=== PATIENT | female | born 1950 | race Caucasian/White ===

== ENCOUNTER 2017-12-19 02:48 | Emergency (ER) | payer OTHER, SELFPAY, MEDICARE ==
[2017-12-19 02:52] VITALS: BP 93/57; PULSE 68; RESP 22; TEMP 36.8; O2SAT 97
--- NOTE | 2017-12-19 03:04 | ED.GENADUL_ITS ---
Disposition Clinical Impression: Low back strain Disposition: HOME Condition: Improving Instructions: Low Back Strain (ED) Additional Instructions: Home to rest. Remove lidocaine patch in 12 hours. May use hydrocodone, as directed if needed for severe pain in 4-6 hours. Continue your regular medications. Return for worsening discomfort, the development of shortness of breath, chest pain, or any other concerns per Medical Decision Making - EKG Data -: EKG Interpreted by Me EKG shows normal: sinus rhythm 12/19/17 03:05 Normal sinus rhythm, in the 60s, first-degree AV block - Radiology Data Radiology results: report reviewed, image reviewed - Medical Decision Making 67-year-old female presents with the gradual onset of low back pain and muscular tenderness on exam. This developed following cardioversion which was performed yesterday. She is well-appearing, afebrile, exam is reassuring. Most likely muscular strain following her cardioversion. Screening EKG and chest x-ray were obtained without evidence of acute finding. Patient's pain improved with lidocaine patch and oral analgesic. She stable and appropriate for outpatient trial. Will offer two additional Vicodin for home. Return precautions discussed. History of Present Illness - General Chief complaint: Nk/Back Pain Stated complaint: BACK PAIN Time Seen by Provider: 12/19/17 02:52 Source: patient, family, RN notes reviewed Mode of arrival: ambulatory Limitations: no limitations - History of Present Illness Initial comments: Back pain: 67-year-old female who underwent unremarkable cardioversion for atrial fibrillation yesterday with 200 J 1. 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 No lower extremity weakness or numbness. No change to urination. She has not fallen or hurt herself. She has otherwise been well. - Related Data Albuterol Sulfate [Ventolin Hfa] 2 puff IH Q4H PRN #120 inhaler 07/13/15 Atorvastatin Calcium 80 mg PO DAILY #90 tab-cap 07/02/16 Nitroglycerin 0.4 mg SL PRN PRN #30 tab-cap 01/28/17 Tiotropium [Spiriva Handihaler] 18 mcg IH once daily #1 inhaler 01/28/17 Clopidogrel [Plavix] 75 mg PO DAILY #90 tab-cap 03/27/17 Acetaminophen [Tylenol] 650 mg PO Q6H PRN #1 tab 09/24/17 Spironolactone 25 mg PO DAILY #90 tab-cap 10/02/17 Metoprolol Succinate 100 mg PO BID 10/14/17 Apixaban [Eliquis] 5 mg PO BID #60 tab 11/22/17 Bumetanide [Bumex] 2 mg PO BID #60 tab 11/22/17 Magnesium Oxide [Leyva] 500 mg PO DAILY #30 tablet 11/22/17 Multivitamin W/Minerals [Theragran-M] 1 tab PO DAILY tab 11/22/17 Pantoprazole [Protonix] 40 mg PO DAILY@0730 #30 tabcr 11/22/17 Potassium Chloride [K-Dur] 20 meq PO DAILY #30 tabcr 11/22/17 Metolazone 2.5 mg PO every 72 hours #30 tab-cap 11/27/17 Allergies Allergy/AdvReac Type Severity Reaction Status Date / Time lisinopril AdvReac Other (See Unverified 12/19/17 02:55 Comment) sacubitril [From Entresto] AdvReac rash Unverified 12/19/17 02:55 valsartan [From Entresto] AdvReac rash Unverified 12/19/17 02:55 Review of Systems Other: 6 systems are reviewed, otherwise negative Past Medical History - Past Medical History Medical history: AMI, arthritis, CAD, CHF, COPD, hyperlipidemia, hypertension Cardiomyopathy, chronic kidney disease Surgical history: angioplasty/stent, appendectomy, cholecystectomy, herniorraphy , hysterectomy, other (Tonsillectomy) Family history: other (CVA) - Social History Alcohol use: none Drug use: none General Exam - General Limitations: no limitations General appearance: alert, in no apparent distress - Head Head exam: Present: atraumatic, normocephalic - Eye Eye exam: Present: PERRL, EOMI - Neck Neck exam: Present: other (Right neck mass) - Respiratory Respiratory exam: Present: normal lung sounds bilaterally. Absent: respiratory distress, chest wall tenderness - Cardiovascular Cardiovascular Exam: Present: regular rate, normal rhythm - GI/Abdominal GI/Abdominal exam: Present: soft. Absent: distended, tenderness - Back Exam Back exam: Present: normal inspection, full ROM, tenderness, paraspinal tenderness, other (Lumbar to lower thoracic paraspinous muscular tenderness on exam. No step-off or deformity. No midline tenderness). Absent: vertebral tenderness - Neurological Exam Neurological exam: Present: alert, oriented X3 - Psychiatric Psychiatric exam: Present: normal affect, normal mood Course Vital Signs - 24 hr 12/19/17 02:52 Temperature 36.8 C Pulse 68 Respiratory 22 Rate Blood Pressure 93/57 Pulse Oximetry 97
--- NOTE | 2017-12-19 03:15 | DI.REPORT_ITS ---
SYMPTOM/DIAGNOSIS: BACK PAIN AFTER CARDIOVERSION. PA AND LATERAL CHEST: Comparison is made with 14 November 2017. The heart is again noted to be enlarged. A pacemaker is present, unchanged. There are mild underlying fibrotic changes. No superimposed acute infiltrate, effusion or pulmonary edema is seen. IMPRESSION: Cardiomegaly. No acute abnormality.
[2017-12-19] MEDS: Ibuprofen 800 MG TAB PO (03:40)
[2017-12-19] MEDS: Lidocaine 5% Patch 1 PATCH TP (03:40)
[2017-12-19] MEDS: HYDROcodone 5/Acetaminophen 325 TAB PO ×2 (04:09→04:27)
--- NOTE | 2017-12-19 04:09 | DI.VRAD_ITS ---
EXAM: XR Chest, 2 Views EXAM DATE/TIME: 12/19/2017 3:02 AM. CLINICAL HISTORY: 67 years old, female; Pain; Other: Back; Prior surgery; Surgery date: 6+ months; Surgery type: Pacemaker; Patient HX: Back pain S/P cardioversion TECHNIQUE: Frontal and lateral views of the chest. COMPARISON: CR - CHEST 2 VIEWS PA,LAT 2017-11-14 11:44 FINDINGS: Lungs: Hyperinflation compatible with COPD Pleural space: Unremarkable. No pneumothorax. Heart: Unremarkable. No cardiomegaly. Mediastinum: Unremarkable. Bones/joints: Unremarkable. Tubes, lines and devices: Pacemaker present overlying left chest IMPRESSION: No acute findings. Dictated and Authenticated by: Dharmesh Bello MD. Ordering:ELENA SCRUGGS MD
[2017-12-19 06:43] VITALS: BP 93/57; PULSE 68; RESP 22; TEMP 36.8; O2SAT 97
== END 2017-12-19 04:30 | disposition home or self-care (01) ==
PROVIDERS: Emergency Provider Emergency Medicine; PCP Family Medicine
DX: S39.012A Strain of muscle, fascia and tendon of lower back, initial encounter (principal); X58.XXXA Exposure to other specified factors, initial encounter; Y84.8 Other medical procedures as the cause of abnormal reaction of the patient, or of later complication, without mention of misadventure at the time of the procedure; I13.0 Hypertensive heart and chronic kidney disease with heart failure and stage 1 through stage 4 chronic kidney disease, or unspecified chronic kidney disease; I50.9 Heart failure, unspecified; N18.9 Chronic kidney disease, unspecified; Z79.01 Long term (current) use of anticoagulants; I48.91 Unspecified atrial fibrillation; J44.9 Chronic obstructive pulmonary disease, unspecified
CPT/HCPCS: 93005; 99283; 71046; 93010

== ENCOUNTER 2017-12-23 07:34 | Inpatient (IN) | payer MEDICARE, OTHER, SELFPAY ==
[2017-12-23] VITALS (40 sets, daily range): BP systolic 91–129; BP diastolic 50–85; PULSE 69–137; RESP 15–37; TEMP 35.8–36.7; O2SAT 93–100
[2017-12-23 07:57] LABS: Bilirubin Negative (Negative); Blood Large (Negative); Clarity Clear; Glucose Negative (Negative); Ketones Negative (Negative); Leukocyte Esterase Negative (Negative); Nitrite Negative (Negative); Specific Gravity <= 1.005 (1.005-1.025); Urobilinogen 0.2 EU/dL (Up TO 0.2); pH 5.5 (5-8)
--- NOTE | 2017-12-23 08:01 | DI.REPORT_ITS ---
SYMPTOM/DIAGNOSIS: WEAKNESS CHEST X-RAY: Frontal and lateral views. Comparison 12/19/17. Heart size is stable. Pacing wires are in stable position. The pulmonary vasculature is within normal limits. The lungs show no infiltrates, effusions or pneumothoraces. Degenerative changes are seen in the spine. IMPRESSION: No acute pulmonary process.
[2017-12-23 08:04] LABS: Bacteria Few HPF (Negative); Crystals Negative HPF (Negative); Epithelial Cells Negative HPF (Negative); Mucus Trace (Negative); Other Cells Negative (Negative); RBC 20-50 (0-2); WBC 0-2 HPF (0-5)
[2017-12-23 08:05] LABS: C & S Indicated? No; Casts Negative LPF (Negative)
[2017-12-23 08:27] LABS: Abs Immature Grans 0.02 k/cumm (0.0-0.09); Absolute Basophil Count 0.02 k/cumm (0.0-0.2); Absolute Lymphocyte Count 0.54 k/cumm (1.2-3.4); Absolute Monocyte Count 1.07 k/cumm (0.11-0.7); Absolute Neutrophil Count 14.78 k/cumm (1.2-6.7); Basophils % 0.1; HCT 30.1 % (36.0-46.0); HGB 9.7 g/dL (12.0-15.5); Immature Grans % 0.1; Lymphocytes % 3.3; Mean Corp. HGB Concentration 32.2 g/dL (32.0-36.0); Mean Corpuscular Hemoglobin 25.9 pg (27.0-33.0); Mean Corpuscular Volume 80.3 fL (80-95); Mean Platelet Volume 9.5 fL (8.0-11.0); Monocytes % 6.5; Platelet Count 385 x1000/uL (130-400); RBC 3.75 m/cumm (4.00-5.20); RBC Distribution Width 18.7 % (11.7-14.6); White Blood Cell Count 16.42 k/cumm (4.4-10.8)
[2017-12-23 08:39] LABS: Anisocytosis 2+; Diff Comment RBC Morph Reviewed
--- NOTE | 2017-12-23 08:39 | ED.GENADUL ---
Disposition Clinical Impression: Hyponatremia, Weakness Disposition: [facility] INPATIENT Medical Decision Making - Lab Data Laboratory Tests 12/23/17 07:45 Urine Color Yellow Urine Clarity Clear Urine pH 5.5 Ur Specific [place] <= 1.005 Urine Protein Negative Urine Ketones Negative Urine Blood Large H Urine Nitrite Negative Urine Bilirubin Negative Urine Urobilinogen 0.2 Ur Leukocyte Esterase Negative Urine RBC 20-50 H Urine WBC 0-2 Ur Epithelial Cells Negative Urine Crystals Negative Urine Bacteria Few Urine Casts Negative Urine Mucus Trace Urine Other Negative Ur Culture Indicated? No Urine Glucose Negative Results reviewed for labs ordered during visit: Yes 12/23/17 11:26 EKG shows normal sinus rhythm with first-degree AV block with frequent PVCs, left bundle branch block, normal axis, no acute ischemic changes, no STEMI, nondiagnostic EKG - Radiology Data Chest x-ray visualized and interpreted by myself in conjunction with radiology: No acute process - Medical Decision Making Zora Villanueva is a 67-year-old woman with history of coronary artery disease, atrial fibrillation on Eliquis, CHF, hypertension, chronic kidney disease presenting to the emergency department with generalized weakness since waking at 1 AM this morning to use the bathroom. On exam patient is nontoxic appearing with dry mucous membranes. She has a benign cardiopulmonary exam. Nonfocal neuro exam. Concern for ACS versus metabolic/slight disturbance versus infection versus other. Plan for EKG, chest x-ray, screening labs, IV, telemetry. Will monitor and reassess. EKG unchanged from prior. Chest x-ray okay. Labs show leukocytosis, BNP 11,000, elevated BUN, elevated creatinine mildly increased from baseline, hyponatremia at 125. Patient is afebrile, no apparent source of infection, unclear cause of leukocytosis. Will hold antibiotics. Plan for IV normal saline at 150 cc/h, will hold at 2 hours for reassessment. Plan for admission. History of Present Illness - General Chief complaint: GenMedical Stated complaint: SINDHU Time Seen by Provider: 12/23/17 08:01 Source: patient, RN notes reviewed Mode of arrival: EMS Limitations: no limitations - History of Present Illness Initial comments: Zora Villanueva is a 67 y/o woman with history of coronary artery disease status post cardiac arrest 07/07, atrial fibrillation on Eliquis, chronic kidney disease, COPD, CHF with ejection fraction 20% presenting to the emergency department with generalized weakness. Patient reports that she has been feeling in her usual state of health. Had a normal day yesterday. She reports that she woke up in the middle the night to urinate and could not stand secondary to feeling her legs are weak. She was not able to make it to the toilet because of this. Patient called EMS this morning because she continues to feel too weak to stand. Patient denies having any pain, no fever, no shortness of breath, no vomiting, no diarrhea. Has been sleeping flat with one pillow as per usual. She is fluid restricted to 1500 cc per day, which she has been adhering to. Has been eating and drinking normally for her. No recent travel. - Related Data Albuterol Sulfate [Ventolin Hfa] 2 puff IH Q4H PRN #120 inhaler 07/13/15 Atorvastatin Calcium 80 mg PO DAILY #90 tab-cap 07/02/16 Nitroglycerin 0.4 mg SL PRN PRN #30 tab-cap 01/28/17 Tiotropium [Spiriva Handihaler] 18 mcg IH once daily #1 inhaler 01/28/17 Clopidogrel [Plavix] 75 mg PO DAILY #90 tab-cap 03/27/17 Acetaminophen [Tylenol] 650 mg PO Q6H PRN #1 tab 09/24/17 Spironolactone 25 mg PO DAILY #90 tab-cap 10/02/17 Metoprolol Succinate 100 mg PO BID 10/14/17 Apixaban [Eliquis] 5 mg PO BID #60 tab 11/22/17 Bumetanide [Bumex] 2 mg PO BID #60 tab 11/22/17 Magnesium Oxide [Leyva] 500 mg PO DAILY #30 tablet 11/22/17 Multivitamin W/Minerals [Theragran-M] 1 tab PO DAILY tab 11/22/17 Pantoprazole [Protonix] 40 mg PO DAILY@0730 #30 tabcr 11/22/17 Potassium Chloride [K-Dur] 20 meq PO DAILY #30 tabcr 11/22/17 Metolazone 2.5 mg PO every 72 hours #30 tab-cap 11/27/17 Allergies Allergy/AdvReac Type Severity Reaction Status Date / Time lisinopril AdvReac Other (See Unverified 12/23/17 09:43 Comment) sacubitril [From Entresto] AdvReac rash Unverified 12/23/17 09:43 valsartan [From Entresto] AdvReac rash Unverified 12/23/17 09:43 Review of Systems Constitutional: denies: fever Eyes: denies: eye pain ENT: denies: ear pain, throat pain, dental pain Respiratory: denies: cough, shortness of breath Cardiovascular: denies: chest pain, palpitations, orthopnea Endocrine: denies: increased hunger, increased thirst Gastrointestinal: denies: abdominal pain, nausea, vomiting, diarrhea Genitourinary: frequency. denies: dysuria Musculoskeletal: denies: back pain, arthralgia, myalgia Skin: denies: rash Neurological: weakness (Generalized). denies: headache, numbness, paresthesias Past Medical History - Past Medical History Medical history: AMI, arthritis, CAD, CHF, COPD, hyperlipidemia, hypertension Cardiomyopathy, chronic kidney disease Surgical history: angioplasty/stent, appendectomy, cholecystectomy, herniorraphy, hysterectomy, other (Tonsillectomy) Family history: other (CVA) - Social History Alcohol use: none Drug use: none General Exam - General Limitations: no limitations General appearance: alert, in no apparent distress, other (Pleasant, conversing normally, nontoxic appearing) - Head Head exam: Present: atraumatic, normocephalic, normal inspection - Eye Eye exam: Absent: scleral icterus, conjunctival injection Pupils: Absent: irregular, unequal, miosis, mydriatic - ENT ENT exam: Present: mucous membranes dry - Neck Neck exam: Present: normal inspection - Respiratory Respiratory exam: Present: normal lung sounds bilaterally. Absent: respiratory distress - Cardiovascular Cardiovascular Exam: Present: regular rate, normal rhythm, normal heart sounds (Somewhat distant heart sounds, no murmur appreciated) - GI/Abdominal GI/Abdominal exam: Present: soft. Absent: distended, tenderness - Extremities Exam Extremities exam: Present: normal inspection, pedal edema (+1 pitting edema bilaterally, patient reports is baseline for her). Absent: calf tenderness - Back Exam Back exam: Present: normal inspection. Absent: rash noted - Neurological Exam Neurological exam: Present: alert, CN II-XII intact, other (Normal tone. Needs assistance to use commode secondary to generalized weakness. ). Absent: altered, motor sensory deficit (Motor 5 out of 5 bilateral upper and lower extremities) - Psychiatric Psychiatric exam: Present: normal affect, normal mood - Skin Skin exam: Present: warm, dry, intact, normal color. Absent: rash Course Vital Signs - 24 hr 12/23/17 07:48 Temperature 36.5 C Pulse 83 Respiratory 18 Rate Blood Pressure 105/58 Pulse Oximetry 98
[2017-12-23 08:40] LABS: Hypochromasia 1+; Poikilocytes 1+
[2017-12-23 08:48] LABS: ALT 28 U/L (12-78); AST 24 U/L (15-37); Albumin 2.5 g/dL (3.4-5.0); Alkaline Phosphatase 235 U/L (46-116); Anion Gap 8.3 mmol/L (3-11); Bilirubin, Total 0.9 mg/dL (0.2-1.0); CO2 29.7 mmol/L (21.0-32.0); CREATININE 2.87 mg/dL (0.55-1.02); Calcium 9.2 mg/dL (8.5-10.1); Chloride 87 mmol/L (98-107); Estimated GFR 16.38 (mL/min/1.73m2); Glucose 118 mg/dL (70-100); NT-proBNP 11015 pg/mL; Potassium 4.2 mmol/L (3.5-5.1); Sodium 125 mmol/L (136-145); TSH (W/Ref FT4) 2.16 uIU/mL (0.358-3.74); Total Protein 7.7 g/dL (6.4-8.2)
[2017-12-23 08:50] LABS: BUN 90 mg/dL (7-18); Troponin I < 0.02 ng/mL (0.00-0.06)
[2017-12-23] MEDS: Normal Saline 1,000 ML 150 ML IV (09:54)
[2017-12-23 10:13] LABS: INR 1.3 (1.0-3.5); PTT Activated 32.1 sec (21.0-31.4); Prothrombin Time 12.3 sec (9.3-10.8)
[2017-12-23 13:15] LABS: Troponin I < 0.02 ng/mL (0.00-0.06)
--- NOTE | 2017-12-23 13:48 | PDOC.HP ---
Date of Service: 12/23/17 Time of Service: 13:48 Assessment/Plan - Assessment/Plan (1) Dehydration Plan: Patient's received small judicious dose of IV fluids. I discontinued her IV fluids but will withhold her diuretics for 24 hours and repeat her BMP. (2) Generalized muscle weakness Plan: We will ask physical therapy to evaluate her strength and gait and balance. She is able to perform her ADLs independently and ambulate independently she can be discharged home tomorrow (3) Chronic hyponatremia Plan: We will withhold her metolazone and spironolactone and Bumex for today. Repeat her labs tomorrow. She indicated to me that she is only taken 1 dose of metolazone since she saw Anna Marie Nuñez in the cardiology clinic on December 03, 2017. Therefore I do not think the metolazone was contributing significantly to her current electrolyte abnormalities. Her spironolactone may need to be reduced every other day (4) Chronic kidney disease, stage III (moderate) Assessment: Slight worsening of her renal function as evidenced by rising BUN and creatinine Plan: Withhold diuretics as outlined above repeat labs in the morning. If improving we will need to decide on dosing and frequency of her Bumex and her spironolactone. I would withhold the metolazone for now History of Present Illness - History of Present Illness Chief Complaint: Generalized weakness and inability to ambulate, hyponatremia History of Present Illness: 67-year-old female with a history of ischemic cardiomyopathy with previous ST elevation MO complicated by cardiogenic shock in April 2014 resulting in PCI of her LAD and first diagonal with subsequent depressed LVEF of 35% who declined an ICD placement at that time. She subsequently re-presented to the hospital June 2017 with out of hospital cardiac arrest, V. tach/V. fib and was resuscitated and after hypothermic and drug-induced coma underwent cardiac catheterization that showed no in-stent restenosis and no new obstructive disease. She underwent having an ICD placement at [facility]. She subsequently has been treated for atrial fibrillation and a repeat transthoracic echocardiogram demonstrates an LVEF of 15-20%. Patient is been adherent to a 1500 mL fluid restriction and low-sodium diet. She is also on multiple diuretics including spironolactone 25 mg daily and Bumex 2 mg twice a day and last month was on metolazone 2.5 mg every 72 hours. She now presents emergency department with acute generalized muscle weakness and inability to ambulate under her own power. She states she try to get to the bathroom this morning and fell and was incontinent of urine. She has had no other focal signs or symptoms of a CVA such as dysarthric speech or facial asymmetry or acute visual changes and no focal paralysis. Patient denies any chest pain or pressure or shortness of breath. She was evaluated emergency room by Dr. Joana Womack who performed an EKG as well as a chest x-ray and routine labs. 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 Labs were remarkable for elevated BUN of 19 creatinine 2.87. She has known chronic renal insufficiency with a baseline creatinine of between 2.5 and 3. Her BUN of 90 is slightly elevated over her baseline BUN of 50-70. Serum sodium is depressed and 125 which is not significantly out of her baseline level which runs between 125-130. 2 troponins were obtained both less than 0.02. TSH was normal at 2.16. ProBNP is elevated at 11,000 which is about her baseline which tends to run from 10,000-14,000. Patient was started on normal saline at 150 mL an hour by the emergency room attending. Patient's received a total of 300 mL of normal saline we have since stopped her IV fluids. Patient is admitted on observation overnight for evaluation by physical therapy to assess her gait strength and ADL performance. We will withhold her diuretics overnight and monitor her electrolytes and BUN and creatinine - Past Medical History Cardiac: AFIB (Paroxysmal chronically anticoagulated with apixaban), CAD (ST elevation MO in April 2014 resulting in cardiogenic shock with subsequent cardiac catheterization and PCI with stents to her LAD and first diagonal branch. Subsequent cardiac catheterization in June 2017 after V. tach/V. fib cardiac arrest demonstrated no new obstructive disease and no in-stent restenosis), CHF (Ischemic cardiomyopathy LVEF of 35% after her ST elevation MO in April 2014. Subsequent evaluation with transthoracic echocardiogram in June 2017 demonstrated LVEF of 15-20%, patient has an ICD), MO (ST elevation MO in April 2014 complicated by cardiogenic shock. Treated with coronary stent to her LAD and first diagonal branch. LVEF 35% that time. Patient declined an ICD.), Hyperlipidemia, Other (Ventricular tachycardia/ventricular fibrillation secondary to ischemic cardiomyopathy resulting cardiac arrest out of hospital treated with hypothermic cooling and drug-induced coma and subsequently receiving ICD implant at [facility]. 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 Gallardo at [facility]) Renal/: Chronic renal insuff (Baseline creatinine of 1.8-2.5 and as high as 3.24, baseline BUN of 52 was high as 90), Other (Kidney stones, urinary incontinence) Endocrine: Other (Impaired glucose tolerance) - Past Social History Smoke: Quit (Quit smoking 2013 after myocardial infarction) Alcohol: None Drugs: None Review of Systems - Medications/Allergies Allergies/Adverse Reactions: Allergies Allergy/AdvReac Type Severity Reaction Status Date / Time lisinopril AdvReac Other (See Unverified 12/23/17 09:43 Comment) sacubitril [From Entresto] AdvReac rash Unverified 12/23/17 09:43 valsartan [From Entresto] AdvReac rash Unverified 12/23/17 09:43 Medications: Current Medications Acetaminophen (Tylenol) 650 mg PO Q6H PRN PRN Al Hydrox/Mg Hydrox/Simethicone (Mylanta Liquid) 30 ml PO Q2H PRN PRN Albuterol Sulfate (Ventolin Hfa) 2 puff IH Q4H PRN [facility] Apixaban (Eliquis) 5 mg PO BID [facility] Clopidogrel Bisulfate (Plavix) 75 mg PO DAILY [facility] Dimethicone/Zinc Oxide (Sarah Protect Cream) 0 gm TP PRN PRN Docusate Sodium (Colace) 100 mg PO TID PRN PRN Sodium Chloride (Saline 1000ml Bag) 1,000 mls @ 150 mls/hr IV INFUSION YOSVANY Last Admin: 12/23/17 09:54 Dose: 150 mls/hr IV Miscellaneous Supplies () 1 each IV DIRECTED YOS[facility]ANY Iron/Minerals/Multivitamins (Theragran-M) 1 tab PO DAILY [facility] Magnesium Hydroxide (Milk Of Magnesia) 30 ml PO DAILY PRN PRN Metoprolol Succinate (Toprol Xl) 100 mg PO DAILY [facility] Nitroglycerin (Nitrostat) 0.4 mg SL Q5 MIN PRN X3 PRN Non-Formulary Medication (Atorvastatin Calcium [Atorvastatin Calcium]) 80 mg PO DAILY [facility] Non-Formulary Medication (Magnesium Oxide [Leyva]) 500 mg PO DAILY [facility] Non-Formulary Medication (Tiotropium) 18 mcg IH once daily [facility] Pantoprazole Sodium (Protonix) 40 mg PO DAILY@0730 [facility] Polyethylene Glycol (Miralax) 17 gm PO DAILY PRN PRN PRN Reason: Constipation Sodium Chloride (Saline Flush 10 Ml Syringe) 0 ml IVP PRN PRN Active Medications Generic Name Dose Route Start Last Admin Trade Name Freq PRN Reason Stop Dose Admin Acetaminophen 650 mg 12/23/17 13:45 12/23/17 14:10 Tylenol PO 650 mg Q6H PRN PRN Administration Al Hydrox/Mg Hydrox/Simethicone 30 ml 12/23/17 13:43 Mylanta Liquid PO Q2H PRN PRN Albuterol Sulfate 2 puff 12/23/17 13:45 Ventolin Hfa IH Q4H PRN PRN Apixaban 5 mg 12/23/17 20:00 Eliquis PO BID [facility] Atorvastatin Calcium 80 mg 12/24/17 08:30 Lipitor PO DAILY [facility] Clopidogrel Bisulfate 75 mg 12/24/17 08:30 Plavix PO DAILY [facility] Dimethicone/Zinc Oxide 0 gm 12/23/17 13:43 Sarah Protect Cream TP PRN PRN Docusate Sodium 100 mg 12/23/17 13:43 Colace PO TID PRN PRN IV Miscellaneous Supplies 1 each 12/23/17 10:15 IV DIRECTED [facility] Iron/Minerals/Multivitamins 1 tab 12/24/17 08:30 Theragran-M PO DAILY [facility] Magnesium Hydroxide 30 ml 12/23/17 13:43 Milk Of Magnesia PO DAILY PRN PRN Magnesium Oxide 400 mg 12/24/17 08:30 Mag-Ox 400 PO DAILY [facility] Metoprolol Succinate 100 mg 12/24/17 08:30 Toprol Xl PO DAILY [facility] Nitroglycerin 0.4 mg 12/23/17 13:45 Nitrostat SL Q5 MIN PRN X3 PRN Pantoprazole Sodium 40 mg 12/24/17 07:30 Protonix PO DAILY@0730 [facility] Polyethylene Glycol 17 gm 12/23/17 13:43 Miralax PO DAILY PRN PRN Constipation Sodium Chloride 0 ml 12/23/17 10:14 Saline Flush 10 Ml Syringe IVP PRN PRN Tiotropium [place] 1 cap 12/24/17 08:30 Spiriva Handihaler IH DAILY [facility] Albuterol Sulfate [Ventolin Hfa] 2 puff IH Q4H PRN #120 inhaler 07/13/15 Atorvastatin Calcium 80 mg PO DAILY #90 tab-cap 07/02/16 Nitroglycerin 0.4 mg SL PRN PRN #30 tab-cap 01/28/17 Tiotropium [Spiriva Handihaler] 18 mcg IH once daily #1 inhaler 01/28/17 Clopidogrel [Plavix] 75 mg PO DAILY #90 tab-cap 03/27/17 Acetaminophen [Tylenol] 650 mg PO Q6H PRN #1 tab 09/24/17 Spironolactone 25 mg PO DAILY #90 tab-cap 10/02/17 Metoprolol Succinate 100 mg PO BID 10/14/17 Apixaban [Eliquis] 5 mg PO BID #60 tab 11/22/17 Bumetanide [Bumex] 2 mg PO BID #60 tab 11/22/17 Magnesium Oxide [Leyva] 500 mg PO DAILY #30 tablet 11/22/17 Multivitamin W/Minerals [Theragran-M] 1 tab PO DAILY tab 11/22/17 Pantoprazole [Protonix] 40 mg PO DAILY@0730 #30 tabcr 11/22/17 Potassium Chloride [K-Dur] 20 meq PO DAILY #30 tabcr 11/22/17 Metolazone 2.5 mg PO every 72 hours #30 tab-cap 11/27/17 Note she only took the metolazone once last December 20 Objective - Exam Vitals and I&O: Vital Signs Temp 35.8 C L 12/23/17 12:18 Pulse 70 12/23/17 12:18 Resp 20 12/23/17 12:18 BP 129/72 12/23/17 12:18 Pulse Ox 98 12/23/17 12:18 Intake & Output 12/22/17 12/23/17 12/23/17 23:59 11:59 23:59 Output Total 800 Balance -800 Weight 107.4 kg Output: Urine 800 General: Alert, Oriented x3, Cooperative, No acute distress HEENT: Atraumatic, PERRLA, EOMI Neck: JVD, +2 carotid pulse wo bruit Lungs: Clear to auscultation, Normal air movement Cardiovascular: Regular rate, Murmurs Abdomen: Normal bowel sounds, Soft. denies: Tenderness Extremities: denies: Cyanosis, Edema, Tenderness/swelling Skin: denies: Rashes Neurological: Normal speech, Strength at 5/5 X4 ext, Normal tone, Sensation intact Psych/Mental Status: Mental status NL, Mood NL Results - Laboratory Data Result Diagrams: 12/23/17 08:18 12/23/17 08:18 Laboratory Results: Laboratory Tests 12/23/17 12/23/17 12/23/17 07:45 08:18 08:18 WBC 16.42 H RBC 3.75 L Hgb 9.7 L Hct 30.1 L MCV 80.3 MCH 25.9 L MCHC 32.2 RDW 18.7 H Plt Count 385 D MPV 9.5 Immature Gran % 0.1 Neutrophils % 90.0 Lymphocytes % 3.3 Monocytes % 6.5 Eosinophils % 0.0 Basophils % 0.1 Absolute Neutrophils 14.78 H Absolute Lymphocytes 0.54 L Absolute Monocytes 1.07 H Absolute Eosinophils 0.00 Absolute Basophils 0.02 Differential Comment Rbc morph reviewed RBC Morphology See below Hypochromasia 1+ Poikilocytosis 1+ Anisocytosis 2+ PT INR APTT Sodium 125 L Potassium 4.2 Chloride 87 L Carbon Dioxide 29.7 Anion Gap 8.3 BUN 90 H* Creatinine 2.87 H Estimated GFR/1.73 m2 16.38 Glucose 118 H Calcium 9.2 Total Bilirubin 0.9 AST 24 ALT 28 Alkaline Phosphatase 235 H Troponin I < 0.02 NT-Pro-B Natriuret Pep 68735 H Total Protein 7.7 Albumin 2.5 L TSH 2.16 Urine Color Yellow Urine Clarity Clear Urine pH 5.5 Ur Specific [place] <= 1.005 Urine Protein Negative Urine Ketones Negative Urine Blood Large H Urine Nitrite Negative Urine Bilirubin Negative Urine Urobilinogen 0.2 Ur Leukocyte Esterase Negative Urine RBC 20-50 H Urine WBC 0-2 Ur Epithelial Cells Negative Urine Crystals Negative Urine Bacteria Few Urine Casts Negative Urine Mucus Trace Urine Other Negative Ur Culture Indicated? No Urine Glucose Negative 12/23/17 09:52 WBC RBC Hgb Hct MCV MCH MCHC RDW Plt Count MPV Immature Gran % Neutrophils % Lymphocytes % Monocytes % Eosinophils % Basophils % Absolute Neutrophils Absolute Lymphocytes Absolute Monocytes Absolute Eosinophils Absolute Basophils Differential Comment RBC Morphology Hypochromasia Poikilocytosis Anisocytosis PT 12.3 H INR 1.3 APTT 32.1 H Sodium Potassium Chloride Carbon Dioxide Anion Gap BUN Creatinine Estimated GFR/1.73 m2 Glucose Calcium Total Bilirubin AST ALT Alkaline Phosphatase Troponin I NT-Pro-B Natriuret Pep Total Protein Albumin TSH Urine Color Urine Clarity Urine pH Ur Specific [place] Urine Protein Urine Ketones Urine Blood Urine Nitrite Urine Bilirubin Urine Urobilinogen Ur Leukocyte Esterase Urine RBC Urine WBC Ur Epithelial Cells Urine Crystals Urine Bacteria Urine Casts Urine Mucus Urine Other Ur Culture Indicated? Urine Glucose - Imaging Studies Imaging Studies: PA lateral chest x-ray dated December 23, 2017 showed no acute pulmonary process. She has stable cardiomegaly. She has pacing wires that are in stable position compared to prior chest x-ray from December 19, 2017. She has no pleural effusions or infiltrates pulmonary vasculature is within normal limits. ECG demonstrates normal sinus rhythm rate of 84 bpm with first-degree AV block. She also has an incomplete left bundle branch block as well as poor R-wave progression across the precordial leads suspicious for an old anterior infarct. She has inverted T waves in 1 aVL which are unchanged from prior ECGs
[2017-12-23] MEDS: Acetaminophen 325 MG TAB 650 MG PO ×2 (14:10→19:36)
--- NOTE | 2017-12-23 14:12 | PDOC.HP_ITS ---
Date of Service: 12/23/17 Time of Service: 13:48 Assessment/Plan - Assessment/Plan (1) Dehydration Plan: Patient's received small judicious dose of IV fluids. I discontinued her IV fluids but will withhold her diuretics for 24 hours and repeat her BMP. (2) Generalized muscle weakness Plan: We will ask physical therapy to evaluate her strength and gait and balance. She is able to perform her ADLs independently and ambulate independently she can be discharged home tomorrow (3) Chronic hyponatremia Plan: We will withhold her metolazone and spironolactone and Bumex for today. Repeat her labs tomorrow. She indicated to me that she is only taken 1 dose of metolazone since she saw Anna Marie Nuñez in the cardiology clinic on December 03, 2017. Therefore I do not think the metolazone was contributing significantly to her current electrolyte abnormalities. Her spironolactone may need to be reduced every other day (4) Chronic kidney disease, stage III (moderate) Assessment: Slight worsening of her renal function as evidenced by rising BUN and creatinine Plan: Withhold diuretics as outlined above repeat labs in the morning. If improving we will need to decide on dosing and frequency of her Bumex and her spironolactone. I would withhold the metolazone for now History of Present Illness - History of Present Illness Chief Complaint: Generalized weakness and inability to ambulate, hyponatremia History of Present Illness: 67-year-old female with a history of ischemic cardiomyopathy with previous ST elevation FL complicated by cardiogenic shock in April 2014 resulting in PCI of her LAD and first diagonal with subsequent depressed LVEF of 35% who declined an ICD placement at that time. She subsequently re- presented to the hospital June 2017 with out of hospital cardiac arrest, V. tach/V. fib and was resuscitated and after hypothermic and drug-induced coma underwent cardiac catheterization that showed no in-stent restenosis and no new obstructive disease. She underwent having an ICD placement at [facility]. She subsequently has been treated for atrial fibrillation and a repeat transthoracic echocardiogram demonstrates an LVEF of 15-20%. Patient is been adherent to a 1500 mL fluid restriction and low-sodium diet. She is also on multiple diuretics including spironolactone 25 mg daily and Bumex 2 mg twice a day and last month was on metolazone 2.5 mg every 72 hours. She now presents emergency department with acute generalized muscle weakness and inability to ambulate under her own power. She states she try to get to the bathroom this morning and fell and was incontinent of urine. She has had no other focal signs or symptoms of a CVA such as dysarthric speech or facial asymmetry or acute visual changes and no focal paralysis. Patient denies any chest pain or pressure or shortness of breath. She was evaluated emergency room by Dr. Joana Womack who performed an EKG as well as a chest x-ray and routine labs. 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 Labs were remarkable for elevated BUN of 19 creatinine 2.87. She has known chronic renal insufficiency with a baseline creatinine of between 2.5 and 3. Her BUN of 90 is slightly elevated over her baseline BUN of 50-70. Serum sodium is depressed and 125 which is not significantly out of her baseline level which runs between 125-130. 2 troponins were obtained both less than 0.02. TSH was normal at 2.16. ProBNP is elevated at 11,000 which is about her baseline which tends to run from 10,000 -14,000. Patient was started on normal saline at 150 mL an hour by the emergency room attending. Patient's received a total of 300 mL of normal saline we have since stopped her IV fluids. Patient is admitted on observation overnight for evaluation by physical therapy to assess her gait strength and ADL performance. We will withhold her diuretics overnight and monitor her electrolytes and BUN and creatinine - Past Medical History Cardiac: AFIB (Paroxysmal chronically anticoagulated with apixaban), CAD (ST elevation FL in April 2014 resulting in cardiogenic shock with subsequent cardiac catheterization and PCI with stents to her LAD and first diagonal branch. Subsequent cardiac catheterization in June 2017 after V. tach/V. fib cardiac arrest demonstrated no new obstructive disease and no in-stent restenosis), CHF (Ischemic cardiomyopathy LVEF of 35% after her ST elevation FL in April 2014. Subsequent evaluation with transthoracic echocardiogram in June 2017 demonstrated LVEF of 15-20%, patient has an ICD), FL (ST elevation FL in April 2014 complicated by cardiogenic shock. Treated with coronary stent to her LAD and first diagonal branch. LVEF 35% that time. Patient declined an ICD.), Hyperlipidemia, Other (Ventricular tachycardia/ ventricular fibrillation secondary to ischemic cardiomyopathy resulting cardiac arrest out of hospital treated with hypothermic cooling and drug-induced coma and subsequently receiving ICD implant at [facility]. 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 Gallardo at [facility]) Renal/: Chronic renal insuff (Baseline creatinine of 1.8-2.5 and as high as 3.24, baseline BUN of 52 was high as 90), Other (Kidney stones, urinary incontinence) Endocrine: Other (Impaired glucose tolerance) - Past Social History Smoke: Quit (Quit smoking 2013 after myocardial infarction) Alcohol: None Drugs: None Review of Systems - Medications/Allergies Allergies/Adverse Reactions: Allergies Allergy/AdvReac Type Severity Reaction Status Date / Time lisinopril AdvReac Other (See Unverified 12/23/17 09:43 Comment) sacubitril [From Entresto] AdvReac rash Unverified 12/23/17 09:43 valsartan [From Entresto] AdvReac rash Unverified 12/23/17 09:43 Medications: Current Medications Acetaminophen (Tylenol) 650 mg PO Q6H PRN PRN Al Hydrox/Mg Hydrox/Simethicone (Mylanta Liquid) 30 ml PO Q2H PRN PRN Albuterol Sulfate (Ventolin Hfa) 2 puff IH Q4H PRN YOSVANY Apixaban (Eliquis) 5 mg PO BID YOSVANY Clopidogrel Bisulfate (Plavix) 75 mg PO DAILY YOSVANY Dimethicone/Zinc Oxide (Sarah Protect Cream) 0 gm TP PRN PRN Docusate Sodium (Colace) 100 mg PO TID PRN PRN Sodium Chloride (Saline 1000ml Bag) 1,000 mls @ 150 mls/hr IV INFUSION YOSVANY Last Admin: 12/23/17 09:54 Dose: 150 mls/hr IV Miscellaneous Supplies () 1 each IV DIRECTED YOSVANY Iron/Minerals/Multivitamins (Theragran-M) 1 tab PO DAILY YOSVANY Magnesium Hydroxide (Milk Of Magnesia) 30 ml PO DAILY PRN PRN Metoprolol Succinate (Toprol Xl) 100 mg PO DAILY YOSVANY Nitroglycerin (Nitrostat) 0.4 mg SL Q5 MIN PRN X3 PRN Non-Formulary Medication (Atorvastatin Calcium [Atorvastatin Calcium]) 80 mg PO DAILY [facility] Non-Formulary Medication (Magnesium Oxide [Leyva]) 500 mg PO DAILY [facility] Non-Formulary Medication (Tiotropium) 18 mcg IH once daily [facility] Pantoprazole Sodium (Protonix) 40 mg PO DAILY@0730 [facility] Polyethylene Glycol (Miralax) 17 gm PO DAILY PRN PRN PRN Reason: Constipation Sodium Chloride (Saline Flush 10 Ml Syringe) 0 ml IVP PRN PRN Active Medications Generic Name Dose Route Start Last Admin Trade Name Freq PRN Reason Stop Dose Admin Acetaminophen 650 mg 12/23/17 13:45 12/23/17 14:10 Tylenol PO 650 mg Q6H PRN PRN Administration Al Hydrox/Mg Hydrox/Simethicone 30 ml 12/23/17 13:43 Mylanta Liquid PO Q2H PRN PRN Albuterol Sulfate 2 puff 12/23/17 13:45 Ventolin Hfa IH Q4H PRN PRN Apixaban 5 mg 12/23/17 20:00 Eliquis PO BID [facility] Atorvastatin Calcium 80 mg 12/24/17 08:30 Lipitor PO DAILY [facility] Clopidogrel Bisulfate 75 mg 12/24/17 08:30 Plavix PO DAILY [facility] Dimethicone/Zinc Oxide 0 gm 12/23/17 13:43 Sarah Protect Cream TP PRN PRN Docusate Sodium 100 mg 12/23/17 13:43 Colace PO TID PRN PRN IV Miscellaneous Supplies 1 each 12/23/17 10:15 IV DIRECTED [facility] Iron/Minerals/Multivitamins 1 tab 12/24/17 08:30 Theragran-M PO DAILY [facility] Magnesium Hydroxide 30 ml 12/23/17 13:43 Milk Of Magnesia PO DAILY PRN PRN Magnesium Oxide 400 mg 12/24/17 08:30 Mag-Ox 400 PO DAILY [facility] Metoprolol Succinate 100 mg 12/24/17 08:30 Toprol Xl PO DAILY [facility] Nitroglycerin 0.4 mg 12/23/17 13:45 Nitrostat SL Q5 MIN PRN X3 PRN Pantoprazole Sodium 40 mg 12/24/17 07:30 Protonix PO DAILY@0730 [facility] Polyethylene Glycol 17 gm 12/23/17 13:43 Miralax PO DAILY PRN PRN Constipation Sodium Chloride 0 ml 12/23/17 10:14 Saline Flush 10 Ml Syringe IVP PRN PRN Tiotropium Hawley 1 cap 12/24/17 08:30 Spiriva Handihaler IH DAILY YOSVANY Albuterol Sulfate [Ventolin Hfa] 2 puff IH Q4H PRN #120 inhaler 07/13/15 Atorvastatin Calcium 80 mg PO DAILY #90 tab-cap 07/02/16 Nitroglycerin 0.4 mg SL PRN PRN #30 tab-cap 01/28/17 Tiotropium [Spiriva Handihaler] 18 mcg IH once daily #1 inhaler 01/28/17 Clopidogrel [Plavix] 75 mg PO DAILY #90 tab-cap 03/27/17 Acetaminophen [Tylenol] 650 mg PO Q6H PRN #1 tab 09/24/17 Spironolactone 25 mg PO DAILY #90 tab-cap 10/02/17 Metoprolol Succinate 100 mg PO BID 10/14/17 Apixaban [Eliquis] 5 mg PO BID #60 tab 11/22/17 Bumetanide [Bumex] 2 mg PO BID #60 tab 11/22/17 Magnesium Oxide [Leyva] 500 mg PO DAILY #30 tablet 11/22/17 Multivitamin W/Minerals [Theragran-M] 1 tab PO DAILY tab 11/22/17 Pantoprazole [Protonix] 40 mg PO DAILY@0730 #30 tabcr 11/22/17 Potassium Chloride [K-Dur] 20 meq PO DAILY #30 tabcr 11/22/17 Metolazone 2.5 mg PO every 72 hours #30 tab-cap 11/27/17 Note she only took the metolazone once last December 20 Objective - Exam Vitals and I&O: Vital Signs Temp 35.8 C L 12/23/17 12:18 Pulse 70 12/23/17 12:18 Resp 20 12/23/17 12:18 BP 129/72 12/23/17 12:18 Pulse Ox 98 12/23/17 12:18 Intake & Output 12/22/17 12/23/17 12/23/17 23:59 11:59 23:59 Output Total 800 Balance -800 Weight 107.4 kg Output: Urine 800 General: Alert, Oriented x3, Cooperative, No acute distress HEENT: Atraumatic, PERRLA, EOMI Neck: JVD, +2 carotid pulse wo bruit Lungs: Clear to auscultation, Normal air movement Cardiovascular: Regular rate, Murmurs Abdomen: Normal bowel sounds, Soft. denies: Tenderness Extremities: denies: Cyanosis, Edema, Tenderness/swelling Skin: denies: Rashes Neurological: Normal speech, Strength at 5/5 X4 ext, Normal tone, Sensation intact Psych/Mental Status: Mental status NL, Mood NL Results - Laboratory Data Result Diagrams: 12/23/17 08:18 12/23/17 08:18 Laboratory Results: Laboratory Tests 12/23/17 12/23/17 12/23/17 07:45 08:18 08:18 WBC 16.42 H RBC 3.75 L Hgb 9.7 L Hct 30.1 L MCV 80.3 MCH 25.9 L MCHC 32.2 RDW 18.7 H Plt Count 385 D MPV 9.5 Immature Gran % 0.1 Neutrophils % 90.0 Lymphocytes % 3.3 Monocytes % 6.5 Eosinophils % 0.0 Basophils % 0.1 Absolute Neutrophils 14.78 H Absolute Lymphocytes 0.54 L Absolute Monocytes 1.07 H Absolute Eosinophils 0.00 Absolute Basophils 0.02 Differential Comment Rbc morph reviewed RBC Morphology See below Hypochromasia 1+ Poikilocytosis 1+ Anisocytosis 2+ PT INR APTT Sodium 125 L Potassium 4.2 Chloride 87 L Carbon Dioxide 29.7 Anion Gap 8.3 BUN 90 H* Creatinine 2.87 H Estimated GFR/1.73 m2 16.38 Glucose 118 H Calcium 9.2 Total Bilirubin 0.9 AST 24 ALT 28 Alkaline Phosphatase 235 H Troponin I < 0.02 NT-Pro-B Natriuret Pep 47157 H Total Protein 7.7 Albumin 2.5 L TSH 2.16 Urine Color Yellow Urine Clarity Clear Urine pH 5.5 Ur Specific Bath <= 1.005 Urine Protein Negative Urine Ketones Negative Urine Blood Large H Urine Nitrite Negative Urine Bilirubin Negative Urine Urobilinogen 0.2 Ur Leukocyte Esterase Negative Urine RBC 20-50 H Urine WBC 0-2 Ur Epithelial Cells Negative Urine Crystals Negative Urine Bacteria Few Urine Casts Negative Urine Mucus Trace Urine Other Negative Ur Culture Indicated? No Urine Glucose Negative 12/23/17 09:52 WBC RBC Hgb Hct MCV MCH MCHC RDW Plt Count MPV Immature Gran % Neutrophils % Lymphocytes % Monocytes % Eosinophils % Basophils % Absolute Neutrophils Absolute Lymphocytes Absolute Monocytes Absolute Eosinophils Absolute Basophils Differential Comment RBC Morphology Hypochromasia Poikilocytosis Anisocytosis PT 12.3 H INR 1.3 APTT 32.1 H Sodium Potassium Chloride Carbon Dioxide Anion Gap BUN Creatinine Estimated GFR/1.73 m2 Glucose Calcium Total Bilirubin AST ALT Alkaline Phosphatase Troponin I NT-Pro-B Natriuret Pep Total Protein Albumin TSH Urine Color Urine Clarity Urine pH Ur Specific Bath Urine Protein Urine Ketones Urine Blood Urine Nitrite Urine Bilirubin Urine Urobilinogen Ur Leukocyte Esterase Urine RBC Urine WBC Ur Epithelial Cells Urine Crystals Urine Bacteria Urine Casts Urine Mucus Urine Other Ur Culture Indicated? Urine Glucose - Imaging Studies Imaging Studies: PA lateral chest x-ray dated December 23, 2017 showed no acute pulmonary process. She has stable cardiomegaly. She has pacing wires that are in stable position compared to prior chest x-ray from December 19, 2017. She has no pleural effusions or infiltrates pulmonary vasculature is within normal limits. ECG demonstrates normal sinus rhythm rate of 84 bpm with first-degree AV block. She also has an incomplete left bundle branch block as well as poor R-wave progression across the precordial leads suspicious for an old anterior infarct. She has inverted T waves in 1 aVL which are unchanged from prior ECGs
--- NOTE | 2017-12-23 14:37 | IN_ITS ---
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 Pt lightheaded with prolonged standing GAIT: CGA no device 25ftx1, further gait witheld due to patient feeling lightheaded and asking to get to bed. Pt positioned in supine with call light in reach BALANCE: Static sitting normal Dynamic Sitting normal Static Standing fair Dynamic Standing fair SPECIAL TESTS: Mobility Limitations Standardized Measure [facility] AM -PAC 6 clicks Basic Mobility Inpatient Short Form: raw score: 18 standardized score: 43.63 CMS score: 46.58% CMS modifier: CK INFORMED CONSENT/EDUCATION: Pt instructed in purpose of PT Consult and plan of care ASSESSMENT: Pt is a 67yr old female who fell in her bathroom at home last night and is admitted with hyponatremia, weakness in setting of coronary artery disease s/p cardiac arrest 07/07, angioplasty s/p stent, atrial fibrillation, congestive heart failure, hypertension, chronic obstructive pulmonary disease, chronic kidney disease, left kidney stone, degenerative changes cervical spine C5-6, C6-7, urinary incontinence. Patient presents with clinical signs and symptoms consistent with generalized weakness, hyponatremia as demonstrated by the following impairment level findings: decreased standing tolerance becoming lightheaded with transfers and gait, decreased strength with standing transfers, decreased strength with gait only able to mobilize 25ft before becoming fatigued, decreased static and dynamic standing balance due to weakness putting her at risk for falls. Pt will benefit from short term skilled therapy intervention for strengthening and mobility training. Impairments are contributing to the following functional limitations: AMPAC score CMS score: 46.58% Patient is assessed as a * Moderate 49526 complexity based on the following: History: hyponatremia, weakness in setting of coronary artery disease s/p cardiac arrest 07/07, angioplasty s/p stent, atrial fibrillation, congestive heart failure, hypertension, chronic obstructive pulmonary disease, chronic kidney disease, left kidney stone, degenerative changes cervical spine C5-6, C6- 7, urinary incontinence. Examination: decreased standing tolerance becoming lightheaded with transfers and gait, decreased strength with standing transfers, decreased strength with gait only able to mobilize 25ft before becoming fatigued, decreased static and dynamic standing balance due to weakness putting her at risk for falls. Presentation: evolving Decision Making: AMPAC score CMS score: 46.58% GOALS Goals x1 week 1. Supine-sit: independent 2. Sit-Supine independent 3. Sit-Stand independent 4. Stand-sit independent 5. Bed-chair: supervision 6. Chair-bed supervision 7. Gait supervision no device 200ft PLAN OF CARE/TREATMENT PLAN: 1-2x/day, 7 days/ week x 1 week Plan of care has been reviewed with the JUICE WEIGHER providing the service under Physical therapy direction. Initiate physical therapy intervention for strengthening, bed mobility, transfers, gait, stairs, balance training, use of assistive device. DISCHARGE RECOMMENDATIONS Home TREATMENT TIME/MINUTES/CODES 25min IE 1435 G Codes in the area mobility of walking and moving around: current status [id number] __CK projected status GP [id number] . Discharge status ( if discharging) GP [id number] xecoz on AMPAC score CMS score: 46.58 % Joanie Benavides PT
[2017-12-23] MEDS: Normal Saline Flush 10 ML SYR IVP (19:36)
[2017-12-23] MEDS: Apixaban 5 MG TAB PO (19:36)
[2017-12-23] MEDS: Normal Saline 250 ML IV (19:37)
[2017-12-24] VITALS (8 sets, daily range): BP systolic 90–112; BP diastolic 56–74; PULSE 68–84; RESP 18–20; TEMP 36.2–36.7; O2SAT 96–98
[2017-12-24] MEDS: Acetaminophen 325 MG TAB 650 MG PO ×4 (01:12→22:58)
[2017-12-24 07:20] LABS: CREATININE 2.09 mg/dL (0.55-1.02); Calcium 9.5 mg/dL (8.5-10.1); Chloride 92 mmol/L (98-107); Estimated GFR 23.62 (mL/min/1.73m2); Glucose 86 mg/dL (70-100); Potassium 3.6 mmol/L (3.5-5.1); Sodium 129 mmol/L (136-145)
[2017-12-24 07:25] LABS: BUN 83 mg/dL (7-18)
[2017-12-24] MEDS: Pantoprazole 40 MG TABCR PO (07:56)
[2017-12-24] MEDS: Atorvastatin 40 MG TAB 80 MG PO (07:56)
[2017-12-24] MEDS: Apixaban 5 MG TAB PO ×2 (07:56→20:11)
[2017-12-24] MEDS: Magnesium Oxide 400 MG TAB PO (07:56)
[2017-12-24] MEDS: Metoprolol CR 50 MG TABCR 100 MG PO (07:56)
[2017-12-24] MEDS: Multivitamin w/Minerals TAB 1 TAB PO (07:56)
[2017-12-24] MEDS: Clopidogrel 75 MG TAB PO (07:56)
[2017-12-24 08:52] LABS: Abs Immature Grans 0.02 k/cumm (0.0-0.09); Absolute Basophil Count 0.04 k/cumm (0.0-0.2); Absolute Eosinophil Count 0.04 k/cumm (0.0-0.7); Absolute Lymphocyte Count 1.13 k/cumm (1.2-3.4); Absolute Monocyte Count 1.43 k/cumm (0.11-0.7); Basophils % 0.3; Eosinophils % 0.3; HCT 31.2 % (36.0-46.0); HGB 9.9 g/dL (12.0-15.5); Immature Grans % 0.2; Lymphocytes % 8.6; Mean Corp. HGB Concentration 31.7 g/dL (32.0-36.0); Mean Corpuscular Hemoglobin 25.3 pg (27.0-33.0); Mean Corpuscular Volume 79.6 fL (80-95); Mean Platelet Volume 10.3 fL (8.0-11.0); Monocytes % 10.9; Neutrophils % 79.7; Platelet Count 373 x1000/uL (130-400); RBC 3.92 m/cumm (4.00-5.20); RBC Distribution Width 19.1 % (11.7-14.6); White Blood Cell Count 13.15 k/cumm (4.4-10.8)
[2017-12-24 08:56] LABS: Absolute Neutrophil Count 10.48 k/cumm (1.2-6.7)
--- NOTE | 2017-12-24 10:05 | INPTTR_ITS ---
PHYSICAL THERAPY PROGRESS NOTE Date: 12/24/17 PRECAUTIONS: Fall SUBJECTIVE: Zora states that she is feeling fine and back to her baseline. OBJECTIVE PAIN: No c/o pain BED MOBILITY/TRANSFERS Sit-stand: I Stand-sit: I GAIT Assistive Device No AD Weightbearing Full Assist: S Distance: 150' Deviation Slow pace TOILETING: Patient toileted independently. ASSESSMENT: Patient tolerated session well without complaint. She was able to progress gait distance without use of assistive device. She was able to toilet independently and demonstrate independence with sit<>stand transfers. PLAN: Continue with PT's POC TREATMENT CODES/TIME: 20 minutes; TAx1
--- NOTE | 2017-12-24 10:32 | PHARADMIT ---
Addendum entered by Maricruz Meredith 12/25/17 14:52: Pharmacy Note Subjective EF is poor , overdiuresed Objective Na coming back up, WBC and SCr going down, iron level low Assessment one dose iron sucrose ordered today , lidocaine patch started, apixaban continues, Plan watch for Na, plans to restart bumetanide and sprironolactone before discharge Original Note: Admission Pharmacy Clinical Review hyponatremia, weakness Code Status FULL Current Weight 105.9 kg Renally Cleared and Narrow Therapeutic Index Meds Crcl ~32.1 mL/min using adjusted body weight current meds okay QTc Value / Action Taken QTc 496 BP Control, Fever BP 112/74 afebrile Electrolytes reviewed Na 129 Cl 92 DVT Prophylaxis is on apixaban Opiate Usage / Scheduled Bowel Regimen Ordered no/prn Plt/SCr for Heparin / Enoxaparin plt 373 SCr 2.09 INR for Warfarin n/a H/H stable, WBC/Bands h/h 9.9/31.2 wbc 13.15 Antibiotic appropriateness n/a Cultures and Sensitivities n/a Surgical ABX d/c within 24 hr n/a DM control / Insulin Dosing bg 86 n/a Heart Failure (Check EF%) (ZOHRA's, B-Block, Diuretics) metoprolol, spironolactone (home med), bumetanide (home med), metolazone (home med) IV to PO Switch n/a Home Meds Reviewed -anticholinergic agents (tiotropium) may enhance the ulcerogenic effect of potassium -clopidogrel may enhance the adverse/toxic effect of apixaban (increased bleed risk) -pantoprazole may decrease serum concentrations of the active metabolite(s) of clopidogrel (it may impair clopidogrels effectiveness) -potassium may enhance the hyperkalemic effect of spironolactone Home Meds Not Ordered bumetanide, metolazone, potassium chloride, spironolactone Comments diuretics on hold
--- NOTE | 2017-12-24 12:38 | PDOC.CMIN ---
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 Zora has four children whom reside locally and are supportive. She is independent at baseline, drives and manages ADL's. Zora states that her Otis does the cooking at home. CURRENT FUNCTIONAL STATUS:: Currently Zora is sitting up on the edge of her bed when this report writer visits, she is pleasant and easily engages in discussion. ADVANCE DIRECTIVES:: None on file Has patient been provided with information about the portal?: Yes Did the patient sign up for the portal?: No CODE STATUS:: Full Code INSURANCE COVERAGE / FINANCIAL ISSUES:: Medicare, [employer], Financial Asst 85 CURRENT HOME/COMMUNITY SERVICES/EQUIPMENT:: Currently Zora has home health RN services in the community whom she states come to her home 2x/week. Zora has no medical equipment at this time. PRIMARY CARE PHYSICIAN:: Dr. Juan POTENTIAL DISCHARGE NEEDS:: F/U appointment with PCP. Resumption of home health RN services PATIENT/FAMILY EDUCATION NEEDS:: Review DC instructions, any limitations, and ongoing DC planning discussion. ANTICIPATED BARRIERS TO DISCHARGE:: None identified at this time. TRANSPORTATION:: Via private vehicle with Otis PLAN:: Zora will return home with a resumption of home health RN services. She will F/U with PCP and plan of care as prescribed. Zora's Otis will transport when ready.
--- NOTE | 2017-12-24 13:16 | INITIAL_ITS ---
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 Zora has four children whom reside locally and are supportive. She is independent at baseline, drives and manages ADL's. Zora states that her Otis does the cooking at home. CURRENT FUNCTIONAL STATUS:: Currently Zora is sitting up on the edge of her bed when this marketing underwriter visits, she is pleasant and easily engages in discussion. ADVANCE DIRECTIVES:: None on file Has patient been provided with information about the portal?: Yes Did the patient sign up for the portal?: No CODE STATUS:: Full Code INSURANCE COVERAGE / FINANCIAL ISSUES:: Medicare, [employer], Financial Asst 85 CURRENT HOME/COMMUNITY SERVICES/EQUIPMENT:: Currently Zora has home health RN services in the community whom she states come to her home 2x/week. Zora has no medical equipment at this time. PRIMARY CARE PHYSICIAN:: Dr. Juan POTENTIAL DISCHARGE NEEDS:: F/U appointment with PCP. Resumption of home health RN services PATIENT/FAMILY EDUCATION NEEDS:: Review DC instructions, any limitations, and ongoing DC planning discussion. ANTICIPATED BARRIERS TO DISCHARGE:: None identified at this time. TRANSPORTATION:: Via private vehicle with Otis PLAN:: Zora will return home with a resumption of home health RN services. She will F/U with PCP and plan of care as prescribed. Zora's Otis will transport when ready.
--- NOTE | 2017-12-24 13:48 | PGE_ITS ---
DATE: DECEMBER 24, 2017 @13:48 ASSESSMENT/PLAN: 1. Hyponatremia Very likely represents hypovolemic hyponatremia in the setting of over- diuresis. The patient has a constellation of findings that include significant elevation in BUN, mildly worsening creatinine, significantly lower chloride than at baseline, and an approximate 5 to 7 kilogram weight loss since her discharge in the setting of active diuresis. Continue to hold Spironolactone, Bumex and Metolazone and monitor sodium carefully. The patient initially received IV fluids and now on hold. 2. Generalized weakness likely in the setting of acute hyponatremia. She appears to be improved. Physical therapy has been consulted. 3. Chronic kidney disease Appears to have had a slight worsening of her renal function, improved today. This is in the setting of dehydration. Continue to monitor kidney functions closely. 4. Congestive heart failure Ischemic cardiomyopathy with an EF of 25%, status post AICD secondary to history of V-fib arrest following refusal of device in the past. Mrs. Villanueva was previously treated aggressively with IV Lasix, transitioned to oral Bumex. Her weight appropriately decreased from 122 to 112 kilograms at that time. Her dry weight should be considered at 110 to 112, currently at 106. Continue to hold Spironolactone and Bumex as stated above secondary to hyponatremia and dehydration. Continue treatment of underlying coronary disease with high dose high potency statin, antiplatelet agent and beta percy therapy. Continue to monitor daily weights closely. 5. Atrial fibrillation Status post recent cardioversion. Continue beta percy therapy. Anticoagulated with Apixaban. 6. History of coronary artery disease Prior history of a STEMI with a development of ischemic cardiomyopathy. The patient has been asymptomatic so far. Continue high potency statin antiplatelet agent with Clopidogrel and beta percy therapy. 7. COPD This appears quiescent, continue home inhaler therapy with long acting anticholinergic, Albuterol on a p.r.n. basis. 8. Nocturnal hypoxia Mrs. Villanueva would benefit from with nocturnal oxygen or sleep study with eventual CPAP if suspicions of obstructive sleep apnea are confirmed. She has refused this in the past. 9. Prophylaxis Continue anticoagulation with Apixaban, also on proton pump inhibitor therapy. 10. Code Status Full code. SUBJECTIVE: 67 year-old woman with a past medical history significant for ischemic cardiomyopathy with an LVEF of 25%, coronary artery disease with subsequent cardiogenic shock, and a history of V-fib arrest necessitating AICD placement, admitted for [facility] Emergency Room on 12/23/17 with complaints of weakness and discovery of hyponatremia. Mrs. Villanueva was recently treated at [facility] for an acute exacerbation of her underlying congestive heart failure. She was initially diuresed aggressively with IV Lasix and then transitioned to twice her normal home dosing of Bumex as per cardiology recommendations. She was maintained on this dose for two days, as her weight, creatinine, electrolytes stayed unchanged she was discharged. From a cardiovascular standpoint and specifically from a congestive heart failure standpoint she was vastly improved with a dry weight of 112 kilograms. As an out-patient she was continued with diuresis and there was some question as to additional dosing of her Metolazone at home. Upon her presentation to the hospital she was noted to have sodium of 125 down from her original baseline of 140. She was also noted to have hypochloremia with a chloride of 87 and worsening renal function with a creatinine of 2.87. BUN 90 up from a baseline of 40-60s. Of note her weight had decreased to approximately 106 to 107 kilograms. Upon admission the patient was started on some IV diuretic therapy, now on hold due to her somewhat profound heart failure. Her Spironolactone, Bumex and Metolazone continue to be on hold. Sodium has improved to 129 this morning and the patient reports improvement in her overall symptoms as well. OBJECTIVE: No overnight events reports. The patient remains afebrile. Vitals: Temperature 36.3 and afebrile, blood pressure 112/7, heart rate 77, pulse oximetry 96% on room air. Weight 105.9 kilograms. Neck: Supple. Cardiovascular: Regular, non-tachycardic. Pulmonary: Clear to auscultation without crackles, rhonchi or wheezing. Abdomen: Bowel sounds present, soft, nontender, nondistended. Vascular: Very little bilateral lower extremity edema. LABORATORY DATA: Sodium 129, improved from 125 yesterday. Potassium 3.6, chloride 92, bicarb 31 , BUN 83 down from 90 yesterday, creatinine 2.09 down from 2.87 yesterday. White blood count improved to 13.15 from 16.4 yesterday. Hemoglobin 9.9, platelet count 373. IMAGING: Chest x-ray performed 12/23/17 with no acute cardiopulmonary process.
[2017-12-24] MEDS: Potassium Chloride 20 MEQ TABCR 40 MEQ PO (14:21)
[2017-12-24] MEDS: Normal Saline Flush 10 ML SYR IVP ×2 (14:25→20:11)
--- NOTE | 2017-12-24 15:30 | INDS_ITS ---
PHYSICAL THERAPY INPATIENT DISCHARGE NOTE Date: 12/24/17 Dates of Service: 12/23/17 - 12/24/12 SUBJECTIVE: Zora states that she is feeling well. She's just returned from showering, stating she was able to walk to the shower on her own. OBJECTIVE Pain: denies ROM: R UE: AROM shoulder flexion 145, elbow and wrist WNL L UE: AROM shoulder flexion 165, elbow and wrist WNL R LE: AROM WNL L LE: AROM WNL STRENGTH R UE: 4/5 shoulder flexion, 5/5 bicep, 5/5 instrument maker L UE: 5/5 throughout R LE: 5./5 throughout L LE: 5/5 throughout BED MOBILITY/TRANSFERS: Supine-sit: independent Sit-supine: independent Sit-stand: independent Stand-sit: independent Bed-Chair: independent Chair-bed: independent GAIT: At initiation of session, patient is independently returning to her bed from the bathroom. She is able to turn to look over her shoulder without UE support or loss of balance. Patient then ambulates 200' with supervision only, no assistive device. BALANCE: Static sitting: Normal Dynamic sitting: Normal Static standing: Normal Dynamic standing: Normal SPECIAL TESTS: AM-PAC shows 16% deficit. TREATMENT: Today's session consisted of re-evaluation, and 200' of supervised ambulation. (TAx1, 15 minutes). ASSESSMENT: Zora has made excellent gains in her mobility, now independently ambulating about her room. She's been encouraged to continue walking with staff as much as possible, and to remain active in her room during the remainder of her acute care stay. At this point, all rehab goals have been met, and patient is appropriate for discharge from PT services. GOALS ( Met / Not Met): Goals: 1. Supine-sit: independent (MET) 2. Sit-Supine independent(MET) 3. Sit-Stand independent(MET) 4. Stand-sit independent(MET) 5. Bed-chair: supervision(MET) 6. Chair-bed supervision (MET) 7. Gait supervision no device 200ft(MET) G-CODES: [id number] (Based on improvements in AM-PAC score) [id number] DISCHARGE PLAN/RECOMMENDATIONS: Discharge from PT services.
[2017-12-25 07:00] VITALS: PULSE 75
[2017-12-25 07:12] LABS: Abs Immature Grans 0.01 k/cumm (0.0-0.09); Absolute Eosinophil Count 0.04 k/cumm (0.0-0.7); Absolute Lymphocyte Count 1.52 k/cumm (1.2-3.4); Absolute Monocyte Count 1.34 k/cumm (0.11-0.7); Basophils % 0.2; Eosinophils % 0.3; HCT 29.6 % (36.0-46.0); HGB 9.1 g/dL (12.0-15.5); Immature Grans % 0.1; Lymphocytes % 12.2; Mean Corp. HGB Concentration 30.7 g/dL (32.0-36.0); Mean Corpuscular Hemoglobin 25.3 pg (27.0-33.0); Mean Corpuscular Volume 82.2 fL (80-95); Mean Platelet Volume 9.9 fL (8.0-11.0); Monocytes % 10.8; Neutrophils % 76.4; Platelet Count 381 x1000/uL (130-400); RBC Distribution Width 18.9 % (11.7-14.6); White Blood Cell Count 12.43 k/cumm (4.4-10.8)
[2017-12-25 07:13] LABS: Absolute Basophil Count 0.02 k/cumm (0.0-0.2)
[2017-12-25 07:25] LABS: Anion Gap 7.7 mmol/L (3-11); BUN 65 mg/dL (7-18); CO2 30.3 mmol/L (21.0-32.0); Calcium 9.2 mg/dL (8.5-10.1); Chloride 97 mmol/L (98-107); Estimated GFR 32.15 (mL/min/1.73m2); Glucose 91 mg/dL (70-100); Potassium 3.8 mmol/L (3.5-5.1); Sodium 135 mmol/L (136-145)
[2017-12-25 07:35] VITALS: BP 94/61; PULSE 72; RESP 18; TEMP 36; O2SAT 96
[2017-12-25] MEDS: Clopidogrel 75 MG TAB PO (08:40)
[2017-12-25] MEDS: Atorvastatin 40 MG TAB 80 MG PO (08:40)
[2017-12-25] MEDS: Apixaban 5 MG TAB PO ×2 (08:40→19:31)
[2017-12-25] MEDS: Metoprolol CR 50 MG TABCR 100 MG PO (08:40)
[2017-12-25] MEDS: Multivitamin w/Minerals TAB 1 TAB PO (08:40)
[2017-12-25] MEDS: Pantoprazole 40 MG TABCR PO (08:40)
[2017-12-25] MEDS: Magnesium Oxide 400 MG TAB PO (08:40)
[2017-12-25] MEDS: Acetaminophen 325 MG TAB 650 MG PO ×3 (08:48→22:31)
[2017-12-25 10:36] LABS: Iron 19 ug/dL (50-175); Total Iron Binding Capacity 277 ug/dL (250-450); Transferrin Sat 7 % (15-50)
[2017-12-25 10:48] LABS: Ferritin 57 ng/mL (8-388)
[2017-12-25] MEDS: Normal Saline Flush 10 ML SYR IVP ×2 (11:34→15:56)
[2017-12-25] MEDS: IRON SUCROSE COMPLEX 200 MG in Normal Saline 100 ML 110 MG IVPB (11:34)
--- NOTE | 2017-12-25 11:49 | PDOC.PROG ---
Date of Service: 12/25/17 Time of Service: 11:49 Assessment/Plan - Assessment/Plan (1) Hyponatremia Plan: Acute on chronic. Likely representing hypovolemic hyponatremia in the setting of overdiuresis. Her sodium has improved to 135 today. Her kidney function is improved back to baseline her weight still appears lower than her dry weight of 110-112 kg. Her blood pressure is soft today, her baseline systolic blood pressure is in the low 100s. Her Aldactone, Bumex and metolazone are currently on hold. Plan to reinitiate diuretics slowly, beginning with aldactone and continue to monitor sodium and blood pressures. (2) Generalized muscle weakness Plan: In the setting of acute hyponatremia. Her weakness has improved. PT was consulted but did not feel that the patient needs physical therapy as she ambulates independently and safely. (3) Chronic kidney disease, stage III (moderate) Plan: Her kidney function has improved to her baseline. Continue to monitor renal function as her diuretics are added back into her regimen. (4) Systolic CHF Plan: Ischemic cariomyopathy with LVEF of 25%, status post AICD secondary to history of V-fib arrest. She is approaching her dry weight of 110-112 kb, she is still slightly below at 105.4 kg today. Plan to reinitiate diuretic therapy slowly, starting with aldactone, likely tomorrow. Continue treatment with high intensity statin, antiplatelet therapy and beta percy. Continue to monitor daily weights. (5) Atrial fibrillation Plan: His post cardioversion. Telemetry shows first-degree heart block, heart rate in the 70s. Continue beta-percy therapy. Continue anticoagulation with apixaban. (6) Coronary artery disease Plan: Prior history of STEMI with subsequent development of ischemic cardiomyopathy. She is currently asymptomatic. Continue hypodensity statin, antiplatelet agent with Plavix and beta-percy therapy. (7) COPD (chronic obstructive pulmonary disease) Plan: Continue home inhaler therapy with long-acting anticholinergic, albuterol on a as needed basis. (8) Nocturnal hypoxia Plan: She would benefit from nocturnal oxygen or sleep study for potential CPAP treatment. She has refused this in the past. This could be offered again as an outpatient. (9) DVT prophylaxis Plan: Continue anticoagulation with apixaban. History of Present Illness - History of Present Illness Chief Complaint: hyponatremia and generalized weakness History of Present Illness: Continue aspirin Zora is a 67-year-old female with a past medical history significant for ischemic cardiomyopathy with an LVEF of 25%, coronary artery disease with subsequent cardiogenic shock, and history of V-fib arrest necessitating AICD placement, admitted from [facility] emergency department on 12/23/2017 with complaints of weakness and a discovery of hyponatremia. She was recently treated at [facility] for an acute exacerbation of her underlying congestive heart failure. She was initially diuresed aggressively with IV Lasix and then transitioned to twice her normal dosing of Bumex as per cardiology recommendations. At the time of discharge her weight was stable, her dry weight was 112 kg. Apparently there was an increase in her diuretics at home and she eventually presented back to the emergency department with hyponatremia, hypochloremia and worsening renal function. At that time her weight had also decreased to approximately 106-107 kg. Her Aldactone, Bumex and metolazone have been on hold since admission. Her weight continues to be low at 105.4. Her blood pressure is mildly low today at 94/61. Cardiology recommended assessing her iron studies, they have returned and she is in fact iron deficient. Cardiology recommended IV iron infusion. The patient reports that she was receiving IV iron infusions about 1 month ago. She is agreeable to receiving IV iron. She really has no complaints today except occasional back spasms and a chronic cough. She denies any shortness of breath, wheezing, chest pain, pressure. She reports that her weakness has improved. She is tolerating her diet without nausea or vomiting. She reports the edema in her lower extremities has improved. Review of Systems - Review of Systems Constitutional: Weakness (Improving.). denies: Fever, Chills, Sweats, Malaise Respiratory: Cough (Chronic nonproductive cough.). denies: Shortness of Breath, Wheezing Cardiovascular: Edema (Mild, improved.). denies: Chest Pain, Palpitations Gastrointestinal: denies: Nausea, Vomiting, Abdominal Pain, Diarrhea Genitourinary: denies: Dysuria, Hematuria Musculoskeletal: Back Pain (She reports chronic intermittent back spasms.) Skin: Lesions (She reports having a sore to her left heel.) - Medications/Allergies Allergies/Adverse Reactions: Allergies Allergy/AdvReac Type Severity Reaction Status Date / Time lisinopril AdvReac Other (See Unverified 12/23/17 09:43 Comment) sacubitril [From Entresto] AdvReac rash Unverified 12/23/17 09:43 valsartan [From Entresto] AdvReac rash Unverified 12/23/17 09:43 Medications: Current Medications Acetaminophen (Tylenol) 650 mg PO Q6H PRN PRN Last Admin: 12/25/17 08:48 Dose: 650 mg Al Hydrox/Mg Hydrox/Simethicone (Mylanta Liquid) 30 ml PO Q2H PRN PRN Albuterol Sulfate (Ventolin Hfa) 2 puff IH Q4H PRN PRN Apixaban (Eliquis) 5 mg PO BID [facility] Last Admin: 12/25/17 08:40 Dose: 5 mg Atorvastatin Calcium (Lipitor) 80 mg PO DAILY [facility] Last Admin: 12/25/17 08:40 Dose: 80 mg Clopidogrel Bisulfate (Plavix) 75 mg PO DAILY [facility] Last Admin: 12/25/17 08:40 Dose: 75 mg Dimethicone/Zinc Oxide (Sarah Protect Cream) 0 gm TP PRN PRN Docusate Sodium (Colace) 100 mg PO TID PRN PRN Iron Sucrose 200 mg/ Sodium (Chloride) 110 mls @ 110 mls/hr IVPB TODAY [facility] Last Admin: 12/25/17 11:34 Dose: 110 mls/hr IV Miscellaneous Supplies () 1 each IV DIRECTED [facility] Iron/Minerals/Multivitamins (Theragran-M) 1 tab PO DAILY [facility] Last Admin: 12/25/17 08:40 Dose: 1 tab Magnesium Hydroxide (Milk Of Magnesia) 30 ml PO DAILY PRN PRN Magnesium Oxide (Mag-Ox 400) 400 mg PO DAILY [facility] Last Admin: 12/25/17 08:40 Dose: 400 mg Metoprolol Succinate (Toprol Xl) 100 mg PO DAILY [facility] Last Admin: 12/25/17 08:40 Dose: 100 mg Nitroglycerin (Nitrostat) 0.4 mg SL Q5 MIN PRN X3 PRN Pantoprazole Sodium (Protonix) 40 mg PO DAILY@0730 [facility] Last Admin: 12/25/17 08:40 Dose: 40 mg Polyethylene Glycol (Miralax) 17 gm PO DAILY PRN PRN PRN Reason: Constipation Sodium Chloride (Saline Flush 10 Ml Syringe) 0 ml IVP PRN PRN Last Admin: 12/25/17 11:34 Dose: 10 ml Tiotropium Calipatria (Spiriva Handihaler) 1 cap IH DAILY [facility] Last Admin: 12/25/17 07:37 Dose: 1 cap Objective - Exam Vitals and I&O: Vital Signs Temp 36 C L 12/25/17 07:35 Pulse 72 12/25/17 07:35 Resp 18 12/25/17 07:35 BP 94/61 12/25/17 07:35 Pulse Ox 96 12/25/17 07:35 Intake & Output 12/24/17 12/24/17 12/25/17 11:59 23:59 11:59 Intake Total 606 195 8682 Output Total 1600 600 Balance -2625 926 7853 Weight 105.9 kg 105.4 kg Intake: Oral 086 516 9867 Output: Urine 1600 600 Other: Urine Color Yellow Yellow Urine Appearance Clear Clear Clear Urine Odor Foul Normal Voiding Methods Bedside Commode Toilet General: Alert, Oriented x3, Cooperative, No acute distress HEENT: Atraumatic, Mucous membr. moist/pink Neck: Supple. denies: JVD Lungs: Clear to auscultation, Normal air movement Cardiovascular: Regular rate, Normal S1, Other (AICD to left chest). denies: Murmurs Abdomen: Normal bowel sounds, Soft. denies: Tenderness, Masses Extremities: Edema (Very mild edema to bilateral lower extremities, nonpitting.), Normal pulses. denies: Clubbing, Cyanosis, Tenderness/swelling Skin: Breakdown (Left heel with dry crack in the skin.) Neurological: Normal gait, Normal speech, Strength at 5/5 X4 ext, Normal tone, Sensation intact Psych/Mental Status: Mental status NL, Mood NL - Results Results: Laboratory Results WBC 12.43 k/cumm (4.4-10.8) H 12/25/17 06:15 RBC 3.60 m/cumm (4.00-5.20) L 12/25/17 06:15 Hgb 9.1 g/dL (12.0-15.5) L 12/25/17 06:15 Hct 29.6 % (36.0-46.0) L 12/25/17 06:15 MCV 82.2 fL (80-95) 12/25/17 06:15 MCH 25.3 pg (27.0-33.0) L 12/25/17 06:15 MCHC 30.7 g/dL (32.0-36.0) L 12/25/17 06:15 RDW 18.9 % (11.7-14.6) H 12/25/17 06:15 Plt Count 381 x1000/uL (130-400) 12/25/17 06:15 MPV 9.9 fL (8.0-11.0) 12/25/17 06:15 Immature Gran % 0.1 12/25/17 06:15 Neutrophils % 76.4 12/25/17 06:15 Lymphocytes % 12.2 12/25/17 06:15 Monocytes % 10.8 12/25/17 06:15 Eosinophils % 0.3 12/25/17 06:15 Basophils % 0.2 12/25/17 06:15 Absolute Neutrophils 9.50 k/cumm (1.2-6.7) H 12/25/17 06:15 Absolute Lymphocytes 1.52 k/cumm (1.2-3.4) 12/25/17 06:15 Absolute Monocytes 1.34 k/cumm (0.11-0.7) H 12/25/17 06:15 Absolute Eosinophils 0.04 k/cumm (0.0-0.7) 12/25/17 06:15 Absolute Basophils 0.02 k/cumm (0.0-0.2) 12/25/17 06:15 Differential Comment Rbc morph reviewed 12/23/17 08:18 RBC Morphology See below 12/23/17 08:18 Hypochromasia 1+ 12/23/17 08:18 Poikilocytosis 1+ 12/23/17 08:18 Anisocytosis 2+ 12/23/17 08:18 PT 12.3 sec (9.3-10.8) H 12/23/17 09:52 INR 1.3 (1.0-3.5) 12/23/17 09:52 APTT 32.1 sec (21.0-31.4) H 12/23/17 09:52 Sodium 135 mmol/L (136-145) L 12/25/17 06:15 Potassium 3.8 mmol/L (3.5-5.1) 12/25/17 06:15 Chloride 97 mmol/L (98-107) L 12/25/17 06:15 Carbon Dioxide 30.3 mmol/L (21.0-32.0) 12/25/17 06:15 Anion Gap 7.7 mmol/L (3-11) 12/25/17 06:15 BUN 65 mg/dL (7-18) H D 12/25/17 06:15 Creatinine 1.60 mg/dL (0.55-1.02) H 12/25/17 06:15 Estimated GFR/1.73 m2 32.15 (mL/min/1.73m2) 12/25/17 06:15 Glucose 91 mg/dL (70-100) 12/25/17 06:15 Calcium 9.2 mg/dL (8.5-10.1) 12/25/17 06:15 Iron 19 ug/dL (50-175) L 12/25/17 06:15 TIBC 277 ug/dL (250-450) 12/25/17 06:15 Transferrin % Sat 7 % (15-50) L 12/25/17 06:15 Ferritin 57 ng/mL (8-388) 12/25/17 06:15 Total Bilirubin 0.9 mg/dL (0.2-1.0) 12/23/17 08:18 AST 24 U/L (15-37) 12/23/17 08:18 ALT 28 U/L (12-78) 12/23/17 08:18 Alkaline Phosphatase 235 U/L (46-116) H 12/23/17 08:18 Troponin I < 0.02 ng/mL (0.00-0.06) 12/23/17 12:33 NT-Pro-B Natriuret Pep 79415 pg/mL (-299) H 12/23/17 08:18 Total Protein 7.7 g/dL (6.4-8.2) 12/23/17 08:18 Albumin 2.5 g/dL (3.4-5.0) L 12/23/17 08:18 TSH 2.16 uIU/mL (0.358-3.74) 12/23/17 08:18 Urine Color Yellow (Yellow) 12/23/17 07:45 Urine Clarity Clear 12/23/17 07:45 Urine pH 5.5 (5-8) 12/23/17 07:45 Ur Specific [place] <= 1.005 (1.005-1.025) 12/23/17 07:45 Urine Protein Negative mg/dL (Negative) 12/23/17 07:45 Urine Ketones Negative mg/dL (Negative) 12/23/17 07:45 Urine Blood Large (Negative) H 12/23/17 07:45 Urine Nitrite Negative (Negative) 12/23/17 07:45 Urine Bilirubin Negative (Negative) 12/23/17 07:45 Urine Urobilinogen 0.2 EU/dL (Up TO 0.2) 12/23/17 07:45 Ur Leukocyte Esterase Negative (Negative) 12/23/17 07:45 Urine RBC 20-50 (0-2) H 12/23/17 07:45 Urine WBC 0-2 HPF (0-5) 12/23/17 07:45 Ur Epithelial Cells Negative HPF (Negative) 12/23/17 07:45 Urine Crystals Negative HPF (Negative) 12/23/17 07:45 Urine Bacteria Few HPF (Negative) 12/23/17 07:45 Urine Casts Negative LPF (Negative) 12/23/17 07:45 Urine Mucus Trace (Negative) 12/23/17 07:45 Urine Other Negative (Negative) 12/23/17 07:45 Ur Culture Indicated? No 12/23/17 07:45 Urine Glucose Negative mg/dL (Negative) 12/23/17 07:45
--- NOTE | 2017-12-25 11:57 | PDOC.PROG_ITS ---
Date of Service: 12/25/17 Time of Service: 11:49 Assessment/Plan - Assessment/Plan (1) Hyponatremia Plan: Acute on chronic. Likely representing hypovolemic hyponatremia in the setting of overdiuresis. Her sodium has improved to 135 today. Her kidney function is improved back to baseline her weight still appears lower than her dry weight of 110-112 kg. Her blood pressure is soft today, her baseline systolic blood pressure is in the low 100s. Her Aldactone, Bumex and metolazone are currently on hold. Plan to reinitiate diuretics slowly, beginning with aldactone and continue to monitor sodium and blood pressures. (2) Generalized muscle weakness Plan: In the setting of acute hyponatremia. Her weakness has improved. PT was consulted but did not feel that the patient needs physical therapy as she ambulates independently and safely. (3) Chronic kidney disease, stage III (moderate) Plan: Her kidney function has improved to her baseline. Continue to monitor renal function as her diuretics are added back into her regimen. (4) Systolic CHF Plan: Ischemic cariomyopathy with LVEF of 25%, status post AICD secondary to history of V-fib arrest. She is approaching her dry weight of 110-112 kb, she is still slightly below at 105.4 kg today. Plan to reinitiate diuretic therapy slowly, starting with aldactone, likely tomorrow. Continue treatment with high intensity statin, antiplatelet therapy and beta percy. Continue to monitor daily weights. (5) Atrial fibrillation Plan: His post cardioversion. Telemetry shows first-degree heart block, heart rate in the 70s. Continue beta-percy therapy. Continue anticoagulation with apixaban. (6) Coronary artery disease Plan: Prior history of STEMI with subsequent development of ischemic cardiomyopathy. She is currently asymptomatic. Continue hypodensity statin, antiplatelet agent with Plavix and beta-percy therapy. (7) COPD (chronic obstructive pulmonary disease) Plan: Continue home inhaler therapy with long-acting anticholinergic, albuterol on a as needed basis. (8) Nocturnal hypoxia Plan: She would benefit from nocturnal oxygen or sleep study for potential CPAP treatment. She has refused this in the past. This could be offered again as an outpatient. (9) DVT prophylaxis Plan: Continue anticoagulation with apixaban. History of Present Illness - History of Present Illness Chief Complaint: hyponatremia and generalized weakness History of Present Illness: Continue aspirin Zora is a 67-year-old female with a past medical history significant for ischemic cardiomyopathy with an LVEF of 25%, coronary artery disease with subsequent cardiogenic shock, and history of V-fib arrest necessitating AICD placement, admitted from [facility] emergency department on 2017 with complaints of weakness and a discovery of hyponatremia. She was recently treated at [facility] for an acute exacerbation of her underlying congestive heart failure. She was initially diuresed aggressively with IV Lasix and then transitioned to twice her normal dosing of Bumex as per cardiology recommendations. At the time of discharge her weight was stable, her dry weight was 112 kg. Apparently there was an increase in her diuretics at home and she eventually presented back to the emergency department with hyponatremia, hypochloremia and worsening renal function. At that time her weight had also decreased to approximately 106-107 kg. Her Aldactone, Bumex and metolazone have been on hold since admission. Her weight continues to be low at 105.4. Her blood pressure is mildly low today at 94/61. Cardiology recommended assessing her iron studies, they have returned and she is in fact iron deficient. Cardiology recommended IV iron infusion. The patient reports that she was receiving IV iron infusions about 1 month ago. She is agreeable to receiving IV iron. She really has no complaints today except occasional back spasms and a chronic cough. She denies any shortness of breath, wheezing, chest pain, pressure. She reports that her weakness has improved. She is tolerating her diet without nausea or vomiting. She reports the edema in her lower extremities has improved. Review of Systems - Review of Systems Constitutional: Weakness (Improving.). denies: Fever, Chills, Sweats, Malaise Respiratory: Cough (Chronic nonproductive cough.). denies: Shortness of Breath , Wheezing Cardiovascular: Edema (Mild, improved.). denies: Chest Pain, Palpitations Gastrointestinal: denies: Nausea, Vomiting, Abdominal Pain, Diarrhea Genitourinary: denies: Dysuria, Hematuria Musculoskeletal: Back Pain (She reports chronic intermittent back spasms.) Skin: Lesions (She reports having a sore to her left heel.) - Medications/Allergies Allergies/Adverse Reactions: Allergies Allergy/AdvReac Type Severity Reaction Status Date / Time lisinopril AdvReac Other (See Unverified 12/23/17 09:43 Comment) sacubitril [From Entresto] AdvReac rash Unverified 12/23/17 09:43 valsartan [From Entresto] AdvReac rash Unverified 12/23/17 09:43 Medications: Current Medications Acetaminophen (Tylenol) 650 mg PO Q6H PRN PRN Last Admin: 12/25/17 08:48 Dose: 650 mg Al Hydrox/Mg Hydrox/Simethicone (Mylanta Liquid) 30 ml PO Q2H PRN PRN Albuterol Sulfate (Ventolin Hfa) 2 puff IH Q4H PRN PRN Apixaban (Eliquis) 5 mg PO BID [facility] Last Admin: 12/25/17 08:40 Dose: 5 mg Atorvastatin Calcium (Lipitor) 80 mg PO DAILY [facility] Last Admin: 12/25/17 08:40 Dose: 80 mg Clopidogrel Bisulfate (Plavix) 75 mg PO DAILY [facility] Last Admin: 12/25/17 08:40 Dose: 75 mg Dimethicone/Zinc Oxide (Sarah Protect Cream) 0 gm TP PRN PRN Docusate Sodium (Colace) 100 mg PO TID PRN PRN Iron Sucrose 200 mg/ Sodium (Chloride) 110 mls @ 110 mls/hr IVPB TODAY [facility] Last Admin: 12/25/17 11:34 Dose: 110 mls/hr IV Miscellaneous Supplies () 1 each IV DIRECTED [facility] Iron/Minerals/Multivitamins (Theragran-M) 1 tab PO DAILY [facility] Last Admin: 12/25/17 08:40 Dose: 1 tab Magnesium Hydroxide (Milk Of Magnesia) 30 ml PO DAILY PRN PRN Magnesium Oxide (Mag-Ox 400) 400 mg PO DAILY [facility] Last Admin: 12/25/17 08:40 Dose: 400 mg Metoprolol Succinate (Toprol Xl) 100 mg PO DAILY [facility] Last Admin: 12/25/17 08:40 Dose: 100 mg Nitroglycerin (Nitrostat) 0.4 mg SL Q5 MIN PRN X3 PRN Pantoprazole Sodium (Protonix) 40 mg PO DAILY@0730 [facility] Last Admin: 12/25/17 08:40 Dose: 40 mg Polyethylene Glycol (Miralax) 17 gm PO DAILY PRN PRN PRN Reason: Constipation Sodium Chloride (Saline Flush 10 Ml Syringe) 0 ml IVP PRN PRN Last Admin: 12/25/17 11:34 Dose: 10 ml Tiotropium Tyler (Spiriva Handihaler) 1 cap IH DAILY [facility] Last Admin: 12/25/17 07:37 Dose: 1 cap Objective - Exam Vitals and I&O: Vital Signs Temp 36 C L 12/25/17 07:35 Pulse 72 12/25/17 07:35 Resp 18 12/25/17 07:35 BP 94/61 12/25/17 07:35 Pulse Ox 96 12/25/17 07:35 Intake & Output 12/24/17 12/24/17 12/25/17 11:59 23:59 11:59 Intake Total 005 492 1846 Output Total 1600 600 Balance -4822 388 0644 Weight 105.9 kg 105.4 kg Intake: Oral 613 274 5556 Output: Urine 1600 600 Other: Urine Color Yellow Yellow Urine Appearance Clear Clear Clear Urine Odor Foul Normal Voiding Methods Bedside Commode Toilet General: Alert, Oriented x3, Cooperative, No acute distress HEENT: Atraumatic, Mucous membr. moist/pink Neck: Supple. denies: JVD Lungs: Clear to auscultation, Normal air movement Cardiovascular: Regular rate, Normal S1, Other (AICD to left chest). denies: Murmurs Abdomen: Normal bowel sounds, Soft. denies: Tenderness, Masses Extremities: Edema (Very mild edema to bilateral lower extremities, nonpitting.) , Normal pulses. denies: Clubbing, Cyanosis, Tenderness/swelling Skin: Breakdown (Left heel with dry crack in the skin.) Neurological: Normal gait, Normal speech, Strength at 5/5 X4 ext, Normal tone, Sensation intact Psych/Mental Status: Mental status NL, Mood NL - Results Results: Laboratory Results WBC 12.43 k/cumm (4.4-10.8) H 12/25/17 06:15 RBC 3.60 m/cumm (4.00-5.20) L 12/25/17 06:15 Hgb 9.1 g/dL (12.0-15.5) L 12/25/17 06:15 Hct 29.6 % (36.0-46.0) L 12/25/17 06:15 MCV 82.2 fL (80-95) 12/25/17 06:15 MCH 25.3 pg (27.0-33.0) L 12/25/17 06:15 MCHC 30.7 g/dL (32.0-36.0) L 12/25/17 06:15 RDW 18.9 % (11.7-14.6) H 12/25/17 06:15 Plt Count 381 x1000/uL (130-400) 12/25/17 06:15 MPV 9.9 fL (8.0-11.0) 12/25/17 06:15 Immature Gran % 0.1 12/25/17 06:15 Neutrophils % 76.4 12/25/17 06:15 Lymphocytes % 12.2 12/25/17 06:15 Monocytes % 10.8 12/25/17 06:15 Eosinophils % 0.3 12/25/17 06:15 Basophils % 0.2 12/25/17 06:15 Absolute Neutrophils 9.50 k/cumm (1.2-6.7) H 12/25/17 06:15 Absolute Lymphocytes 1.52 k/cumm (1.2-3.4) 12/25/17 06:15 Absolute Monocytes 1.34 k/cumm (0.11-0.7) H 12/25/17 06:15 Absolute Eosinophils 0.04 k/cumm (0.0-0.7) 12/25/17 06:15 Absolute Basophils 0.02 k/cumm (0.0-0.2) 12/25/17 06:15 Differential Comment Rbc morph reviewed 12/23/17 08:18 RBC Morphology See below 12/23/17 08:18 Hypochromasia 1+ 12/23/17 08:18 Poikilocytosis 1+ 12/23/17 08:18 Anisocytosis 2+ 12/23/17 08:18 PT 12.3 sec (9.3-10.8) H 12/23/17 09:52 INR 1.3 (1.0-3.5) 12/23/17 09:52 APTT 32.1 sec (21.0-31.4) H 12/23/17 09:52 Sodium 135 mmol/L (136-145) L 12/25/17 06:15 Potassium 3.8 mmol/L (3.5-5.1) 12/25/17 06:15 Chloride 97 mmol/L (98-107) L 12/25/17 06:15 Carbon Dioxide 30.3 mmol/L (21.0-32.0) 12/25/17 06:15 Anion Gap 7.7 mmol/L (3-11) 12/25/17 06:15 BUN 65 mg/dL (7-18) H D 12/25/17 06:15 Creatinine 1.60 mg/dL (0.55-1.02) H 12/25/17 06:15 Estimated GFR/1.73 m2 32.15 (mL/min/1.73m2) 12/25/17 06:15 Glucose 91 mg/dL (70-100) 12/25/17 06:15 Calcium 9.2 mg/dL (8.5-10.1) 12/25/17 06:15 Iron 19 ug/dL (50-175) L 12/25/17 06:15 TIBC 277 ug/dL (250-450) 12/25/17 06:15 Transferrin % Sat 7 % (15-50) L 12/25/17 06:15 Ferritin 57 ng/mL (8-388) 12/25/17 06:15 Total Bilirubin 0.9 mg/dL (0.2-1.0) 12/23/17 08:18 AST 24 U/L (15-37) 12/23/17 08:18 ALT 28 U/L (12-78) 12/23/17 08:18 Alkaline Phosphatase 235 U/L (46-116) H 12/23/17 08:18 Troponin I < 0.02 ng/mL (0.00-0.06) 12/23/17 12:33 NT-Pro-B Natriuret Pep 80859 pg/mL (-299) H 12/23/17 08:18 Total Protein 7.7 g/dL (6.4-8.2) 12/23/17 08:18 Albumin 2.5 g/dL (3.4-5.0) L 12/23/17 08:18 TSH 2.16 uIU/mL (0.358-3.74) 12/23/17 08:18 Urine Color Yellow (Yellow) 12/23/17 07:45 Urine Clarity Clear 12/23/17 07:45 Urine pH 5.5 (5-8) 12/23/17 07:45 Ur Specific [place] <= 1.005 (1.005-1.025) 12/23/17 07:45 Urine Protein Negative mg/dL (Negative) 12/23/17 07:45 Urine Ketones Negative mg/dL (Negative) 12/23/17 07:45 Urine Blood Large (Negative) H 12/23/17 07:45 Urine Nitrite Negative (Negative) 12/23/17 07:45 Urine Bilirubin Negative (Negative) 12/23/17 07:45 Urine Urobilinogen 0.2 EU/dL (Up TO 0.2) 12/23/17 07:45 Ur Leukocyte Esterase Negative (Negative) 12/23/17 07:45 Urine RBC 20-50 (0-2) H 12/23/17 07:45 Urine WBC 0-2 HPF (0-5) 12/23/17 07:45 Ur Epithelial Cells Negative HPF (Negative) 12/23/17 07:45 Urine Crystals Negative HPF (Negative) 12/23/17 07:45 Urine Bacteria Few HPF (Negative) 12/23/17 07:45 Urine Casts Negative LPF (Negative) 12/23/17 07:45 Urine Mucus Trace (Negative) 12/23/17 07:45 Urine Other Negative (Negative) 12/23/17 07:45 Ur Culture Indicated? No 12/23/17 07:45 Urine Glucose Negative mg/dL (Negative) 12/23/17 07:45
--- NOTE | 2017-12-25 14:02 | PDOC.CMPRO ---
Date of Service: 12/25/17 Time of Service: 14:02 Care Management Progress Note S/O: Zora is lying in bed this morning, pleasant and open to conversation. Per morning meeting Zora is not ready for DC today, she continues on telemetry monitoring at this time. Reviewed DC plan, and plan remains unchanged at this time. A: 67 y/o female admitted 12/23/17 for hyponatremia and generalized weakness. P: Zora will return home with a resumption of home health RN services. Zora will F/U with PCP and plan of care as prescribed, her [facility] will transport her.
[2017-12-25] MEDS: Lidocaine 5% Patch 1 PATCH TP (14:37)
[2017-12-25 15:25] VITALS: BP 98/63; PULSE 74; RESP 18; TEMP 36.8; O2SAT 98
[2017-12-25 15:53] VITALS: PULSE 80
[2017-12-25] MEDS: LIDOCAINE Patch Removal 1 EACH TP (22:20)
[2017-12-25 23:42] VITALS: PULSE 80
[2017-12-25 23:52] VITALS: BP 95/61; PULSE 79; RESP 20; TEMP 36.6; O2SAT 96
[2017-12-26 07:03] VITALS: PULSE 79
[2017-12-26 07:11] LABS: Anion Gap 7.6 mmol/L (3-11); BUN 48 mg/dL (7-18); CO2 31.4 mmol/L (21.0-32.0); CREATININE 1.41 mg/dL (0.55-1.02); Calcium 9.2 mg/dL (8.5-10.1); Chloride 97 mmol/L (98-107); Glucose 80 mg/dL (70-100); Potassium 3.6 mmol/L (3.5-5.1); Sodium 136 mmol/L (136-145)
[2017-12-26 07:24] LABS: Abs Immature Grans 0.03 k/cumm (0.0-0.09); HCT 31.3 % (36.0-46.0); HGB 9.8 g/dL (12.0-15.5); Mean Corp. HGB Concentration 31.3 g/dL (32.0-36.0); Platelet Count 442 x1000/uL (130-400); RBC 3.77 m/cumm (4.00-5.20); RBC Distribution Width 19.2 % (11.7-14.6)
[2017-12-26 07:30] VITALS: BP 97/66; PULSE 79; RESP 19; TEMP 35.8; O2SAT 98
[2017-12-26 08:09] LABS: Absolute Lymphocyte Count 0.83 k/cumm (1.2-3.4); Absolute Neutrophil Count 11.87 k/cumm (1.2-6.7); Atypical Lymphocytes % 0
[2017-12-26 08:10] LABS: Anisocytosis 1+; Diff Comment Manual Differential; Hypochromasia 1+; Macrocytosis 1+
[2017-12-26] MEDS: Normal Saline Flush 10 ML SYR IVP (08:23)
[2017-12-26] MEDS: Atorvastatin 40 MG TAB 80 MG PO (08:23)
[2017-12-26] MEDS: Clopidogrel 75 MG TAB PO (08:23)
[2017-12-26] MEDS: Magnesium Oxide 400 MG TAB PO (08:23)
[2017-12-26] MEDS: Multivitamin w/Minerals TAB 1 TAB PO (08:23)
[2017-12-26] MEDS: Apixaban 5 MG TAB PO (08:23)
[2017-12-26] MEDS: Pantoprazole 40 MG TABCR PO (08:23)
[2017-12-26] MEDS: Metoprolol CR 50 MG TABCR 100 MG PO (08:24)
[2017-12-26] MEDS: Spironolactone 25 MG TAB PO (08:46)
--- NOTE | 2017-12-26 09:50 | PDOC.CMDIS ---
Date of Service: 12/26/17 Time of Service: 09:50 LACE Index Scoring Tool - Questions: Length of Stay (in days): 4 - 6 Acuity (Admit via E.D.?): Yes Comorbidities: Congestive Heart Failure, Chronic Pulmonary Disease E.D. Visits: 7 - Answers: Total Score: 16 Risk of Readmission: High Risk Care Management Discharge Reason for Hospitalization: Hyponatremia, Generalized weakness Discharge Plan: Zora will return home today with a resumption of home health RN services. She will F/U with PCP and plan of care as prescribed. Zora's [facility] will transport her. Patient/Family Education Needs: Review DC instructions, any limitations, and discuss Ask Me Three Services Needed at Discharge: Home Health Care Services (resumption of RN services)
--- NOTE | 2017-12-26 11:07 | DISCHARGE ---
Discharge - Discharge Orders Referrals: Taya Juan MD [Primary Care Provider] - 01/01/18 9:30 am Other Amb Orders: Basic Metabolic Panel [LAB] Time Frame: 3 Days, Location: Determined By Patient - Discharge Plan Disposition: HOME W/HOME HEALTH SERVICE Condition: Improving Diet:: Low Sodium Equipment/Supplies:: No Equipment Needed Activity:: Activity as Tolerated - Instructions Micromedex Instructions: Hyponatremia (DC) Additional Instructions: Take your Aldactone as usual. Start taking your Bumex tomorrow, only take it one time tomorrow. On Saturday resume taking your Bumex as usual (twice daily). Do not take Metolazone until your Fur Stretcher advises you to do so. You will need to have labs drawn in 3 days to reassess your sodium and kidney function. Follow up with your PCP and flooring machine operator as scheduled. HOME HEALTH: Resume nursing services, monitor fluid status, assess lung sounds, vital signs, monitor weights. Please draw BMP on 12/29/17 with results to PCP.
--- NOTE | 2017-12-26 11:26 | PDOC.DISCH_ITS ---
Discharge - Discharge Orders Referrals: Taya Juan MD [Primary Care Provider] - 01/01/18 9:30 am Other Amb Orders: Basic Metabolic Panel [LAB] Time Frame: 3 Days, Location: Determined By Patient - Discharge Plan Disposition: HOME W/HOME HEALTH SERVICE Condition: Improving Diet:: Low Sodium Equipment/Supplies:: No Equipment Needed Activity:: Activity as Tolerated - Instructions Micromedex Instructions: Hyponatremia (DC) Additional Instructions: Take your Aldactone as usual. Start taking your Bumex tomorrow, only take it one time tomorrow. On Saturday resume taking your Bumex as usual (twice daily). Do not take Metolazone until your Gas Turbine Powerplant Mechanic advises you to do so. You will need to have labs drawn in 3 days to reassess your sodium and kidney function. Follow up with your PCP and vocational childcare teacher as scheduled. HOME HEALTH: Resume nursing services, monitor fluid status, assess lung sounds, vital signs, monitor weights. Please draw BMP on 12/29/17 with results to PCP.
--- NOTE | 2017-12-27 07:15 | DSE_ITS ---
DISCHARGE SUMMARY DISCHARGE SUMMARY December 26, 2017 REASON FOR ADMISSION Hyponatremia and weakness. HOSPITAL COURSE Zora Villanueva is a 67-year-old woman with past medical history significant for ischemic cardiomyopathy with an LVEF of 25%, coronary artery disease with subsequent cardiogenic shock, and a history of V-f ib arrest necessitating AICD placement. She was admitted to [facility] on 12/23/17 with complaints of weakne ss and a discovery of hyponatremia in the Emergency Department. Mrs. Villanueva was recently treated at [facility] for exacerbation of her underlying congestive heart failure. At that time, she was initially diuresed aggressively with Lasix and then transitioned to her b.i.d. dosing of Bumex as per Cardiology recommendations. She was maintained on that dose for two days prior to her discharge at that time. Her dry weight at the time of discharge on her previous hospitalizati on was 112 kilograms. As an outpatient, she was continued with diuresis and Cardiology added metolazone at home. Upon prese ntation to the hospital on this admission, she was noted to have a low sodium of 125 down from her or iginal baseline of 140. She was also noted to have hypochloremia with a chloride of 87 and worsening renal function with a creatinine of 2.87 and a BUN of 90, up from her baseline of 40s to 60s. She luz eared to be over diuresed at that time. Her weight had also decreased to approximately 106 to 107 kil ograms. Her usual dosing of Aldactone, Bumex and metolazone were placed on hold. Her sodium improved over time. By the day of discharge, her sodium had improved to 136. Her chloride improved to 97. H er BUN had improved to 48. Creatinine improved to 1.41. On the day of discharge, her Aldactone was re-started. The plan was initially to monitor her and slow ly re-initiate her Bumex, however, the patient was adamant that she wanted to be discharged home. She felt comfortable with Home Health nursing monitoring her weight and having close followup with [facility] care provider. The plan will be for her to re-initiate her Bumex the day following her discharge with one dose the d ay after discharge and then two days after discharge, she will resume her b.i.d. dosing as she does n eed diuretic therapy for her profound heart failure. On the day of discharge, the weight is 106.6 kilograms. She will have a BMP drawn in three days time. She will have close followup with her primary care provider with a PCP appointment scheduled for 01/[address] Juan. She will followup with her Gravel Roofer as well. We will ask Home Health Nursing to monitor her fluid status, assess her lung sounds and assess for edema, monitor her vital signs, monitor her weights, a nd draw her BMP on 12/29/17 with the results to her primary care provider. Her weakness improved with the improvement of her sodium. She is no longer experiencing weakness. She was monitored on telemetry while she was a patient. Telemetry reveals a first-degree block, left bun dle branch block with PVCs. Her heart rate was in the 80s. The patient feels well with no complaints. She has no shortness of breath. No wheezing. No cough. No chest pain. No pressure. No palpitations. She has very minimal lower extremity edema bilaterally. She does not have any rales. She would benefit from an outpatient sleep study to evaluate for obstructive sleep apnea. She has ref used this in the past, but it should be offered again as an outpatient. Otherwise, her medications w ill remain the same. Will continue with her high-potency statin, antiplatelet therapy and beta-blocke r therapy. DISCHARGE DIAGNOSES ACUTE Hyponatremia and generalized weakness. CHRONIC 1. Coronary artery disease with history of STEMI with cardiogenic shock in 2013, status post stent t o the LAD and first diagonal. 2. Congestive heart failure with EF of 25% ischemic. 3. History of V-Fib arrest, now status post AICD. 4. Obesity. 5. Right neck cystic mass. 6. Chronic kidney disease with likely component of cardiorenal syndrome, currently stage 3. 7. Tobacco abuse. 8. History of kidney stones. 9. Hypertension. 10. Dyslipidemia. 11. Chronic obstructive pulmonary disease. 12. Mitral regurgitation, moderate. 13. Tricuspid regurgitation, moderate. 14. Pulmonary hypertension. 15. Nocturnal hypoxia. DISCHARGE MEDICATIONS 1. Ventolin inhaler 2 puffs inhaled q. 4 hours p.r.n. 2. Atorvastatin calcium 80 mg p.o. daily. 3. Nitroglycerin 0.4 mg sublingual p.r.n. as directed. 4. Spiriva 18 mcg inhaled once daily. 5. Plavix 75 mg p.o. daily. 6. Acetaminophen 650 mg p.o. q. 6 hours p.r.n. 7. Aldactone 25 mg p.o. daily. 8. Bumex 2 mg p.o. daily x1 day, then resume b.i.d. dosing. 9. Multivitamin with mineral, 1 tablet p.o. daily. 10. Protonix 40 mg p.o. daily. 11. Magnesium oxide 500 mg p.o. daily. 12. Potassium chloride 20 mEq p.o. daily. 13. Apixaban 5 mg p.o. b.i.d. 14. Lidocaine cream one application topically daily p.r.n. 15. Metoprolol succinate 100 mg p.o. daily. DISPOSITION Zora is discharged home today in improved condition. She was eager for discharge. The plan will be for her to slowly resume her diuretic therapy, her Aldactone was resume today. She will resume her Bumex the day following discharge and take it once the day following discharge, then the following day resume her b.i.d. dosing. She will hold the metolazone until Cardiology advised her to resume taking it. She will have Home Health nursing monitor her fluid status, weight, and vital signs. She will have a followup BMP in three days time. She will followup with her primary care provider Dr. Juan on 01/01/2018 at 9:30 a.m. She will followup with Cardiology as scheduled. Nataly Corral NP - This case was discussed with Dr. Lamas, who is in agreement.
== END 2017-12-26 13:09 | disposition home health service (06) | DRG 641 ==
PROVIDERS: Admitting Provider Internal Medicine; Emergency Provider Student in an Organized Health Care Education/Training Program; PCP Family Medicine; Visit Provider Internal Medicine
DX: E87.1 Hypo-osmolality and hyponatremia (principal); I50.22 Chronic systolic (congestive) heart failure; I13.0 Hypertensive heart and chronic kidney disease with heart failure and stage 1 through stage 4 chronic kidney disease, or unspecified chronic kidney disease; R53.1 Weakness; I25.5 Ischemic cardiomyopathy; I25.10 Atherosclerotic heart disease of native coronary artery without angina pectoris; Z86.74 Personal history of sudden cardiac arrest; Z95.810 Presence of automatic (implantable) cardiac defibrillator; I44.0 Atrioventricular block, first degree; E87.8 Other disorders of electrolyte and fluid balance, not elsewhere classified; I25.2 Old myocardial infarction; E66.9 Obesity, unspecified; N18.3 Chronic kidney disease, stage 3 (moderate); F17.210 Nicotine dependence, cigarettes, uncomplicated; E78.5 Hyperlipidemia, unspecified; J44.9 Chronic obstructive pulmonary disease, unspecified; I08.1 Rheumatic disorders of both mitral and tricuspid valves; I27.29 Other secondary pulmonary hypertension; G47.34 Idiopathic sleep related nonobstructive alveolar hypoventilation
CPT/HCPCS: 36415 ×2; 80048 ×3; 83540; 83550; 82728; 84484; 85025 ×3; 94640 ×3; 97530 ×2; 97162; 99220; J1756; G0378 ×2; 80053; 93005; 96360; 96361; 99285; 71046; 81003; 81015; 83880; 84443; 85610; 85730; 93010; 99225; 99232; 99239; G8978; J3490

== ENCOUNTER → 2017-12-29 15:20 | Outpatient (REF) | payer MEDICARE, OTHER, SELFPAY ==
[2017-12-29 16:45] LABS: Anion Gap 9.6 mmol/L (3-11); BUN 37 mg/dL (7-18); CO2 28.4 mmol/L (21.0-32.0); CREATININE 1.66 mg/dL (0.55-1.02); Chloride 96 mmol/L (98-107); Estimated GFR 30.81 (mL/min/1.73m2); Glucose 160 mg/dL (70-100); Potassium 4.6 mmol/L (3.5-5.1); Sodium 134 mmol/L (136-145)
== END ==
LOC: NCHCN 15:20
PROVIDERS: PCP Family Medicine; Visit Provider Family Medicine
DX: I50.9 Heart failure, unspecified (principal); J44.9 Chronic obstructive pulmonary disease, unspecified; E87.1 Hypo-osmolality and hyponatremia
CPT/HCPCS: 80048

== ENCOUNTER → 2018-01-01 02:57 | Outpatient (CLI) | payer MEDICARE, OTHER, SELFPAY ==
[2018-01-01 10:32] LABS: Anion Gap 7.9 mmol/L (3-11); BUN 35 mg/dL (7-18); CO2 32.1 mmol/L (21.0-32.0); CREATININE 1.77 mg/dL (0.55-1.02); Calcium 9.1 mg/dL (8.5-10.1); Chloride 99 mmol/L (98-107); Estimated GFR 28.61 (mL/min/1.73m2); Glucose 109 mg/dL (70-100); Potassium 4.7 mmol/L (3.5-5.1); Sodium 139 mmol/L (136-145)
== END ==
PROVIDERS: PCP Family Medicine; Visit Provider Family Medicine
DX: N18.9 Chronic kidney disease, unspecified (principal); D63.1 Anemia in chronic kidney disease
CPT/HCPCS: 36415; 80048

== ENCOUNTER 2018-01-17 11:30 | Outpatient (RCR) | payer OTHER, SELFPAY, MEDICARE | END 2018-01-17 23:59 | disposition home or self-care (01) | LOC: CR 11:30 | PROVIDERS: PCP Family Medicine; Visit Provider Family Medicine | DX: I48.91 Unspecified atrial fibrillation (principal); Z51.89 Encounter for other specified aftercare | CPT/HCPCS: S9472 ==

== ENCOUNTER 2018-01-19 01:16 | Outpatient (RCR) | payer MEDICARE, OTHER, SELFPAY | END 2018-02-16 23:59 | disposition home or self-care (01) | LOC: CR 01:16 | PROVIDERS: PCP Family Medicine; Visit Provider Family Medicine | DX: I48.91 Unspecified atrial fibrillation (principal); Z51.89 Encounter for other specified aftercare ==

== ENCOUNTER 2018-01-29 01:39 | Outpatient (CLI) | payer MEDICARE, SELFPAY ==
[2018-01-29 10:10] LABS: ESR 68 MM/HR (0-30)
[2018-01-29 10:25] LABS: Anion Gap 8.8 mmol/L (3-11); BUN 50 mg/dL (7-18); CO2 31.2 mmol/L (21.0-32.0); CREATININE 2.14 mg/dL (0.55-1.02); Calcium 9.5 mg/dL (8.5-10.1); Chloride 95 mmol/L (98-107); Estimated GFR 22.99 (mL/min/1.73m2); Glucose 139 mg/dL (70-100); Potassium 4.1 mmol/L (3.5-5.1); Sodium 135 mmol/L (136-145); Uric Acid 10.5 mg/dL (2.6-6.0)
== END 2018-01-29 01:59 ==
PROVIDERS: PCP Family Medicine; Visit Provider Family Medicine
DX: M79.674 Pain in right toe(s) (principal); D63.1 Anemia in chronic kidney disease
CPT/HCPCS: 36415; 80048; 85652; 84550

== ENCOUNTER 2018-02-17 09:07 | Outpatient (REF) | payer MEDICARE, SELFPAY ==
[2018-02-17 13:24] LABS: Anion Gap 9.5 mmol/L (3-11); BUN 47 mg/dL (7-18); CO2 31.5 mmol/L (21.0-32.0); CREATININE 1.87 mg/dL (0.55-1.02); Calcium 9.9 mg/dL (8.5-10.1); Chloride 96 mmol/L (98-107); Estimated GFR 26.86 (mL/min/1.73m2); Glucose 157 mg/dL (70-100); NT-proBNP 4197 pg/mL; Potassium 4.3 mmol/L (3.5-5.1); Sodium 137 mmol/L (136-145)
== END 2018-02-17 09:27 ==
LOC: NCHCN 09:07
PROVIDERS: PCP Family Medicine; Visit Provider Family Medicine
DX: D63.1 Anemia in chronic kidney disease (principal); I50.9 Heart failure, unspecified; M79.674 Pain in right toe(s)
CPT/HCPCS: 80048; 83880

== ENCOUNTER 2018-02-22 08:03 | Emergency (ER) | payer MEDICARE, SELFPAY ==
[2018-02-22] VITALS (113 sets, daily range): BP systolic 96–131; BP diastolic 61–86; PULSE 62–82; RESP 13–31; TEMP 36.7; O2SAT 91–99
--- NOTE | 2018-02-22 08:15 | DI.RAD_ITS ---
SYMPTOMS/DIAGNOSIS: SYNCOPE, ? ACUTE DISEASE CHEST X-RAY, PA AND LATERAL: Comparison is 12/23/17. The heart size is stable. The pulmonary vasculature is within normal limits. The pacing wires are stable in position. The lungs show no evidence of pneumonia, congestive heart failure, effusion or pneumothorax. Degenerative changes are seen in the spine. The lungs appear mildly hyperinflated. This may represent underlying COPD. IMPRESSION: No acute pulmonary process.
[2018-02-22 08:26] LABS: Abs Immature Grans 0.03 k/cumm (0.0-0.09); Absolute Basophil Count 0.05 k/cumm (0.0-0.2); Absolute Eosinophil Count 0.07 k/cumm (0.0-0.7); Absolute Lymphocyte Count 1.07 k/cumm (1.2-3.4); Absolute Monocyte Count 1.02 k/cumm (0.11-0.7); Absolute Neutrophil Count 11.03 k/cumm (1.2-6.7); Basophils % 0.4; Eosinophils % 0.5; HCT 35.2 % (36.0-46.0); HGB 10.9 g/dL (12.0-15.5); Immature Grans % 0.2; Lymphocytes % 8.1; Mean Corpuscular Volume 83.8 fL (80-95); Mean Platelet Volume 10.4 fL (8.0-11.0); Monocytes % 7.7; Neutrophils % 83.1; Platelet Count 332 x1000/uL (130-400); RBC Distribution Width 20.7 % (11.7-14.6); White Blood Cell Count 13.27 k/cumm (4.4-10.8)
[2018-02-22 08:34] LABS: Anisocytosis 2+; Diff Comment RBC Morph Reviewed; Hypochromasia 1+
--- NOTE | 2018-02-22 08:34 | W.ED.GENAD ---
Discharge Plan Disposition Patient Disposition: [facility] Condition: Stable Discharge Details Chief Complaint: Dizzy/Sync Clinical Impression: AICD discharge, History of ventricular fibrillation, Episode of syncope Primary Care Provider: Taya Juan ED Provider: Katerine Kingsley Home Meds and New Rx's Prescriptions: No Action albuterol sulfate [Ventolin HFA] 8 GM HFA aerosol inhaler 2 puff Inhalation Q4H PRN Qty: 120 RF: 2 atorvastatin 80 MG tablet 80 mg PO DAILY Qty: 90 RF: 3 nitroglycerin 0.4 MG tablet, sublingual 0.4 mg Sublingual PRN PRNQty: 30 RF: 0 tiotropium bromide [Spiriva with HandiHaler] 18 MCG capsule, w/inhalation device 18 mcg Inhalation once daily Qty: 1 RF: 2 clopidogrel [Plavix] 75 MG tablet 75 mg PO DAILY Qty: 90 RF: 3 spironolactone 25 MG tablet 25 mg PO DAILY Qty: 90 RF: 3 bumetanide 1 MG tablet 1 mg PO BID Qty: 60 RF: 0 metolazone 2.5 MG tablet 2.5 mg PO PRN Qty: 30 RF: 3 metoprolol succinate 100 mg tablet extended release 24 hr 100 mg PO BID RF: 0 acetaminophen [Tylenol] 325 MG tablet 650 mg PO Q6H PRNQty: 1 RF: 0 pantoprazole 40 MG tablet,delayed release (DR/EC) 40 mg PO DAILY@0730 Qty: 30 RF: 0 multivit, iron, min no.8, FA [Therapeutic-M] 1 TAB tablet 1 tab PO DAILY RF: 0 apixaban [Eliquis] 5 MG tablet 5 mg PO BID Qty: 60 RF: 0 magnesium oxide [Leyva] 500 MG tablet 500 mg PO DAILY Qty: 30 RF: 0 lidocaine HCl [Anastia] 15 GM lotion 15 gm Topical DAILY PRNQty: 1 RF: 0 prednisone 10 mg Tablet 5 mg PO DAILY RF: 0 Discharge Data Discharge Date/Time-TO BE ENTERED AT DEPARTURE: 02/22/18 19:22 Medical Decision Making 67-year-old female with a history of STEMI, V. fib arrest, AICD, CKD stage III, CHF, hypertension, cardiac stent placement who presents for syncopal episode at home this morning. Patient states she was looking at numbers on paper when she felt lightheaded and then next thing she remembers is waking up on the ground. She thinks she hit her back directly on the ground and is complaining of significant pain across her mid back. She denies head injury, vomiting, chest pain, abdominal pain, shortness of breath, extremity pain. She has not taken any medication for pain this morning. She denies recent illness, similar episode in the past, or recent hospital admission. She is followed by pole maker Dr. Sergio Diaz. 0810 --EKG notes a rate of 75, ST elevation in anterolateral leads which may be repolarization variant. She has [address] depression in lead II. She has T wave inversion in 2, 3, aVF, 1 and aVL. QTC 491. QRS 118. Vitals within normal limits. Patient appears nontoxic and in no acute distress. She has no back tenderness to palpation and no evidence of trauma on exam. Lungs clear to auscultation abdomen soft nontender. Considering patient's history, will place an IV, labs, chest x-ray. Patient's AICD is from [employer]. Will call [facility] to see if a sap plant maintenance consultant can come to interrogate AICD. 0915 -- D/w [employer] - medical center representative can be here in 2hrs 45 min. 0930 --labs reviewed and note a white blood cell count of 13, which is stable compared to recent previous, patient on steroids hemoglobin 10, stable compared to previous. Troponin 0 0.03. Patient admits to some nausea after oxycodone. Will give a dose of zofran. 1030: Chest x-ray stable moderate to severe COPD, no acute findings. 1055 --repeat EKG done due to ST elevation noted in anterior lateral leads which may be repolarization. There does seem to be improvement in the elevation noted in V1 through V4. 1120 --case discussed with cardiology on-call Dr. Amaral -agrees history is concerning and would recommend patient likely be admitted for ischemic eval if troponin becomes abnormal/or interrogation positive for events. Main concern would be interrogation of the defibrillator. If it is negative for any acute cardiac events, could have been a vasovagal syncope. Does not sound like seizure. Would expect an elevated troponin if patient did receive a shock. 1230 -- Second troponin negative. 1410 --[facility] representative interrogated the defibrillator and patient did have a V. fib event and was shocked once. Patient would rather go home. Will discuss with cardiology. Likely patient will need to stay for ischemic eval. 1415 --discussed with pole maker Dr. Amaral -recommends admission to rule out an ischemic cause with serial troponins, observation. Recommends order for echocardiogram and will plan for stress test on Saturday. Recommends increasing metoprolol from 100 p.o. daily to 125 mg p.o. daily. 1430 --discussed with hospitalist -do not feel comfortable with admission here as there is no pole maker or pharmacy care coordinator immediately available. Recommends transfer to [facility]. 1625 --d/w [facility] cardiology - accepting physician Dr. Barakat - [facility]. 1800 --Delay in transfer to [facility] - ems will be here around 1900 - were on another transport. Pt has been stable and in no acute distress. She ate a meal and has no acute complaints. 1930 -- Pt stable prior to transfer. She has been sitting in wheelchair and appears comfortable w/o complaints. HPI General Mode of arrival: ambulatory. Date/Time Provider Initiated Documentation: 02/22/18 08:10. Limitations to Documentation: no limitations. Information obtained by: patient. HPI Narrative: Patient is a 67-year-old female with extensive cardiac history including STEMI, V. fib arrest and AICD in June 2017, CHF, hypertension, atrial fibrillation, cardiorenal syndrome, ischemic cardiomyopathy, COPD, CKD stage III, angioplasty and cardiac stent placement, hysterectomy who presents to the ED status post syncopal episode this morning. Patient states she was standing at home looking through phone numbers on a paper when she suddenly felt lightheaded and then the next thing she remembers is lying on the ground with her asking her if she was okay. She states she was able to stand up and walk around after this. She states she thinks she hit her back directly on the ground as she is complaining of mid back pain. She denies headache, neck pain, chest pain, abdominal pain, extremity pain. She states she has not taken any medication for pain this morning. She denies recent illness, similar episode in past, or recent hospital admission. States her only recent medication is one month ago when she started prednisone for gout. Past medical history: COPD, CHF, Ischemic cardiomyopathy, CAD, HTN, CKD Stage III, Vfib arrest s/p AICD 06/2017, cardiorenal syndrome, chronic hyponatremia Surgical history: Angioplasty/stent, AICD, cholecystectomy, hernia repair, hysterectomy, tonsillectomy Social history: Smokes tobacco, denies alcohol or drug use Medications: Eliquis, Plavix, see list Allergies: Lisinopril PCP: Dr. Juan Cardiology: PRODUCT DESIGNER Sergio Diaz, Dr. Jean-Baptiste Related Data Home Medications Medication Instructions Recorded Confirmed albuterol sulfate [Ventolin HFA] 2 puff INHALATION Q4H PRN #120 07/13/15 02/22/18 inhaler atorvastatin 80 mg PO DAILY #90 tab-cap 07/02/16 02/22/18 nitroglycerin 0.4 mg SUBLINGUAL PRN PRN #30 01/28/17 02/22/18 tab-cap tiotropium bromide [Spiriva with 18 mcg INHALATION once daily #1 01/28/17 02/22/18 HandiHaler] inhaler clopidogrel [Plavix] 75 mg PO DAILY #90 tab-cap 03/27/17 02/22/18 acetaminophen [Tylenol] 650 mg PO Q6H PRN #1 tab 09/24/17 02/22/18 spironolactone 25 mg PO DAILY #90 tab-cap 10/02/17 02/22/18 apixaban [Eliquis] 5 mg PO BID #60 tab 11/22/17 02/22/18 magnesium oxide [Leyva] 500 mg PO DAILY #30 tablet 11/22/17 02/22/18 multivit, iron, min no.8, FA 1 tab PO DAILY tab 11/22/17 02/22/18 [Therapeutic-M] pantoprazole 40 mg PO DAILY@0730 #30 tabcr 11/22/17 02/22/18 lidocaine HCl [Anastia] 15 gm TOPICAL DAILY PRN #1 tube 12/26/17 02/22/18 bumetanide 1 mg PO BID #60 tab 01/08/18 02/22/18 metolazone 2.5 mg PO PRN #30 tab-cap 01/08/18 02/22/18 prednisone 5 mg PO DAILY 02/22/18 02/22/18 metoprolol succinate ER 100 mg 100 mg PO BID tab 02/26/18 tablet,extended release 24 hr Previous Rx's Medication Instructions Recorded clopidogrel [Plavix] 75 mg PO DAILY #90 tab-cap 03/27/17 acetaminophen [Tylenol] 650 mg PO Q6H PRN #1 tab 09/24/17 spironolactone 25 mg PO DAILY #90 tab-cap 10/02/17 apixaban [Eliquis] 5 mg PO BID #60 tab 11/22/17 magnesium oxide [Leyva] 500 mg PO DAILY #30 tablet 11/22/17 multivit, iron, min no.8, FA 1 tab PO DAILY tab 11/22/17 [Therapeutic-M] pantoprazole 40 mg PO DAILY@0730 #30 tabcr 11/22/17 lidocaine HCl [Anastia] 15 gm TOPICAL DAILY PRN #1 tube 12/26/17 bumetanide 1 mg PO BID #60 tab 01/08/18 metolazone 2.5 mg PO PRN #30 tab-cap 01/08/18 Allergies Allergy/AdvReac Type Severity Reaction Status Date / Time lisinopril AdvReac Other (See Unverified 02/22/18 08:12 Comment) sacubitril [From Entresto] AdvReac rash Unverified 02/22/18 08:12 valsartan [From Entresto] AdvReac rash Unverified 02/22/18 08:12 General Stated Complaint: Dizzy/Sync YUE: 2 Review of Systems Review of Systems All systems reviewed & are unremarkable except as noted in HPI and below PFSH Social History Smoking/Tobacco Use Status: Former Tobacco Use Surgical History Cholecystectomy Hernia Repair, Incisional Hysterectomy, Laproscopic (~1980) Tonsillectomy Exam Const General: cooperative and healthy appearing Orientation: alert and awake [facility] Head: normal to inspection Ears: hearing grossly normal bilaterally, external ears normal and TM's normal bilaterally General nose exam: external nose normal Face and sinus: normal facial exam Mouth: oral mucosae normal Teeth and gingiva: dentition normal Throat: posterior oropharynx normal Eyes General: appearance normal, both eyes and all related structures Eyelids: eyelids normal Pupils: PERRL EOM: EOM intact bilaterally Neck Neck: normal visual inspection Lymphatic: no lymphadenopathy noted Chest Chest: normal inspection of the chest, normal palpation of entire chest wall and no tenderness Resp Effort & Inspection: normal respiratory effort and able to speak in complete sentences Auscultation: clear to auscultation bilaterally Cardio Rate: regular rate Rhythm: regular rhythm GI Inspection: normal to inspection and no abdominal wall ecchymosis Palpation: soft, not firm, no guarding, no hepatosplenomegaly, no masses and nontender Auscultation: normal bowel sounds Back/Spine/Pelvis Back: no CVA tenderness Cervical Spine: No cervical spinal tenderness Thoracic/Lumbar Spine: No thoracic spinal tenderness and No lumbar spinal tenderness Skin General skin exam: no rashes or lesions noted Neuro General: alert, awake and oriented x3 Cranial Nerves: CN's II-XI intact bilaterally Cognition: normal cognition Speech: speech normal Gait: normal gait Motor: muscle tone normal throughout and strength 5/5 throughout Sensory Exam: no sensory deficits noted Extrem General: normal to inspection, full ROM, normal capillary refill and no edema Psych Appearance: grossly normal Mental Status: mental status grossly normal Speech and Movement: speech and movement normal Affect: normal affect Thought Process: normal Course Vital Signs Temperature 98.1 F 02/22/18 08:06 Pulse 76 02/22/18 08:06 Respiratory Rate 25 H 02/22/18 08:06 Pulse Oximetry 97 02/22/18 08:06 Temperature 98.1 F 02/22/18 08:06 Temperature Source Skin 02/22/18 08:06 Pulse 76 02/22/18 08:06 Pulse 77 02/22/18 08:23 Respiratory Rate 26 H 02/22/18 08:23 Respiratory Effort Non-Labored 02/22/18 08:18 Respiratory Depth Normal 02/22/18 08:18 Respiratory Pattern Normal 02/22/18 08:18 Blood Pressure Position Sitting 02/22/18 08:06 Pulse Oximetry 94 L 02/22/18 08:23 Oxygen Delivery Method Room Air 02/22/18 08:06 Oxygen Flow Rate 0 02/22/18 08:06 Pain Level 10 02/22/18 08:06
[2018-02-22 08:35] LABS: Poikilocytes 1+; Polychromasia Present
--- NOTE | 2018-02-22 08:38 | ED.GENADUL_ITS ---
Discharge Plan Disposition Patient Disposition: [facility] Condition: Stable Discharge Details Chief Complaint: Dizzy/Sync Clinical Impression: AICD discharge, History of ventricular fibrillation, Episode of syncope Primary Care Provider: Taya Juan ED Provider: Katerine Kingsley Home Meds and New Rx's Prescriptions: No Action albuterol sulfate [Ventolin HFA] 8 GM HFA aerosol inhaler 2 puff Inhalation Q4H PRN Qty: 120 RF: 2 atorvastatin 80 MG tablet 80 mg PO DAILY Qty: 90 RF: 3 nitroglycerin 0.4 MG tablet, sublingual 0.4 mg Sublingual PRN PRNQty: 30 RF: 0 tiotropium bromide [Spiriva with HandiHaler] 18 MCG capsule, w/inhalation device 18 mcg Inhalation once daily Qty: 1 RF: 2 clopidogrel [Plavix] 75 MG tablet 75 mg PO DAILY Qty: 90 RF: 3 spironolactone 25 MG tablet 25 mg PO DAILY Qty: 90 RF: 3 bumetanide 1 MG tablet 1 mg PO BID Qty: 60 RF: 0 metolazone 2.5 MG tablet 2.5 mg PO PRN Qty: 30 RF: 3 metoprolol succinate 100 mg tablet extended release 24 hr 100 mg PO BID RF: 0 acetaminophen [Tylenol] 325 MG tablet 650 mg PO Q6H PRNQty: 1 RF: 0 pantoprazole 40 MG tablet,delayed release (DR/EC) 40 mg PO DAILY@0730 Qty: 30 RF: 0 multivit, iron, min no.8, FA [Therapeutic-M] 1 TAB tablet 1 tab PO DAILY RF: 0 apixaban [Eliquis] 5 MG tablet 5 mg PO BID Qty: 60 RF: 0 magnesium oxide [Leyva] 500 MG tablet 500 mg PO DAILY Qty: 30 RF: 0 lidocaine HCl [Anastia] 15 GM lotion 15 gm Topical DAILY PRNQty: 1 RF: 0 prednisone 10 mg Tablet 5 mg PO DAILY RF: 0 Discharge Data Discharge Date/Time-TO BE ENTERED AT DEPARTURE: 02/22/18 19:22 Medical Decision Making 67-year-old female with a history of STEMI, V. fib arrest, AICD, CKD stage III, CHF, hypertension, cardiac stent placement who presents for syncopal episode at home this morning. Patient states she was looking at numbers on paper when she felt lightheaded and then next thing she remembers is waking up on the ground. She thinks she hit her back directly on the ground and is complaining of significant pain across her mid back. She denies head injury, vomiting, chest pain, abdominal pain, shortness of breath, extremity pain. She has not taken any medication for pain this morning. She denies recent illness, similar episode in the past, or recent hospital admission. She is followed by sales branch manager Dr. Sergio Diaz. 0810 --EKG notes a rate of 75, ST elevation in anterolateral leads which may be repolarization variant. She has [address] depression in lead II. She has T wave inversion in 2, 3, aVF, 1 and aVL. QTC 491. QRS 118. Vitals within normal limits. Patient appears nontoxic and in no acute distress. She has no back tenderness to palpation and no evidence of trauma on exam. Lungs clear to auscultation abdomen soft nontender. Considering patient's history, will place an IV, labs, chest x-ray. Patient's AICD is from [employer]. Will call [facility] to see if a product support consultant can come to interrogate AICD. 0915 -- D/w [employer] - investment representative can be here in 2hrs 45 min. 0930 --labs reviewed and note a white blood cell count of 13, which is stable compared to recent previous, patient on steroids hemoglobin 10, stable compared to previous. Troponin 0 0.03. Patient admits to some nausea after oxycodone. Will give a dose of zofran. 1030: Chest x-ray stable moderate to severe COPD, no acute findings. 1055 --repeat EKG done due to ST elevation noted in anterior lateral leads which may be repolarization. There does seem to be improvement in the elevation noted in V1 through V4. 1120 --case discussed with cardiology on-call Dr. Amaral -agrees history is concerning and would recommend patient likely be admitted for ischemic eval if troponin becomes abnormal/or interrogation positive for events. Main concern would be interrogation of the defibrillator. If it is negative for any acute cardiac events, could have been a vasovagal syncope. Does not sound like seizure. Would expect an elevated troponin if patient did receive a shock. 1230 -- Second troponin negative. 1410 --[employer] investment representative interrogated the defibrillator and patient did have a V. fib event and was shocked once. Patient would rather go home. Will discuss with cardiology. Likely patient will need to stay for ischemic eval. 1415 --discussed with sales branch manager Dr. Amaral -recommends admission to rule out an ischemic cause with serial troponins, observation. Recommends order for echocardiogram and will plan for stress test on Saturday. Recommends increasing metoprolol from 100 p.o. daily to 125 mg p.o. daily. 1430 --discussed with hospitalist -do not feel comfortable with admission here as there is no sales branch manager or first helper immediately available. Recommends transfer to [facility]. 1625 --d/w [facility] cardiology - accepting physician Dr. Barakat - [facility] 1800 --Delay in transfer to [facility] - ems will be here around 1900 - were on another transport. Pt has been stable and in no acute distress. She ate a meal and has no acute complaints. 1930 -- Pt stable prior to transfer. She has been sitting in wheelchair and appears comfortable w/o complaints. HPI General Mode of arrival: ambulatory . Date/Time Provider Initiated Documentation: 02/22/18 08:10 . Limitations to Documentation: no limitations . Information obtained by: patient . HPI Narrative: Patient is a 67-year-old female with extensive cardiac history including STEMI, V. fib arrest and AICD in June 2017, CHF, hypertension, atrial fibrillation, cardiorenal syndrome, ischemic cardiomyopathy, COPD, CKD stage III, angioplasty and cardiac stent placement, hysterectomy who presents to the ED status post syncopal episode this morning. Patient states she was standing at home looking through phone numbers on a paper when she suddenly felt lightheaded and then the next thing she remembers is lying on the ground with her asking her if she was okay. She states she was able to stand up and walk around after this. She states she thinks she hit her back directly on the ground as she is complaining of mid back pain. She denies headache, neck pain, chest pain, abdominal pain, extremity pain. She states she has not taken any medication for pain this morning. She denies recent illness, similar episode in past, or recent hospital admission. States her only recent medication is one month ago when she started prednisone for gout. Past medical history: COPD, CHF, Ischemic cardiomyopathy, CAD, HTN, CKD Stage III, Vfib arrest s/p AICD 06/2017, cardiorenal syndrome, chronic hyponatremia Surgical history: Angioplasty/stent, AICD, cholecystectomy, hernia repair, hysterectomy, tonsillectomy Social history: Smokes tobacco, denies alcohol or drug use Medications: Eliquis, Plavix, see list Allergies: Lisinopril PCP: Dr. Juan Cardiology: [employer] ADJUSTER Sergio Diaz, Dr. Jean-Baptiste Related Data Home Medications Medication Instructions Recorded Confirmed albuterol sulfate [Ventolin HFA] 2 puff INHALATION Q4H PRN #120 07/13/15 inhaler atorvastatin 80 mg PO DAILY #90 tab-cap 07/02/16 02/22/18 nitroglycerin 0.4 mg SUBLINGUAL PRN PRN #30 01/28/17 02/22/18 tab-cap tiotropium bromide [Spiriva with 18 mcg INHALATION once daily #1 01/28/17 HandiHaler] inhaler clopidogrel [Plavix] 75 mg PO DAILY #90 tab-cap 03/27/17 02/22/18 acetaminophen [Tylenol] 650 mg PO Q6H PRN #1 tab 09/24/17 02/22/18 spironolactone 25 mg PO DAILY #90 tab-cap 10/02/17 02/22/18 apixaban [Eliquis] 5 mg PO BID #60 tab 11/22/17 02/22/18 magnesium oxide [Leyva] 500 mg PO DAILY #30 tablet 11/22/17 02/22/18 multivit, iron, min no.8, FA 1 tab PO DAILY tab 11/22/17 02/22/18 [Therapeutic-M] pantoprazole 40 mg PO DAILY@0730 #30 tabcr 11/22/17 02/22/18 lidocaine HCl [Anastia] 15 gm TOPICAL DAILY PRN #1 tube 12/26/17 02/22/18 bumetanide 1 mg PO BID #60 tab 01/08/18 02/22/18 metolazone 2.5 mg PO PRN #30 tab-cap 01/08/18 02/22/18 prednisone 5 mg PO DAILY 02/22/18 02/22/18 metoprolol succinate ER 100 mg 100 mg PO BID tab 02/26/18 tablet,extended release 24 hr Previous Rx's Medication Instructions Recorded clopidogrel [Plavix] 75 mg PO DAILY #90 tab-cap 03/27/17 acetaminophen [Tylenol] 650 mg PO Q6H PRN #1 tab 09/24/17 spironolactone 25 mg PO DAILY #90 tab-cap 10/02/17 apixaban [Eliquis] 5 mg PO BID #60 tab 11/22/17 magnesium oxide [Leyva] 500 mg PO DAILY #30 tablet 11/22/17 multivit, iron, min no.8, FA 1 tab PO DAILY tab 11/22/17 [Therapeutic-M] pantoprazole 40 mg PO DAILY@0730 #30 tabcr 11/22/17 lidocaine HCl [Anastia] 15 gm TOPICAL DAILY PRN #1 tube 12/26/17 bumetanide 1 mg PO BID #60 tab 01/08/18 metolazone 2.5 mg PO PRN #30 tab-cap 01/08/18 Allergies Allergy/AdvReac Type Severity Reaction Status Date / Time lisinopril AdvReac Other (See Unverified 02/22/18 08:12 Comment) sacubitril [From Entresto] AdvReac rash Unverified 02/22/18 08:12 valsartan [From Entresto] AdvReac rash Unverified 02/22/18 08:12 General Stated Complaint: Dizzy/Sync YUE: 2 Review of Systems Review of Systems All systems reviewed & are unremarkable except as noted in HPI and below PFSH Social History Smoking/Tobacco Use Status: Former Tobacco Use Surgical History Cholecystectomy Hernia Repair, Incisional Hysterectomy, Laproscopic (~1980) Tonsillectomy Exam Const General: cooperative and healthy appearing Orientation: alert and awake [facility] Head: normal to inspection Ears: hearing grossly normal bilaterally, external ears normal and TM's normal bilaterally General nose exam: external nose normal Face and sinus: normal facial exam Mouth: oral mucosae normal Teeth and gingiva: dentition normal Throat: posterior oropharynx normal Eyes General: appearance normal, both eyes and all related structures Eyelids: eyelids normal Pupils: PERRL EOM: EOM intact bilaterally Neck Neck: normal visual inspection Lymphatic: no lymphadenopathy noted Chest Chest: normal inspection of the chest, normal palpation of entire chest wall and no tenderness Resp Effort & Inspection: normal respiratory effort and able to speak in complete sentences Auscultation: clear to auscultation bilaterally Cardio Rate: regular rate Rhythm: regular rhythm GI Inspection: normal to inspection and no abdominal wall ecchymosis Palpation: soft, not firm, no guarding, no hepatosplenomegaly, no masses and nontender Auscultation: normal bowel sounds Back/Spine/Pelvis Back: no CVA tenderness Cervical Spine: No cervical spinal tenderness Thoracic/Lumbar Spine: No thoracic spinal tenderness and No lumbar spinal tenderness Skin General skin exam: no rashes or lesions noted Neuro General: alert, awake and oriented x3 Cranial Nerves: CN's II-XI intact bilaterally Cognition: normal cognition Speech: speech normal Gait: normal gait Motor: muscle tone normal throughout and strength 5/5 throughout Sensory Exam: no sensory deficits noted Extrem General: normal to inspection, full ROM, normal capillary refill and no edema Psych Appearance: grossly normal Mental Status: mental status grossly normal Speech and Movement: speech and movement normal Affect: normal affect Thought Process: normal Course Vital Signs Temperature 98.1 F 02/22/18 08:06 Pulse 76 02/22/18 08:06 Respiratory Rate 25 H 02/22/18 08:06 Pulse Oximetry 97 02/22/18 08:06 Temperature 98.1 F 02/22/18 08:06 Temperature Source Skin 02/22/18 08:06 Pulse 76 02/22/18 08:06 Pulse 77 02/22/18 08:23 Respiratory Rate 26 H 02/22/18 08:23 Respiratory Effort Non-Labored 02/22/18 08:18 Respiratory Depth Normal 02/22/18 08:18 Respiratory Pattern Normal 02/22/18 08:18 Blood Pressure Position Sitting 02/22/18 08:06 Pulse Oximetry 94 L 02/22/18 08:23 Oxygen Delivery Method Room Air 02/22/18 08:06 Oxygen Flow Rate 0 02/22/18 08:06 Pain Level 10 02/22/18 08:06
[2018-02-22] MEDS: oxyCODONE 5 MG TAB PO (08:40)
[2018-02-22 08:46] LABS: ALT 40 U/L (12-78); AST 32 U/L (15-37); Albumin 3.2 g/dL (3.4-5.0); Alkaline Phosphatase 191 U/L (46-116); BUN 39 mg/dL (7-18); Bilirubin, Direct 0.14 mg/dL (0.00-0.20); Bilirubin, Total 0.6 mg/dL (0.2-1.0); CREATININE 1.74 mg/dL (0.55-1.02); Calcium 9.1 mg/dL (8.5-10.1); Chloride 99 mmol/L (98-107); Estimated GFR 29.18 (mL/min/1.73m2); Glucose 160 mg/dL (70-100); Magnesium 2.4 mg/dL (1.8-2.4); Potassium 4.1 mmol/L (3.5-5.1); Sodium 136 mmol/L (136-145); Total Protein 7.7 g/dL (6.4-8.2); Troponin I 0.03 ng/mL (0.00-0.06)
[2018-02-22] MEDS: Normal Saline 250 ML IV (09:30)
[2018-02-22] MEDS: Ondansetron 4 MG/2 ML VIAL IVP (10:00)
--- NOTE | 2018-02-22 10:27 | DI.VRAD_ITS ---
EXAM: XR Chest, 2 Views EXAM DATE/TIME: 02/22/2018 8:18 AM CLINICAL HISTORY: 67 years old, female; Signs and symptoms; Other: Syncope, rule out acute disease TECHNIQUE: XR of the chest, 2 views. COMPARISON: CR CHEST 2 VIEWS PA,LAT 12/23/2017 8:47 AM FINDINGS: Tubes, catheters and devices: Stable left pacemaker. Lungs: Stable moderate to severe COPD . Pleural space: Unremarkable. No pleural effusion. No pneumothorax. Heart/Mediastinum: Stable cardiomegaly. Bones/joints: Moderate thoracic spondylosis. Dextroscoliosis. IMPRESSION: 1. Stable moderate to severe COPD . 2. Stable cardiomegaly. Dictated and Authenticated by: Luis A Calderón MD. Ordering:MATTI VERGARA MD
[2018-02-22 12:22] LABS: Troponin I 0.03 ng/mL (0.00-0.06)
[2018-02-22] MEDS: Diazepam 5 MG TAB PO (17:54)
== END 2018-02-22 19:22 | disposition short-term general hospital (02) ==
LOC: ER 09:14
PROVIDERS: Emergency Provider Physician Assistant; PCP Family Medicine
DX: T82.198A Other mechanical complication of other cardiac electronic device, initial encounter (principal); I49.01 Ventricular fibrillation; R55 Syncope and collapse; Z95.810 Presence of automatic (implantable) cardiac defibrillator; I13.0 Hypertensive heart and chronic kidney disease with heart failure and stage 1 through stage 4 chronic kidney disease, or unspecified chronic kidney disease; I50.9 Heart failure, unspecified; N18.3 Chronic kidney disease, stage 3 (moderate); M54.5 Low back pain; J44.9 Chronic obstructive pulmonary disease, unspecified; Z87.891 Personal history of nicotine dependence; Z79.01 Long term (current) use of anticoagulants; I48.91 Unspecified atrial fibrillation
CPT/HCPCS: 36415; 80053; 80076; 93005; 96374; 99285; 71046; 83735; 84484; 85025; 93010; J2405

== ENCOUNTER 2018-03-17 09:45 | Outpatient (REF) | payer MEDICARE, SELFPAY ==
[2018-03-17 13:14] LABS: Anion Gap 9.1 mmol/L (3-11); BUN 39 mg/dL (7-18); CO2 31.9 mmol/L (21.0-32.0); CREATININE 1.84 mg/dL (0.55-1.02); Calcium 9.6 mg/dL (8.5-10.1); Chloride 97 mmol/L (98-107); Estimated GFR 27.36 (mL/min/1.73m2); Glucose 155 mg/dL (70-100); Potassium 4.4 mmol/L (3.5-5.1); Sodium 138 mmol/L (136-145); Uric Acid 4.7 mg/dL (2.6-6.0)
== END 2018-03-17 10:05 ==
LOC: NCHCN 09:45
PROVIDERS: PCP Family Medicine; Visit Provider Family Medicine
DX: M10.9 Gout, unspecified (principal); I13.10 Hypertensive heart and chronic kidney disease without heart failure, with stage 1 through stage 4 chronic kidney disease, or unspecified chronic kidney disease
CPT/HCPCS: 80048; 84550

== ENCOUNTER 2018-03-28 12:30 | Outpatient (REF) | payer MEDICARE, SELFPAY ==
[2018-03-28 18:22] LABS: Anion Gap 6.3 mmol/L (3-11); BUN 33 mg/dL (7-18); CO2 34.7 mmol/L (21.0-32.0); CREATININE 1.75 mg/dL (0.55-1.02); Calcium 9.7 mg/dL (8.5-10.1); Chloride 97 mmol/L (98-107); Estimated GFR 28.99 (mL/min/1.73m2); Glucose 98 mg/dL (70-100); Potassium 3.8 mmol/L (3.5-5.1); Sodium 138 mmol/L (136-145); Uric Acid 6.2 mg/dL (2.6-6.0)
[2018-03-28 18:26] LABS: Hemoglobin A1C 6.7 % (4.5-6.2)
== END 2018-03-28 12:50 ==
LOC: NCHCN 12:30
PROVIDERS: PCP Family Medicine; Visit Provider Family Medicine
DX: R73.09 Other abnormal glucose (principal); R55 Syncope and collapse; M10.9 Gout, unspecified
CPT/HCPCS: 80048; 83036; 84550

== ENCOUNTER 2018-04-21 13:04 | Outpatient (REF) | payer MEDICARE, SELFPAY ==
[2018-04-21 13:50] LABS: Anion Gap 9.3 mmol/L (3-11); BUN 42 mg/dL (7-18); CO2 33.7 mmol/L (21.0-32.0); Calcium 9.6 mg/dL (8.5-10.1); Chloride 96 mmol/L (98-107); Estimated GFR 28.07 (mL/min/1.73m2); Glucose 141 mg/dL (70-100); Potassium 4.4 mmol/L (3.5-5.1); Sodium 139 mmol/L (136-145); Uric Acid 7.4 mg/dL (2.6-6.0)
[2018-04-21 13:54] LABS: Hemoglobin A1C 7.1 % (4.5-6.2)
== END 2018-04-21 13:24 ==
LOC: NCHCN 13:04
PROVIDERS: PCP Family Medicine; Visit Provider Family Medicine
DX: R73.9 Hyperglycemia, unspecified (principal); M10.9 Gout, unspecified; D63.1 Anemia in chronic kidney disease
CPT/HCPCS: 80048; 83036; 84550

== ENCOUNTER → 2018-04-30 13:35 | Outpatient (BNVA) | payer MEDICARE, SELFPAY, MEDICAID | PROVIDERS: PCP Family Medicine; Visit Provider Student in an Organized Health Care Education/Training Program | DX: I25.5 Ischemic cardiomyopathy (principal); I49.01 Ventricular fibrillation; Z95.0 Presence of cardiac pacemaker; I12.9 Hypertensive chronic kidney disease with stage 1 through stage 4 chronic kidney disease, or unspecified chronic kidney disease; N18.9 Chronic kidney disease, unspecified; I48.1 Persistent atrial fibrillation; Z87.891 Personal history of nicotine dependence | CPT/HCPCS: 99215 ==

== ENCOUNTER 2018-05-07 11:20 | Outpatient (REF) | payer MEDICARE, SELFPAY ==
[2018-05-07 19:52] LABS: Anion Gap 7.7 mmol/L (3-11); BUN 32 mg/dL (7-18); CO2 35.3 mmol/L (21.0-32.0); CREATININE 1.52 mg/dL (0.55-1.02); Calcium 9.8 mg/dL (8.5-10.1); Chloride 98 mmol/L (98-107); Estimated GFR 34.11 (mL/min/1.73m2); Glucose 122 mg/dL (70-100); Sodium 141 mmol/L (136-145); Uric Acid 6.2 mg/dL (2.6-6.0)
== END 2018-05-07 11:40 ==
LOC: NCHCN 11:20
PROVIDERS: PCP Family Medicine; Visit Provider Family Medicine
DX: M10.9 Gout, unspecified (principal)
CPT/HCPCS: 80048; 84550

== ENCOUNTER 2018-05-19 13:04 | Outpatient (REF) | payer MEDICARE, SELFPAY ==
[2018-05-19 23:11] LABS: COMMENT (LAB VIEW ONLY) 42.19 mg/dL; Microalb ug/mg Crea 7.1 ug/mg Cr
== END 2018-05-19 13:24 ==
LOC: NCHCN 13:04
PROVIDERS: PCP Family Medicine; Visit Provider Family Medicine
DX: E11.9 Type 2 diabetes mellitus without complications (principal)
CPT/HCPCS: 82043; 82570

== ENCOUNTER 2018-05-24 22:03 | Emergency (ER) | payer MEDICARE, SELFPAY ==
--- NOTE | 2018-05-24 22:10 | W.ED.GENAD ---
Discharge Plan Disposition Patient Disposition: [facility] Condition: Stable Discharge Details Chief Complaint: Dizzy/Sync Clinical Impression: Syncope, ICD (implantable cardioverter-defibrillator) discharge Reason For Visit: defibulater fired at home x1 Primary Care Provider: Taya Juan ED Provider: Dharmesh Pedroza Home Meds and New Rx's Prescriptions: No Action Ventolin HFA 8 GM HFA aerosol inhaler 2 puff Inhalation Q4H PRN Qty: 120 RF: 2 atorvastatin 80 MG tablet 80 mg PO DAILY Qty: 90 RF: 3 nitroglycerin 0.4 MG tablet, sublingual 0.4 mg Sublingual PRN PRNQty: 30 RF: 0 Spiriva with HandiHaler 18 MCG capsule, w/inhalation device 18 mcg Inhalation once daily Qty: 1 RF: 2 spironolactone 25 MG tablet 25 mg PO DAILY Qty: 90 RF: 3 bumetanide 1 MG tablet 1 mg PO BID Qty: 60 RF: 0 metolazone 2.5 MG tablet 2.5 mg PO PRN Qty: 30 RF: 3 metoprolol succinate 100 mg tablet extended release 24 hr 100 mg PO BID RF: 0 allopurinol 300 mg tablet 300 mg PO DAILY RF: 0 acetaminophen [Tylenol] 325 MG tablet 650 mg PO Q6H PRNQty: 1 RF: 0 Therapeutic-M 1 TAB tablet 1 tab PO DAILY RF: 0 Eliquis 5 MG tablet 5 mg PO BID Qty: 60 RF: 0 prednisone 10 mg Tablet 5 mg PO DAILY RF: 0 Discharge Data Discharge Date/Time-TO BE ENTERED AT DEPARTURE: 05/25/18 16:45 Medical Decision Making <Luis A Knight MD - Last Filed: 05/25/18 21:45> 67 yo female with hx of htn, afib, cad, icd, who comes in after she had syncope earlier today. She states she was feeling well then was on the toilet urinating when she felt dizzy and then had loc. Denies feeling any icd shocks, but Dr. Samaniego, channel development manager at [facility] [place] me to make me aware prior to the patient arriving that her icd fired and she was in vfib. The pt is HD stable now, and has no symptoms. will obtain lab work, ekg and discuss case with cardiology at [facility]. nursing documented o2 sat of 16% in error, is 96% on my exam on room air in no distress pt remains hd stable and has no complaints. Spoke with Dr. Samaniego at [facility] who would like the pt transferred there but unfortunately no beds available at this time. She is per them the first on the list after a d/c to go down in the AM. We have no tele beds here for her to go to so she will board in the ED until the AM when a bed at [facility] opens up. Pt and made aware of this plan Differential Diagnosis arrythmia, acs, vfib Medical Records Medical records reviewed: Yes I reviewed the patient's medical records. Lab Data Lab results reviewed: Yes I reviewed the patient's lab results. ECG Data Attestation: I personally reviewed and interpreted this ECG (s) as follows: Prior ECG tracings: available for review Interpretation: sinus rhythm, rate of 69, no acute st t wave changes when compared to old ekg HPI <Luis A Knight MD - Last Filed: 05/25/18 21:45> General Mode of arrival: ambulatory. Date/Time Provider Initiated Documentation: 05/24/18 22:04. Limitations to Documentation: no limitations. Information obtained by: patient. History of Present Illness 67 year old F presents to the emergency department with the chief complaint of passed out, Patient reports no radiation. Patient started experiencing this hour(s) (10) and it has been constant. No relieving factors improve symptom(s), No exacerbating factors reported . Patient notes no other symptoms.. Patient did receive the following treatments prior to arrival, none Related Data Home Medications Medication Instructions Recorded Confirmed Ventolin HFA 2 puff INHALATION Q4H PRN #120 07/13/15 05/24/18 inhaler atorvastatin 80 mg PO DAILY #90 tab-cap 07/02/16 05/24/18 Spiriva with HandiHaler 18 mcg INHALATION once daily #1 01/28/17 05/24/18 inhaler nitroglycerin 0.4 mg SUBLINGUAL PRN PRN #30 01/28/17 05/24/18 tab-cap acetaminophen [Tylenol] 650 mg PO Q6H PRN #1 tab 09/24/17 05/24/18 spironolactone 25 mg PO DAILY #90 tab-cap 10/02/17 05/24/18 Eliquis 5 mg PO BID #60 tab 11/22/17 05/24/18 Therapeutic-M 1 tab PO DAILY tab 11/22/17 05/24/18 bumetanide 1 mg PO BID #60 tab 01/08/18 05/24/18 metolazone 2.5 mg PO PRN #30 tab-cap 01/08/18 05/24/18 prednisone 5 mg PO DAILY 02/22/18 05/24/18 metoprolol succinate ER 100 mg 100 mg PO BID tab 02/26/18 05/24/18 tablet,extended release 24 hr allopurinol 300 mg tablet 300 mg PO DAILY 03/04/18 05/24/18 Previous Rx's Medication Instructions Recorded acetaminophen [Tylenol] 650 mg PO Q6H PRN #1 tab 09/24/17 spironolactone 25 mg PO DAILY #90 tab-cap 10/02/17 Eliquis 5 mg PO BID #60 tab 11/22/17 Therapeutic-M 1 tab PO DAILY tab 11/22/17 bumetanide 1 mg PO BID #60 tab 01/08/18 metolazone 2.5 mg PO PRN #30 tab-cap 01/08/18 Allergies Allergy/AdvReac Type Severity Reaction Status Date / Time lisinopril AdvReac Other (See Unverified 05/24/18 23:06 Comment) sacubitril [From Entresto] AdvReac rash Unverified 05/24/18 23:06 valsartan [From Entresto] AdvReac rash Unverified 05/24/18 23:06 General YUE: 2 Review of Systems <Luis A Knight MD - Last Filed: 05/25/18 21:45> Review of Systems All systems reviewed & are unremarkable except as noted in HPI and below Constitutional Denies chills, Denies fever(s) and Denies weakness Cardiovascular Denies chest pain and Denies dyspnea Respiratory Denies dyspnea Gastrointestinal Denies abdominal pain, Denies nausea and Denies vomiting Neurologic Denies weakness Psychiatric Denies depression Endocrine Denies heat intolerance <Dharmesh Pedroza MD - Last Filed: 05/25/18 20:12> Review of Systems All systems reviewed & are unremarkable except as noted in HPI and below PFSH <Luis A Knight MD - Last Filed: 05/25/18 21:45> Surgical History Cholecystectomy Hernia Repair, Incisional Hysterectomy, Laproscopic (~1980) Tonsillectomy Social History Smoking/Tobacco Use Status: Former Tobacco Use Exam <Luis A Knight MD - Last Filed: 05/25/18 21:45> Const General: no acute distress Orientation: alert HENIL Head: normal to inspection Ears: external ears normal General nose exam: external nose normal Mouth: moist mucous membranes Eyes General: appearance normal, both eyes and all related structures Neck Neck: normal visual inspection Resp Effort & Inspection: normal respiratory effort and able to speak in complete sentences Cardio Rate: regular rate Skin General skin exam: no rashes or lesions noted Neuro General: alert and oriented x3 Extrem General: normal to inspection Psych Mental Status: mental status grossly normal Sign Out <Luis A Knight MD - Last Filed: 05/25/18 21:45> Sign Out Data: Sign Out Comment: waiting for [facility] to have bed avaialabe, icd discharge yesterday, stable overnight Last updated by Luis A Knight MD at 05/25/18 06:43 Post-Handoff Eval: Patient presented after an episode of her AICD firing. Remain stable in the ED pending [place] transport [place] [facility] [place] Given her usual medications prior to transfer to [facility]
[2018-05-24 22:28] VITALS: BP 120/70; PULSE 69; RESP 17; TEMP 36.9; O2SAT 98
[2018-05-24 22:30] VITALS: BP 117/73; PULSE 68; RESP 24; O2SAT 94
[2018-05-24 22:31] LABS: Abs Immature Grans 0.04 k/cumm (0.0-0.09); Absolute Eosinophil Count 0.07 k/cumm (0.0-0.7); Absolute Lymphocyte Count 1.93 k/cumm (1.2-3.4); Absolute Monocyte Count 1.43 k/cumm (0.11-0.7); Basophils % 0.2; Eosinophils % 0.4; HCT 38.7 % (36.0-46.0); Immature Grans % 0.2; Lymphocytes % 11.6; Mean Corpuscular Hemoglobin 25.8 pg (27.0-33.0); Mean Platelet Volume 10.9 fL (8.0-11.0); Monocytes % 8.6; Platelet Count 333 x1000/uL (130-400); RBC 4.66 m/cumm (4.00-5.20); RBC Distribution Width 18.4 % (11.7-14.6); White Blood Cell Count 16.65 k/cumm (4.4-10.8)
[2018-05-24 22:34] LABS: Absolute Basophil Count 0.03 k/cumm (0.0-0.2); Absolute Neutrophil Count 13.15 k/cumm (1.2-6.7)
--- NOTE | 2018-05-24 22:46 | ED.GENADUL_ITS ---
Discharge Plan Disposition Patient Disposition: [facility] Condition: Stable Discharge Details Chief Complaint: Dizzy/Sync Clinical Impression: Syncope, ICD (implantable cardioverter-defibrillator) discharge Reason For Visit: defibulater fired at home x1 Primary Care Provider: Taya Juan ED Provider: Dharmesh Pedroza Home Meds and New Rx's Prescriptions: No Action Ventolin HFA 8 GM HFA aerosol inhaler 2 puff Inhalation Q4H PRN Qty: 120 RF: 2 atorvastatin 80 MG tablet 80 mg PO DAILY Qty: 90 RF: 3 nitroglycerin 0.4 MG tablet, sublingual 0.4 mg Sublingual PRN PRNQty: 30 RF: 0 Spiriva with HandiHaler 18 MCG capsule, w/inhalation device 18 mcg Inhalation once daily Qty: 1 RF: 2 spironolactone 25 MG tablet 25 mg PO DAILY Qty: 90 RF: 3 bumetanide 1 MG tablet 1 mg PO BID Qty: 60 RF: 0 metolazone 2.5 MG tablet 2.5 mg PO PRN Qty: 30 RF: 3 metoprolol succinate 100 mg tablet extended release 24 hr 100 mg PO BID RF: 0 allopurinol 300 mg tablet 300 mg PO DAILY RF: 0 acetaminophen [Tylenol] 325 MG tablet 650 mg PO Q6H PRNQty: 1 RF: 0 Therapeutic-M 1 TAB tablet 1 tab PO DAILY RF: 0 Eliquis 5 MG tablet 5 mg PO BID Qty: 60 RF: 0 prednisone 10 mg Tablet 5 mg PO DAILY RF: 0 Discharge Data Discharge Date/Time-TO BE ENTERED AT DEPARTURE: 05/25/18 16:45 Medical Decision Making <Luis A Knight MD - Last Filed: 05/25/18 21:45> 67 yo female with hx of htn, afib, cad, icd, who comes in after she had syncope earlier today. She states she was feeling well then was on the toilet urinating when she felt dizzy and then had loc. Denies feeling any icd shocks, but Dr. Samaniego, broommaker at [facility] called me to make me aware prior to the patient arriving that her icd fired and she was in vfib. The pt is HD stable now, and has no symptoms. will obtain lab work, ekg and discuss case with cardiology at [facility]. nursing documented o2 sat of 16% in error, is 96% on my exam on room air in no distress pt remains hd stable and has no complaints. Spoke with Dr. Samaniego at [facility] who would like the pt transferred there but unfortunately no beds available at this time. She is per them the first on the list after a d/c to go down in the AM. We have no tele beds here for her to go to so she will board in the ED until the AM when a bed at [facility] opens up. Pt and made aware of this plan Differential Diagnosis arrythmia, acs, vfib Medical Records Medical records reviewed: Yes I reviewed the patient's medical records. Lab Data Lab results reviewed: Yes I reviewed the patient's lab results. ECG Data Attestation: I personally reviewed and interpreted this ECG (s) as follows: Prior ECG tracings: available for review Interpretation: sinus rhythm, rate of 69, no acute st t wave changes when compared to old ekg HPI <Luis A Knight MD - Last Filed: 05/25/18 21:45> General Mode of arrival: ambulatory . Date/Time Provider Initiated Documentation: 05/24/18 22:04 . Limitations to Documentation: no limitations . Information obtained by: patient . History of Present Illness 67 year old F presents to the emergency department with the chief complaint of passed out, Patient reports no radiation. Patient started experiencing this hour(s) (10) and it has been constant. No relieving factors improve symptom(s), No exacerbating factors reported . Patient notes no other symptoms.. Patient did receive the following treatments prior to arrival, none Related Data Home Medications Medication Instructions Recorded Confirmed Ventolin HFA 2 puff INHALATION Q4H PRN #120 07/13/15 05/24/18 inhaler atorvastatin 80 mg PO DAILY #90 tab-cap 07/02/16 05/24/18 Spiriva with HandiHaler 18 mcg INHALATION once daily #1 01/28/17 05/24/18 inhaler nitroglycerin 0.4 mg SUBLINGUAL PRN PRN #30 01/28/17 05/24/18 tab-cap acetaminophen [Tylenol] 650 mg PO Q6H PRN #1 tab 09/24/17 05/24/18 spironolactone 25 mg PO DAILY #90 tab-cap 10/02/17 05/24/18 Eliquis 5 mg PO BID #60 tab 11/22/17 05/24/18 Therapeutic-M 1 tab PO DAILY tab 11/22/17 05/24/18 bumetanide 1 mg PO BID #60 tab 01/08/18 05/24/18 metolazone 2.5 mg PO PRN #30 tab-cap 01/08/18 05/24/18 prednisone 5 mg PO DAILY 02/22/18 05/24/18 metoprolol succinate ER 100 mg 100 mg PO BID tab 02/26/18 05/24/18 tablet,extended release 24 hr allopurinol 300 mg tablet 300 mg PO DAILY 03/04/18 05/24/18 Previous Rx's Medication Instructions Recorded acetaminophen [Tylenol] 650 mg PO Q6H PRN #1 tab 09/24/17 spironolactone 25 mg PO DAILY #90 tab-cap 10/02/17 Eliquis 5 mg PO BID #60 tab 11/22/17 Therapeutic-M 1 tab PO DAILY tab 11/22/17 bumetanide 1 mg PO BID #60 tab 01/08/18 metolazone 2.5 mg PO PRN #30 tab-cap 01/08/18 Allergies Allergy/AdvReac Type Severity Reaction Status Date / Time lisinopril AdvReac Other (See Unverified 05/24/18 23:06 Comment) sacubitril [From Entresto] AdvReac rash Unverified 05/24/18 23:06 valsartan [From Entresto] AdvReac rash Unverified 05/24/18 23:06 General YUE: 2 Review of Systems <Luis A Knight MD - Last Filed: 05/25/18 21:45> Review of Systems All systems reviewed & are unremarkable except as noted in HPI and below Constitutional Denies chills, Denies fever(s) and Denies weakness Cardiovascular Denies chest pain and Denies dyspnea Respiratory Denies dyspnea Gastrointestinal Denies abdominal pain, Denies nausea and Denies vomiting Neurologic Denies weakness Psychiatric Denies depression Endocrine Denies heat intolerance <Dharmesh Pedroza MD - Last Filed: 05/25/18 20:12> Review of Systems All systems reviewed & are unremarkable except as noted in HPI and below PFSH <Luis A Knight MD - Last Filed: 05/25/18 21:45> Surgical History Cholecystectomy Hernia Repair, Incisional Hysterectomy, Laproscopic (~1980) Tonsillectomy Social History Smoking/Tobacco Use Status: Former Tobacco Use Exam <Luis A Knight MD - Last Filed: 05/25/18 21:45> Const General: no acute distress Orientation: alert HENFL Head: normal to inspection Ears: external ears normal General nose exam: external nose normal Mouth: moist mucous membranes Eyes General: appearance normal, both eyes and all related structures Neck Neck: normal visual inspection Resp Effort & Inspection: normal respiratory effort and able to speak in complete sentences Cardio Rate: regular rate Skin General skin exam: no rashes or lesions noted Neuro General: alert and oriented x3 Extrem General: normal to inspection Psych Mental Status: mental status grossly normal Sign Out <Luis A Knight MD - Last Filed: 05/25/18 21:45> Sign Out Data: Sign Out Comment: waiting for [facility] to have bed avaialabe, icd discharge yesterday, stable overnight Last updated by Luis A Knight MD at 05/25/18 06:43 Post-Handoff Eval: Patient presented after an episode of her AICD firing. Remain stable in the ED pending her transport towards [facility] [place]. Given her usual medications prior to transfer to [facility]
[2018-05-24 22:53] LABS: ALT 32 U/L (12-78); AST 26 U/L (15-37); Albumin 3.3 g/dL (3.4-5.0); Alkaline Phosphatase 197 U/L (46-116); Anion Gap 9.8 mmol/L (3-11); BUN 28 mg/dL (7-18); Bilirubin, Total 0.4 mg/dL (0.2-1.0); CO2 31.2 mmol/L (21.0-32.0); CREATININE 1.82 mg/dL (0.55-1.02); Calcium 9.5 mg/dL (8.5-10.1); Chloride 99 mmol/L (98-107); Estimated GFR 27.71 (mL/min/1.73m2); Glucose 111 mg/dL (70-100); Magnesium 2.2 mg/dL (1.8-2.4); NT-proBNP 2213 pg/mL; Potassium 3.7 mmol/L (3.5-5.1); Sodium 140 mmol/L (136-145); Total Protein 8.5 g/dL (6.4-8.2); Troponin I 0.03 ng/mL (0.00-0.06)
[2018-05-24 23:00] VITALS: BP 110/78; PULSE 74; RESP 24; O2SAT 93
[2018-05-24 23:03] VITALS: RESP 18
[2018-05-24 23:03] LABS: PTT Activated 26.8 sec (21.0-31.4); Prothrombin Time 10.3 sec (9.3-11.0)
[2018-05-24 23:30] VITALS: BP 118/76; PULSE 64; RESP 16; O2SAT 98
[2018-05-25] VITALS (68 sets, daily range): BP systolic 91–114; BP diastolic 52–76; PULSE 60–84; RESP 12–30; TEMP 36.6–36.9; O2SAT 96–98
--- NOTE | 2018-05-25 07:10 | NUR.NOTE ---
Service Technician Copier received pertinent report from Scarlett assembler 1st shift RN. Service Technician Copier assumes nursing care of Ms. Villanueva at this time. Introduced self to patient, who is resting quietly in her room. Skin warm/dry/pink. No WOB, she denies pain. [facility]
[2018-05-25] MEDS: Apixaban 5 MG TAB PO (09:59)
[2018-05-25] MEDS: Metoprolol CR 100 MG TABCR PO (09:59)
[2018-05-25] MEDS: Bumetanide 1 MG TAB PO ×2 (10:00→15:08)
[2018-05-25] MEDS: predniSONE 10 MG TAB PO (10:00)
[2018-05-25] MEDS: Spironolactone 25 MG TAB PO (10:01)
[2018-05-25] MEDS: Allopurinol 300 MG TAB PO (10:01)
--- NOTE | 2018-05-25 10:02 | NUR.NOTE ---
Zora declined need for Spiriva at this time. Takes lipitor at 1900Nursing Note:
--- NOTE | 2018-05-25 13:19 | NUR.NOTE ---
Ate 100% breakfast and lunchNursing Note:
--- NOTE | 2018-05-25 13:34 | NUR.NOTE ---
Napping, resting quietly. No events today. [facility]
--- NOTE | 2018-05-25 16:45 | NUR.NOTE ---
Report phoned to [facility], MEGHNA Boudreaux, at 1630. Lexie currently in room prepping for transfer.Nursing Note:
== END 2018-05-25 16:45 | disposition short-term general hospital (02) ==
PROVIDERS: Emergency Medicine; Emergency Provider Emergency Medicine; PCP Family Medicine
DX: R55 Syncope and collapse (principal); Z95.810 Presence of automatic (implantable) cardiac defibrillator; T82.198A Other mechanical complication of other cardiac electronic device, initial encounter; Z75.1 Person awaiting admission to adequate facility elsewhere; I25.10 Atherosclerotic heart disease of native coronary artery without angina pectoris; Z95.5 Presence of coronary angioplasty implant and graft; I12.9 Hypertensive chronic kidney disease with stage 1 through stage 4 chronic kidney disease, or unspecified chronic kidney disease; N18.3 Chronic kidney disease, stage 3 (moderate); Z79.01 Long term (current) use of anticoagulants; I48.91 Unspecified atrial fibrillation
CPT/HCPCS: 36415; 80053; 93005; 99285; 83735; 83880; 84484; 85025; 85610; 85730; 93010; J7512

== ENCOUNTER 2018-06-05 12:51 | Outpatient (REF) | payer MEDICARE, SELFPAY ==
[2018-06-05 18:00] LABS: HCT 39.4 % (36.0-46.0); Mean Corp. HGB Concentration 30.5 g/dL (32.0-36.0); Mean Corpuscular Hemoglobin 25.9 pg (27.0-33.0); Mean Corpuscular Volume 85.1 fL (80-95); Mean Platelet Volume 11.8 fL (8.0-11.0); Platelet Count 297 x1000/uL (130-400); RBC 4.63 m/cumm (4.00-5.20); RBC Distribution Width 18.9 % (11.7-14.6); White Blood Cell Count 12.44 k/cumm (4.4-10.8)
[2018-06-05 19:22] LABS: BUN 32 mg/dL (7-18); CREATININE 1.91 mg/dL (0.55-1.02); Chloride 99 mmol/L (98-107); Estimated GFR 26.21 (mL/min/1.73m2); Glucose 108 mg/dL (70-100); Potassium 4.3 mmol/L (3.5-5.1); Sodium 140 mmol/L (136-145); Uric Acid 5.4 mg/dL (2.6-6.0)
[2018-06-05 19:48] LABS: Ferritin 19 ng/mL (8-388)
== END 2018-06-05 13:11 ==
LOC: NCHCN 12:51
PROVIDERS: PCP Family Medicine; Visit Provider Family Medicine
DX: E11.9 Type 2 diabetes mellitus without complications (principal); M10.9 Gout, unspecified; D63.1 Anemia in chronic kidney disease
CPT/HCPCS: 80048; 85027; 82728; 84550

== ENCOUNTER 2018-07-16 07:40 | Outpatient (CLI) | payer MEDICARE, SELFPAY | END 2018-07-16 08:00 | PROVIDERS: PCP Family Medicine; Visit Provider Student in an Organized Health Care Education/Training Program | DX: I25.5 Ischemic cardiomyopathy (principal); I48.1 Persistent atrial fibrillation | CPT/HCPCS: 99211; NC; 93005; 93010 ==

== ENCOUNTER → 2018-08-12 09:04 | Outpatient (BNVA) | payer MEDICARE, SELFPAY | PROVIDERS: PCP Family Medicine; Visit Provider Nurse Practitioner Family | DX: I25.5 Ischemic cardiomyopathy (principal); I48.0 Paroxysmal atrial fibrillation; Z45.02 Encounter for adjustment and management of automatic implantable cardiac defibrillator | CPT/HCPCS: 93283; 99213 ==

== ENCOUNTER 2018-08-22 09:26 | Outpatient (REF) | payer MEDICARE, SELFPAY ==
[2018-08-22 12:13] LABS: HCT 44.7 % (36.0-46.0); HGB 14.1 g/dL (12.0-15.5); Mean Corp. HGB Concentration 31.5 g/dL (32.0-36.0); Mean Corpuscular Hemoglobin 29.8 pg (27.0-33.0); Mean Corpuscular Volume 94.5 fL (80-95); Mean Platelet Volume 12.1 fL (8.0-11.0); Platelet Count 248 x1000/uL (130-400); RBC 4.73 m/cumm (4.00-5.20); RBC Distribution Width 20.4 % (11.7-14.6); White Blood Cell Count 7.95 k/cumm (4.4-10.8)
[2018-08-22 12:22] LABS: Anion Gap 8.7 mmol/L (3-11); BUN 68 mg/dL (7-18); CO2 36.3 mmol/L (21.0-32.0); CREATININE 2.46 mg/dL (0.55-1.02); Calcium 9.8 mg/dL (8.5-10.1); Chloride 96 mmol/L (98-107); Estimated GFR 19.51 (mL/min/1.73m2); Glucose 124 mg/dL (70-100); Potassium 3.7 mmol/L (3.5-5.1); Sodium 141 mmol/L (136-145)
[2018-08-22 12:44] LABS: Hemoglobin A1C 6.4 % (4.5-6.2)
== END 2018-08-22 09:46 ==
LOC: NCHCN 09:26
PROVIDERS: PCP Family Medicine; Visit Provider Family Medicine
DX: E11.9 Type 2 diabetes mellitus without complications (principal); D63.1 Anemia in chronic kidney disease; N18.4 Chronic kidney disease, stage 4 (severe)
CPT/HCPCS: 80048; 85027; 83036

== ENCOUNTER 2018-09-26 10:05 | Outpatient (REF) | payer MEDICARE, SELFPAY ==
[2018-09-26 13:27] LABS: Anion Gap 6.2 mmol/L (3-11); BUN 59 mg/dL (7-18); CO2 37.8 mmol/L (21.0-32.0); CREATININE 2.84 mg/dL (0.55-1.02); Calcium 9.8 mg/dL (8.5-10.1); Chloride 95 mmol/L (98-107); Estimated GFR 16.53 (mL/min/1.73m2); Glucose 99 mg/dL (70-100); Potassium 3.9 mmol/L (3.5-5.1); Sodium 139 mmol/L (136-145)
== END 2018-09-26 10:25 ==
LOC: NCHCN 10:05
PROVIDERS: PCP Family Medicine; Visit Provider Family Medicine
DX: I13.10 Hypertensive heart and chronic kidney disease without heart failure, with stage 1 through stage 4 chronic kidney disease, or unspecified chronic kidney disease (principal)
CPT/HCPCS: 80048

== ENCOUNTER 2018-10-08 21:50 | Outpatient (REF) | payer MEDICARE, SELFPAY ==
[2018-10-08 21:27] LABS: Anion Gap 9.5 mmol/L (3-11); BUN 77 mg/dL (7-18); CO2 34.5 mmol/L (21.0-32.0); CREATININE 3.04 mg/dL (0.55-1.02); Calcium 9.8 mg/dL (8.5-10.1); Chloride 93 mmol/L (98-107); Estimated GFR 15.28 (mL/min/1.73m2); Glucose 184 mg/dL (70-100); Potassium 3.5 mmol/L (3.5-5.1); Sodium 137 mmol/L (136-145)
== END 2018-10-08 22:10 ==
LOC: NCHCN 21:50
PROVIDERS: PCP Family Medicine; Visit Provider Family Medicine
DX: I13.10 Hypertensive heart and chronic kidney disease without heart failure, with stage 1 through stage 4 chronic kidney disease, or unspecified chronic kidney disease (principal)
CPT/HCPCS: 80048

== ENCOUNTER 2018-11-15 16:10 | Emergency (ER) | payer MEDICARE, SELFPAY ==
[2018-11-15] VITALS (17 sets, daily range): BP systolic 108–121; BP diastolic 59–70; PULSE 59–67; RESP 4–22; TEMP 36.6; O2SAT 87–99
--- NOTE | 2018-11-15 16:18 | ED.GENADUL_ITS ---
Discharge Plan Disposition Patient Disposition: HOME Condition: Stable Discharge Details Chief Complaint: SOB Clinical Impression: COPD with acute exacerbation Primary Care Provider: Taya Juan ED Provider: Luis A Knight Home Meds and New Rx's Prescriptions: New levofloxacin 750 mg tablet 750 mg PO DAILY Qty: 5 RF: 0 prednisone 20 mg tablet 60 mg PO DAILY 4 Days Qty: 12 RF: 0 Continued amiodarone 400 mg tablet 400 mg PO DAILY RF: 0 albuterol sulfate [Ventolin HFA] 8 GM HFA aerosol inhaler 2 puff Inhalation Q4H PRN Qty: 120 RF: 2 atorvastatin 80 MG tablet 80 mg PO DAILY Qty: 90 RF: 3 nitroglycerin 0.4 MG tablet, sublingual 0.4 mg Sublingual PRN PRNQty: 30 RF: 0 Spiriva with HandiHaler 18 MCG capsule, w/inhalation device 18 mcg Inhalation once daily Qty: 1 RF: 2 spironolactone 25 MG tablet 25 mg PO DAILY Qty: 90 RF: 3 bumetanide 1 MG tablet 1 mg PO BID Qty: 60 RF: 0 metolazone 2.5 MG tablet 2.5 mg PO PRN Qty: 30 RF: 3 metoprolol succinate 100 mg tablet extended release 24 hr 100 mg PO BID RF: 0 allopurinol 300 mg tablet 300 mg PO DAILY RF: 0 acetaminophen [Tylenol] 325 MG tablet 650 mg PO Q6H PRNQty: 1 RF: 0 Therapeutic-M 1 TAB tablet 1 tab PO DAILY RF: 0 Eliquis 5 MG tablet 5 mg PO BID Qty: 60 RF: 0 Discharge Instructions Instructions: COPD (Chronic Obstructive Pulmonary Disease) (ED) Additional Instructions: you are being treated for an exacerbation of your copd follow up with your primary care provider within one week if you feel you are becoming more ill or have new symptoms such as high fevers or chest pain/pressure return to the emergency department Medical Decision Making 68 yo female with hx of cad and [place] complicated by cardiac arrest, ICD, afib, who comes in with chief complaint of cough for 2 months. Has had some mild shortness of breath with this per pt, denies any fevers, chest pain or pressure. States in the past few days cough is productive. Denies recent travel. On exam she is speaking in full sentences in no distress. Has wheezing in both lung barrios bilatearlly in the lower lobes, no focal rales, no pericardial effusion or significant b lines on bedside u/s so doubt chf. No evidence of dvt on exam and has no tachycardia and no pleuritic chest pain and exam consistent with copd. will tx with neb and steroids and obtain cxr pt's labs show no significant acute abnormality, has mild elevation in lfts which have been elevated in the past, she states she feels significantly better and is hd stable. Will start steroids and abx and advised f/u with pcp and return precautions given Medical Records Medical records reviewed: Yes I reviewed the patient's medical records. Imaging Data Radiologic Study: Attestation: I personally reviewed and interpreted this imaging study as follows: Imaging: X-Ray Radiologist's impression: IMPRESSION: 1. Cardiomegaly/enlarged cardiac silhouette. 2. No definite parenchymal consolidation. Lab Data Lab results reviewed: Yes I reviewed the patient's lab results. ECG Data Attestation: I personally reviewed and interpreted this ECG (s) as follows: Prior ECG tracings: available for review Interpretation: paced rhythm, rate of 60, no significant changes from prior ekg HPI General Mode of arrival: ambulatory . Date/Time Provider Initiated Documentation: 11/15/18 16:11 . Limitations to Documentation: no limitations . Information obtained by: patient . History of Present Illness 68 year old F presents to the emergency department with the chief complaint of cough, described as moderate, Patient started experiencing this month(s) (2) and it has been constant. No relieving factors improve symptom(s), No exacerbating factors reported . Patient notes denies chest pain. Patient did receive the following treatments prior to arrival, none Related Data Home Medications Medication Instructions Recorded Confirmed albuterol sulfate [Ventolin HFA] 2 puff INHALATION Q4H PRN #120 07/13/15 08/12/18 inhaler atorvastatin 80 mg PO DAILY #90 tab-cap 07/02/16 08/12/18 Spiriva with HandiHaler 18 mcg INHALATION once daily #1 01/28/17 08/12/18 inhaler nitroglycerin 0.4 mg SUBLINGUAL PRN PRN #30 01/28/17 08/12/18 tab-cap acetaminophen [Tylenol] 650 mg PO Q6H PRN #1 tab 09/24/17 08/12/18 spironolactone 25 mg PO DAILY #90 tab-cap 10/02/17 08/12/18 Eliquis 5 mg PO BID #60 tab 11/22/17 08/12/18 Therapeutic-M 1 tab PO DAILY tab 11/22/17 08/12/18 bumetanide 1 mg PO BID #60 tab 01/08/18 08/12/18 metolazone 2.5 mg PO PRN #30 tab-cap 01/08/18 08/12/18 metoprolol succinate ER 100 mg 100 mg PO BID tab 02/26/18 08/12/18 tablet,extended release 24 hr allopurinol 300 mg tablet 300 mg PO DAILY 03/04/18 08/12/18 amiodarone 400 mg tablet 400 mg PO DAILY 08/12/18 08/12/18 levofloxacin 750 mg PO DAILY #5 tab 11/15/18 prednisone 60 mg PO DAILY 4 Days #12 tab 11/15/18 Previous Rx's Medication Instructions Recorded acetaminophen [Tylenol] 650 mg PO Q6H PRN #1 tab 09/24/17 spironolactone 25 mg PO DAILY #90 tab-cap 10/02/17 Eliquis 5 mg PO BID #60 tab 11/22/17 Therapeutic-M 1 tab PO DAILY tab 11/22/17 bumetanide 1 mg PO BID #60 tab 01/08/18 metolazone 2.5 mg PO PRN #30 tab-cap 01/08/18 levofloxacin 750 mg PO DAILY #5 tab 11/15/18 prednisone 60 mg PO DAILY 4 Days #12 tab 11/15/18 Allergies Allergy/AdvReac Type Severity Reaction Status Date / Time lisinopril AdvReac Other (See Unverified 11/15/18 16:40 Comment) sacubitril [From Entresto] AdvReac rash Unverified 11/15/18 16:40 valsartan [From Entresto] AdvReac rash Unverified 11/15/18 16:40 General YUE: 2 Review of Systems Review of Systems All systems reviewed & are unremarkable except as noted in HPI and below Constitutional Denies chills, Denies fever(s) and Denies weakness Cardiovascular Denies chest pain Gastrointestinal Denies abdominal pain, Denies nausea and Denies vomiting Integumentary/Breasts Denies rash Neurologic Denies weakness PFSH Social History Smoking/Tobacco Use Status: Former Tobacco Use Drug use: Never Do you feel safe in your relationship?: Yes Exam Const General: no acute distress Orientation: alert HENMT Head: normal to inspection Ears: external ears normal General nose exam: external nose normal Mouth: moist mucous membranes Eyes General: appearance normal, both eyes and all related structures Neck Neck: normal visual inspection Resp Effort & Inspection: normal respiratory effort and able to speak in complete sentences Cardio Rate: regular rate Skin General skin exam: no rashes or lesions noted Neuro General: alert and oriented x3 Extrem General: normal to inspection Psych Mental Status: mental status grossly normal
--- NOTE | 2018-11-15 16:29 | DI.RAD_ITS ---
SYMPTOM/DIAGNOSIS: COUGH PORTABLE CHEST: Comparison is made with PA and lateral chest 22 February 2018. The patient is rotated. A pacemaker is seen. The leads appear in good position. The heart is enlarged. The lungs are grossly clear. IMPRESSION: Limited exam. No acute abnormality.
[2018-11-15] MEDS: Albuterol/Ipratropium 3 ML UPD VIAL UPD (16:40)
[2018-11-15 16:42] LABS: Abs Immature Grans 0.03 k/cumm (0.0-0.09); Absolute Basophil Count 0.04 k/cumm (0.0-0.2); Absolute Eosinophil Count 0.06 k/cumm (0.0-0.7); Absolute Lymphocyte Count 1.39 k/cumm (1.2-3.4); Basophils % 0.3; Eosinophils % 0.4; HCT 41.8 % (36.0-46.0); Immature Grans % 0.2; Lymphocytes % 10.1; Mean Corp. HGB Concentration 33.5 g/dL (32.0-36.0); Mean Corpuscular Hemoglobin 32.4 pg (27.0-33.0); Mean Corpuscular Volume 96.8 fL (80-95); Mean Platelet Volume 12.2 fL (8.0-11.0); Monocytes % 10.2; Neutrophils % 78.8; Platelet Count 213 x1000/uL (130-400); RBC 4.32 m/cumm (4.00-5.20); RBC Distribution Width 17.1 % (11.7-14.6); White Blood Cell Count 13.77 k/cumm (4.4-10.8)
[2018-11-15 16:43] LABS: Absolute Neutrophil Count 10.85 k/cumm (1.2-6.7)
[2018-11-15] MEDS: methylPREDNISolone SUCC 125 MG VIAL IVP (16:45)
[2018-11-15 17:00] LABS: ALT 164 U/L (12-78); AST 97 U/L (15-37); Albumin 3.5 g/dL (3.4-5.0); Alkaline Phosphatase 262 U/L (46-116); Anion Gap 8.5 mmol/L (3-11); BUN 73 mg/dL (7-18); Bilirubin, Total 0.7 mg/dL (0.2-1.0); CO2 32.5 mmol/L (21.0-32.0); Calcium 9.5 mg/dL (8.5-10.1); Chloride 97 mmol/L (98-107); Estimated GFR 20.08 (mL/min/1.73m2); Glucose 126 mg/dL (70-100); NT-proBNP 3068 pg/mL; Potassium 3.1 mmol/L (3.5-5.1); Sodium 138 mmol/L (136-145); Total Protein 8.2 g/dL (6.4-8.2)
[2018-11-15 17:10] LABS: INR 1.1 (0.9-1.1); PTT Activated 26.5 sec (21.0-31.4); Prothrombin Time 10.9 sec (9.3-11.0)
--- NOTE | 2018-11-15 17:16 | DI.VRAD_ITS ---
EXAM: XR Chest, 1 View EXAM DATE/TIME: 11/15/2018 4:30 PM CLINICAL HISTORY: 68 years old, female; Other: Cough TECHNIQUE: Imaging protocol: XR of the chest, 1 view. COMPARISON: CR XR CHEST 2V PA LATERAL 02/22/2018 8:41 AM FINDINGS: Tubes, catheters and devices: Pacemaker is noted. Lungs: No definite parenchymal consolidation. Mild scattered atelectasis. Pleural space: Unremarkable. No pleural effusion. No pneumothorax. Heart/Mediastinum: Cardiomegaly/enlarged cardiac silhouette. Bones/joints: Unremarkable. IMPRESSION: 1. Cardiomegaly/enlarged cardiac silhouette. 2. No definite parenchymal consolidation. Dictated and Authenticated by: Jose Jain MD. Ordering:CORNELIA Gunn MD
[2018-11-15] MEDS: levoFLOXacin 500 MG, levoFLOXacin 250 MG 750 MG PO (17:24)
== END 2018-11-15 17:34 | disposition home or self-care (01) ==
PROVIDERS: Emergency Provider Emergency Medicine; PCP Family Medicine
DX: J44.1 Chronic obstructive pulmonary disease with (acute) exacerbation (principal); Z87.891 Personal history of nicotine dependence; I25.10 Atherosclerotic heart disease of native coronary artery without angina pectoris
CPT/HCPCS: 36415; 80053; 93005; 94640; 96374; 99284; 71045; 83880; 85025; 85610; 85730; 93010; J2930; J7620

== ENCOUNTER → 2018-11-19 13:36 | Outpatient (BNVA) | payer MEDICARE, SELFPAY | PROVIDERS: PCP Family Medicine; Visit Provider Student in an Organized Health Care Education/Training Program | DX: I25.5 Ischemic cardiomyopathy (principal); I46.8 Cardiac arrest due to other underlying condition; I48.91 Unspecified atrial fibrillation; I12.9 Hypertensive chronic kidney disease with stage 1 through stage 4 chronic kidney disease, or unspecified chronic kidney disease; N18.3 Chronic kidney disease, stage 3 (moderate); J44.9 Chronic obstructive pulmonary disease, unspecified; R41.3 Other amnesia | CPT/HCPCS: 99215 ==

== ENCOUNTER 2019-01-14 15:29 | Outpatient (REF) | payer MEDICARE, MEDICAID, SELFPAY ==
[2019-01-14 13:26] LABS: Anion Gap 10.2 mmol/L (3-11); BUN 54 mg/dL (7-18); CO2 32.8 mmol/L (21.0-32.0); CREATININE 2.07 mg/dL (0.55-1.02); Calcium 9.2 mg/dL (8.5-10.1); Chloride 98 mmol/L (98-107); Estimated GFR 23.81 (mL/min/1.73m2); Glucose 107 mg/dL (70-100); Potassium 3.7 mmol/L (3.5-5.1); Sodium 141 mmol/L (136-145)
== END 2019-01-14 15:49 ==
LOC: NCHCN 15:29
PROVIDERS: PCP Family Medicine; Visit Provider Family Medicine
DX: I10 Essential (primary) hypertension (principal); I13.10 Hypertensive heart and chronic kidney disease without heart failure, with stage 1 through stage 4 chronic kidney disease, or unspecified chronic kidney disease
CPT/HCPCS: 80048

== ENCOUNTER 2019-01-21 13:31 | Outpatient (CLI) | payer MEDICARE, MEDICAID, SELFPAY ==
--- NOTE | 2019-01-21 14:00 | DI.US_ITS ---
SYMPTOMS/DIAGNOSIS: LOCALIZED SWELLING ON RIGHT LEG, R22.41, CHRONIC EDEMA, WORSE ON RIGHT, WITH REDNESS AND PAIN, ON ELIQUIS, ? DVT RIGHT LOWER EXTREMITY ULTRASOUND: Edema is noted in the calf. The femoral and popliteal veins and visualized calf veins are freely compressible. The Doppler venous waveform augments normally. No superficial thrombophlebitis or Ocasio's cyst is seen. IMPRESSION: Calf edema. No evidence of DVT.
== END 2019-01-21 13:51 ==
PROVIDERS: PCP Family Medicine; Visit Provider Family Medicine
DX: R22.41 Localized swelling, mass and lump, right lower limb (principal); R60.0 Localized edema; Z79.01 Long term (current) use of anticoagulants
CPT/HCPCS: 93971

== ENCOUNTER 2019-02-02 19:14 | Outpatient (REF) | payer MEDICARE, SELFPAY ==
[2019-02-02 19:47] LABS: Hemoglobin A1C 6.7 % (4.5-6.2)
[2019-02-02 20:01] LABS: Anion Gap 9.7 mmol/L (3-11); BUN 45 mg/dL (7-18); CO2 31.3 mmol/L (21.0-32.0); CREATININE 2.09 mg/dL (0.55-1.02); Calcium 9.5 mg/dL (8.5-10.1); Chloride 101 mmol/L (98-107); Estimated GFR 23.55 (mL/min/1.73m2); Glucose 156 mg/dL (70-100); Potassium 4.1 mmol/L (3.5-5.1); Sodium 142 mmol/L (136-145); Uric Acid 4.9 mg/dL (2.6-6.0)
== END 2019-02-02 19:34 ==
LOC: NCHCN 19:14
PROVIDERS: PCP Family Medicine; Visit Provider Family Medicine
DX: E11.9 Type 2 diabetes mellitus without complications (principal); I10 Essential (primary) hypertension; M10.9 Gout, unspecified
CPT/HCPCS: 80048; 83036; 84550

== ENCOUNTER 2019-02-11 13:26 | Outpatient (REF) | payer MEDICARE, SELFPAY ==
[2019-02-11 13:56] LABS: Anion Gap 7.2 mmol/L (3-11); BUN 49 mg/dL (7-18); CO2 33.8 mmol/L (21.0-32.0); CREATININE 1.89 mg/dL (0.55-1.02); Calcium 9.4 mg/dL (8.5-10.1); Chloride 101 mmol/L (98-107); Estimated GFR 26.45 (mL/min/1.73m2); Glucose 123 mg/dL (70-100); Potassium 3.8 mmol/L (3.5-5.1); Sodium 142 mmol/L (136-145)
== END 2019-02-11 13:46 ==
LOC: NCHCN 13:26
PROVIDERS: PCP Family Medicine; Visit Provider Family Medicine
DX: I10 Essential (primary) hypertension (principal); I49.01 Ventricular fibrillation
CPT/HCPCS: 80048

== ENCOUNTER 2019-02-17 14:14 | Outpatient (REF) | payer MEDICARE, SELFPAY ==
[2019-02-17 15:09] LABS: Anion Gap 6.9 mmol/L (3-11); BUN 41 mg/dL (7-18); CO2 35.1 mmol/L (21.0-32.0); CREATININE 1.92 mg/dL (0.55-1.02); Calcium 9.3 mg/dL (8.5-10.1); Chloride 100 mmol/L (98-107); Estimated GFR 25.97 (mL/min/1.73m2); Glucose 137 mg/dL (70-100); Potassium 3.7 mmol/L (3.5-5.1); Sodium 142 mmol/L (136-145)
== END 2019-02-17 14:34 ==
LOC: NCHCN 14:14
PROVIDERS: PCP Family Medicine; Visit Provider Family Medicine
DX: N18.4 Chronic kidney disease, stage 4 (severe) (principal)
CPT/HCPCS: 80048

== ENCOUNTER 2019-02-23 14:44 | Outpatient (REF) | payer MEDICARE, SELFPAY ==
[2019-02-23 19:20] LABS: HCT 43.7 % (36.0-46.0); HGB 14.2 g/dL (12.0-15.5); Mean Corp. HGB Concentration 32.5 g/dL (32.0-36.0); Mean Corpuscular Hemoglobin 31.3 pg (27.0-33.0); Mean Corpuscular Volume 96.3 fL (80-95); Mean Platelet Volume 12.1 fL (8.0-11.0); Platelet Count 263 x1000/uL (130-400); RBC 4.54 m/cumm (4.00-5.20); RBC Distribution Width 15.7 % (11.7-14.6); White Blood Cell Count 10.28 k/cumm (4.4-10.8)
[2019-02-23 19:25] LABS: ALT 125 U/L (14-59); AST 99 U/L (15-37); Albumin 3.7 g/dL (3.4-5.0); Alkaline Phosphatase 244 U/L (46-116); BUN 79 mg/dL (7-18); Bilirubin, Total 0.7 mg/dL (0.2-1.0); CREATININE 2.93 mg/dL (0.55-1.02); Calcium 9.4 mg/dL (8.5-10.1); Chloride 93 mmol/L (98-107); Estimated GFR 15.95 (mL/min/1.73m2); Glucose 126 mg/dL (70-100); Potassium 3.8 mmol/L (3.5-5.1); Sodium 138 mmol/L (136-145); Total Protein 7.8 g/dL (6.4-8.2)
== END 2019-02-23 15:04 ==
LOC: NCHCO 14:44
PROVIDERS: PCP Family Medicine; Visit Provider Family Medicine
DX: I13.10 Hypertensive heart and chronic kidney disease without heart failure, with stage 1 through stage 4 chronic kidney disease, or unspecified chronic kidney disease (principal)
CPT/HCPCS: 80053; 85027

== ENCOUNTER 2019-05-11 01:25 | Outpatient (CLI) | payer MEDICARE, SELFPAY ==
[2019-05-11 13:18] LABS: Anion Gap 7.1 mmol/L (3-11); BUN 64 mg/dL (7-18); CO2 35.9 mmol/L (21.0-32.0); CREATININE 2.41 mg/dL (0.55-1.02); Calcium 9.6 mg/dL (8.5-10.1); Chloride 96 mmol/L (98-107); Estimated GFR 19.98 (mL/min/1.73m2); Glucose 101 mg/dL (74-106); Potassium 4.1 mmol/L (3.5-5.1); Sodium 139 mmol/L (136-145)
[2019-05-12 09:45] LABS: HBs Antibody, Quant 3.2 mIU/mL (See Note); Hepatitis B Surface Ab Negative (See Note); Hepatitis B Surface Ag Negative (Negative)
[2019-05-12 10:39] LABS: Hep B Core Antibody Negative (Negative)
[2019-05-12 11:25] LABS: Hepatitis C Ab w Rflx HCV PCR Negative (Negative)
[2019-05-14 14:47] LABS: Iron 86 ug/dL (50-170); Total Iron Binding Capacity 412 ug/dL (250-450); Transferrin Sat 21 % (15-50)
[2019-05-14 15:00] LABS: Ferritin 89 ng/mL (8-252)
== END 2019-05-11 01:45 ==
PROVIDERS: PCP Family Medicine; Visit Provider Family Medicine
DX: K74.60 Unspecified cirrhosis of liver (principal); I13.10 Hypertensive heart and chronic kidney disease without heart failure, with stage 1 through stage 4 chronic kidney disease, or unspecified chronic kidney disease; G25.81 Restless legs syndrome
CPT/HCPCS: 36415; 80048; 86704; 86706; 86803; 87340; 99203; 82728; 83540; 83550; 87350

== ENCOUNTER 2019-05-11 08:43 | Outpatient (CLI) | payer MEDICARE, SELFPAY | END 2019-05-11 09:03 | PROVIDERS: PCP Family Medicine; Visit Provider Internal Medicine Cardiovascular Disease | DX: I25.10 Atherosclerotic heart disease of native coronary artery without angina pectoris (principal); I25.5 Ischemic cardiomyopathy; Z95.810 Presence of automatic (implantable) cardiac defibrillator | CPT/HCPCS: 36415; 80048; 86704; 86706; 86803; 87340; 99203; 99214; 82728; 83540; 83550; 93005; 93010 ==

== ENCOUNTER 2019-05-14 12:30 | Outpatient (REF) | payer MEDICARE, SELFPAY ==
[2019-05-14 13:25] LABS: Bilirubin Negative (Negative); Blood Negative (Negative); Clarity Clear (Clear); Glucose Negative (Negative); Ketones Negative (Negative); Leukocyte Esterase Negative (Negative); Nitrite Negative (Negative); Specific Gravity 1.015 (1.005-1.025); Urobilinogen 0.2 EU/dL (Up TO 0.2)
== END 2019-05-14 12:50 ==
LOC: LBN 12:30
PROVIDERS: PCP Family Medicine; Visit Provider Obstetrics & Gynecology
DX: R32 Unspecified urinary incontinence (principal)
CPT/HCPCS: 81003; 87086

== ENCOUNTER 2019-05-25 02:43 | Outpatient (CLI) | payer MEDICARE, SELFPAY ==
[2019-05-25 08:55] LABS: ALT 80 U/L (14-59); AST 71 U/L (15-37); Albumin 3.5 g/dL (3.4-5.0); Alkaline Phosphatase 222 U/L (46-116); Anion Gap 7.5 mmol/L (3-11); BUN 53 mg/dL (7-18); Bilirubin, Total 1.3 mg/dL (0.2-1.0); CO2 33.5 mmol/L (21.0-32.0); CREATININE 2.38 mg/dL (0.55-1.02); Calcium 9.7 mg/dL (8.5-10.1); Chloride 98 mmol/L (98-107); Estimated GFR 20.27 (mL/min/1.73m2); Glucose 202 mg/dL (74-106); Sodium 139 mmol/L (136-145); Total Protein 7.6 g/dL (6.4-8.2)
== END 2019-05-25 03:03 ==
PROVIDERS: PCP Family Medicine; Visit Provider Family Medicine
DX: K74.60 Unspecified cirrhosis of liver (principal); I25.10 Atherosclerotic heart disease of native coronary artery without angina pectoris
CPT/HCPCS: 36415; 80053

== ENCOUNTER 2019-05-26 19:58 | Inpatient (IN) | payer MEDICARE, SELFPAY ==
[2019-05-26] VITALS (14 sets, daily range): BP systolic 94–120; BP diastolic 44–77; PULSE 69–70; RESP 2–22; TEMP 36.7; O2SAT 89–97
--- NOTE | 2019-05-26 20:07 | ED.GENADUL_ITS ---
Discharge Plan Disposition Patient Disposition: [facility] INPATIENT Condition: Improving Discharge Details Chief Complaint: SOB Clinical Impression: Community acquired pneumonia, Acute exacerbation of chronic obstructive pulmonary disease Primary Care Provider: Taya Juan ED Provider: Quincy Kelly Home Meds and New Rx's Prescriptions: No Action amiodarone 400 mg tablet 200 mg PO DAILY RF: 0 Myrbetriq 25 mg tablet extended release 24 hr 25 mg PO DAILY Qty: 60 RF: 5 albuterol sulfate [Ventolin HFA] 8 GM HFA aerosol inhaler 2 puff Inhalation Q4H PRN Qty: 120 RF: 2 atorvastatin 80 MG tablet 80 mg PO DAILY Qty: 90 RF: 3 nitroglycerin 0.4 MG tablet, sublingual 0.4 mg Sublingual PRN PRNQty: 30 RF: 0 spironolactone 25 MG tablet 25 mg PO DAILY Qty: 90 RF: 3 metolazone 2.5 MG tablet 2.5 mg PO PRN Qty: 30 RF: 3 metoprolol succinate 100 mg tablet extended release 24 hr 100 mg PO BID RF: 0 allopurinol 300 mg tablet 300 mg PO DAILY RF: 0 acetaminophen [Tylenol] 325 MG tablet 650 mg PO Q6H PRNQty: 1 RF: 0 cyclobenzaprine 10 mg Tablet 10 mg PO TID PRNRF: 0 benzonatate [Tessalon Perles] 100 mg Capsule 100 mg PO BID PRNRF: 0 ropinirole 2 mg Tablet 2 mg PO QHS RF: 0 ipratropium bromide 0.02 % Solution 2.5 ml INHALATION Q6H PRNRF: 0 Incruse Ellipta 62.5 mcg/actuation Blister With Device 1 inh INHALATION DAILY RF: 0 bumetanide 1 MG tablet 2 mg PO BID RF: 0 Eliquis 5 MG tablet 5 mg PO BID Qty: 60 RF: 0 Medical Decision Making This is a 68-year-old female with a past medical history of atrial fibrillation on Eliquis, myocardial infarction, COPD, mild congestive heart failure who with pacemaker defibrillator who presents today for evaluation of shortness of breath. Symptoms have been present for the last 2 to 3 weeks. Cough that is nonproductive. No hemoptysis, no weight gain. She has been taking her Eliquis as directed. No chest pain whatsoever. Exam demonstrates stable breath sounds. Upon EMS arrival oxygen was in the 80s she was started on 4 L and gave her breathing treatment which notably improved her symptoms. Right now 4 L of oxygen maintains decent saturations, but she does drop to the 80s when the oxygen is dropped to 2 liters. Will give breathing treatments, magnesium and steroids. Will evaluate for cardiac etiology which I feel is less likely. Patient will benefit from admission I feel. Of note she is not normally on any oxygen. 10 PM Laboratory work-up has returned, patient's white count is notably elevated at 17. Mild left shift. She is still afebrile. PCO2 shows mild CO2 retention however pH is normal, suggesting more of a chronic component should correlate well with her symptoms of 2 to 3 weeks. Electrolytes are normal, creatinine is 2.7, she is near baseline but slightly higher, BUN 65, suggestive of mild overdiuresis. Troponin normal, proBNP 4400, which although is elevated is certainly lower than where she has been recently in the past. EKG unchanged. Chest x-ray is read by radiologist as pulmonary vascular congestion with no dense parenchymal consolidation however I do feel that there is evidence of mild right mid to lower lobe pneumonia. Especially in conjunction with her white count, cough, and worsening of symptoms I do feel that her signs and symptoms appear consistent with community-acquired pneumonia. In addition to this I do feel that there is certainly a COPD exacerbation component as well. She has been given mag, steroids, and duo nebs which she states notably improves her symptoms however she still becomes mildly hypoxic when oxygen is decreased to 2 L. She shows no signs of acute respiratory distress at this time. I did do a limited portable bedside ultrasound and there is evidence of notable decrease in ejection fraction and global mild hypokinesis, however review of her prior echo demonstrated at that time an EF of 20 to 25% which appears consistent with exam today. No evidence of pericardial effusion or tamponade. Recommend formal echocardiogram after admission. I have started Rocephin and doxycycline secondary to amiodarone use and the interaction between azithromycin and amiodarone. Discussed the case with Dr. Oneill, he agrees with assessment and plan. I have extensively reviewed the treatment plan with the patient. I have addressed all patient concerns at this time. I have also discussed the plan with the admitting physician and they agree with the current assessment and plan and have agreed to assume responsibility for the patient. All parties demonstrate verbal understanding and agreement with our assessment and plan at this time. EKG 20: 06 Rate 127, QTc 435, QRS 138, atrial pacing with good capture, no evidence of STEMI. Nonspecific ST segment abnormalities consistent with pacing, review of prior EKG from 02/22/2018 reveals identical findings. No acute changes. FINDINGS: Tubes, catheters and devices: Transvenous pacemaker/defibrillator generator l hakeem unchanged in position. Lungs: Hyperinflation. Minimal interstitial and pulmonary vascular prominence. No dense parenchymal consolidation. Pleural space: Unremarkable. No pleural effusion. No pneumothorax. Heart/Mediastinum: Unremarkable. No cardiomegaly. Bones/joints: Degenerative changes. IMPRESSION: 1. Pulmonary vascular congestion. 2. Hyperinflation of the lungs. Thank you for allowing us to participate in the care of your patient. Dictated and Authenticated by: Jovi Pearce DO 05/26/2019 9:19 PM Eastern Time ([place] & [place]) HPI General Date/Time Provider Initiated Documentation: 05/26/19 19:59 . HPI Narrative: This is a pleasant 68-year-old female with a past medical history of atrial fibrillation on Eliquis, previous myocardial infarction, pacemaker defibrillator, COPD, who presents today for evaluation of shortness of breath and cough. Patient states that for the last 2 to 3 weeks she has had mild shortness of breath that is gradually been worsening. She has an associated nonproductive cough. She get did go to see her PCP recently was diagnosed with bronchitis and given Tessalon Perles. She has a history of tobacco abuse in the past but quit in 2013. Her shortness of breath is gradually worsened, and EMS was contacted [facility]. She has been occasionally taking her breathing treatments which have improved her symptoms. Additionally of note she has lost her nebulizer and has not been able to utilize this. Upon EMS arrival oxygen was noted to be in the 80s, she was given a breathing treatment and eventually started on 4 L both of which improved her symptoms. Vitals are otherwise stable. Currently the patient denies any chest pain, chest tightness, chest heaviness, pleuritic chest pain, nausea vomiting diarrhea, arm neck or shoulder pain. She denies any hemoptysis, recent long trips, surgeries or procedures. She denies any significant weight gain. She does take Bumex and denies any change of her symptoms with taking Bumex. No other complaints at this time. No other modifying factors. Related Data Home Medications Medication Instructions Recorded Confirmed albuterol sulfate [Ventolin HFA] 2 puff INHALATION Q4H PRN #120 07/13/15 05/26/19 inhaler atorvastatin 80 mg PO DAILY #90 tab-cap 07/02/16 05/26/19 nitroglycerin 0.4 mg SUBLINGUAL PRN PRN #30 01/28/17 05/26/19 tab-cap acetaminophen [Tylenol] 650 mg PO Q6H PRN #1 tab 09/24/17 05/26/19 spironolactone 25 mg PO DAILY #90 tab-cap 10/02/17 05/26/19 Eliquis 5 mg PO BID #60 tab 11/22/17 05/26/19 metolazone 2.5 mg PO PRN #30 tab-cap 01/08/18 05/26/19 metoprolol succinate 100 mg 100 mg PO BID tab 02/26/18 05/26/19 tablet,extended release 24 hr allopurinol 300 mg tablet 300 mg PO DAILY 03/04/18 05/26/19 amiodarone 400 mg tablet 200 mg PO DAILY tab 11/19/18 05/26/19 mirabegron 25 mg tablet,extended 25 mg PO DAILY #60 tab 05/14/19 05/26/19 release 24 hr benzonatate [Tessalon Perles] 100 mg PO BID PRN 05/26/19 05/26/19 bumetanide 2 mg PO BID 05/26/19 05/26/19 cyclobenzaprine 10 mg PO TID PRN 05/26/19 05/26/19 ipratropium bromide 2.5 ml INHALATION Q6H PRN 05/26/19 05/26/19 ropinirole 2 mg PO QHS 05/26/19 05/26/19 umeclidinium [Incruse Ellipta] 1 inh INHALATION DAILY 05/26/19 05/26/19 Previous Rx's Medication Instructions Recorded acetaminophen [Tylenol] 650 mg PO Q6H PRN #1 tab 09/24/17 spironolactone 25 mg PO DAILY #90 tab-cap 10/02/17 Eliquis 5 mg PO BID #60 tab 11/22/17 metolazone 2.5 mg PO PRN #30 tab-cap 01/08/18 mirabegron 25 mg tablet,extended 25 mg PO DAILY #60 tab 05/14/19 release 24 hr Allergies Allergy/AdvReac Type Severity Reaction Status Date / Time lisinopril AdvReac Other (See Unverified 05/26/19 20:11 Comment) sacubitril [From Entresto] AdvReac rash Unverified 05/26/19 20:11 valsartan [From Entresto] AdvReac rash Unverified 05/26/19 20:11 General Stated Complaint: SOB YUE: 2 Review of Systems All systems reviewed & are unremarkable except as noted in HPI and below PFSH Medical History Anemia (Chronic) Atrial fibrillation (Chronic) Cardiomyopathy, ischemic (Chronic) Chronic kidney disease, stage III (moderate) (Chronic) Chronic obstructive pulmonary disease (Chronic 09/03/14) Congestive heart disease (Chronic 05/05/14) Coronary artery disease (Chronic 05/05/14) STEMI with LAD stent 04/2014 EF 35% Hypertension (Chronic) ICD (implantable cardioverter-defibrillator) in place (Chronic) Impaired glucose tolerance (Chronic) Morbid obesity (Chronic) Nephrolithiasis (Chronic) Nocturnal hypoxia (Chronic) Tobacco use disorder (Resolved) a. quit one week ago at the time of her [place] Urinary incontinence (Chronic 11/06/17) Surgical History Cholecystectomy Hernia Repair, Incisional 04/19/14 Hysterectomy, Laproscopic (~1980) OVARIES REMAIN Tonsillectomy Social History Smoking/Tobacco Use Status: Former Tobacco Use Quit Date: 05/20/13 Second Hand Exposure: Yes Alcohol Intake: never Drug use: Never Do you feel safe at home: Yes Do you feel safe in your relationship?: Yes Exam Narrative Exam Narrative: 1.Const: Well-nourished, Well-developed, appearing stated age 2.Eyes: PERRL, no conjunctival injection, and symmetrical lids. 3.ENT: Atraumatic external nose and ears. Moist MM. Neck: Symmetric, trachea midline, No thyromegaly. 4.CVS: +S1/S2, No murmurs or gallops. Peripheral pulses 2+ and equal in all extremities. Brisk capillary refill in all extremities. 5.RESP: Unlabored respiratory effort. Clear to auscultation bilaterally. Slightly diminished breath sounds throughout. No significant rales or rhonchi. No significant wheezes. 6.GI: Soft, Nontender/Nondistended, No hepatosplenomegaly. No guarding or rebound. 7.MSK: Normocephalic/Atraumatic, Extremities w/o deformity or ttp No cyanosis or clubbing, Normal movement of all extremities, no calf tenderness, no pitting edema. 8.Skin: Warm, Dry. No rashes or lesions. 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 Sensation grossly intact, no focal neurologic deficits. 10.Psych: (AAO) x3. Appropriate mood and affect Course Vital Signs Vital signs: Vital Signs Temperature 36.7 C 05/26/19 20:00 Pulse 70 05/26/19 20:00 Respiratory Rate 22 05/26/19 20:00 Blood Pressure 106/65 05/26/19 20:00 Pulse Oximetry 89 L 05/26/19 20:00 Temperature 36.7 C 05/26/19 20:00 Temperature Source Skin 05/26/19 20:00 Pulse 70 05/26/19 20:00 Respiratory Rate 22 05/26/19 20:00 Blood Pressure 106/65 05/26/19 20:00 Blood Pressure Position Supine 05/26/19 20:00 Pulse Oximetry 89 L 05/26/19 20:00 Oxygen Delivery Method Room Air 05/26/19 20:00 Oxygen Flow Rate 0 05/26/19 20:00 Pain Level 0 05/26/19 20:00
[2019-05-26] MEDS: Albuterol/Ipratropium 3 ML UPD VIAL 9 ML UPD (20:15)
[2019-05-26 20:18] LABS: Abs Immature Grans 0.04 k/cumm (0.0-0.09); Absolute Basophil Count 0.03 k/cumm (0.0-0.2); Absolute Lymphocyte Count 1.12 k/cumm (1.2-3.4); Absolute Monocyte Count 1.92 k/cumm (0.11-0.7); Basophils % 0.2; Eosinophils % 0.2; HCT 42.9 % (36.0-46.0); HGB 13.9 g/dL (12.0-15.5); Immature Grans % 0.2 %; Lymphocytes % 6.5; Mean Corp. HGB Concentration 32.4 g/dL (32.0-36.0); Mean Corpuscular Hemoglobin 30.8 pg (27.0-33.0); Mean Corpuscular Volume 94.9 fL (80-95); Mean Platelet Volume 12.1 fL (8.0-11.0); Monocytes % 11.1; Neutrophils % 81.8; Platelet Count 238 x1000/uL (130-400); RBC 4.52 m/cumm (4.00-5.20); RBC Distribution Width 18.2 % (11.7-14.6); White Blood Cell Count 17.26 k/cumm (4.4-10.8)
[2019-05-26] MEDS: MAGNESIUM SULFATE 2 GM/50 ML BAG IVPB (20:18)
[2019-05-26 20:19] LABS: Absolute Eosinophil Count 0.03 k/cumm (0.0-0.7); Absolute Neutrophil Count 14.12 k/cumm (1.2-6.7); HCO3 (Venous) 33 mmol/L (22-28); O2 Sat (Venous) 75 % (70-80); TCO2 (Venous) 29 mmol/L (22-29); pCO2 (Venous) 58 mm/Hg (34-47); pH (Venous) 7.36 (7.32-7.43); pO2 (Venous) 45 mm/Hg (28-44)
[2019-05-26] MEDS: methylPREDNISolone SUCC 125 MG VIAL IVP (20:19)
[2019-05-26 20:35] LABS: Diff Comment Agrees w/ Instrument
[2019-05-26 20:36] LABS: INR 1.2 (0.9-1.1); PTT Activated 31.3 sec (21.0-31.4); Prothrombin Time 12.3 sec (9.3-11.0)
--- NOTE | 2019-05-26 20:38 | DI.RAD_ITS ---
EXAM: XR CHEST 2V PA LATERAL INDICATION: SOB, hx of COPD, cough, r/o pneumonia. COMPARISON: CHEST 2 VIEWS PA,LAT from 12/23/2017 XR PORTABLE CHEST AP from 11/15/2018 TECHNIQUE: 2D digital imaging was performed. FINDINGS: A pacemaker is again noted. The heart is enlarged, unchanged. There are underlying fibrotic changes . There may be vascular prominence which appears chronic. No overt pulmonary edema, focal infiltrat e or effusion is seen. IMPRESSION: No acute abnormality.
[2019-05-26 20:40] LABS: Troponin I < 0.05 ng/Ml (<0.06)
[2019-05-26 20:42] LABS: ALT 60 U/L (14-59); AST 53 U/L (15-37); Albumin 3.5 g/dL (3.4-5.0); Alkaline Phosphatase 208 U/L (46-116); Anion Gap 8.6 mmol/L (3-11); BUN 65 mg/dL (7-18); Bilirubin, Total 1.3 mg/dL (0.2-1.0); CO2 33.4 mmol/L (21.0-32.0); Calcium 9.6 mg/dL (8.5-10.1); Chloride 98 mmol/L (98-107); Estimated GFR 17.52 (mL/min/1.73m2); Glucose 125 mg/dL (74-106); NT-proBNP 4454 pg/mL (<300); Potassium 3.9 mmol/L (3.5-5.1); Sodium 140 mmol/L (136-145); Total Protein 8.2 g/dL (6.4-8.2)
[2019-05-26] MEDS: cefTRIAXone 2 GM/50 ML BAG IVPB (21:16)
--- NOTE | 2019-05-26 21:19 | DI.VRAD_ITS ---
PROCEDURE INFORMATION: Exam: XR Chest, 2 Views Exam date and time: 05/26/2019 8:07 PM Age: 68 years old Clinical indication: Other: SOB, HX of copd, cough, R/O pneumonia; Prior surgery; Surgery date: 6+ months; Surgery type: Diffib TECHNIQUE: Imaging protocol: XR of the chest Views: 2 views. COMPARISON: SC XR PORTABLE CHEST AP 11/15/2018 4:52 PM FINDINGS: Tubes, catheters and devices: Transvenous pacemaker/defibrillator generator leads unchanged in position. Lungs: Hyperinflation. Minimal interstitial and pulmonary vascular prominence. No dense parenchymal consolidation. Pleural space: Unremarkable. No pleural effusion. No pneumothorax. Heart/Mediastinum: Unremarkable. No cardiomegaly. Bones/joints: Degenerative changes. IMPRESSION: 1. Pulmonary vascular congestion. 2. Hyperinflation of the lungs. Dictated and Authenticated by: Jovi Pearce MD. Ordering:KHOI Mathew MD
--- NOTE | 2019-05-26 21:47 | HPE_ITS ---
Date of service: 05/26/19 Time of Service: 21:47 Assessment and Plan Assessment and plan (1) Community acquired pneumonia: Start date: 05/26/19 Status: Acute Assessment and plan: This is a 68-year-old lady with a 2 to 3-week history of dry cough presented to the ED with hypoxemia and responded to nebulizer treatments. The ED physician thought that she had a right sparse infiltrate over the lower lung brarios but the formal reading was more vascular congestion with patient not having overt exacerbation of CHF. She was not diuresed aggressively but was maintained on her oral diuretic from her home medication list. She was started on IV Rocephin and doxycycline for community-acquired pneumonia as we will follow her clinically. She also was noted on IV Solu- Medrol for her COPD exacerbation. Her oxygen needs decreased shortly after her admission. She is a full code and does live at home. Qualifiers: Laterality: right Lung location: lower lobe of lung Qualified Code(s): J18.9 - Pneumonia, unspecified organism (2) COPD (chronic obstructive pulmonary disease): Status: Acute Assessment and plan: Continue aggressive nebulizer treatment in the hospital with IV Solu-Medrol which will be weaned to oral steroids as tolerated. Oxygen supplementation as needed. Reassess for home oxygen needs before discharge. Qualifiers: COPD type: COPD with acute lower respiratory infection Qualified Code(s): J44.0 - Chronic obstructive pulmonary disease with (acute) lower respiratory infection (3) Cardiomyopathy, ischemic: Status: Chronic Assessment and plan: No clinical evidence of exacerbation of her ischemic cardiomyopathy with decreased left ventricular ejection fraction on oral d iuretics. Observe for worsening and consider re-imaging with echocardiogram though this was done in the recent past. Bedside echocardiogram in the ED did not reveal any change in her left ventricular ejection fraction. (4) Chronic kidney disease, stage III (moderate): Status: Chronic Assessment and plan: Monitor kidney functions as we treat the patient for her pneumonia and COPD exacerbation. She will not be given IV fluids as long as her oral intake is adequate. We also would not give increased diuresis unless she manifests more symptoms of CHF exacerbation. (5) Coronary artery disease: Status: Chronic Assessment and plan: No evidence of acute ischemia or symptoms of angina. Trend troponins and follow-up clinically. Qualifiers: Associated angina: without angina Coronary Disease-Associated Artery/Lesion type: [place] artery [place] vs. transplanted heart: [place] heart Qualified Code(s): I25.10 - Atherosclerotic heart disease of [place] coronary artery without angina pectoris History of Present Illness History of Present Illness Chief Complaint: Dyspnea with cough for 2 to 3 weeks Narrative: This is a 68-year-old lady with a long-term history of COPD on inhalers but not on oxygen at home. She had a 2 to 3-week history of a dry cough which worsened prompting her to be evaluated by the ED. She was found to be hypoxic and did require oxygen supplementation with frequent nebulizer treatments. Imaging did reveal a possible right lower lobe pneumonia but no evidence of overt CHF with a history of ischemic cardiomyopathy and decreased left ventricular ejection fraction. She chronically is on diuretics. She was given IV Rocephin and doxycycline along with IV steroids and was admitted for treatment of her community acquired pneumonia and COPD exacerbation. She denies any chest pain, increased edema or weight gain. She has had no bleeding sequelae off of Eliquis for atrial fibrillation status post pacemaker and defibrillator for an episode where she with her heart dysrhythmia. Review of Systems Narrative: 13 point review of systems otherwise unrevealing or stable. Patient was a previous smoker but not presently. She denies fever with this episode. Her cough has been dry with no productive sputum. [facility] Medical History Anemia (Chronic) Atrial fibrillation (Chronic) Cardiomyopathy, ischemic (Chronic) Chronic kidney disease, stage III (moderate) (Chronic) Chronic obstructive pulmonary disease (Chronic 09/03/14) Congestive heart disease (Chronic 05/05/14) Coronary artery disease (Chronic 05/05/14) STEMI with LAD stent 04/2014 EF 35% Hypertension (Chronic) ICD (implantable cardioverter-defibrillator) in place (Chronic) Impaired glucose tolerance (Chronic) Morbid obesity (Chronic) Nephrolithiasis (Chronic) Nocturnal hypoxia (Chronic) Tobacco use disorder (Resolved) a. quit one week ago at the time of her [place] Urinary incontinence (Chronic 11/06/17) Surgical History Cholecystectomy Hernia Repair, Incisional 04/19/14 Hysterectomy, Laproscopic (~1980) OVARIES REMAIN Tonsillectomy Social History Smoking/Tobacco Use Status: Former Tobacco Use Quit Date: 05/20/13 Second Hand Exposure: Yes Alcohol Intake: never Drug use: Never Do you feel safe at home: Yes Do you feel safe in your relationship?: Yes Meds Home Medications and Allergies Home Medications Medication Instructions Recorded Confirmed Type albuterol sulfate [Ventolin HFA] 2 puff INHALATION Q4H PRN #120 07/13/15 05/26/19 History inhaler atorvastatin 80 mg PO DAILY #90 tab-cap 07/02/16 05/26/19 History nitroglycerin 0.4 mg SUBLINGUAL PRN PRN #30 01/28/17 05/26/19 History tab-cap acetaminophen [Tylenol] 650 mg PO Q6H PRN #1 tab 09/24/17 05/26/19 Rx spironolactone 25 mg PO DAILY #90 tab-cap 10/02/17 05/26/19 Rx Eliquis 5 mg PO BID #60 tab 11/22/17 05/26/19 Rx metolazone 2.5 mg PO PRN #30 tab-cap 01/08/18 05/26/19 Rx metoprolol succinate 100 mg 100 mg PO BID tab 02/26/18 05/26/19 History tablet,extended release 24 hr allopurinol 300 mg tablet 300 mg PO DAILY 03/04/18 05/26/19 History amiodarone 400 mg tablet 200 mg PO DAILY tab 11/19/18 05/26/19 History mirabegron 25 mg tablet,extended 25 mg PO DAILY #60 tab 05/14/19 05/26/19 Rx release 24 hr benzonatate [Tessalon Perles] 100 mg PO BID PRN 05/26/19 05/26/19 History bumetanide 2 mg PO BID 05/26/19 05/26/19 History cyclobenzaprine 10 mg PO TID PRN 05/26/19 05/26/19 History ipratropium bromide 2.5 ml INHALATION Q6H PRN 05/26/19 05/26/19 History ropinirole 2 mg PO QHS 05/26/19 05/26/19 History umeclidinium [Incruse Ellipta] 1 inh INHALATION DAILY 05/26/19 05/26/19 History nystatin 1 applic TOPICAL TID 05/27/19 05/27/19 History Allergies Allergy/AdvReac Type Severity Reaction Status Date / Time lisinopril AdvReac Other (See Unverified 05/26/19 20:11 Comment) sacubitril [From Entresto] AdvReac rash Unverified 05/26/19 20:11 valsartan [From Entresto] AdvReac rash Unverified 05/26/19 20:11 Exam Narrative Exam Narrative: General: Patient appears older than stated age, moderately obese and unkempt. In no acute distress and alert and oriented x3. HEENT: Normocephalic with oral mucosa pink and moist, eyes with pupils equal and reactive to light symmetrically with extraocular movement intact and sclera anicteric. Face has coarsened features. Neck: Supple without JVD. Back: Kyphotic with no CVA tenderness. Lungs: Decreased aeration diffusely with no inspiratory crackles or rhonchi, no focalizing findings and bronchovesicular breath sounds diffusely. Slightly increased expiratory phase with slight expiratory wheeze with cough. Heart: Irregular rhythm with normal rate and distant heart sounds with no appreciable murmur or gallop. Palpable subcutaneous device over left chest. Breast: Full exam deferred but there is an odiferous, moist rash underneath both breasts. Abdomen: Obese contour, soft and nontender to palpation with no palpable hepatosplenomegaly. Bowel sounds positive in all quadrants and normoactive. Surgical scars over abdomen over the right side with umbilicus appearing almost absent. Genitalia/rectal: Exam deferred. Extremities: Nonpitting edema both lower extremities with loss of hair and no ulcerations or hyperpigmentation. Capillary refill is fair with peripheral pu lses decreased but intact. No clubbing or cyanosis. Decreased range of motion most joints with chronic arthritic changes but no swelling or increased warmth to touch. Skin: Warm and dry with intertriginous rash under breasts as mentioned. Neuro: Cranial nerves II through XII grossly intact, motor intact with no focalizing. Psych: Normal affect and mood with no abnormal thought processes. Remote and recent memory appear to be intact. Results Imaging Additional studies: Exam(s) [id number] US:Echocardiogram Heart *[facility]* *[facility]* [address] [place] [address] Date of study: 11/15/2017 Transthoracic Echocardiography M-mode, complete 2D, complete spectral Doppler, and color Doppler *STUDY CONCLUSIONS* Summary: 1. Left ventricle: The cavity size was dilated. Wall thickness was increased in a pattern of mild LVH. Systolic function was severely reduced. The estimated ejection fraction was 20-25%. Severe diffuse hypokinesis. Akinesis of the entire anteroseptal, anterior, and apical myocardium. 2. Right ventricle: The cavity size was normal. Device wire noted in right ventricle. Systolic function was reduced. 3. Left atrium: The atrium was moderately dilated. 4. Mitral valve: Mildly calcified annulus. Mildly thickened leaflets. There was moderate regurgitation. 5. Tricuspid valve: There was moderate regurgitation. 6. Pulmonary arteries: Pulmonary systolic pressure was increased, = 55mm Hg. 7. Inferior vena cava: The vessel was dilated. The respirophasic diameter changes were blunted (less than 50%), consistent with elevated central venous pressure. Imaging Studies: Exam(s) PROCEDURE INFORMATION: Exam: XR Chest, 2 Views Exam date and time: 05/26/2019 8:07 PM Age: 68 years old Clinical indication: Other: SOB, HX of copd, cough, R/O pneumonia; Prior surgery; Surgery date: 6+ months; Surgery type: Diffib TECHNIQUE: Imaging protocol: XR of the chest Views: 2 views. COMPARISON: [place] XR PORTABLE CHEST AP 11/15/2018 4:52 PM FINDINGS: Tubes, catheters and devices: Transvenous pacemaker/defibrillator generator leads unchanged in position. Lungs: Hyperinflation. Minimal interstitial and pulmonary vascular prominence. No dense parenchymal consolidation. Pleural space: Unremarkable. No pleural effusion. No pneumothorax. Heart/Mediastinum: Unremarkable. No cardiomegaly. Bones/joints: Degenerative changes. IMPRESSION: 1. Pulmonary vascular congestion. 2. Hyperinflation of the lungs. Dictated and Authenticated by: Jovi Pearce MD Labs Result diagrams: 05/27/19 05:25 05/27/19 05:25 Labs: Laboratory Results - last 24 hr 05/26/19 05/26/19 05/26/19 20:05 20:05 20:05 WBC RBC Hgb Hct MCV MCH MCHC RDW Plt Count MPV Immature Gran % Neutrophils % Lymphocytes % Monocytes % Eosinophils % Basophils % Absolute Neutrophils Absolute Lymphocytes Absolute Monocytes Absolute Eosinophils Absolute Basophils Differential Comment PT INR APTT VBG pH 7.36 VBG pCO2 58 H VBG pO2 45 H VBG HCO3 33 H VBG Total CO2 29 VBG O2 Saturation 75 VBG Base Excess 7.0 H Sodium 140 Potassium 3.9 D Chloride 98 Carbon Dioxide 33.4 H Anion Gap 8.6 BUN 65 H D Creatinine 2.70 H Estimated GFR/1.73 m2 17.52 Glucose 125 H D Calcium 9.6 Total Bilirubin 1.3 H AST 53 H ALT 60 H Alkaline Phosphatase 208 H Troponin I < 0.05 NT-Pro-B Natriuret Pep 4454 H Total Protein 8.2 Albumin 3.5 05/26/19 05/26/19 20:05 20:05 WBC 17.26 H RBC 4.52 Hgb 13.9 Hct 42.9 MCV 94.9 MCH 30.8 MCHC 32.4 RDW 18.2 H Plt Count 238 MPV 12.1 H Immature Gran % 0.2 Neutrophils % 81.8 Lymphocytes % 6.5 Monocytes % 11.1 Eosinophils % 0.2 Basophils % 0.2 Absolute Neutrophils 14.12 H Absolute Lymphocytes 1.12 L Absolute Monocytes 1.92 H Absolute Eosinophils 0.03 Absolute Basophils 0.03 Differential Comment Agrees w/ instrument PT 12.3 H INR 1.2 H APTT 31.3 VBG pH VBG pCO2 VBG pO2 VBG HCO3 VBG Total CO2 VBG O2 Saturation VBG Base Excess Sodium Potassium Chloride Carbon Dioxide Anion Gap BUN Creatinine Estimated GFR/1.73 m2 Glucose Calcium Total Bilirubin AST ALT Alkaline Phosphatase Troponin I NT-Pro-B Natriuret Pep Total Protein Albumin Last Vital Signs Temp 36.7 C 05/26/19 20:00 Pulse 69 05/26/19 20:34 Resp 19 05/26/19 20:34 BP 102/68 05/26/19 20:34 Pulse Ox 93 L 05/26/19 20:34
[2019-05-26] MEDS: DOXYCYCLINE 100 MG in Normal Saline 100 ML IVPB (21:55)
[2019-05-26 22:34] LABS: TSH (W/Ref FT4) 2.84 uIU/mL (0.36-3.74)
[2019-05-26 23:48] LABS: Troponin I < 0.05 ng/Ml (<0.06)
[2019-05-27] VITALS (8 sets, daily range): BP systolic 100–124; BP diastolic 54–75; PULSE 67–74; RESP 18–21; TEMP 36.1–36.9; O2SAT 94–99
[2019-05-27 00:53] LABS: Bilirubin Negative (Negative); Blood Negative (Negative); Clarity Clear (Clear); Glucose Negative (Negative); Ketones Negative (Negative); Leukocyte Esterase Negative (Negative); Nitrite Negative (Negative); Specific Gravity 1.015 (1.005-1.025); Urobilinogen 0.2 EU/dL (Up TO 0.2)
[2019-05-27] MEDS: rOPINIRole 1 MG TAB 2 MG PO ×2 (01:07→21:23)
[2019-05-27 03:01] LABS: Troponin I < 0.05 ng/Ml (<0.06)
[2019-05-27] MEDS: methylPREDNISolone SUCC 125 MG VIAL 80 MG IVP ×2 (04:49→11:14)
[2019-05-27] MEDS: Benzonatate 100 MG CAP PO ×2 (04:49→23:10)
[2019-05-27] MEDS: Normal Saline Flush 10 ML SYR IVP ×5 (04:50→21:24)
[2019-05-27 05:36] LABS: HCT 40.7 % (36.0-46.0); HGB 13.4 g/dL (12.0-15.5); Mean Corp. HGB Concentration 32.9 g/dL (32.0-36.0); Mean Corpuscular Hemoglobin 31.1 pg (27.0-33.0); Mean Corpuscular Volume 94.4 fL (80-95); Mean Platelet Volume 11.8 fL (8.0-11.0); Platelet Count 225 x1000/uL (130-400); RBC 4.31 m/cumm (4.00-5.20); RBC Distribution Width 17.9 % (11.7-14.6); White Blood Cell Count 12.81 k/cumm (4.4-10.8)
[2019-05-27 05:50] LABS: ALT 54 U/L (14-59); AST 44 U/L (15-37); Albumin 2.9 g/dL (3.4-5.0); Alkaline Phosphatase 191 U/L (46-116); Anion Gap 9.5 mmol/L (3-11); BUN 66 mg/dL (7-18); Bilirubin, Total 0.7 mg/dL (0.2-1.0); CO2 31.5 mmol/L (21.0-32.0); CREATININE 2.48 mg/dL (0.55-1.02); Calcium 9.3 mg/dL (8.5-10.1); Chloride 98 mmol/L (98-107); Estimated GFR 19.33 (mL/min/1.73m2); Glucose 202 mg/dL (74-106); Magnesium 2.7 mg/dL (1.8-2.4); Potassium 3.7 mmol/L (3.5-5.1); Sodium 139 mmol/L (136-145); Total Protein 7.6 g/dL (6.4-8.2)
[2019-05-27 05:53] LABS: Troponin I < 0.05 ng/Ml (<0.06)
[2019-05-27] MEDS: Spironolactone 25 MG TAB PO (08:31)
[2019-05-27] MEDS: Allopurinol 300 MG TAB PO (08:32)
[2019-05-27] MEDS: Apixaban 5 MG TAB PO ×2 (08:33→20:06)
[2019-05-27] MEDS: Pantoprazole 40 MG TABCR PO (08:34)
[2019-05-27] MEDS: Amiodarone 200 MG TAB PO (08:34)
[2019-05-27] MEDS: Mirabegron 25 MG TABCR PO (08:35)
[2019-05-27] MEDS: Bumetanide 1 MG TAB 2 MG PO ×2 (08:36→15:47)
[2019-05-27] MEDS: Metoprolol CR 100 MG TABCR PO ×2 (08:36→20:06)
--- NOTE | 2019-05-27 09:22 | PDOC.CMIN ---
- If Service Date Differs Date of service: 05/27/19 Time of Service: 09:22 Care Management Initial Assess REASON FOR HOSPITALIZATION:: Right pneumonia with hypoxemia and COPD exacerbation. PAST MEDICAL HISTORY/PAST SURGICAL HISTORY:: Medical History: Anemia (Chronic), Atrial fibrillation (Chronic), Cardiomyopathy, ischemic (Chronic), Chronic kidney disease, stage III (moderate) (Chronic), Chronic obstructive pulmonary disease (Chronic 09/03/14), Congestive heart disease (Chronic 05/05/14), Coronary artery disease (Chronic 05/05/14) - STEMI with LAD stent 04/2014 - EF 35%,. Hypertension (Chronic), ICD (implantable cardioverter-defibrillator) in place (Chronic), Impaired glucose tolerance (Chronic), Morbid obesity (Chronic),. Nephrolithiasis (Chronic), Nocturnal hypoxia (Chronic), Tobacco use disorder (Resolved) - a. quit one week ago at the time of her [place], and Urinary incontinence (Chronic 11/06/17). Surgical History: Cholecystectomy, Hernia Repair, Incisional 04/19/14, Hysterectomy, Laproscopic (~1980) - OVARIES REMAIN, and. Tonsillectomy. PREVIOUS FUNCTIONAL STATUS/SOCIAL/FAMILY SUPPORTS:: Zora lives in [place] with her , Otis. She reports her is currently undergoing treatment for lung cancer. The couple has five children, four who live in [place] and one who is . They also have nine adult grandchildren and two great grandkids. 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 She now occupies her time gardening and fishing during warmer months and putting together jigsaw puzzles in the winter. Zora drives and is independent with her ADLs at baseline. 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 They have several friends who are sources of support. CURRENT FUNCTIONAL STATUS:: Zora is sitting on the side of the bed when CM comes to meet with her. She is pleasant and easily engages in conversation. She jokingly says that coming to the hospital is a mini vacation from home. Zora talks about getting sick a few days ago, being unable to breathe, and coming to the emergency room at [facility]. CM will continue to follow. ADVANCE DIRECTIVES:: None on file. Patient says she has one but expresses a desire to complete a new one. CM gives her a new advance directives form and offers assistance in completing it, but Zora declines help at this time. Has patient been provided with information about the portal?: Yes Did the patient sign up for the portal?: No CODE STATUS:: Full Code INSURANCE COVERAGE / FINANCIAL ISSUES:: Medicare and Financial Asst 100 CURRENT HOME/COMMUNITY SERVICES/EQUIPMENT:: Zora states she does not have any home or community services. She has a [employer] implantable cardioverter-defibrillator at home but has no other equipment. PRIMARY CARE PHYSICIAN:: Taya Juan MD ([facility]) POTENTIAL DISCHARGE NEEDS:: Follow up appointment with primary care physician. PATIENT/FAMILY EDUCATION NEEDS:: Discharge instructions, limitations, follow up plan, including Ask Me Three and self-management. ANTICIPATED BARRIERS TO DISCHARGE:: None. TRANSPORTATION:: Via private vehicle by family. PLAN:: Zora will be discharged home when medically cleared by provider. Anticipate no new services at time of discharge. Zora's , Otis, will transport her home via private vehicle when ready. CM will continue to follow.
[2019-05-27] MEDS: DOXYCYCLINE 100 MG in Normal Saline 100 ML IVPB ×2 (09:44→21:23)
--- NOTE | 2019-05-27 13:49 | W.NUTCONSULT ---
Date of service: 05/27/19 Time of Service: 13:50 Nutritional Consult ASSESSMENT: 68 year old female admitted for PNA, with impaired glucose tolerance, morbid obesity and CKD3. She is following heart healthy diet with adequate intake. BMI indicates morbid obesity putting her at risk for multiple co morbidities. Provided her with my contact information for outpatient nutrition counseling. INTERVENTION: weight and po intake trends Time Spent in Nutritional Counseling and Treatment: 0 time spent face to face
--- NOTE | 2019-05-27 14:54 | W.PM.PROGNOT ---
Date of Service Date of service: 05/27/19 Time of Service: 14:54 Assessment and Plan Assessment and plan (1) Community acquired pneumonia: Status: Acute Assessment and plan: With chest x-ray findings showing underlying fibrotic changes, vascular prominence, no focal infiltrate on official read, however, ER physician read as possible infiltrate. She was hypoxic on presentation with a 2-3 week history of cough. She is currently being treated for CAP with ceftriaxone and Doxycycline, IV steroids. Her white blood cell count improved from 17.26 to 12.81 today. Continue IV antibiotics, nebs and steroids, continue to follow labs. Qualifiers: Laterality: right Lung location: lower lobe of lung Qualified Code(s): J18.9 - Pneumonia, unspecified organism (2) Chronic obstructive pulmonary disease: Status: Chronic Assessment and plan: Treat as above. Taper steroids. (3) Cardiomyopathy, ischemic: Status: Chronic Assessment and plan: Does not appear to be in acute CHF exacerbation. AICD in place. She was monitored on telemetry, she was noted to be a-paced. Telemetry was discontinued. Continue home diuretics. (4) Chronic kidney disease, stage III (moderate): Status: Chronic Assessment and plan: Renal function improved today. Creatinine down to 2.48 from 2.7, appears to be near baseline. Continue to follow BMP. (5) DVT prophylaxis: Status: Acute Assessment and plan: On apixiban. (6) Discharge planning issues: Status: Acute Assessment and plan: She is a FULL CODE. This case was discussed with Dr. Marmolejo who is in agreement. Subjective Subjective Interval history since last seen: Zora Villanueva continues to have a dry, nonproductive cough. Her cough is improving. Her breathing feels better. She does not feel short of breath, she continues to wheeze. She has chronic lower extremity edema, she reports it is better than usual. She is overall feeling better, but still feels somewhat weak. She is eating and drinking and tolerating her diet. She denies nausea, vomiting, abdominal pain, diarrhea. She has not had bowel movement today. She denies hematuria or dysuria. Exam Narrative Exam Narrative: General: 68-year-old female, sitting up at the edge of the bed, does not appear to be in any acute distress. Alert and oriented, answers questions appropriately. HEENT: Normocephalic, atraumatic, pupils equal and round, EOMI, mucous membranes moist. Neck: Supple, no JVD. Respiratory: Respirations appear even and unlabored, no coughing during exam, lung sounds diminished throughout, no wheezing or rales. Cardiovascular: Irregularly irregular rhythm, non-tachycardic, no murmur appreciated. Implanted device noted at left chest. GI: Normoactive bowel sounds, abdomen soft, nontender on palpation, nondistended. Extremities: Bilateral lower extremity edema, right greater than left, chronic. +1 pedal pulses bilaterally. Moves all 4 extremities freely. Objective Objective Clinical Data: Abnormal lab results 05/26/19 05/26/19 05/26/19 Range/Units 20:05 20:05 20:05 WBC 17.26 H (4.4-10.8) k/cumm RDW 18.2 H (11.7-14.6) % MPV 12.1 H (8.0-11.0) fL Absolute Neutrophils 14.12 H (1.2-6.7) k/cumm Absolute Lymphocytes 1.12 L (1.2-3.4) k/cumm Absolute Monocytes 1.92 H (0.11-0.7) k/cumm PT (9.3-11.0) sec INR (0.9-1.1) VBG pCO2 58 H (34-47) mm/Hg VBG pO2 45 H (28-44) mm/Hg VBG HCO3 33 H (22-28) mmol/L VBG Base Excess 7.0 H (-3-3) mmol/L Carbon Dioxide 33.4 H (21.0-32.0) mmol/L BUN 65 H D (7-18) mg/dL Creatinine 2.70 H (0.55-1.02) mg/dL Glucose 125 H D (74-106) mg/dL Magnesium (1.8-2.4) mg/dL Total Bilirubin 1.3 H (0.2-1.0) mg/dL AST 53 H (15-37) U/L ALT 60 H (14-59) U/L Alkaline Phosphatase 208 H (46-116) U/L NT-Pro-B Natriuret Pep 4454 H (<300) pg/mL Albumin (3.4-5.0) g/dL 05/26/19 05/27/19 05/27/19 Range/Units 20:05 05:25 05:25 WBC 12.81 H (4.4-10.8) k/cumm RDW 17.9 H (11.7-14.6) % MPV 11.8 H (8.0-11.0) fL Absolute Neutrophils (1.2-6.7) k/cumm Absolute Lymphocytes (1.2-3.4) k/cumm Absolute Monocytes (0.11-0.7) k/cumm PT 12.3 H (9.3-11.0) sec INR 1.2 H (0.9-1.1) VBG pCO2 (34-47) mm/Hg VBG pO2 (28-44) mm/Hg VBG HCO3 (22-28) mmol/L VBG Base Excess (-3-3) mmol/L Carbon Dioxide (21.0-32.0) mmol/L BUN 66 H (7-18) mg/dL Creatinine 2.48 H (0.55-1.02) mg/dL Glucose 202 H D (74-106) mg/dL Magnesium 2.7 H (1.8-2.4) mg/dL Total Bilirubin (0.2-1.0) mg/dL AST 44 H (15-37) U/L ALT (14-59) U/L Alkaline Phosphatase 191 H (46-116) U/L NT-Pro-B Natriuret Pep (<300) pg/mL Albumin 2.9 L (3.4-5.0) g/dL Vital Signs Temperature 36.9 C 05/27/19 11:55 Temperature Source Tympanic 05/27/19 11:55 Pulse 70 05/27/19 11:55 Pulse Rhythm Regular 05/27/19 14:42 Pulse 70 05/26/19 22:01 Respiratory Rate 18 05/27/19 11:55 Respiratory Effort Non-Labored 05/27/19 14:42 Respiratory Depth Normal 05/27/19 14:42 Respiratory Pattern Normal 05/27/19 14:42 Blood Pressure 108/57 L 05/27/19 11:55 Blood Pressure Mean 57 05/26/19 22:01 Blood Pressure Position Supine 05/26/19 20:00 Pulse Oximetry 94 L 05/27/19 11:55 Oxygen Delivery Method Nasal Cannula 05/27/19 11:55 Oxygen Flow Rate 2 05/27/19 11:55 Pain Level 0 05/27/19 11:55 Comment 05/26/19 22:41 Intake & Output 05/26/19 05/27/19 05/27/19 23:59 11:59 23:59 Intake Total 110 / 110 1370 / 1610 240 / 1610 Output Total 1402 / 2302 900 / 2302 Balance 110 / -342 -32 / -692 -660 / -692 Weight 114 kg Intake: IV 110 / 110 110 / 110 Oral 1260 / 1500 240 / 1500 Output: Urine 1402 / 2302 900 / 2302 Other: Urine Color Dark Keesha Dark Keesha Urine Appearance Clear Clear Clear Urine Odor None Comment Sample sent to lab Voiding Methods Toilet Toilet Laboratory Results WBC 12.81 k/cumm (4.4-10.8) H 05/27/19 05:25 RBC 4.31 m/cumm (4.00-5.20) 05/27/19 05:25 Hgb 13.4 g/dL (12.0-15.5) 05/27/19 05:25 Hct 40.7 % (36.0-46.0) 05/27/19 05:25 MCV 94.4 fL (80-95) 05/27/19 05:25 MCH 31.1 pg (27.0-33.0) 05/27/19 05:25 MCHC 32.9 g/dL (32.0-36.0) 05/27/19 05:25 RDW 17.9 % (11.7-14.6) H 05/27/19 05:25 Plt Count 225 x1000/uL (130-400) 05/27/19 05:25 MPV 11.8 fL (8.0-11.0) H 05/27/19 05:25 Immature Gran % 0.2 % 05/26/19 20:05 Neutrophils % 81.8 05/26/19 20:05 Lymphocytes % 6.5 05/26/19 20:05 Monocytes % 11.1 05/26/19 20:05 Eosinophils % 0.2 05/26/19 20:05 Basophils % 0.2 05/26/19 20:05 Absolute Neutrophils 14.12 k/cumm (1.2-6.7) H 05/26/19 20:05 Absolute Lymphocytes 1.12 k/cumm (1.2-3.4) L 05/26/19 20:05 Absolute Monocytes 1.92 k/cumm (0.11-0.7) H 05/26/19 20:05 Absolute Eosinophils 0.03 k/cumm (0.0-0.7) 05/26/19 20:05 Absolute Basophils 0.03 k/cumm (0.0-0.2) 05/26/19 20:05 Differential Comment Agrees w/ instrument 05/26/19 20:05 PT 12.3 sec (9.3-11.0) H 05/26/19 20:05 INR 1.2 (0.9-1.1) H 05/26/19 20:05 APTT 31.3 sec (21.0-31.4) 05/26/19 20:05 VBG pH 7.36 (7.32-7.43) 05/26/19 20:05 VBG pCO2 58 mm/Hg (34-47) H 05/26/19 20:05 VBG pO2 45 mm/Hg (28-44) H 05/26/19 20:05 VBG HCO3 33 mmol/L (22-28) H 05/26/19 20:05 VBG Total CO2 29 mmol/L (22-29) 05/26/19 20:05 VBG O2 Saturation 75 % (70-80) 05/26/19 20:05 VBG Base Excess 7.0 mmol/L (-3-3) H 05/26/19 20:05 Sodium 139 mmol/L (136-145) 05/27/19 05:25 Potassium 3.7 mmol/L (3.5-5.1) 05/27/19 05:25 Chloride 98 mmol/L (98-107) 05/27/19 05:25 Carbon Dioxide 31.5 mmol/L (21.0-32.0) 05/27/19 05:25 Anion Gap 9.5 mmol/L (3-11) 05/27/19 05:25 BUN 66 mg/dL (7-18) H 05/27/19 05:25 Creatinine 2.48 mg/dL (0.55-1.02) H 05/27/19 05:25 Estimated GFR/1.73 m2 19.33 (mL/min/1.73m2) 05/27/19 05:25 Glucose 202 mg/dL (74-106) H D 05/27/19 05:25 Calcium 9.3 mg/dL (8.5-10.1) 05/27/19 05:25 Magnesium 2.7 mg/dL (1.8-2.4) H 05/27/19 05:25 Total Bilirubin 0.7 mg/dL (0.2-1.0) 05/27/19 05:25 AST 44 U/L (15-37) H 05/27/19 05:25 ALT 54 U/L (14-59) 05/27/19 05:25 Alkaline Phosphatase 191 U/L (46-116) H 05/27/19 05:25 Troponin I < 0.05 ng/Ml (<0.06) 05/27/19 05:25 NT-Pro-B Natriuret Pep 4454 pg/mL (<300) H 05/26/19 20:05 Total Protein 7.6 g/dL (6.4-8.2) 05/27/19 05:25 Albumin 2.9 g/dL (3.4-5.0) L 05/27/19 05:25 TSH 2.84 uIU/mL (0.36-3.74) 05/26/19 20:07 Urine Color Yellow (Yellow) 05/27/19 00:00 Urine Clarity Clear (Clear) 05/27/19 00:00 Urine pH 5.0 (5-8) 05/27/19 00:00 Ur Specific [place] 1.015 (1.005-1.025) 05/27/19 00:00 Urine Protein Negative mg/dL (Negative) 05/27/19 00:00 Urine Ketones Negative mg/dL (Negative) 05/27/19 00:00 Urine Blood Negative (Negative) 05/27/19 00:00 Urine Nitrite Negative (Negative) 05/27/19 00:00 Urine Bilirubin Negative (Negative) 05/27/19 00:00 Urine Urobilinogen 0.2 EU/dL (Up TO 0.2) 05/27/19 00:00 Ur Leukocyte Esterase Negative (Negative) 05/27/19 00:00 Urine Glucose Negative mg/dL (Negative) 05/27/19 00:00
--- NOTE | 2019-05-27 16:15 | PHARADMIT ---
Admission Pharmacy Clinical Review right pneumonia w/hypoxia, COPD exacerbation Code Status FULL Current Weight 114 kg Renally Cleared and Narrow Therapeutic Index Meds Crcl ~27.8 mL/min using adjusted bodyweight -allopurinol: Crcl <30 mL/min start low/titrate, doses over 300 mg permitted as long as accompanied by appropriate monitoring for potential toxicity (pruritus, rash, hepatic transaminases) -apixaban: pts w/ SCr over 2.5 mg/dL were excluded from trials -bumetanide: use caution -metolazone: use caution, accumulation may occur -mirabegron: current dosing okay -ropinerole: has not been studied Crcl <30 mL/min; use with caution -spironolactone: not recommended Crcl <30 mL/min QTc Value / Action Taken QTc 535 has amiodarone and albuterol ordered... [employer] made aware BP Control, Fever BP 119/75 afebrile Electrolytes reviewed mag 2.7 DVT Prophylaxis pt has apixaban ordered Opiate Usage / Scheduled Bowel Regimen Ordered no/prn Plt/SCr for Heparin / Enoxaparin plt 225 SCr 2.48 INR for Warfarin n/a H/H stable, WBC/Bands h/h 13.4/40.7 WBC 12.81 Antibiotic appropriateness ceftriaxone and doxycycline for pneumonia Cultures and Sensitivities blood cultures pending rapid flu negative Surgical ABX d/c within 24 hr n/a DM control / Insulin Dosing BG 202 none... most previous A1c 6.7 will mention to Heart Failure (Check EF%) (ZOHRA's, B-Block, Diuretics) bumetanide, metolazone, metoprolol, spironolactone IV to PO Switch n/a Home Meds Reviewed -verified pt is taking metoprolol succinate BID, pt takes 25-50 mg spironolactone daily based on swelling in her legs, and has metolazone PRN -multiple anticholinergic meds increases risk of adverse/toxic effects (recommended to avoid concurrent use): cyclobenzaprine, ipratropium, umeclidinium - Home Meds Not Ordered ipratropium (has duonebs ordered), umeclidinum Comments -watch for the addition of any QT prolonging meds... said pt has AICD and is paced so okay for now -spironolactone put on hold due to renal function; if renal function improves will resume -A1c ordered for tomorrow
[2019-05-27] MEDS: Nystatin POWDER 60 GM JAR TP (18:39)
[2019-05-27] MEDS: Atorvastatin 40 MG TAB 80 MG PO (20:06)
[2019-05-27] MEDS: predniSONE 20 MG TAB 40 MG PO (20:06)
[2019-05-27] MEDS: cefTRIAXone 1 GM/50 ML BAG IVPB (21:23)
[2019-05-28 03:32] VITALS: BP 113/65; PULSE 69; RESP 19; TEMP 37.2; O2SAT 93
[2019-05-28 07:27] LABS: Abs Immature Grans 0.03 k/cumm (0.0-0.09); Absolute Lymphocyte Count 0.61 k/cumm (1.2-3.4); Absolute Monocyte Count 0.65 k/cumm (0.11-0.7); Basophils % 0.1; HCT 42.6 % (36.0-46.0); HGB 13.8 g/dL (12.0-15.5); Immature Grans % 0.2 %; Lymphocytes % 3.4; Mean Corp. HGB Concentration 32.4 g/dL (32.0-36.0); Mean Corpuscular Hemoglobin 30.8 pg (27.0-33.0); Mean Corpuscular Volume 95.1 fL (80-95); Mean Platelet Volume 12.2 fL (8.0-11.0); Monocytes % 3.6; Neutrophils % 92.7; Platelet Count 257 x1000/uL (130-400); RBC 4.48 m/cumm (4.00-5.20); White Blood Cell Count 18.07 k/cumm (4.4-10.8)
[2019-05-28 07:33] LABS: Absolute Basophil Count 0.02 k/cumm (0.0-0.2); Absolute Neutrophil Count 16.75 k/cumm (1.2-6.7)
[2019-05-28 07:50] VITALS: BP 113/72; PULSE 70; RESP 18; TEMP 36.9; O2SAT 95
[2019-05-28 07:50] LABS: Anion Gap 9.6 mmol/L (3-11); BUN 66 mg/dL (7-18); CO2 32.4 mmol/L (21.0-32.0); CREATININE 1.86 mg/dL (0.55-1.02); Calcium 9.5 mg/dL (8.5-10.1); Chloride 98 mmol/L (98-107); Estimated GFR 26.94 (mL/min/1.73m2); Glucose 165 mg/dL (74-106); Magnesium 2.2 mg/dL (1.8-2.4); Potassium 3.6 mmol/L (3.5-5.1); Sodium 140 mmol/L (136-145)
[2019-05-28 08:01] LABS: Hemoglobin A1C 6.6 % (3.8-5.6)
[2019-05-28] MEDS: Bumetanide 1 MG TAB 2 MG PO (08:18)
[2019-05-28] MEDS: Amiodarone 200 MG TAB PO (08:18)
[2019-05-28] MEDS: Pantoprazole 40 MG TABCR PO (08:19)
[2019-05-28] MEDS: Metoprolol CR 100 MG TABCR PO (08:19)
[2019-05-28] MEDS: Allopurinol 300 MG TAB PO (08:19)
[2019-05-28] MEDS: Apixaban 5 MG TAB PO (08:19)
[2019-05-28] MEDS: Mirabegron 25 MG TABCR PO (08:19)
[2019-05-28] MEDS: predniSONE 20 MG TAB 40 MG PO (08:19)
[2019-05-28] MEDS: Normal Saline Flush 10 ML SYR IVP (08:20)
[2019-05-28 08:35] VITALS: O2SAT 96
[2019-05-28 10:25] VITALS: PULSE 70; PULSE 75; RESP 16; RESP 24; O2SAT 89; O2SAT 94; O2SAT 97
[2019-05-28] MEDS: DOXYCYCLINE 100 MG in Normal Saline 100 ML IVPB (10:26)
[2019-05-28 11:39] VITALS: BP 107/66; PULSE 68; RESP 17; TEMP 36.6; O2SAT 94
--- NOTE | 2019-05-28 12:46 | DSE_ITS ---
Date of service: 05/28/19 Time of Service: 12:46 DS: Diagnosis Discharge Diagnosis (1) Community acquired pneumonia: Status: Acute (2) Chronic obstructive pulmonary disease: Status: Chronic (3) Cardiomyopathy, ischemic: Status: Chronic (4) Chronic kidney disease, stage III (moderate): Status: Chronic Discharge Plan Disposition Patient Disposition: HOME Condition: Stable Discharge Details Chief Complaint: SOB Clinical Impression: Community acquired pneumonia, Acute exacerbation of chronic obstructive pulmonary disease Reason For Visit: RIGHT PNEUMONIA WITH HYPOXEMIA, COPD EXACERBATION, Admit Date/Time: 05/26/19 21:19 Admit Provider: Jarad Oneill Attending Provider: Jarad Oneill Primary Care Provider: Taya Juan ED Provider: Quincy Kelly Hospital Course Hospital Course: Zora Villanueva is a very pleasant 68-year-old female with a past medical history significant for coronary artery disease, ischemic cardiomyopathy with LVEF of 20 to 25% on most recent echocardiogram on file, with AICD in place, COPD, hypertension, chronic kidney disease, atrial fibrillation on apixaban who presented to the emergency department on 05/26/2019 with reports of a 2 to 3-week history of cough. In the emergency department, she was noted to be hypoxic and required oxygen supplementation and frequent nebulizer treatments. Initial read of the chest x-ray by the ER attending provider revealed a possible right lower lobe pneumonia with no evidence of CHF. The official chest x-ray read did not note an infiltrate. She does have ischemic cardiomyopathy with a low EF, with most recent echocardiogram on file showing LVEF of 20 to 25%. She did not appear to be in acute CHF exacerbation. She was started on IV ceftriaxone and doxycycline, IV steroids and nebulizer treatments and admitted to the [facility] floor for treatment of possible pneumonia with COPD exacerbation. Her respiratory symptoms improved over the following days, she was transitioned to oral steroids and maintained her oxygen saturations in the high 90s. She had an exercise oximetry test on the day of discharge and did not qualify for oxygen with activity or at rest. Her WBC initially improved but then increased on the day of discharge, likely due to steroids. She will have follow up labs to reassess white blood cell count next week. She will be discharged home to complete a 5-day total course of antibiotics. She is referred to cardiac rehab. She was maintained on her usual diuretics except Aldactone was held due to poor renal function. Her creatinine improved to better than baseline at 1.86 at the time of discharge. She will be discharged on her usual home regimen. Of note, her hemoglobin A1c was noted to be 6.6. She was counseled on lifestyle modification including diet and exercise. She will follow-up with her primary care provider, her most recent previous hemoglobin A1c was slightly higher at 6.7. This has been monitored rec regularly by her primary care provider. She will follow-up with her primary care provider as scheduled. Home Meds and New Rx's Prescriptions: New pantoprazole 40 mg Tablet,Delayed Release (Dr/Ec) 40 mg PO DAILY@0730 Qty: 30 RF: 0 doxycycline hyclate 100 mg capsule 100 mg PO BID Qty: 7 RF: 0 cefpodoxime 200 mg tablet 200 mg PO BID Qty: 7 RF: 0 prednisone 10 mg tablet 10 mg PO DAILY Qty: 20 RF: 0 Continued amiodarone 400 mg tablet 200 mg PO DAILY RF: 0 Myrbetriq 25 mg tablet extended release 24 hr 25 mg PO DAILY Qty: 60 RF: 5 albuterol sulfate [Ventolin HFA] 8 GM HFA aerosol inhaler 2 puff Inhalation Q4H PRN Qty: 120 RF: 2 atorvastatin 80 MG tablet 80 mg PO DAILY Qty: 90 RF: 3 nitroglycerin 0.4 MG tablet, sublingual 0.4 mg Sublingual PRN PRNQty: 30 RF: 0 spironolactone 25 MG tablet 25 mg PO DAILY Qty: 90 RF: 3 metolazone 2.5 MG tablet 2.5 mg PO PRN Qty: 30 RF: 3 metoprolol succinate 100 mg tablet extended release 24 hr 100 mg PO BID RF: 0 allopurinol 300 mg tablet 300 mg PO DAILY RF: 0 acetaminophen [Tylenol] 325 MG tablet 650 mg PO Q6H PRNQty: 1 RF: 0 cyclobenzaprine 10 mg Tablet 10 mg PO TID PRNRF: 0 benzonatate [Tessalon Perles] 100 mg Capsule 100 mg PO BID PRNRF: 0 ropinirole 2 mg Tablet 2 mg PO QHS RF: 0 ipratropium bromide 0.02 % Solution 2.5 ml INHALATION Q6H PRNRF: 0 Incruse Ellipta 62.5 mcg/actuation Blister With Device 1 inh INHALATION DAILY RF: 0 bumetanide 1 MG tablet 2 mg PO BID RF: 0 nystatin 100,000 unit/gram Powder 1 applic TOPICAL TID RF: 0 Eliquis 5 MG tablet 5 mg PO BID Qty: 60 RF: 0 Discharge Instructions Instructions: COPD (Chronic Obstructive Pulmonary Disease) (DC), Community Acquired Pneumonia (DC) Additional Instructions: Taper steroids: Take 4 tabs by mouth for 2 days, then decrease to 3 tabs x2 days, then 2 tabs x2 days, then one tab x2 days then stop. Take the antibiotics until they are gone. You will need to have blood work in 1 week to make sure your labs normalize. Talk to your doctor about your elevated Hgb A1c. It is 6.6 today (was 6.7 on previous check). Take care! Stand Alone Forms: Nursing Discharge Form Referrals: Taya Juan MD [Primary Care Provider] - 06/10/19 11:00 am Activity:: Activity as Tolerated Equipment/Supplies:: No Equipment Needed Diet:: Carb Counting Discharge Orders Discharge Orders: Discharge Order (Routine); Ordered 05/28/19 Ordered By: Nataly Corral Other Ambulatory Orders: Complete Blood Count No Diff (Routine) Timeframe: 1 Week Facility: [facility] - Location: Laboratory Outpatient Ordered By: Nataly Corral DS: Summary Status at Discharge Functional status at discharge: independent ambulation Overall status at discharge: patient is progressing back to baseline Mental Status: mental status grossly normal Speech and Movement: speech and movement normal Mood: congruent mood Affect: normal affect Exam Narrative Exam Narrative: General: 68-year-old female, sitting up at the edge of the bed, does not appear to be in any acute distress. Alert and oriented, answers questions appropriately. HEENT: Normocephalic, atraumatic, pupils equal and round, EOMI, mucous membranes moist. Neck: Supple, no JVD. Respiratory: Respirations appear even and unlabored, no coughing during exam, lung sounds diminished throughout, no wheezing or rales. Cardiovascular: Irregularly irregular rhythm, non-tachycardic, no murmur appreciated. Implanted device noted at left chest. GI: Normoactive bowel sounds, abdomen soft, nontender on palpation, nondistended. Extremities: Bilateral lower extremity edema, right greater than left, chronic. +1 pedal pulses bilaterally. Moves all 4 extremities freely. Psych Mental Status: mental status grossly normal Speech and Movement: speech and movement normal Mood: congruent mood Affect: normal affect DS: Data Vitals/I&O Vitals and I&O: Vital Signs Temperature 36.9 C 05/28/19 07:50 Temperature Source Tympanic 05/28/19 07:50 Pulse 70 05/28/19 07:50 Pulse Rhythm Regular 05/28/19 08:30 Pulse 70 05/26/19 22:01 Respiratory Rate 18 05/28/19 07:50 Respiratory Effort 05/28/19 08:36 Respiratory Depth Shallow 05/28/19 08:36 Respiratory Pattern Normal 05/28/19 08:36 Blood Pressure 113/72 05/28/19 07:50 Blood Pressure Mean 57 05/26/19 22:01 Blood Pressure Position Supine 05/26/19 20:00 Pulse Oximetry 96 05/28/19 08:35 Oxygen Delivery Method Room Air 05/28/19 08:35 Oxygen Flow Rate 0 05/28/19 08:35 Fraction of Inspired Oxygen (FIO2) 1 05/28/19 03:32 Pain Level 0 05/28/19 07:50 Comment 05/26/19 22:41 Intake & Output 05/27/19 05/28/19 05/28/19 23:59 11:59 23:59 Intake Total 1230 / 2700 10 / 10 Output Total 2500 / 3902 1500 / 1500 Balance -1270 / -1202 -1490 / -1490 Weight 111.1 kg Intake: IV 150 / 360 10 / 10 Oral 1080 / 2340 Output: Urine 2500 / 3902 1500 / 1500 Other: Urine Color Yellow Yellow Light Keesha Urine Appearance Clear Clear Urine Odor None Voiding Methods Toilet Toilet Data Completed and Pending Completed studies during hospitalization [Text1]: 05/26/19: EXAM: XR CHEST 2V PA LATERAL INDICATION: SOB, hx of COPD, cough, r/o pneumonia. COMPARISON: CHEST 2 VIEWS PA,LAT from 12/23/2017 XR PORTABLE CHEST AP from 11/15/2018 TECHNIQUE: 2D digital imaging was performed. FINDINGS: A pacemaker is again noted. The heart is enlarged, unchanged. There are underlying fibrotic changes. There may be vascular prominence which appears chronic. No overt pulmonary edema, focal infiltrate or effusion is seen. IMPRESSION: No acute abnormality. Labs on day of discharge: Labs from last 24 hours 05/28/19 05/28/19 05/28/19 06:25 06:25 06:25 WBC 18.07 H D RBC 4.48 Hgb 13.8 Hct 42.6 MCV 95.1 H MCH 30.8 MCHC 32.4 RDW 18.0 H Plt Count 257 MPV 12.2 H Immature Gran % 0.2 Neutrophils % 92.7 Lymphocytes % 3.4 Monocytes % 3.6 Eosinophils % 0.0 Basophils % 0.1 Absolute Neutrophils 16.75 H Absolute Lymphocytes 0.61 L Absolute Monocytes 0.65 Absolute Eosinophils 0.00 Absolute Basophils 0.02 Sodium 140 Potassium 3.6 Chloride 98 Carbon Dioxide 32.4 H Anion Gap 9.6 BUN 66 H Creatinine 1.86 H Estimated GFR/1.73 m2 26.94 Glucose 165 H Hemoglobin A1c 6.6 H Calcium 9.5 Magnesium 2.2 Preliminary micro results at discharge 05/27/19 20:20 Sputum Culture - Preliminary Sputum 05/26/19 21:25 Blood Culture - Preliminary Blood NO GROWTH 24 HOURS 05/26/19 21:25 Blood Culture - Preliminary Blood NO GROWTH 24 HOURS [facility] Medical History Anemia (Chronic) Atrial fibrillation (Chronic) Cardiomyopathy, ischemic (Chronic) Chronic kidney disease, stage III (moderate) (Chronic) Chronic obstructive pulmonary disease (Chronic 09/03/14) Congestive heart disease (Chronic 05/05/14) Coronary artery disease (Chronic 05/05/14) STEMI with LAD stent 04/2014 EF 35% Hypertension (Chronic) ICD (implantable cardioverter-defibrillator) in place (Chronic) Impaired glucose tolerance (Chronic) Morbid obesity (Chronic) Nephrolithiasis (Chronic) Nocturnal hypoxia (Chronic) Tobacco use disorder (Resolved) a. quit one week ago at the time of her [place] Urinary incontinence (Chronic 11/06/17) Surgical History Cholecystectomy Hernia Repair, Incisional 04/19/14 Hysterectomy, Laproscopic (~1980) OVARIES REMAIN Tonsillectomy Social History Smoking/Tobacco Use Status: Former Tobacco Use Quit Date: 05/20/13 Second Hand Exposure: Yes Alcohol Intake: never Drug use: Never Do you feel safe at home: Yes Do you feel safe in your relationship?: Yes
--- NOTE | 2019-05-28 13:23 | PDOC.CMDIS ---
- If Service Date Differs Date of service: 05/28/19 Time of Service: 13:23 LACE Index Scoring Tool - Questions: Length of Stay (in days): 2 Acuity (Admit via E.D.?): Yes Comorbidities: Congestive Heart Failure, Chronic Pulmonary Disease, Liver or Renal Disease E.D. Visits: 3 - Answers: Total Score: 13 Risk of Readmission: High Risk Care Management Discharge Reason for Hospitalization: Right pneumonia with hypoxemia and COPD exacerbation. Discharge Plan: Zora is being discharged home with no new services. She will follow up with her primary care physician and plan of care as directed. Her , Otis, is transporting her home via private vehicle. Patient/Family Education Needs: Nursing will review discharge instructions with Zora re medications and follow up appointments. Zora is able to verbalize reason for hospitalization and how to manage care at home.
[2019-05-28] MEDS: guaiFENesin 600 MG TABCR PO (13:41)
[2019-05-28 14:55] VITALS: O2SAT 97
== END 2019-05-28 15:43 | disposition home or self-care (01) | DRG 194 ==
LOC: ER 22:15 → MS 22:39
PROVIDERS: Nurse Practitioner; Admitting Provider Family Medicine; Emergency Provider Student in an Organized Health Care Education/Training Program; PCP Family Medicine; Visit Provider Internal Medicine
DX: J18.1 Lobar pneumonia, unspecified organism (principal); J44.0 Chronic obstructive pulmonary disease with (acute) lower respiratory infection; I50.22 Chronic systolic (congestive) heart failure; I25.5 Ischemic cardiomyopathy; N18.3 Chronic kidney disease, stage 3 (moderate); R09.02 Hypoxemia; Z95.810 Presence of automatic (implantable) cardiac defibrillator; I48.91 Unspecified atrial fibrillation; Z79.01 Long term (current) use of anticoagulants; I12.9 Hypertensive chronic kidney disease with stage 1 through stage 4 chronic kidney disease, or unspecified chronic kidney disease; Z95.5 Presence of coronary angioplasty implant and graft; E66.01 Morbid (severe) obesity due to excess calories; Z68.39 Body mass index [BMI] 39.0-39.9, adult; G47.34 Idiopathic sleep related nonobstructive alveolar hypoventilation; I25.10 Atherosclerotic heart disease of native coronary artery without angina pectoris; I25.2 Old myocardial infarction; R32 Unspecified urinary incontinence
CPT/HCPCS: 36415; 80048; 80053; 82805; 85027; 87040; 87449; 93005; 94640; 96365; 96367; 96368; 96375; 99223; 99232; 99239; 99285; 71046; 81003; 83036; 83735; 83880; 84443; 84484; 85025; 85610; 85730; 87070; 87205; 93010; J0696; J2930; J7512; J7620

== ENCOUNTER 2019-06-03 07:58 | Outpatient (CLI) | payer MEDICARE, SELFPAY ==
[2019-06-03 11:36] LABS: HCT 45.1 % (36.0-46.0); HGB 14.3 g/dL (12.0-15.5); Mean Corp. HGB Concentration 31.7 g/dL (32.0-36.0); Mean Corpuscular Hemoglobin 30.3 pg (27.0-33.0); Mean Corpuscular Volume 95.6 fL (80-95); Mean Platelet Volume 11.8 fL (8.0-11.0); Platelet Count 301 x1000/uL (130-400); RBC 4.72 m/cumm (4.00-5.20); RBC Distribution Width 18.6 % (11.7-14.6); White Blood Cell Count 12.29 k/cumm (4.4-10.8)
== END 2019-06-03 08:18 ==
PROVIDERS: PCP Family Medicine; Visit Provider Nurse Practitioner
DX: J18.9 Pneumonia, unspecified organism (principal); J44.9 Chronic obstructive pulmonary disease, unspecified
CPT/HCPCS: 36415; 85027

== ENCOUNTER 2019-06-09 09:08 | Outpatient (CLI) | payer MEDICARE, SELFPAY ==
[2019-06-09 10:31] LABS: ALT 105 U/L (14-59); AST 67 U/L (15-37); Albumin 3.2 g/dL (3.4-5.0); Alkaline Phosphatase 169 U/L (46-116); Anion Gap 7.5 mmol/L (3-11); BUN 35 mg/dL (7-18); Bilirubin, Total 1.2 mg/dL (0.2-1.0); CO2 34.5 mmol/L (21.0-32.0); CREATININE 1.79 mg/dL (0.55-1.02); Chloride 100 mmol/L (98-107); Estimated GFR 28.16 (mL/min/1.73m2); Ferritin 85 ng/mL (8-252); Glucose 161 mg/dL (74-106); Potassium 4.3 mmol/L (3.5-5.1); Sodium 142 mmol/L (136-145); TSH 1.72 uIU/mL (0.36-3.74); Total Protein 6.8 g/dL (6.4-8.2)
== END 2019-06-09 09:28 ==
PROVIDERS: PCP Family Medicine; Visit Provider Nurse Practitioner
DX: R53.83 Other fatigue (principal); M25.50 Pain in unspecified joint
CPT/HCPCS: 36415; 80053; 82728; 84443

== ENCOUNTER → 2019-06-15 13:22 | Outpatient (BNVA) | payer MEDICARE, SELFPAY | PROVIDERS: PCP Family Medicine; Referring Provider Family Medicine; Visit Provider Surgery | DX: K62.5 Hemorrhage of anus and rectum (principal); J44.9 Chronic obstructive pulmonary disease, unspecified; Z87.891 Personal history of nicotine dependence; Z79.01 Long term (current) use of anticoagulants; I48.91 Unspecified atrial fibrillation | CPT/HCPCS: 99203; 99214 ==

== ENCOUNTER 2019-06-25 11:16 | Outpatient (REF) | payer MEDICARE, SELFPAY ==
[2019-06-25 13:28] LABS: HCT 41.1 % (36.0-46.0); HGB 13.3 g/dL (12.0-15.5); Mean Corp. HGB Concentration 32.4 g/dL (32.0-36.0); Mean Corpuscular Hemoglobin 30.4 pg (27.0-33.0); Mean Corpuscular Volume 93.8 fL (80-95); Mean Platelet Volume 12.6 fL (8.0-11.0); Platelet Count 210 x1000/uL (130-400); RBC 4.38 m/cumm (4.00-5.20); RBC Distribution Width 17.3 % (11.7-14.6); White Blood Cell Count 9.83 k/cumm (4.4-10.8)
[2019-06-25 14:02] LABS: ALT 61 U/L (14-59); AST 61 U/L (15-37); Alkaline Phosphatase 194 U/L (46-116); Anion Gap 6.8 mmol/L (3-11); BUN 67 mg/dL (7-18); Bilirubin, Total 0.8 mg/dL (0.2-1.0); CO2 37.2 mmol/L (21.0-32.0); CREATININE 2.43 mg/dL (0.55-1.02); Chloride 93 mmol/L (98-107); Estimated GFR 19.79 (mL/min/1.73m2); Ferritin 145 ng/mL (8-252); Glucose 105 mg/dL (74-106); Magnesium 2.2 mg/dL (1.8-2.4); Potassium 3.5 mmol/L (3.5-5.1); Sodium 137 mmol/L (136-145); Total Protein 6.9 g/dL (6.4-8.2)
== END 2019-06-25 11:36 ==
LOC: NCHCN 11:16
PROVIDERS: PCP Family Medicine; Visit Provider Family Medicine
DX: R53.1 Weakness (principal); N18.9 Chronic kidney disease, unspecified
CPT/HCPCS: 80053; 85027; 82728; 83735

== ENCOUNTER 2019-07-12 08:32 | Emergency (ER) | payer MEDICARE, SELFPAY ==
[2019-07-12] VITALS (27 sets, daily range): BP systolic 81–101; BP diastolic 43–63; PULSE 68–72; RESP 14–24; TEMP 36.6; O2SAT 90–97
--- NOTE | 2019-07-12 09:03 | ED.GENADUL_ITS ---
Discharge Plan Disposition Patient Disposition: HOME Condition: Improving Discharge Details Chief Complaint: GenMedical Clinical Impression: Acute renal insufficiency Primary Care Provider: Taya Juan ED Provider: John Marr Home Meds and New Rx's Prescriptions: Continued amiodarone 400 mg tablet 200 mg PO DAILY RF: 0 Myrbetriq 25 mg tablet extended release 24 hr 25 mg PO DAILY Qty: 60 RF: 5 albuterol sulfate [Ventolin HFA] 8 GM HFA aerosol inhaler 2 puff Inhalation Q4H PRN Qty: 120 RF: 2 atorvastatin 80 MG tablet 80 mg PO DAILY Qty: 90 RF: 3 nitroglycerin 0.4 MG tablet, sublingual 0.4 mg Sublingual PRN PRNQty: 30 RF: 0 spironolactone 25 MG tablet 25 mg PO DAILY Qty: 90 RF: 3 metolazone 2.5 MG tablet 2.5 mg PO PRN Qty: 30 RF: 3 metoprolol succinate 100 mg tablet extended release 24 hr 100 mg PO BID RF: 0 allopurinol 300 mg tablet 300 mg PO DAILY RF: 0 acetaminophen [Tylenol] 325 MG tablet 650 mg PO Q6H PRNQty: 1 RF: 0 cyclobenzaprine 10 mg Tablet 10 mg PO TID PRNRF: 0 benzonatate [Tessalon Perles] 100 mg Capsule 100 mg PO BID PRNRF: 0 ropinirole 2 mg Tablet 2 mg PO QHS RF: 0 ipratropium bromide 0.02 % Solution 2.5 ml INHALATION Q6H PRNRF: 0 Incruse Ellipta 62.5 mcg/actuation Blister With Device 1 inh INHALATION DAILY RF: 0 Eliquis 5 MG tablet 5 mg PO BID Qty: 60 RF: 0 Discontinued bumetanide 1 MG tablet 2 mg PO BID RF: 0 Discharge Instructions Additional Instructions: Please hold 1 dose of your Spironolactone. As we discussed, we will need to maintain close surveillance of your kidney function. Please have laboratories as ordered drawn on Saturday. We will ask care management to arrange an outpatient follow-up for you following the blood tests in clinic this week. Return for any acute concerns. Medical Decision Making 68-year-old female with a known history of coronary artery disease status post ventricular fibrillation arrest, pacemaker placement, depressed systolic function. Recently seen by coremaking supervisor at [facility] and placed on 3 days of Demadex last week with approximately 30 pound weight loss. Now feeling lightheaded and with borderline low blood pressures at home. No syncope, no chest pain, she is otherwise well-appearing. Differential diagnosis includes overdiuresis, dehydration, electrolyte abnormalities. Patient IV access established she was given 250 cc IV fluid bolus, then a second 250 cc bolus. Labs do reveal acute renal insufficiency with elevated BUN and creatinine. After 500 cc fluid bolus labs were rechecked with some mild improvement. The patient has had significant elevations of BNP in the past and is at her low range today at approximately 3000. Her troponin is unremarkable. She does not have hyperkalemia. I do believe she has been aggressively diuresed as per cardiology's plan with 3 days of Demadex last week and the resultant significant renal insufficiency today. Clinically she is very well-appearing. She does not demonstrate mental status changes. Nonetheless we must maintain close surveillance and vigilance to ensure she does not have worsening renal function. We will have her obtain outpatient laboratories in 24 hours time and then care management will arrange a follow-up in clinic for recheck. I will have her hold 1 day of Spironolactone, she does not have any more doses of Demadex. She is stable and improving. Lab Data Lab results reviewed: Yes I reviewed the patient's lab results. Labs: Laboratory Results - last 24 hr 07/12/19 07/12/19 07/12/19 09:00 09:00 09:00 WBC 11.62 H RBC 4.44 Hgb 13.5 Hct 40.8 MCV 91.9 MCH 30.4 MCHC 33.1 RDW 17.2 H Plt Count 331 D MPV 12.2 H Immature Gran % 0.2 Neutrophils % 77.8 Lymphocytes % 10.0 Monocytes % 11.1 Eosinophils % 0.6 Basophils % 0.3 Absolute Neutrophils 9.04 H Absolute Lymphocytes 1.16 L Absolute Monocytes 1.29 H Absolute Eosinophils 0.07 Absolute Basophils 0.03 Sodium 132 L Potassium 3.2 L Chloride 89 L Carbon Dioxide 35.1 H Anion Gap 7.9 BUN 141 H* Creatinine 4.76 H* Estimated GFR/1.73 m2 9.11 Glucose 135 H Calcium 9.3 Magnesium 2.6 H Total Bilirubin 0.9 AST 88 H ALT 86 H Alkaline Phosphatase 261 H Troponin I < 0.05 NT-Pro-B Natriuret Pep 3356 H Total Protein 7.9 Albumin 3.1 L 07/12/19 11:20 WBC RBC Hgb Hct MCV MCH MCHC RDW Plt Count MPV Immature Gran % Neutrophils % Lymphocytes % Monocytes % Eosinophils % Basophils % Absolute Neutrophils Absolute Lymphocytes Absolute Monocytes Absolute Eosinophils Absolute Basophils Sodium 133 L Potassium 3.3 L Chloride 91 L Carbon Dioxide 35.9 H Anion Gap 6.1 BUN 136 H* Creatinine 4.49 H* Estimated GFR/1.73 m2 9.74 Glucose 181 H Calcium 8.8 Magnesium Total Bilirubin AST ALT Alkaline Phosphatase Troponin I NT-Pro-B Natriuret Pep Total Protein Albumin ECG Data Attestation: I personally reviewed and interpreted this ECG (s) as follows: Interpretation: V paced rhythm with a rate of 71, the QRS is widened, there is no ST segment elevation. HPI General Mode of arrival: ambulatory . Date/Time Provider Initiated Documentation: 07/12/19 08:49 . Limitations to Documentation: no limitations . Information obtained by: patient . History of Present Illness 68 year old F presents to the emergency department with the chief complaint of Weak and lightheaded, no chest pain, recent diuresis, described as moderate, Quality is described as dull, Patient started experiencing this day(s) and it has been intermittent. Rest improves symptom(s), Other factors that worsen symptoms (Physician) . Patient notes denies chest pain, shortness of breath and syncope. Patient did receive the following treatments prior to arrival, none Related Data Home Medications Medication Instructions Recorded Confirmed albuterol sulfate [Ventolin HFA] 2 puff INHALATION Q4H PRN #120 07/13/15 06/16/19 inhaler atorvastatin 80 mg PO DAILY #90 tab-cap 07/02/16 06/16/19 nitroglycerin 0.4 mg SUBLINGUAL PRN PRN #30 01/28/17 06/16/19 tab-cap acetaminophen [Tylenol] 650 mg PO Q6H PRN #1 tab 09/24/17 06/16/19 spironolactone 25 mg PO DAILY #90 tab-cap 10/02/17 06/16/19 Eliquis 5 mg PO BID #60 tab 11/22/17 06/16/19 metolazone 2.5 mg PO PRN #30 tab-cap 01/08/18 06/16/19 metoprolol succinate 100 mg 100 mg PO BID tab 02/26/18 06/16/19 tablet,extended release 24 hr allopurinol 300 mg tablet 300 mg PO DAILY 03/04/18 06/16/19 amiodarone 400 mg tablet 200 mg PO DAILY tab 11/19/18 06/16/19 mirabegron 25 mg tablet,extended 25 mg PO DAILY #60 tab 05/14/19 06/16/19 release 24 hr Incruse Ellipta 1 inh INHALATION DAILY 05/26/19 06/16/19 benzonatate [Tessalon Perles] 100 mg PO BID PRN 05/26/19 06/16/19 cyclobenzaprine 10 mg PO TID PRN 05/26/19 06/16/19 ipratropium bromide 2.5 ml INHALATION Q6H PRN 05/26/19 06/16/19 ropinirole 2 mg PO QHS 05/26/19 06/16/19 Previous Rx's Medication Instructions Recorded acetaminophen [Tylenol] 650 mg PO Q6H PRN #1 tab 09/24/17 spironolactone 25 mg PO DAILY #90 tab-cap 10/02/17 Eliquis 5 mg PO BID #60 tab 11/22/17 metolazone 2.5 mg PO PRN #30 tab-cap 01/08/18 mirabegron 25 mg tablet,extended 25 mg PO DAILY #60 tab 05/14/19 release 24 hr Allergies Allergy/AdvReac Type Severity Reaction Status Date / Time lisinopril AdvReac Other (See Verified 06/16/19 11:04 Comment) sacubitril [From Entresto] AdvReac rash Verified 06/16/19 11:04 valsartan [From Entresto] AdvReac rash Verified 06/16/19 11:04 General Stated Complaint: GenMedical YUE: 3 Review of Systems Narrative: 6 systems reviewed and otherwise negative [facility] Medical History Candidiasis, intertrigo (Acute) Cardiorenal syndrome (Inactive) Community acquired pneumonia (Inactive) COPD (chronic obstructive pulmonary disease) (Inactive) Coronary artery disease (Inactive) a. s/p recent anterior wall ST-elevation [place] Coronary artery disease (Chronic 05/05/14) STEMI with LAD stent 04/2014 EF 35% Cystocele (Inactive) Degenerative joint disease of knee, left (Inactive) Dehydration (Inactive) Discharge planning issues (Inactive) Generalized muscle weakness (Inactive) Hyponatremia (Inactive) Impaired glucose tolerance (Chronic) Leukocytosis (Inactive) a. since 1995 with reportedly normal bone marrow biopsy in 1996 Mixed urinary incontinence due to female genital prolapse (Inactive) Neck mass (Inactive 01/26/15) Primary osteoarthritis of left knee (Inactive) Right ventricular dysfunction (Inactive) Systolic CHF (Inactive 05/02/14) a. subacute with acute exacerbation Tobacco use disorder (Resolved) a. quit one week ago at the time of her [place] Urinary incontinence (Chronic 11/06/17) Surgical History Cholecystectomy H/O surgical procedure (Inactive) a. s/p cholecystectomy b. s/p hysterectomy c. s/p bilateral carpan tunnel release surgery d. incisional hernia repair Hernia Repair, Incisional 04/19/14 Hysterectomy, Laproscopic (~1980) OVARIES REMAIN Tonsillectomy Social History Smoking/Tobacco Use Status: Former Tobacco Use Quit Date: 05/20/13 Second Hand Exposure: Yes Alcohol Intake: never Drug use: Never Do you feel safe at home: Yes Do you feel safe in your relationship?: Yes Exam Narrative Exam Narrative: GEN: awake, alert, oriented 3. Pleasant, well groomed, interactive. HEAD: Normocephalic, atraumatic ENT: Mucous membranes moist, oropharynx unremarkable, External ear exam unremarkable EYES: PERRL, EOMI NECK: Full ROM, no MATA, no menigismus CHEST/RESP: Nontender, clear to auscultation bilateral, no wheeze/rhonchi/rales CARDIOVASCULAR: Distant, RRR, no murmur, rub jorge luis. 2+ Rad pulse bilateral ABDOMEN: Soft, nontender, no mass. +Bowel sounds EXT: Full ROM, no edema, no rash Neuro: Grossly normal neurologic exam, conversant, interactive. Psych: Speech fluent, thoughts congruent, affect normal Course Vital Signs Vital signs: Vital Signs Pulse 70 07/12/19 08:34 Respiratory Rate 20 07/12/19 08:34 Blood Pressure 100/61 07/12/19 08:34 Pulse Oximetry 93 L 07/12/19 08:34 Pulse 70 07/12/19 08:34 Respiratory Rate 20 07/12/19 08:34 Respiratory Effort 07/12/19 08:39 Blood Pressure 100/61 07/12/19 08:34 Blood Pressure Position Sitting 07/12/19 08:34 Pulse Oximetry 93 L 07/12/19 08:34 Oxygen Delivery Method Room Air 07/12/19 08:34 Oxygen Flow Rate 0 07/12/19 08:34 Pain Level 0 07/12/19 08:34
[2019-07-12] MEDS: Normal Saline 1,000 ML 250 ML IV (09:05)
[2019-07-12 09:26] LABS: Abs Immature Grans 0.02 k/cumm (0.0-0.09); Absolute Basophil Count 0.03 k/cumm (0.0-0.2); Absolute Eosinophil Count 0.07 k/cumm (0.0-0.7); Absolute Lymphocyte Count 1.16 k/cumm (1.2-3.4); Absolute Monocyte Count 1.29 k/cumm (0.11-0.7); Basophils % 0.3; Eosinophils % 0.6; HCT 40.8 % (36.0-46.0); HGB 13.5 g/dL (12.0-15.5); Immature Grans % 0.2 %; Mean Corp. HGB Concentration 33.1 g/dL (32.0-36.0); Mean Corpuscular Hemoglobin 30.4 pg (27.0-33.0); Mean Corpuscular Volume 91.9 fL (80-95); Mean Platelet Volume 12.2 fL (8.0-11.0); Monocytes % 11.1; Neutrophils % 77.8; Platelet Count 331 x1000/uL (130-400); RBC 4.44 m/cumm (4.00-5.20); RBC Distribution Width 17.2 % (11.7-14.6); White Blood Cell Count 11.62 k/cumm (4.4-10.8)
[2019-07-12] MEDS: Normal Saline Flush 10 ML SYR IVP (09:27)
[2019-07-12 09:28] LABS: Absolute Neutrophil Count 9.04 k/cumm (1.2-6.7)
[2019-07-12 09:36] LABS: ALT 86 U/L (14-59); AST 88 U/L (15-37); Albumin 3.1 g/dL (3.4-5.0); Alkaline Phosphatase 261 U/L (46-116); Anion Gap 7.9 mmol/L (3-11); Bilirubin, Total 0.9 mg/dL (0.2-1.0); CO2 35.1 mmol/L (21.0-32.0); Calcium 9.3 mg/dL (8.5-10.1); Chloride 89 mmol/L (98-107); Estimated GFR 9.11 (mL/min/1.73m2); Glucose 135 mg/dL (74-106); Potassium 3.2 mmol/L (3.5-5.1); Sodium 132 mmol/L (136-145); Total Protein 7.9 g/dL (6.4-8.2)
[2019-07-12 09:41] LABS: Magnesium 2.6 mg/dL (1.8-2.4); NT-proBNP 3356 pg/mL (<300); Troponin I < 0.05 ng/Ml (<0.06)
[2019-07-12 09:44] LABS: BUN 141 mg/dL (7-18)
[2019-07-12 09:45] LABS: CREATININE 4.76 mg/dL (0.55-1.02)
[2019-07-12] MEDS: Normal Saline 250 ML IV (10:15)
[2019-07-12 11:40] LABS: Anion Gap 6.1 mmol/L (3-11); CO2 35.9 mmol/L (21.0-32.0); Calcium 8.8 mg/dL (8.5-10.1); Chloride 91 mmol/L (98-107); Estimated GFR 9.74 (mL/min/1.73m2); Glucose 181 mg/dL (74-106); Potassium 3.3 mmol/L (3.5-5.1); Sodium 133 mmol/L (136-145)
[2019-07-12 11:43] LABS: BUN 136 mg/dL (7-18); CREATININE 4.49 mg/dL (0.55-1.02)
--- NOTE | 2019-07-12 11:58 | NUR.NOTE ---
Nursing Note: Faxed referral for follow up with PCP after blood is drawn on Saturday, . Renetta Sullivan.
== END 2019-07-12 12:10 | disposition home or self-care (01) ==
PROVIDERS: Emergency Provider Emergency Medicine; PCP Family Medicine
DX: N28.9 Disorder of kidney and ureter, unspecified (principal); T50.1X5A Adverse effect of loop [high-ceiling] diuretics, initial encounter; Z95.0 Presence of cardiac pacemaker; Z86.74 Personal history of sudden cardiac arrest; J44.9 Chronic obstructive pulmonary disease, unspecified; Z87.891 Personal history of nicotine dependence
CPT/HCPCS: 80048; 80053; 93005; 96360; 96361; 99285; 83735; 83880; 84484; 85025; 93010

== ENCOUNTER 2019-07-13 01:41 | Outpatient (CLI) | payer MEDICARE, SELFPAY ==
[2019-07-13 12:05] LABS: Anion Gap 9.4 mmol/L (3-11); CO2 34.6 mmol/L (21.0-32.0); Calcium 9.6 mg/dL (8.5-10.1); Chloride 91 mmol/L (98-107); Estimated GFR 12.61 (mL/min/1.73m2); Glucose 215 mg/dL (74-106); Potassium 3.4 mmol/L (3.5-5.1); Sodium 135 mmol/L (136-145)
[2019-07-13 12:09] LABS: BUN 129 mg/dL (7-18)
[2019-07-13 12:11] LABS: CREATININE 3.59 mg/dL (0.55-1.02)
== END 2019-07-13 02:01 ==
PROVIDERS: PCP Family Medicine; Visit Provider Emergency Medicine
DX: N18.9 Chronic kidney disease, unspecified (principal)
CPT/HCPCS: 36415; 80048

== ENCOUNTER 2019-07-16 10:49 | Outpatient (REF) | payer MEDICARE, SELFPAY ==
[2019-07-16 12:24] LABS: Anion Gap 5.3 mmol/L (3-11); CO2 34.7 mmol/L (21.0-32.0); CREATININE 3.06 mg/dL (0.55-1.02); Calcium 9.2 mg/dL (8.5-10.1); Chloride 97 mmol/L (98-107); Estimated GFR 15.17 (mL/min/1.73m2); Glucose 117 mg/dL (74-106); Potassium 3.7 mmol/L (3.5-5.1); Sodium 137 mmol/L (136-145)
[2019-07-16 13:51] LABS: BUN 93 mg/dL (7-18)
== END 2019-07-16 11:09 ==
LOC: NCHCN 10:49
PROVIDERS: PCP Family Medicine; Visit Provider Family Medicine
DX: I10 Essential (primary) hypertension (principal); N18.4 Chronic kidney disease, stage 4 (severe)
CPT/HCPCS: 80048

== ENCOUNTER 2019-07-16 22:23 | Emergency (ER) | payer MEDICARE, SELFPAY ==
[2019-07-16 22:27] VITALS: BP 98/60; PULSE 70; RESP 21; TEMP 37; O2SAT 92
--- NOTE | 2019-07-16 22:27 | ED.GENADUL_ITS ---
Discharge Plan Disposition Patient Disposition: [facility] Condition: Stable Discharge Details Chief Complaint: GenMedical Clinical Impression: Vertigo, Nausea and vomiting Primary Care Provider: Taya Juan ED Provider: Fer Sampson [place] Meds and New Rx's Prescriptions: No Action amiodarone 400 mg tablet 200 mg PO DAILY RF: 0 Myrbetriq 25 mg tablet extended release 24 hr 25 mg PO DAILY Qty: 60 RF: 5 albuterol sulfate [Ventolin HFA] 8 GM HFA aerosol inhaler 2 puff Inhalation Q4H PRN Qty: 120 RF: 2 atorvastatin 80 MG tablet 80 mg PO DAILY Qty: 90 RF: 3 nitroglycerin 0.4 MG tablet, sublingual 0.4 mg Sublingual PRN PRNQty: 30 RF: 0 spironolactone 25 MG tablet 25 mg PO DAILY Qty: 90 RF: 3 metolazone 2.5 MG tablet 2.5 mg PO PRN Qty: 30 RF: 3 metoprolol succinate 100 mg tablet extended release 24 hr 100 mg PO BID RF: 0 allopurinol 300 mg tablet 300 mg PO DAILY RF: 0 acetaminophen [Tylenol] 325 MG tablet 650 mg PO Q6H PRNQty: 1 RF: 0 benzonatate [Tessalon Perles] 100 mg Capsule 100 mg PO BID PRNRF: 0 ropinirole 2 mg Tablet 2 mg PO QHS RF: 0 ipratropium bromide 0.02 % Solution 2.5 ml INHALATION Q6H PRNRF: 0 Incruse Ellipta 62.5 mcg/actuation Blister With Device 1 inh INHALATION DAILY RF: 0 Eliquis 5 MG tablet 5 mg PO BID Qty: 60 RF: 0 Medical Decision Making Patient presenting to the ED with initial onset of funny feeling in her head and movement sensation. This was followed by nausea, vomiting and dry heaves. It has persisted over the last 5 to 6 hours. She is able to ambulate but feels very unsteady. Symptoms suggestive of possible posterior circulation problem versus a peripheral vertigo though she denies a spinning sensation. She does have rotary nystagmus but otherwise has a normal neurologic exam. Gait was not tested here. She is recently getting over being over diuresed and has a soft pressure but I do not think this is related. She is on Eliquis chronically. Her most recent labs shows that BUN and creatinine almost back to baseline. IV established. Laboratory studies sent. EKG is paced. Small fluid bolus given. Noncontrast CT head and chest x-ray ordered. Will give Phenergan in hopes that it helps with the vertigo sensation and nausea and vomiting. 00:20 - patient's laboratory studies show a normal hemoglobin. Kidney function continues to come closer to baseline and is currently 87/2.7. Potassium a little low at 3.3. Glucose a little high at 200. Blood pressure did respond to 250 of LR and is now systolic [address] is being read by radiology as a possible left cerebellar hemisphere stroke. This would certainly explain the patient's symptoms. Chest x-ray is unremarkable except for COPD changes. We have placed her on nasal cannula oxygen as she desaturates a little bit when she falls asleep. Case discussed with neurology at [facility]. She has accepted to the ED there under the neurology service Dr. Davis. Helicopter is not flying. As this is a possible posterior circulation stroke that may require thrombectomy ambulance service will be directed to transport lights and sirens. Patient aware of potential diagnosis and need for transfer. Medical Records Medical records reviewed: Yes I reviewed the patient's medical records. Lab Data Lab results reviewed: Yes I reviewed the patient's lab results. ECG Data Attestation: I personally reviewed and interpreted this ECG (s) as follows: Prior ECG tracings: not available for review Interpretation: Paced rhythm at 70. HPI General Mode of arrival: EMS . Date/Time Provider Initiated Documentation: 07/16/19 22:24 . Limitations to Documentation: no limitations . Information obtained by: patient, RN notes reviewed and old records reviewed . HPI Narrative: Patient presents to ED with complaint of not feeling right. Onset was around 5pm this evening. She reports developing a funny feeling in her head and a sense of movement although not vertigo. She feels a constant rocking motion and feels like she is going to fall. She is able to ambulate but feels unsteady. She denies having a headache. She has subsequently developed nausea, vomiting, dry heaving. She continues to have persistent sense of movement. She has not had any other neurologic symptomatology, chest pain, syncope, shortness of breath. She had a chronic cough which is a little worse. She is recently over diuresed and was seen in the ED last week. Subsequently, not on diuretics and renal function being monitored. Saw primary care today with labs drawn and was supposed to hear back about whether she could restart her spironolactone and Bumex or not. She has an extensive cardiac history including V. fib arrest. She has an AICD pacer in place. There is been no firing of the AICD. She has no history of CVA or TIAs. Related Data Home Medications Medication Instructions Recorded Confirmed albuterol sulfate [Ventolin HFA] 2 puff INHALATION Q4H PRN #120 07/13/15 07/16/19 inhaler atorvastatin 80 mg PO DAILY #90 tab-cap 07/02/16 07/16/19 nitroglycerin 0.4 mg SUBLINGUAL PRN PRN #30 01/28/17 07/16/19 tab-cap acetaminophen [Tylenol] 650 mg PO Q6H PRN #1 tab 09/24/17 07/16/19 spironolactone 25 mg PO DAILY #90 tab-cap 10/02/17 07/16/19 Eliquis 5 mg PO BID #60 tab 11/22/17 07/16/19 metolazone 2.5 mg PO PRN #30 tab-cap 01/08/18 07/16/19 metoprolol succinate 100 mg 100 mg PO BID tab 02/26/18 07/16/19 tablet,extended release 24 hr allopurinol 300 mg tablet 300 mg PO DAILY 03/04/18 07/16/19 amiodarone 400 mg tablet 200 mg PO DAILY tab 11/19/18 07/16/19 mirabegron 25 mg tablet,extended 25 mg PO DAILY #60 tab 05/14/19 06/16/19 release 24 hr Incruse Ellipta 1 inh INHALATION DAILY 05/26/19 07/16/19 benzonatate [Tessalon Perles] 100 mg PO BID PRN 05/26/19 07/16/19 ipratropium bromide 2.5 ml INHALATION Q6H PRN 05/26/19 07/16/19 ropinirole 2 mg PO QHS 05/26/19 07/16/19 Previous Rx's Medication Instructions Recorded acetaminophen [Tylenol] 650 mg PO Q6H PRN #1 tab 09/24/17 spironolactone 25 mg PO DAILY #90 tab-cap 10/02/17 Eliquis 5 mg PO BID #60 tab 11/22/17 metolazone 2.5 mg PO PRN #30 tab-cap 01/08/18 mirabegron 25 mg tablet,extended 25 mg PO DAILY #60 tab 05/14/19 release 24 hr Allergies Allergy/AdvReac Type Severity Reaction Status Date / Time lisinopril AdvReac Other (See Verified 07/16/19 22:36 Comment) sacubitril [From Entresto] AdvReac rash Verified 07/16/19 22:36 valsartan [From Entresto] AdvReac rash Verified 07/16/19 22:36 General YUE: 3 Review of Systems Narrative: 03/02 Review of Systems completed and is negative except as stated above in HPI (Systems reviewed: Const, Eyes, ENT, Resp, CV, GI, , MSK, Skin, Neuro) [facility] Medical History (Updated 07/17/19 @ 00:26 by Fer Sampson MD) Candidiasis, intertrigo (Acute) Cardiac arrest with ventricular fibrillation (Resolved) Cardiomyopathy (Chronic) Cardiorenal syndrome (Inactive) Community acquired pneumonia (Inactive) COPD (chronic obstructive pulmonary disease) (Inactive) Coronary artery disease (Chronic 05/05/14) STEMI with LAD stent 04/2014 EF 35% Cystocele (Inactive) Hyponatremia (Inactive) Impaired glucose tolerance (Chronic) Leukocytosis (Inactive) a. since 1995 with reportedly normal bone marrow biopsy in 1996 Mixed urinary incontinence due to female genital prolapse (Inactive) Neck mass (Inactive 01/26/15) Right ventricular dysfunction (Inactive) Systolic CHF (Inactive 05/02/14) a. subacute with acute exacerbation Urinary incontinence (Chronic 11/06/17) Surgical History (Updated 07/16/19 @ 23:28 by Fer Sampson MD) AICD (automatic cardioverter/defibrillator) present (Chronic) Cholecystectomy H/O surgical procedure (Inactive) a. s/p cholecystectomy b. s/p hysterectomy c. s/p bilateral carpan tunnel release surgery d. incisional hernia repair Hernia Repair, Incisional 04/19/14 History of heart artery stent (Chronic) Hysterectomy, Laproscopic (~1980) OVARIES REMAIN Tonsillectomy Social History Smoking/Tobacco Use Status: Former Tobacco Use Quit Date: 05/20/13 Second Hand Exposure: Yes Alcohol Intake: never Drug use: Never Do you feel safe at home: Yes Do you feel safe in your relationship?: Yes Exam Narrative Exam Narrative: Vitals: Afebrile. Soft blood pressure with systolic in the 90s. Room air saturation low 90s with history of COPD. Normal heart rate. Const: Obese, chronically ill appearing female in NAD. HEENT: NC/AT. Normal facial exam. Eyes: Normal conjunctiva and sclera. PERRL and EOMI with rotorary nystagmus on left gaze. Neck: Supple. Trachea midline. Lungs: Normal respiratory effort. Lungs with a few scattered rhonchi. Cor: RRR without murmur/gallop. Good radial pulses. GI: Soft. NT/ND. No guarding or rebound. Neuro: A+O x 3. Normal speech, mentation. Cranial nerves II - XII grossly intact. No gross motor or sensory deficit. Normal FTN testing. Gait not tested. Ext: No C/C. Some mild LE edema. Skin: Warm and dry without rash. Critical Care Time Critical Care Time Critical Care Time: Yes Total Critical Care Time: 60 Attestation: Upon my evaluation, this patient had a high probability of imminent or life-threatening deterioration, which required my direct attention, intervention, and personal management. I have personally provided minutes of critical care time exclusive of time spent on separately billable procedures. Time includes review of laboratory data, radiology results, discussion with consultants, and monitoring for potential decompensation. Interventions were performed as documented above.
[2019-07-16] MEDS: Lactated Ringers 500 ML 250 ML IV (23:00)
[2019-07-16 23:01] LABS: Abs Immature Grans 0.02 k/cumm (0.0-0.09); Absolute Basophil Count 0.02 k/cumm (0.0-0.2); Absolute Eosinophil Count 0.05 k/cumm (0.0-0.7); Absolute Lymphocyte Count 1.15 k/cumm (1.2-3.4); Absolute Monocyte Count 1.37 k/cumm (0.11-0.7); Absolute Neutrophil Count 9.37 k/cumm (1.2-6.7); Basophils % 0.2; Eosinophils % 0.4; HCT 39.8 % (36.0-46.0); Immature Grans % 0.2 %; Lymphocytes % 9.6; Mean Corp. HGB Concentration 32.7 g/dL (32.0-36.0); Mean Corpuscular Hemoglobin 30.4 pg (27.0-33.0); Mean Corpuscular Volume 93.2 fL (80-95); Mean Platelet Volume 12.2 fL (8.0-11.0); Monocytes % 11.4; Neutrophils % 78.2; Platelet Count 227 x1000/uL (130-400); RBC 4.27 m/cumm (4.00-5.20); RBC Distribution Width 17.5 % (11.7-14.6); White Blood Cell Count 11.98 k/cumm (4.4-10.8)
[2019-07-16 23:18] LABS: ALT 70 U/L (14-59); AST 69 U/L (15-37); Albumin 2.9 g/dL (3.4-5.0); Alkaline Phosphatase 226 U/L (46-116); Anion Gap 7.3 mmol/L (3-11); CO2 31.7 mmol/L (21.0-32.0); CREATININE 2.74 mg/dL (0.55-1.02); Calcium 8.4 mg/dL (8.5-10.1); Chloride 97 mmol/L (98-107); Estimated GFR 17.23 (mL/min/1.73m2); Glucose 196 mg/dL (74-106); Magnesium 2.3 mg/dL (1.8-2.4); Potassium 3.3 mmol/L (3.5-5.1); Sodium 136 mmol/L (136-145); Total Protein 7.4 g/dL (6.4-8.2); Troponin I < 0.05 ng/Ml (<0.06)
[2019-07-16 23:24] LABS: BUN 87 mg/dL (7-18)
--- NOTE | 2019-07-16 23:25 | DI.RAD_ITS ---
EXAM: XR CHEST 2V PA LATERAL INDICATION: worsening cough. COMPARISON: XR CHEST 2V PA LATERAL from 05/26/2019 TECHNIQUE: 2D digital imaging was performed. FINDINGS: The heart is enlarged. A pacemaker is seen. Lungs show underlying fibrotic changes. No superimpose d infiltrate, effusion or pulmonary edema is seen. Degenerative changes are noted in the spine. IMPRESSION: No acute abnormality. DATA REPOSITORY: RADIATION DOSE DELIVERED:
--- NOTE | 2019-07-16 23:35 | DI.CT_ITS ---
EXAM: CT HEAD - STROKE PROTOCOL CLINICAL HISTORY: vertigo/difficulty ambulating TECHNIQUE: Noncontrast. COMPARISON: HEAD AND CSPINE W/O CONTRAST from 06/25/2017 FINDINGS: There is question of a vague area of low attenuation in the left cerebellar hemisphere. The findings are likely artifactual and do not appear changed from the previous exam. There are minimal white paty er changes of small vessel disease. There is mild atrophy. The ventricles are normal in size. No hemo rrhage is seen. There is no evidence of a skull fracture. The sinuses and mastoid air cells appear cl ear as visualized. IMPRESSION: Area of low density in the left cerebellum is likely secondary to beam hardening artifact. An MRI co uld be considered for further evaluation if clinically indicated.
[2019-07-16 23:43] VITALS: BP 99/53; RESP 16; O2SAT 93
--- NOTE | 2019-07-16 23:48 | DI.VRAD_ITS ---
Addendum created by Seth Ahmadi MD on 07/16/2019 11:51:47 PM EST Findings of acute cerebellar infarct suspicion discussed with Dr. Sampson. Initial report created on 07/16/2019 11:48:14 PM EST PROCEDURE INFORMATION: Exam: CT Head Without Contrast Exam date and time: 07/16/2019 11:27 PM Age: 68 years old Clinical indication: Walking, difficulty; Patient HX: Vertigo, difficulty ambulating. TECHNIQUE: Imaging protocol: Computed tomography of the head without contrast. Radiation optimization: All CT scans at this facility use at least one of these dose optimization techniques: automated exposure control; mA and/or kV adjustment per patient size (includes targeted exams where dose is matched to clinical indication); or iterative reconstruction. Other technique: STROKE PROTOCOL was implemented. COMPARISON: No relevant prior studies available. FINDINGS: Brain: Area of subtle low-attenuation in the left cerebellar hemisphere centrally. This appears to extend to the left monica along the cerebellopontine tracts. An acute cerebellar infarct cannot be excluded. No hemorrhagic changes. MRI would be helpful for further evaluation. This cerebellar area of low attenuation is approximately 2.7 cm. This is seen on axial series 2, image 11 through 14 as it extends to the left monica. This is suggested on coronal series 7, image 71. Otherwise, patient is noted to have atrophy. There is chronic small vessel deep white matter ischemia. Ventricles: No ventriculomegaly. Bones/joints: No skull fracture. Sinuses: Visualized sinuses are unremarkable. No fluid levels. Mastoid air cells: Visualized mastoid air cells are well aerated. Soft tissues: Unremarkable. IMPRESSION: 1. Low-attenuation focus in the left cerebellum extending towards the left cerebellopontine tracts. Cannot exclude an acute nonhemorrhagic infarct. MRI would be helpful for further evaluation. 2. Atrophy and chronic small vessel deep white matter ischemic features in the cerebrum. 3. No intracranial hemorrhage. ASSESSMENT: ASPECTS ([place] Stroke Program Early CT Score) is 10 Dictated and Authenticated by: Seth Ahmadi MD. Ordering:DIANE Monroe MD
--- NOTE | 2019-07-16 23:50 | DI.VRAD_ITS ---
PROCEDURE INFORMATION: Exam: XR Chest, 2 Views Exam date and time: 07/16/2019 11:21 PM Age: 68 years old Clinical indication: Patient HX: Worsening cough. TECHNIQUE: Imaging protocol: XR of the chest Views: 2 views. COMPARISON: CR XR CHEST 2V PA LATERAL 05/26/2019 8:38 PM FINDINGS: Tubes, catheters and devices: Left chest AICD device. Mild cardiomegaly. Lungs: Hyperinflation suggesting COPD. No acute lung infiltrates or edema. Pleural space: Unremarkable. No pleural effusion. No pneumothorax. Heart/Mediastinum: See Tubes, Catheters And Devices Finding. Bones/joints: Degenerative thoracic spine change. Other findings: No significant change since prior study 05/26/2019. IMPRESSION: 1. COPD. 2. No acute infiltrates or edema. 3. Mild cardiomegaly. AICD device. Dictated and Authenticated by: Seth Ahmadi MD. Ordering:DIANE Monroe MD
== END 2019-07-17 00:40 | disposition short-term general hospital (02) ==
PROVIDERS: Emergency Provider Emergency Medicine; PCP Family Medicine
DX: R42 Dizziness and giddiness (principal); R11.2 Nausea with vomiting, unspecified; R26.81 Unsteadiness on feet; R90.89 Other abnormal findings on diagnostic imaging of central nervous system; I12.9 Hypertensive chronic kidney disease with stage 1 through stage 4 chronic kidney disease, or unspecified chronic kidney disease; N18.3 Chronic kidney disease, stage 3 (moderate); Z95.810 Presence of automatic (implantable) cardiac defibrillator; J44.9 Chronic obstructive pulmonary disease, unspecified; Z87.891 Personal history of nicotine dependence
CPT/HCPCS: 36415; 80053; 93005; 96361; 96365; 99291; 70450; 71046; 83735; 84484; 85025; 93010

== ENCOUNTER 2019-07-22 12:03 | Outpatient (REF) | payer MEDICARE, SELFPAY ==
[2019-07-22 16:21] LABS: Anion Gap 6.3 mmol/L (3-11); BUN 46 mg/dL (7-18); CO2 34.7 mmol/L (21.0-32.0); CREATININE 2.09 mg/dL (0.55-1.02); Calcium 9.2 mg/dL (8.5-10.1); Chloride 100 mmol/L (98-107); Estimated GFR 23.48 (mL/min/1.73m2); Glucose 85 mg/dL (74-106); Potassium 3.8 mmol/L (3.5-5.1); Sodium 141 mmol/L (136-145)
== END 2019-07-22 12:23 ==
LOC: NCHCN 12:03
PROVIDERS: PCP Family Medicine; Visit Provider Family Medicine
DX: I10 Essential (primary) hypertension (principal); N18.4 Chronic kidney disease, stage 4 (severe)
CPT/HCPCS: 80048

== ENCOUNTER 2019-08-03 13:08 | Outpatient (REF) | payer MEDICARE, SELFPAY ==
[2019-08-03 19:23] LABS: HCT 41.4 % (36.0-46.0); HGB 13.1 g/dL (12.0-15.5); Mean Corp. HGB Concentration 31.6 g/dL (32.0-36.0); Mean Corpuscular Hemoglobin 30.4 pg (27.0-33.0); Mean Corpuscular Volume 96.1 fL (80-95); Platelet Count 358 x1000/uL (130-400); RBC 4.31 m/cumm (4.00-5.20); RBC Distribution Width 18.1 % (11.7-14.6); White Blood Cell Count 12.08 k/cumm (4.4-10.8)
[2019-08-03 19:31] LABS: ALT 96 U/L (14-59); AST 97 U/L (15-37); Albumin 3.2 g/dL (3.4-5.0); Alkaline Phosphatase 278 U/L (46-116); Anion Gap 4.9 mmol/L (3-11); BUN 62 mg/dL (7-18); Bilirubin, Total 0.7 mg/dL (0.2-1.0); CO2 37.1 mmol/L (21.0-32.0); CREATININE 2.14 mg/dL (0.55-1.02); Calcium 9.2 mg/dL (8.5-10.1); Chloride 96 mmol/L (98-107); Estimated GFR 22.85 (mL/min/1.73m2); Glucose 133 mg/dL (74-106); Potassium 4.8 mmol/L (3.5-5.1); Sodium 138 mmol/L (136-145); Total Protein 7.4 g/dL (6.4-8.2); Uric Acid 6.8 mg/dL (2.6-6.0)
[2019-08-03 19:44] LABS: Hemoglobin A1C 7.4 % (3.8-5.6)
== END 2019-08-03 13:28 ==
LOC: NCHCN 13:08
PROVIDERS: PCP Family Medicine; Visit Provider Family Medicine
DX: E11.9 Type 2 diabetes mellitus without complications (principal); M10.9 Gout, unspecified; I13.10 Hypertensive heart and chronic kidney disease without heart failure, with stage 1 through stage 4 chronic kidney disease, or unspecified chronic kidney disease; K74.60 Unspecified cirrhosis of liver
CPT/HCPCS: 80053; 85027; 83036; 84550

== ENCOUNTER 2019-08-16 12:03 | Emergency (ER) | payer MEDICARE, SELFPAY ==
[2019-08-16 12:13] VITALS: BP 116/78; PULSE 71; O2SAT 94
--- NOTE | 2019-08-16 12:39 | W.ED.GENAD ---
Discharge Plan Disposition Patient Disposition: HOME Condition: Stable Discharge Details Chief Complaint: Nk/Back Pain Clinical Impression: Lower back pain Primary Care Provider: Taya Juan ED Provider: Katerine Kingsley Home Meds and New Rx's Prescriptions: New oxycodone 5 mg tablet 5 mg PO Q6H PRN (Reason: pain) Qty: 10 RF: 0 prednisone 20 mg tablet See Rx Instructions .ROUTE .COMPLEX Qty: 12 RF: 0 methocarbamol 500 mg tablet 500 mg PO Q6H PRN (Reason: muscle spasm) Qty: 14 RF: 0 Continued amiodarone 400 mg tablet 200 mg PO DAILY RF: 0 Myrbetriq 25 mg tablet extended release 24 hr 25 mg PO DAILY Qty: 60 RF: 5 albuterol sulfate [Ventolin HFA] 8 GM HFA aerosol inhaler 2 puff Inhalation Q4H PRN Qty: 120 RF: 2 atorvastatin 80 MG tablet 80 mg PO DAILY Qty: 90 RF: 3 nitroglycerin 0.4 MG tablet, sublingual 0.4 mg Sublingual PRN PRNQty: 30 RF: 0 spironolactone 25 MG tablet 25 mg PO DAILY Qty: 90 RF: 3 metolazone 2.5 MG tablet 2.5 mg PO PRN Qty: 30 RF: 3 metoprolol succinate 100 mg tablet extended release 24 hr 100 mg PO DAILY RF: 0 allopurinol 300 mg tablet 300 mg PO DAILY RF: 0 acetaminophen [Tylenol] 325 MG tablet 650 mg PO Q6H PRNQty: 1 RF: 0 benzonatate [Tessalon Perles] 100 mg Capsule 100 mg PO BID PRNRF: 0 ropinirole 2 mg Tablet 2 mg PO QHS RF: 0 ipratropium bromide 0.02 % Solution 2.5 ml INHALATION Q6H PRNRF: 0 Incruse Ellipta 62.5 mcg/actuation Blister With Device 1 inh INHALATION DAILY RF: 0 Eliquis 5 MG tablet 5 mg PO BID Qty: 60 RF: 0 bumetanide 2 mg tablet 2 mg PO BID RF: 0 Discharge Instructions Instructions: Back Pain (ED) Additional Instructions: Take Tylenol as needed and directed for pain. Take the steroids until finished. Take the oxycodone and methocarbamol as needed and directed. You can also try [id number] Lidoderm patches. Follow-up with your primary care doctor in 1 week. Return to the emergency department with any worsening or new concerning symptoms. Discharge Data Discharge Date/Time-TO BE ENTERED AT DEPARTURE: 08/16/19 14:37 Discharge Physician: Katerine Kingsley Medical Decision Making [id number] -- 69-year-old female with a history of coronary artery disease, CHF, hypertension, UT, cardiac stent and defibrillator who presents for lower back pain for the past 3 days. Pain worse with walking and any movement. Denies injury, urinary or cauda equina symptoms. Patient appears uncomfortable. BP hypertensive on arrival mildly hypotensive now within normal limits. She has no tenderness palpation of her back. Abdomen nontender. No focal deficits on exam. Neurovascular intact. As pain is worse with movement, appears most likely musculoskeletal. She denies any tearing chest or upper back pain so does not appear consistent with dissection. She denies any cauda equina symptoms so not consistent with disc herniation or cauda equina syndrome. She denies any urinary or abdominal symptoms or not consistent with any acute abdominal or urinary cause. Will give a dose of oxycodone, Valium and Lidoderm patch and reassess. 1425 --patient feels much better. She was able to sit up on the edge of the bed with relief of pain. She feels good to go home. We will send home with steroids, methocarbamol and oxycodone. She is advised to call her PCP this week for reevaluation. Usual and customary return precautions given prior to discharge. HPI General Mode of arrival: ambulatory. Date/Time Provider Initiated Documentation: 08/16/19 12:12. Limitations to Documentation: no limitations. Information obtained by: patient. HPI Narrative: Patient is a 69-year-old female presents with lower back pain for the past 3 days. Patient states she has been using heat and was prescribed Flexeril from an on-call doctor without relief. She denies any known injury but states the pain is worse with any movement or walking. Denies any radiation of pain to her legs. Denies any leg weakness or numbness. She denies any fever, vomiting, abdominal pain, bowel or bladder incontinence, saddle anesthesia. Related Data Home Medications Medication Instructions Recorded Confirmed albuterol sulfate [Ventolin HFA] 2 puff INHALATION Q4H PRN #120 07/13/15 08/16/19 inhaler atorvastatin 80 mg PO DAILY #90 tab-cap 07/02/16 08/16/19 nitroglycerin 0.4 mg SUBLINGUAL PRN PRN #30 01/28/17 08/16/19 tab-cap acetaminophen [Tylenol] 650 mg PO Q6H PRN #1 tab 09/24/17 08/16/19 spironolactone 25 mg PO DAILY #90 tab-cap 10/02/17 08/16/19 Eliquis 5 mg PO BID #60 tab 11/22/17 08/16/19 metolazone 2.5 mg PO PRN #30 tab-cap 01/08/18 08/16/19 metoprolol succinate 100 mg 100 mg PO DAILY tab 02/26/18 08/16/19 tablet,extended release 24 hr allopurinol 300 mg tablet 300 mg PO DAILY 03/04/18 08/16/19 amiodarone 400 mg tablet 200 mg PO DAILY tab 11/19/18 08/16/19 mirabegron 25 mg tablet,extended 25 mg PO DAILY #60 tab 05/14/19 08/16/19 release 24 hr Incruse Ellipta 1 inh INHALATION DAILY 05/26/19 08/16/19 benzonatate [Tessalon Perles] 100 mg PO BID PRN 05/26/19 08/16/19 ipratropium bromide 2.5 ml INHALATION Q6H PRN 05/26/19 08/16/19 ropinirole 2 mg PO QHS 05/26/19 08/16/19 bumetanide 2 mg PO BID 08/16/19 08/16/19 methocarbamol 500 mg PO Q6H PRN #14 tab 08/16/19 oxycodone 5 mg PO Q6H PRN #10 tab 08/16/19 prednisone See Rx Instructions .ROUTE 08/16/19 .COMPLEX #12 tab Previous Rx's Medication Instructions Recorded acetaminophen [Tylenol] 650 mg PO Q6H PRN #1 tab 09/24/17 spironolactone 25 mg PO DAILY #90 tab-cap 10/02/17 Eliquis 5 mg PO BID #60 tab 11/22/17 metolazone 2.5 mg PO PRN #30 tab-cap 01/08/18 mirabegron 25 mg tablet,extended 25 mg PO DAILY #60 tab 05/14/19 release 24 hr methocarbamol 500 mg PO Q6H PRN #14 tab 08/16/19 oxycodone 5 mg PO Q6H PRN #10 tab 08/16/19 prednisone See Rx Instructions .ROUTE 08/16/19 .COMPLEX #12 tab Allergies Allergy/AdvReac Type Severity Reaction Status Date / Time lisinopril AdvReac Other (See Verified 08/16/19 12:42 Comment) sacubitril [From Entresto] AdvReac rash Verified 08/16/19 12:42 valsartan [From Entresto] AdvReac rash Verified 08/16/19 12:42 General Stated Complaint: Nk/Back Pain YUE: 4 Review of Systems All systems reviewed & are unremarkable except as noted in HPI and below Constitutional Constitutional: Reports as per HPI, Denies chills and Denies fever(s) Eyes Eyes: Denies blurry vision ENT Ears, Nose, Mouth, and Throat: Denies dizziness, Denies sore throat and Denies throat swelling Cardiovascular Cardiovascular: Denies chest pain and Denies dyspnea Respiratory Respiratory: Denies cough and Denies dyspnea Gastrointestinal Gastrointestinal: Denies abdominal pain, Denies diarrhea and Denies vomiting Genitourinary Genitourinary: Denies hematuria and Denies dysuria Musculoskeletal Musculoskeletal: Reports back pain and Denies numbness Integumentary/Breasts Skin/Breast: Denies lesions and Denies rash Neurologic Neurologic: Denies dizziness, Denies localized weakness and Denies numbness Allergic/Immunologic Allergic/Immunologic: Denies throat swelling [facility] Medical History (Updated 08/16/19 @ 14:16 by Katerine Kingsley DO) Candidiasis, intertrigo (Acute) Cardiac arrest with ventricular fibrillation (Resolved) Cardiomyopathy (Chronic) Cardiorenal syndrome (Inactive) Community acquired pneumonia (Inactive) COPD (chronic obstructive pulmonary disease) (Inactive) Coronary artery disease (Chronic 05/05/14) STEMI with LAD stent 04/2014 EF 35% Cystocele (Inactive) Hyponatremia (Inactive) Impaired glucose tolerance (Chronic) Leukocytosis (Inactive) a. since 1995 with reportedly normal bone marrow biopsy in 1996 Mixed urinary incontinence due to female genital prolapse (Inactive) Neck mass (Inactive 01/26/15) Right ventricular dysfunction (Inactive) Systolic CHF (Inactive 05/02/14) a. subacute with acute exacerbation Urinary incontinence (Chronic 11/06/17) Surgical History (Updated 07/16/19 @ 23:28 by Fer Sampson MD) AICD (automatic cardioverter/defibrillator) present (Chronic) Cholecystectomy H/O surgical procedure (Inactive) a. s/p cholecystectomy b. s/p hysterectomy c. s/p bilateral carpan tunnel release surgery d. incisional hernia repair Hernia Repair, Incisional 04/19/14 History of heart artery stent (Chronic) Hysterectomy, Laproscopic (~1980) OVARIES REMAIN Tonsillectomy Social History Smoking/Tobacco Use Status: Former Tobacco Use Quit Date: 05/20/13 Second Hand Exposure: Yes Alcohol Intake: never Drug use: Never Substance use type: does not use Do you feel safe at home: Yes Do you feel safe in your relationship?: Yes Exam Const General: cooperative, healthy appearing and no acute distress HENMT Head: normal to inspection Face and sinus: normal facial exam Eyes General: appearance normal, both eyes and all related structures EOM: EOM intact bilaterally Neck Neck: normal visual inspection and No submandibular swelling Lymphatic: no lymphadenopathy noted Chest Chest: normal inspection of the chest and no tenderness Resp Effort & Inspection: normal respiratory effort and able to speak in complete sentences Auscultation: clear to auscultation bilaterally Cardio Rate: regular rate Rhythm: regular rhythm GI Inspection: normal to inspection Palpation: soft, not firm, not rigid and nontender Auscultation: normal bowel sounds Back/Spine/Pelvis Thoracic/Lumbar Spine: thoracic and lumbar spine normal to inspection, straight leg raise negative bilaterally, No paraspinal tenderness, No thoracic spinal tenderness and No lumbar spinal tenderness Pelvis: no pain with anterior-posterior compression Skin General skin exam: no rashes or lesions noted Neuro General: patient alert, patient awake and patient oriented x3 Cognition: normal cognition Speech: speech normal Gait: other (slow gait, appears uncomfortable when walking) Motor: muscle tone normal throughout and strength 5/5 throughout Sensory Exam: no sensory deficits noted Plantar Reflexes: Equivocal: bilateral Extrem General: normal to inspection, full ROM, capillary refill normal, no calf tenderness bilaterally and no edema Other: Bilateral DP/PT pulses intact. Psych Appearance: grossly normal Mental Status: mental status grossly normal Speech and Movement: speech and movement normal Affect: normal affect Course Vital Signs Vital signs: Vital Signs Pulse 71 08/16/19 12:13 Blood Pressure 116/78 08/16/19 12:13 Pulse Oximetry 94 L 08/16/19 12:13 Pulse 71 08/16/19 12:13 Respiratory Effort Non-Labored 08/16/19 12:16 Blood Pressure 116/78 08/16/19 12:13 Blood Pressure Position Sitting 08/16/19 12:13 Pulse Oximetry 94 L 08/16/19 12:13 Oxygen Delivery Method Room Air 08/16/19 12:13 Oxygen Flow Rate 0 08/16/19 12:13 Pain Level 10 08/16/19 12:13
[2019-08-16] MEDS: diazePAM 5 MG TAB PO (13:12)
[2019-08-16] MEDS: predniSONE 20 MG TAB 60 MG PO (13:12)
[2019-08-16] MEDS: oxyCODONE 5 MG TAB PO (13:12)
[2019-08-16 13:20] VITALS: BP 96/60; PULSE 71; RESP 18; TEMP 36.3; O2SAT 94
[2019-08-16 13:37] VITALS: BP 111/64; PULSE 70
[2019-08-16 14:32] VITALS: BP 110/73; PULSE 65; O2SAT 92
== END 2019-08-16 14:37 | disposition home or self-care (01) ==
PROVIDERS: Emergency Provider Physician Assistant; PCP Family Medicine
DX: M54.5 Low back pain (principal); I10 Essential (primary) hypertension; J44.9 Chronic obstructive pulmonary disease, unspecified; Z87.891 Personal history of nicotine dependence
CPT/HCPCS: 99283; J7512

== ENCOUNTER 2019-08-18 03:34 | Outpatient (CLI) | payer MEDICARE, SELFPAY ==
--- NOTE | 2019-08-18 13:23 | DI.CT_ITS ---
EXAM: CT CHEST HIGH RESOLUTION CLINICAL HISTORY: WORSENING COUGH AND SOB, ON AMIODARONE THERAPY,? AMIODARONE TOXICITY,Z91.89. TECHNIQUE: Imaging protocol: Axial computed tomography images were obtained and coronal and sagittal reformatted images were created and reviewed. One millimeter thick axial images were performed at 1 0 millimeter intervals during inspiration and expiration for the high-resolution scan. COMPARISON: CHEST ABD PELVIS WO CONTRAST from 10/14/2017 XR CHEST 2V PA LATERAL from 07/16/2019 FINDINGS: Tracheobronchial tree: Patent. No bronchiectasis. Mediastinum and M[place]: No dominant adenopathy or fluid collection. Pulmonary parenchyma: No consolidation or dominant measurable mass. There is mild underlying centrilo bular emphysema. There are scattered linear areas of bilateral scarring. There is mild posterior de pendent changes. There is an area of atelectasis above the left diaphragm. Pleura: No effusion or pneumothorax. Heart: A pacemaker is noted. There are coronary artery calcifications. There is enlargement of the left atrium and left ventricle. The aorta shows mild to moderate calcification and is normal in diam eter. The main pulmonary artery is dilated to 4.2 cm, consistent with pulmonary hypertension. Upper abdomen: Unremarkable. Lymph nodes: Within normal limits. Bones:Degenerative changes with flowing osteophytes are seen in the spine. No compression fractures are seen. IMPRESSION: Mild areas of scarring and atelectasis. Mild emphysematous changes which appear stable. There are n o specific findings of amiodarone toxicity. DATA REPOSITORY: All CT scans at this facility are submitted to the National Radiology Data Registry (NRDR) Dose Index Registry (DIR) with the [employer] ([employer]). RADIATION OPTIMIZATION: All CT scans at this facility use at least one of these dose optimization te chniques: automated exposure control; mA and/or kV adjustment per patient size (includes targeted exa ms where dose is matched to clinical indication); or iterative reconstruction.
== END 2019-08-18 03:54 ==
PROVIDERS: PCP Family Medicine; Visit Provider Family Medicine
DX: R05 Cough (principal); R06.02 Shortness of breath; J98.4 Other disorders of lung; J43.8 Other emphysema; Z79.899 Other long term (current) drug therapy; Z95.0 Presence of cardiac pacemaker
CPT/HCPCS: 71250

== ENCOUNTER 2019-08-19 00:15 | Outpatient (CLI) | payer MEDICARE, SELFPAY ==
[2019-08-19 10:42] LABS: Anion Gap 8.5 mmol/L (3-11); CO2 31.5 mmol/L (21.0-32.0); CREATININE 2.13 mg/dL (0.55-1.02); Calcium 9.5 mg/dL (8.5-10.1); Chloride 99 mmol/L (98-107); Estimated GFR 22.97 (mL/min/1.73m2); Glucose 217 mg/dL (74-106); Potassium 4.3 mmol/L (3.5-5.1); Sodium 139 mmol/L (136-145)
[2019-08-19 10:56] LABS: BUN 87 mg/dL (7-18)
== END 2019-08-19 00:35 ==
PROVIDERS: PCP Family Medicine; Visit Provider Family Medicine
DX: I10 Essential (primary) hypertension (principal)
CPT/HCPCS: 36415; 80048

== ENCOUNTER 2019-08-23 11:53 | Emergency (ER) | payer MEDICARE, SELFPAY ==
[2019-08-23 11:59] VITALS: BP 118/84; PULSE 69; RESP 18; TEMP 37.5; O2SAT 96
--- NOTE | 2019-08-23 12:00 | ED.GENADUL_ITS ---
Discharge Plan Disposition Patient Disposition: HOME Condition: Stable Discharge Details Chief Complaint: Nk/Back Pain Clinical Impression: Fracture of toe, Degenerative disc disease, Back pain Primary Care Provider: Taya Juan ED Provider: Chasity [place] Meds and New Rx's Prescriptions: New diazepam [Valium] 5 mg tablet 5 mg PO BID PRN (Reason: muscle spasm) Qty: 7 RF: 0 Continued amiodarone 400 mg tablet 200 mg PO DAILY RF: 0 Myrbetriq 25 mg tablet extended release 24 hr 25 mg PO DAILY Qty: 60 RF: 5 albuterol sulfate [Ventolin HFA] 8 GM HFA aerosol inhaler 2 puff Inhalation Q4H PRN Qty: 120 RF: 2 atorvastatin 80 MG tablet 80 mg PO DAILY Qty: 90 RF: 3 nitroglycerin 0.4 MG tablet, sublingual 0.4 mg Sublingual PRN PRNQty: 30 RF: 0 spironolactone 25 MG tablet 25 mg PO DAILY Qty: 90 RF: 3 metolazone 2.5 MG tablet 2.5 mg PO PRN Qty: 30 RF: 3 metoprolol succinate 100 mg tablet extended release 24 hr 100 mg PO DAILY RF: 0 allopurinol 300 mg tablet 300 mg PO DAILY RF: 0 acetaminophen [Tylenol] 325 MG tablet 650 mg PO Q6H PRNQty: 1 RF: 0 benzonatate [Tessalon Perles] 100 mg Capsule 100 mg PO BID PRNRF: 0 ropinirole 2 mg Tablet 2 mg PO QHS RF: 0 ipratropium bromide 0.02 % Solution 2.5 ml INHALATION Q6H PRNRF: 0 Incruse Ellipta 62.5 mcg/actuation Blister With Device 1 inh INHALATION DAILY RF: 0 Eliquis 5 MG tablet 5 mg PO BID Qty: 60 RF: 0 bumetanide 2 mg tablet 2 mg PO BID RF: 0 oxycodone 5 mg tablet 5 mg PO Q6H PRN (Reason: pain) Qty: 10 RF: 0 prednisone 20 mg tablet See Rx Instructions .ROUTE .COMPLEX Qty: 12 RF: 0 methocarbamol 500 mg tablet 500 mg PO Q6H PRN (Reason: muscle spasm) Qty: 14 RF: 0 Discharge Instructions Instructions: Toe Fracture (ED), Back Pain (ED) Additional Instructions: Please continue to encourage water intake. You may use Tylenol as needed for discomfort. If this is insufficient alleviating your discomfort, you may augment with the Valium as prescribed to help with muscle relaxation. Please take this medication only as prescribed and do not drive while taking this. Please use topical options such as Lidoderm patches which are available [id number]. Regarding her foot, you have a fracture of your right pinky toe. Please continue with postoperative shoe until evaluated by orthopedics. Please call orthopedics tomorrow to schedule follow-up appointment. Regarding her back, he would likely benefit from discussing this further with a internet marketing specialist. Likely, you would benefit from physical therapy and possible injections. However, I am unclear what may be available as an outpatient during the time of COVID. Please contact your primary care tomorrow to discuss your back pain and management during this acute time. If you develop fever/chills, increased pain, change in urinary or bowel habits, sensation change, weakness or other new/worsening symptoms please seek care urgently once again. Referrals: Taya Juan MD [Primary Care Provider] - Discharge Data Discharge Date/Time-TO BE ENTERED AT DEPARTURE: 08/23/19 15:08 Medical Decision Making Patient is a pleasant 69 year old female presenting for evaluation of lumbar back pain. Pain began insidiously 10 days ago. States that she has had back pain before but not this severe. She was seen in the ED 7 days ago. At that time she did not have evidence of emergent underlying etiology, pain was treated and patient ws discharged home. she was on a course of steroids and PRN oxycodone. She states that she had no improvement with either medication. States that pain continues to worsen. She denies altered sensation, no fevers/chills, no rash, no change in bowel or bladder habits. History is not consistent with cauda equina, dissection, cord compression or infection. She finds that pain is much worse iwth movement. Is also endorsing right toe pain, particualrly over the proximal aspect of 3,4,5. States that she slipped and hurt her toes a few days ago. Notes ecchymosis along this area. Denies this worsening her back pain, denies other injury at the time of the incident. She believes that the back pain may be associated with my kidneys are giving out. Has had issues with kidney dysfunction historically. Dneies sxs of infection, reports this does not feel like a stone. PMH significant for AICD, vfib, cardiomyopathy, CAD with stent placement, renal insufficiency, afib, nephrolithiasis, obesity, HTN, COPD, CHF. On exam, patient is noted to be an obese white female. She appears uncomfortable but is ambulating without difficulty. She has a normal cardiac and respiratory exam. She has back pain elicited with movement, particularly forward flexion and rotation to the right but no pain with palpation. No pain with percussion over CVA. 2+ distal pulses. No saddle paresthesias. 5/5 strength equal BLE. Reflexes intact. She indicated the L5-S1 as area of discomfort and demonstrates the pain spreads out in to right and left. No change in skin, no swelling. Given her concern for kidney dysfucntion, plan for labs. Also concerned for possible nephrolithiasis given her discomfrot and hx. Plan for imaging, will also image lumbar spine. Labs reviewed. Patient has an elevated WBC of 17.6. She is not demonstrating evidence of infection on exam or history. Questioning if this is associated with her recent steroid use. Creatinine 1.78, this is quite good for the patient. Transaminitis is noted but baseline for the patient. UA is contaminated, moderate epithelial cells and few bacteria. She is not endorsing sxs of UTI. FINDINGS: Vertebrae: No acute fracture. L1-L2: No disc herniation. No spinal canal stenosis. No neural foraminal narrowing. L2-L3: No disc herniation. No spinal canal stenosis. No neural foraminal narrowing. L3-L4: Broad disc bulge. Facet arthropathy. No spinal canal stenosis. No neural foraminal narrowing. L4-L5: Vacuum disc phenomenon. Broad disc bulge. Prominent facet arthropathy. No spinal canal stenosis. No neural foraminal narrowing. L5-S1: Moderate disc space narrowing. Broad disc bulge. Facet arthropathy. Soft tissues: Unremarkable. IMPRESSION: No acute fracture. Degenerative changes as detailed above. FINDINGS: Liver: Nodular contour of the liver, suspect for cirrhosis. Gallbladder and bile ducts: Previous cholecystectomy. Pancreas: Normal. No ductal dilation. Spleen: Normal. No splenomegaly. Adrenals: Adrenal nodules bilaterally, larger on the left measuring 1.5 x 1.6 cm. Stable since previous. Kidneys and ureters: Punctate nonobstructing left renal calculi. No hydronephrosis. Stomach and bowel: Unremarkable. No obstruction. No mucosal thickening. Appendix: No evidence of appendicitis. Intraperitoneal space: Unremarkable. No free air. No significant fluid collection. Vasculature: Unremarkable. No abdominal aortic aneurysm. Lymph nodes: Unremarkable. No enlarged lymph nodes. Bladder: Unremarkable as visualized. Reproductive: Unremarkable as visualized. Bones/joints: Unremarkable. No acute fracture. Soft tissues: Small fat containing supraumbilical ventral hernia. IMPRESSION: 1. Punctate nonobstructing left renal calculi. No hydronephrosis. 2. Nodular contour of the liver, suspect for cirrhosis. FINDINGS: Bones/joints: Mildly displaced fracture mid shaft 5th proximal phalanx. No articular extension. Soft tissues: Normal. IMPRESSION: Mildly displaced fracture mid shaft 5th proximal phalanx. No articular extension. Discussed these findings with the patient. She was palced in a postoperative shoe for her toe, she will call orthopedics tomorrow to schedule f/u. I do not feel that ambulation assitance with crutches or walker wili be safe given her back discomfort at this time. In regard to her back pain, she reports she is feeling much improved after valium and narcotics. Will continue with valium for muscle spasm. She was advised not to drive while taking this medication. Iencouraged hydration, encouraged stretching. She is already a patient of PT but they are closed for COVID. Given the findings on CT and her discomfort level, will refer to internet marketing specialist. I encoursed weight loss and mobility. She was given return precuations. All of her quesitons and concerns were addressed, she is in agreement with this plan. [facility] General Mode of arrival: ambulatory . Date/Time Provider Initiated Documentation: 08/23/19 11:59 . Limitations to Documentation: no limitations . Information obtained by: patient and RN notes reviewed . History of Present Illness 69 year old F presents to the emergency department with the chief complaint of lumbar back pain, described as severe, with intensity rated at 8. Quality is described as stabbing, and is localized to the back. Patient reports no radiation. Patient started experiencing this week(s) and it has been constant. Immobilization improves symptom(s), Movement worsens symptoms . Patient notes no other symptoms.. Patient did receive the following treatments prior to arrival, other (prednisone, oxycodone, methocarbamol) Related Data Home Medications Medication Instructions Recorded Confirmed albuterol sulfate [Ventolin HFA] 2 puff INHALATION Q4H PRN #120 07/13/15 08/16/19 inhaler atorvastatin 80 mg PO DAILY #90 tab-cap 07/02/16 08/16/19 nitroglycerin 0.4 mg SUBLINGUAL PRN PRN #30 01/28/17 08/16/19 tab-cap acetaminophen [Tylenol] 650 mg PO Q6H PRN #1 tab 09/24/17 08/16/19 spironolactone 25 mg PO DAILY #90 tab-cap 10/02/17 08/16/19 Eliquis 5 mg PO BID #60 tab 11/22/17 08/16/19 metolazone 2.5 mg PO PRN #30 tab-cap 01/08/18 08/16/19 metoprolol succinate 100 mg 100 mg PO DAILY tab 02/26/18 08/16/19 tablet,extended release 24 hr allopurinol 300 mg tablet 300 mg PO DAILY 03/04/18 08/16/19 amiodarone 400 mg tablet 200 mg PO DAILY tab 11/19/18 08/16/19 mirabegron 25 mg tablet,extended 25 mg PO DAILY #60 tab 05/14/19 08/16/19 release 24 hr Incruse Ellipta 1 inh INHALATION DAILY 05/26/19 08/16/19 benzonatate [Tessalon Perles] 100 mg PO BID PRN 05/26/19 08/16/19 ipratropium bromide 2.5 ml INHALATION Q6H PRN 05/26/19 08/16/19 ropinirole 2 mg PO QHS 05/26/19 08/16/19 bumetanide 2 mg PO BID 08/16/19 08/16/19 methocarbamol 500 mg PO Q6H PRN #14 tab 08/16/19 oxycodone 5 mg PO Q6H PRN #10 tab 08/16/19 prednisone See Rx Instructions .ROUTE 08/16/19 .COMPLEX #12 tab diazepam [Valium] 5 mg PO BID PRN #7 tab 08/23/19 Previous Rx's Medication Instructions Recorded acetaminophen [Tylenol] 650 mg PO Q6H PRN #1 tab 09/24/17 spironolactone 25 mg PO DAILY #90 tab-cap 05/16/18 Eliquis 5 mg PO BID #60 tab 11/22/17 metolazone 2.5 mg PO PRN #30 tab-cap 01/08/18 mirabegron 25 mg tablet,extended 25 mg PO DAILY #60 tab 05/14/19 release 24 hr methocarbamol 500 mg PO Q6H PRN #14 tab 08/16/19 oxycodone 5 mg PO Q6H PRN #10 tab 08/16/19 prednisone See Rx Instructions .ROUTE 08/16/19 .COMPLEX #12 tab diazepam [Valium] 5 mg PO BID PRN #7 tab 08/23/19 Allergies Allergy/AdvReac Type Severity Reaction Status Date / Time lisinopril AdvReac Other (See Verified 08/23/19 12:08 Comment) sacubitril [From Entresto] AdvReac rash Verified 08/23/19 12:08 valsartan [From Entresto] AdvReac rash Verified 08/23/19 12:08 General Stated Complaint: Nk/Back Pain YUE: 4 Review of Systems Constitutional Constitutional: Reports as per HPI, Denies chills, Denies fatigue, Denies fever(s), Denies frequent falls and Denies headache(s) Eyes Eyes: Denies change in vision ENT Ears, Nose, Mouth, and Throat: Denies headache(s) Cardiovascular Cardiovascular: Denies chest pain, Denies dyspnea and Denies dyspnea on exertion Respiratory Respiratory: Denies cough, Denies dyspnea and Denies dyspnea on exertion Gastrointestinal Gastrointestinal: Denies abdominal pain, Denies change in bowel habits and Denies fecal incontinence Genitourinary Genitourinary: Reports as per HPI, Denies urinary incontinence and Denies urinary hesitancy Musculoskeletal Musculoskeletal: Reports as per HPI, Reports back pain, Denies muscle weakness, Denies numbness, Denies radiating pain into limb, Reports stiffness and Denies tingling Integumentary/Breasts Skin/Breast: Reports as per HPI and Denies rash Neurologic Neurologic: Reports as per HPI, Denies frequent falls, Denies headache(s), Denies localized weakness, Denies numbness, Denies radicular pain, Denies sensory deficit, Denies tingling and Denies paresthesias Endocrine Endocrine: Denies fatigue [facility] Medical History Candidiasis, intertrigo (Acute) Cardiac arrest with ventricular fibrillation (Resolved) Cardiomyopathy (Chronic) Cardiorenal syndrome (Inactive) Community acquired pneumonia (Inactive) COPD (chronic obstructive pulmonary disease) (Inactive) Coronary artery disease (Chronic 05/05/14) STEMI with LAD stent 04/2014 EF 35% Cystocele (Inactive) Hyponatremia (Inactive) Impaired glucose tolerance (Chronic) Leukocytosis (Inactive) a. since 1995 with reportedly normal bone marrow biopsy in 1996 Mixed urinary incontinence due to female genital prolapse (Inactive) Neck mass (Inactive 01/26/15) Right ventricular dysfunction (Inactive) Systolic CHF (Inactive 05/02/14) a. subacute with acute exacerbation Urinary incontinence (Chronic 11/06/17) Surgical History AICD (automatic cardioverter/defibrillator) present (Chronic) Cholecystectomy H/O surgical procedure (Inactive) a. s/p cholecystectomy b. s/p hysterectomy c. s/p bilateral carpan tunnel release surgery d. incisional hernia repair Hernia Repair, Incisional 04/19/14 History of heart artery stent (Chronic) Hysterectomy, Laproscopic (~1980) OVARIES REMAIN Tonsillectomy Social History Smoking/Tobacco Use Status: Former Tobacco Use Quit Date: 05/20/13 Second Hand Exposure: Yes Alcohol Intake: never Drug use: Never Substance use type: does not use Do you feel safe at home: Yes Do you feel safe in your relationship?: Yes Exam Const General: cooperative, healthy appearing, uncomfortable, no acute distress, well developed and well groomed Nutritional Appearance: well nourished and obese Orientation: alert and awake Eyes General: appearance normal, both eyes and all related structures Neck Neck: normal visual inspection, full ROM, no lymphadenopathy and no meningeal signs Resp Effort & Inspection: normal respiratory effort and able to speak in complete sentences Auscultation: clear to auscultation bilaterally, no rales, no rhonchi and no wheezes Cardio Rate: regular rate Rhythm: regular rhythm Heart Sounds: S1 normal and S2 normal Back/Spine/Pelvis Back: no CVA tenderness Cervical Spine: normal cervical lordosis (appears to have buffalo hump, reports hx of steroids), cervical ROM normal, No cervical muscular tenderness, No pain with cervical ROM and No cervical spasm Thoracic/Lumbar Spine: thoracic and lumbar spine normal to inspection, No thoraco-lumbar ROM normal (minimal rotation to the left, no flexion. Able to extend and rotate to righ), bend over test abnormal, pain with thoraco-lumbar ROM, No paraspinal tenderness, thoraco-lumbar ROM limited, No thoraco-lumbar spasm, No thoracic spinal tenderness, No lumbar spinal tenderness and No straight leg raise positive Pelvis: no pain with anterior-posterior compression and no pain with lateral compression Sacroiliac joints: bilaterally nontender Skin General skin exam: no rashes or lesions noted Neuro General: patient alert and patient awake Cognition: normal cognition Speech: speech normal Gait: normal gait Motor: muscle tone normal throughout, strength 5/5 throughout, no movement abnormalities noted and no fasciculations Sensory Exam: no sensory deficits noted (no saddle paresthesias) DTR's: Rt Patellar: 2+, Lt Patellar: 2+, Rt Ankle: 2+ and Lt Ankle: 2+ Extrem General: normal to inspection, full ROM, capillary refill normal, no joint enlargement, no pedal edema, no calf tenderness and normal gait Psych Appearance: grossly normal and well kempt Mental Status: mental status grossly normal Speech and Movement: speech and movement normal
[2019-08-23] MEDS: Normal Saline 250 ML 500 ML IV (12:20)
[2019-08-23] MEDS: diazePAM 10 MG/2 ML SYR 5 MG IVP (12:20)
[2019-08-23 12:32] LABS: Abs Immature Grans 0.07 k/cumm (0.0-0.09); Absolute Eosinophil Count 0.07 k/cumm (0.0-0.7); Basophils % 0.1; Eosinophils % 0.4; HCT 40.9 % (36.0-46.0); HGB 13.5 g/dL (12.0-15.5); Immature Grans % 0.4 %; Lymphocytes % 5.5; Mean Corpuscular Volume 93.8 fL (80-95); Mean Platelet Volume 10.9 fL (8.0-11.0); Monocytes % 6.9; Neutrophils % 86.7; Platelet Count 278 x1000/uL (130-400); RBC 4.36 m/cumm (4.00-5.20); RBC Distribution Width 18.3 % (11.7-14.6)
[2019-08-23 12:34] LABS: Absolute Basophil Count 0.02 k/cumm (0.0-0.2); Absolute Lymphocyte Count 0.97 k/cumm (1.2-3.4); Absolute Monocyte Count 1.21 k/cumm (0.11-0.7); Absolute Neutrophil Count 15.26 k/cumm (1.2-6.7)
[2019-08-23 12:53] LABS: ALT 117 U/L (14-59); AST 95 U/L (15-37); Albumin 2.8 g/dL (3.4-5.0); Alkaline Phosphatase 207 U/L (46-116); Anion Gap 6.9 mmol/L (3-11); BUN 49 mg/dL (7-18); Bilirubin, Total 1.1 mg/dL (0.2-1.0); CO2 33.1 mmol/L (21.0-32.0); CREATININE 1.78 mg/dL (0.55-1.02); Calcium 9.1 mg/dL (8.5-10.1); Chloride 98 mmol/L (98-107); Estimated GFR 28.26 (mL/min/1.73m2); Glucose 134 mg/dL (74-106); Potassium 4.3 mmol/L (3.5-5.1); Sodium 138 mmol/L (136-145); Total Protein 7.6 g/dL (6.4-8.2)
--- NOTE | 2019-08-23 13:13 | DI.CT_ITS ---
EXAM: CT RENAL COLIC WO and CT reconstructions of the lumbar spine CLINICAL HISTORY: lumbar back pain. TECHNIQUE: Imaging Protocol: Axial computed tomography images with coronal and sagittal reformatted images were created and reviewed. COMPARISON: CHEST ABD PELVIS WO CONTRAST from 10/14/2017 FINDINGS: ABDOMEN: Lung Bases: There is scarring in the lung bases. Cardiomegaly. Liver: Normal density. There is a nodular contour of the liver consistent with hepatic cirrhosis. He patomegaly. Gallbladder and biliary tract: Status post cholecystectomy. No biliary ductal dilatation. Pancreas: Normal density, no abnormal calcifications or inflammatory process. Spleen: Normal. Kidneys: Normal size, contour and axis. Nonobstructing stones in the left kidney. No masses seen. Adrenal glands: Stable nodularity of both adrenal glands. Lymph nodes: Within normal limits. Abdominal Aorta: Abdominal portion non-dilated. Atherosclerosis. PELVIS: Bladder: Symmetric distention, no gross wall thickening. Bowel: No obstruction or bowel wall thickening. No evidence of acute appendicitis. Peritoneal cavity: No ascites, collection or mesenteric inflammatory response. Reproductive organs: Status post hysterectomy. Bones: See below. Soft Tissues: Moderate-sized fat containing supraumbilical hernia. Lumbar spine: No acute fracture or subluxation. At L5-S1: There is a vacuum disc. There are endplate degenerative signal changes. Degenerative kennedy ges of the facet joints are present. There is no central spinal canal stenosis. There is mild bilat eral neural foraminal narrowing. At L4-L5: There is a vacuum disc. There is a mild diffuse disc bulge. There are degenerative change s of the facets. There is mild narrowing of the central spinal canal and mild bilateral neural greyson inal narrowing. At L3-L4: There is a mild diffuse disc bulge. There are endplate osteophytes and degenerative change s of the facet joints. No significant central spinal canal or neural foraminal stenosis is present. At L2-L3: There is no focal disc herniation, central spinal canal or significant neural foraminal quan nosis. At L1-L2: Mild degenerative endplate changes are present. No focal disc herniation, central spinal c anal or significant neural foraminal stenosis is present. IMPRESSION: 1. No acute fracture or subluxation in the lumbar spine. 2. Multilevel degenerative changes in the lumbar spine as described above. 3. Left nephrolithiasis. No evidence of hydronephrosis. 4. Findings suspicious for hepatic cirrhosis. DATA REPOSITORY: All CT scans at this facility are submitted to the National Radiology Data Registry (NRDR) Dose Index Registry (DIR) with the [employer] ([employer]). RADIATION OPTIMIZATION: All CT scans at this facility use at least one of these dose optimization te chniques: automated exposure control; mA and/or kV adjustment per patient size (includes targeted exa ms where dose is matched to clinical indication); or iterative reconstruction.
[2019-08-23] MEDS: HYDROmorphone 2 MG/ML VIAL 1 MG IVP (13:19)
--- NOTE | 2019-08-23 13:50 | DI.RAD_ITS ---
EXAM: XR FOOT RT COMPLETE CLINICAL HISTORY: fall, ecchymotic 3,4,5 toes. TECHNIQUE: 2D digital imaging was performed. COMPARISON: No exams were available for comparison FINDINGS: BONES: There is a mildly displaced fracture through the midshaft of the proximal phalanx of the right 5th toe. No bony destructive lesion is seen. There is a moderate size calcaneal spur. JOINTS: No dislocation present. SOFT TISSUE: Vascular calcifications are seen in the soft tissues. There is soft tissue swelling ewelina und the forefoot. IMPRESSION: Mildly displaced fracture through the midshaft of the proximal phalanx of the right 5th toe. DATA REPOSITORY: RADIATION DOSE DELIVERED:
[2019-08-23 13:51] VITALS: BP 115/86; PULSE 70; RESP 17; O2SAT 97
[2019-08-23] MEDS: Lidocaine 5% Patch 1 PATCH TP (14:03)
--- NOTE | 2019-08-23 14:07 | DI.VRAD_ITS ---
PROCEDURE INFORMATION: Exam: CT Lumbar Spine Without Contrast Exam date and time: 08/23/2019 1:14 PM Age: 69 years old Clinical indication: Other: Lumbar recons for back pain TECHNIQUE: Imaging protocol: Computed tomography images of the lumbar spine without contrast. COMPARISON: No relevant prior studies available. FINDINGS: Vertebrae: No acute fracture. L1-L2: No disc herniation. No spinal canal stenosis. No neural foraminal narrowing. L2-L3: No disc herniation. No spinal canal stenosis. No neural foraminal narrowing. L3-L4: Broad disc bulge. Facet arthropathy. No spinal canal stenosis. No neural foraminal narrowing. L4-L5: Vacuum disc phenomenon. Broad disc bulge. Prominent facet arthropathy. No spinal canal stenosis. No neural foraminal narrowing. L5-S1: Moderate disc space narrowing. Broad disc bulge. Facet arthropathy. Soft tissues: Unremarkable. IMPRESSION: No acute fracture. Degenerative changes as detailed above. Dictated and Authenticated by: Vivienne Sarkar MD. Ordering:LISA Gaspar MD
[2019-08-23 14:08] LABS: Bilirubin Negative (Negative); Blood Negative (Negative); Clarity Clear (Clear); Glucose Negative (Negative); Ketones Negative (Negative); Leukocyte Esterase Trace (Negative); Nitrite Negative (Negative); Specific Gravity 1.015 (1.005-1.025); Urobilinogen 0.2 EU/dL (Up TO 0.2)
--- NOTE | 2019-08-23 14:16 | DI.VRAD_ITS ---
PROCEDURE INFORMATION: Exam: CT Abdomen And Pelvis Without Contrast Exam date and time: 08/23/2019 1:14 PM Age: 69 years old Clinical indication: Other: Lumbar back pain TECHNIQUE: Imaging protocol: Computed tomography of the abdomen and pelvis without contrast. COMPARISON: CT CHEST ABD PELVIS WO CONTRAST 10/14/2017 12:56 PM FINDINGS: Liver: Nodular contour of the liver, suspect for cirrhosis. Gallbladder and bile ducts: Previous cholecystectomy. Pancreas: Normal. No ductal dilation. Spleen: Normal. No splenomegaly. Adrenals: Adrenal nodules bilaterally, larger on the left measuring 1.5 x 1.6 cm. Stable since previous. Kidneys and ureters: Punctate nonobstructing left renal calculi. No hydronephrosis. Stomach and bowel: Unremarkable. No obstruction. No mucosal thickening. Appendix: No evidence of appendicitis. Intraperitoneal space: Unremarkable. No free air. No significant fluid collection. Vasculature: Unremarkable. No abdominal aortic aneurysm. Lymph nodes: Unremarkable. No enlarged lymph nodes. Bladder: Unremarkable as visualized. Reproductive: Unremarkable as visualized. Bones/joints: Unremarkable. No acute fracture. Soft tissues: Small fat containing supraumbilical ventral hernia. IMPRESSION: 1. Punctate nonobstructing left renal calculi. No hydronephrosis. 2. Nodular contour of the liver, suspect for cirrhosis. Dictated and Authenticated by: Vivienne Sarkar MD. Ordering:LISA aGspar MD
[2019-08-23 14:19] LABS: Bacteria Few HPF (Negative); C & S Indicated? No/Sq. Contamination; Casts Negative LPF (Negative); Crystals Negative HPF (Negative); Epithelial Cells Moderate HPF (Negative); Mucus Negative (Negative)
--- NOTE | 2019-08-23 14:22 | DI.VRAD_ITS ---
PROCEDURE INFORMATION: Exam: XR Right Foot Complete Exam date and time: 08/23/2019 1:45 PM Age: 69 years old Clinical indication: Other: Fall, ecchymotic 3,4,5 toes TECHNIQUE: Imaging protocol: XR Right foot. Views: 3 or more views. COMPARISON: No relevant prior studies available. FINDINGS: Bones/joints: Mildly displaced fracture mid shaft 5th proximal phalanx. No articular extension. Soft tissues: Normal. IMPRESSION: Mildly displaced fracture mid shaft 5th proximal phalanx. No articular extension. Dictated and Authenticated by: Vivienne Sarkar MD. Ordering:LISA Gaspar MD
[2019-08-23 14:55] VITALS: BP 109/78; PULSE 70; RESP 17; TEMP 36.6; O2SAT 91
--- NOTE | 2019-08-24 11:53 | CMPROGNOTE_ITS ---
- If Service Date Differs Date of service: 08/24/19 Time of Service: 11:53 Care Management Progress Note At the request of ED provider, CM coordinates referral to [facility] neurosurgery.
== END 2019-08-23 15:08 | disposition home or self-care (01) ==
PROVIDERS: Emergency Provider Physician Assistant; PCP Family Medicine
DX: S92.511A Displaced fracture of proximal phalanx of right lesser toe(s), initial encounter for closed fracture (principal); W22.8XXA Striking against or struck by other objects, initial encounter; M54.5 Low back pain; M51.36 Other intervertebral disc degeneration, lumbar region; J44.9 Chronic obstructive pulmonary disease, unspecified; I10 Essential (primary) hypertension
CPT/HCPCS: 28510; 80053; 96361; 96374; 96375; 99284; 73630; 74176; 81003; 81015; 85025; J3360

== ENCOUNTER 2019-09-01 00:24 | Outpatient (CLI) | payer MEDICARE, SELFPAY ==
--- NOTE | 2019-09-01 06:30 | DI.RAD_ITS ---
EXAM: XR LUMBAR SPINE FLEXION, EXTENSION CLINICAL HISTORY: LUMBAR SPINE PAIN, M54.5, CHECK DYNAMIC ALIGNMENT. TECHNIQUE: 2D digital imaging was performed. Only neutral, flexion, and extension views of the late ral spine were obtained. COMPARISON: XR CHEST 2V PA LATERAL from 07/16/2019 FINDINGS: BONES: Alignment is well maintained. No subluxations are seen with flexion or extension. Mild degen erative changes are seen throughout the lumbar spine. Hypertrophic changes of the facets are noted p articularly in the lower lumbar spine. DISKS: There is mild disc space narrowing at L1-L2, L3-L4 and L5-S1. ALIGNMENT: Lumbar spinal alignment is within normal limits. SOFT TISSUE: Atherosclerosis is present. IMPRESSION: 1. Degenerative changes in the lumbar spine. 2. No alignment abnormalities are seen with the flexion and extension views of the lumbar spine. DATA REPOSITORY: RADIATION DOSE DELIVERED:
== END 2019-09-01 00:44 ==
PROVIDERS: PCP Family Medicine; Visit Provider Nurse Practitioner
DX: M54.5 Low back pain (principal); M51.37 Other intervertebral disc degeneration, lumbosacral region
CPT/HCPCS: 72100

== ENCOUNTER 2019-09-01 05:37 | Emergency (ER) | payer MEDICARE, SELFPAY ==
[2019-09-01 05:40] VITALS: BP 116/72; PULSE 70; RESP 18; TEMP 37.5; O2SAT 93
--- NOTE | 2019-09-01 05:42 | W.ED.GENAD ---
Discharge Plan Disposition Patient Disposition: HOME Condition: Stable Discharge Details Chief Complaint: Nk/Back Pain Clinical Impression: Low back pain, Pain in right shoulder, Multiple falls Primary Care Provider: Taya Juan ED Provider: Fer Sampson [place] Meds and New Rx's Prescriptions: Continued amiodarone 400 mg tablet 200 mg PO DAILY RF: 0 Myrbetriq 25 mg tablet extended release 24 hr 25 mg PO DAILY Qty: 60 RF: 5 albuterol sulfate [Ventolin HFA] 8 GM HFA aerosol inhaler 2 puff Inhalation Q4H PRN Qty: 120 RF: 2 atorvastatin 80 MG tablet 80 mg PO DAILY Qty: 90 RF: 3 nitroglycerin 0.4 MG tablet, sublingual 0.4 mg Sublingual PRN PRNQty: 30 RF: 0 spironolactone 25 MG tablet 25 mg PO DAILY Qty: 90 RF: 3 metolazone 2.5 MG tablet 2.5 mg PO PRN Qty: 30 RF: 3 metoprolol succinate 100 mg tablet extended release 24 hr 100 mg PO DAILY RF: 0 allopurinol 300 mg tablet 300 mg PO DAILY RF: 0 acetaminophen [Tylenol] 325 MG tablet 650 mg PO Q6H PRNQty: 1 RF: 0 benzonatate [Tessalon Perles] 100 mg Capsule 100 mg PO BID PRNRF: 0 ropinirole 2 mg Tablet 2 mg PO QHS RF: 0 ipratropium bromide 0.02 % Solution 2.5 ml INHALATION Q6H PRNRF: 0 Incruse Ellipta 62.5 mcg/actuation Blister With Device 1 inh INHALATION DAILY RF: 0 Eliquis 5 MG tablet 5 mg PO BID Qty: 60 RF: 0 bumetanide 2 mg tablet 2 mg PO BID RF: 0 oxycodone 5 mg tablet 5 mg PO Q6H PRN (Reason: pain) Qty: 10 RF: 0 methocarbamol 500 mg tablet 500 mg PO Q6H PRN (Reason: muscle spasm) Qty: 14 RF: 0 Discharge Instructions Additional Instructions: Pelvis x-ray negative for fracture. Right shoulder x-ray with age indeterminate Hill-Sachs deformity. Would treat with sling, ice and pain medication. For now you are declining sling due to the fact that you require your right arm to help you manage at home. Medication management needs to be done through primary care. It is not clear what medicines are supposed to be taking and which ones you are not supposed to be taking. Please contact primary care today for medication management/pain management. The lumbar x-rays ordered by the department provider has been completed but not read. Those results will go to the [facility] provider that ordered them. Return to ED for neurologic changes with bladder or bowel dysfunction, numbness, true weakness. Referrals: Taya Juan MD [Primary Care Provider] - Medical Decision Making Patient reports that she has not been taking the medications we prescribed to her as she reports that her primary care told her not to take them. She does not appear to have any cauda equina findings. She was able to get up to the commode and had some difficulty with moving but it appeared to be due to pain not weakness. She has 5 out of 5 strength in the lower extremities. She is due for flexion extension lumbar spine films at 11:00. Will obtain these this morning on a routine basis for the [facility] provider which ordered them. However, I am only interested in her right shoulder and pelvis from the falls. I will give her 1 oxycodone here and apply Lidoderm patch. X-ray of the pelvis is negative for fracture. X-ray of the right shoulder shows indeterminate age Hill-Sachs deformity, per radiology. There is no dislocation. Patient is able to get herself up.. She does not appear to have weakness. She gets sharp pain in her back which causes her legs to give out. This is what has been observed here. No evidence of cauda equina. The flexion-extension lumbar spine films have been done but not read and are being saved for routine reading with results to the provider at [facility] who ordered them. I have discussed with the patient that medication management needs to be done by primary care at this point especially since patient reports primary care told her to stop certain medications including the oxycodone. Therefore, no new medications prescribed today. In regards to her shoulder she was offered a sling which she declined for now. She needs to use her right arm to help her get up and manage at home. Patient be discharged home. No need for emergent MRI. She needs better pain management which will need to be coordinated through her primary care. Return to ED for bladder or bowel dysfunction, numbness, true weakness. Medical Records Medical records reviewed: Yes I reviewed the patient's medical records. HPI General Mode of arrival: EMS. Date/Time Provider Initiated Documentation: 09/01/19 05:43. Limitations to Documentation: no limitations. Information obtained by: patient, RN notes reviewed and old records reviewed. HPI Narrative: Patient brought in by ambulance for continued low back pain and falls. Patient has been seen here twice now for back pain. She has been referred to [facility] neurosurgery. She is supposed to have flexion-extension lumbar films today at 11 for that appointment. She reports that she has fallen twice overnight when trying to get up. She states that her legs just give out on her. She denies bladder or bowel dysfunction. She denies numbness. She cannot decide whether it is pain or weakness that is making her fall. She describes just trying to get up off the couch and falling because her legs give out. She denies any fever, cough, chest pain, shortness of breath. Her breathing is baseline. On her visit here on the she had CT of the lumbar spine done which was negative for fracture. There was a fair amount of degenerative change. She denies striking her head or having loss of consciousness. She denies neck pain. She has right shoulder pain but she thinks that is because she has been using that arm so much to get herself up off the couch. Related Data Home Medications Medication Instructions Recorded Confirmed albuterol sulfate [Ventolin HFA] 2 puff INHALATION Q4H PRN #120 07/13/15 09/01/19 inhaler atorvastatin 80 mg PO DAILY #90 tab-cap 07/02/16 09/01/19 nitroglycerin 0.4 mg SUBLINGUAL PRN PRN #30 01/28/17 09/01/19 tab-cap acetaminophen [Tylenol] 650 mg PO Q6H PRN #1 tab 09/24/17 09/01/19 spironolactone 25 mg PO DAILY #90 tab-cap 10/02/17 09/01/19 Eliquis 5 mg PO BID #60 tab 11/22/17 09/01/19 metolazone 2.5 mg PO PRN #30 tab-cap 01/08/18 09/01/19 metoprolol succinate 100 mg 100 mg PO DAILY tab 02/26/18 09/01/19 tablet,extended release 24 hr allopurinol 300 mg tablet 300 mg PO DAILY 03/04/18 09/01/19 amiodarone 400 mg tablet 200 mg PO DAILY tab 11/19/18 09/01/19 mirabegron 25 mg tablet,extended 25 mg PO DAILY #60 tab 05/14/19 09/01/19 release 24 hr Incruse Ellipta 1 inh INHALATION DAILY 05/26/19 09/01/19 benzonatate [Tessalon Perles] 100 mg PO BID PRN 05/26/19 09/01/19 ipratropium bromide 2.5 ml INHALATION Q6H PRN 05/26/19 09/01/19 ropinirole 2 mg PO QHS 05/26/19 09/01/19 bumetanide 2 mg PO BID 08/16/19 09/01/19 methocarbamol 500 mg PO Q6H PRN #14 tab 08/16/19 09/01/19 oxycodone 5 mg PO Q6H PRN #10 tab 08/16/19 09/01/19 Previous Rx's Medication Instructions Recorded acetaminophen [Tylenol] 650 mg PO Q6H PRN #1 tab 09/24/17 spironolactone 25 mg PO DAILY #90 tab-cap 10/02/17 Eliquis 5 mg PO BID #60 tab 11/22/17 metolazone 2.5 mg PO PRN #30 tab-cap 01/08/18 mirabegron 25 mg tablet,extended 25 mg PO DAILY #60 tab 05/14/19 release 24 hr methocarbamol 500 mg PO Q6H PRN #14 tab 08/16/19 oxycodone 5 mg PO Q6H PRN #10 tab 08/16/19 Allergies Allergy/AdvReac Type Severity Reaction Status Date / Time lisinopril AdvReac Other (See Verified 09/01/19 05:42 Comment) sacubitril [From Entresto] AdvReac rash Verified 09/01/19 05:42 valsartan [From Entresto] AdvReac rash Verified 09/01/19 05:42 General YUE: 3 Review of Systems Narrative: As documented in HPI otherwise negative as below. Const: no fever, chills, weakness Resp: no cough, SOB, pleuritic pain CV: no CP, diaphoresis, edema, syncope GI: no abdominal pain, nausea, vomiting, diarrhea Neuro: no headache, numbness, focal weakness, confusion [facility] Medical History Candidiasis, intertrigo (Acute) Cardiac arrest with ventricular fibrillation (Resolved) Cardiomyopathy (Chronic) Cardiorenal syndrome (Inactive) Community acquired pneumonia (Inactive) COPD (chronic obstructive pulmonary disease) (Inactive) Coronary artery disease (Chronic 05/05/14) STEMI with LAD stent 04/2014 EF 35% Cystocele (Inactive) Hyponatremia (Inactive) Impaired glucose tolerance (Chronic) Leukocytosis (Inactive) a. since 1995 with reportedly normal bone marrow biopsy in 1996 Mixed urinary incontinence due to female genital prolapse (Inactive) Neck mass (Inactive 01/26/15) Right ventricular dysfunction (Inactive) Systolic CHF (Inactive 05/02/14) a. subacute with acute exacerbation Urinary incontinence (Chronic 11/06/17) Surgical History AICD (automatic cardioverter/defibrillator) present (Chronic) Cholecystectomy H/O surgical procedure (Inactive) a. s/p cholecystectomy b. s/p hysterectomy c. s/p bilateral carpan tunnel release surgery d. incisional hernia repair Hernia Repair, Incisional 04/19/14 History of heart artery stent (Chronic) Hysterectomy, Laproscopic (~1980) OVARIES REMAIN Tonsillectomy Social History Smoking/Tobacco Use Status: Former Tobacco Use Quit Date: 05/20/13 Second Hand Exposure: Yes Alcohol Intake: never Drug use: Never Substance use type: does not use Do you feel safe at home: Yes Do you feel safe in your relationship?: Yes Exam Narrative Exam Narrative: Vitals: Afebrile. Normal vitals. Room air saturation low 90s which is patient's baseline. Const: Morbidly obese female in NAD. HEENT: NC/AT. Normal facial exam. Eyes: Normal conjunctiva and sclera. Neck: Supple. Trachea midline. Lungs: Normal respiratory effort. GI: Soft. NT/ND. No guarding or rebound. Back: No mid-line spine tenderness. Decrease ROM due to low back pain. Neuro: A+O x 3. Normal speech, mentation. Cranial nerves II - XII grossly intact. 5 out of 5 strength in the lower extremities throughout. Sensation in lower extremities throughout. No saddle anesthesia noted. Ext: No pain with ROM of hips/knees/ankles. Decreased range of motion and some tenderness to the right shoulder. Upper extremities otherwise unremarkable.
--- NOTE | 2019-09-01 06:00 | DI.RAD_ITS ---
EXAM: XR PELVIS AP CLINICAL HISTORY: pain/falls. TECHNIQUE: 2D digital imaging was performed. COMPARISON: PELVIS AP from 06/25/2017 FINDINGS: BONES: No acute fracture is present. No bony destructive lesion is seen. Degenerative changes are see n in the lower lumbar spine and the hips bilaterally. JOINTS: No dislocation present. No joint space narrowing is present. SOFT TISSUE: Atherosclerosis. IMPRESSION: No acute fracture or dislocation. DATA REPOSITORY: RADIATION DOSE DELIVERED:
--- NOTE | 2019-09-01 06:45 | DI.RAD_ITS ---
EXAM: XR SHOULDER RT COMPLETE 2+V CLINICAL HISTORY: pain/falls. TECHNIQUE: 2D digital imaging was performed. COMPARISON: XR CHEST 2V PA LATERAL from 02/22/2018 XR PORTABLE CHEST AP from 11/15/2018 XR CHEST 2V PA LATERAL from 05/26/2019 XR CHEST 2V PA LATERAL from 07/16/2019 CT CHEST HIGH RESOLUTION from 08/18/2019 FINDINGS: BONES: No acute fracture is present. No bony destructive lesion is seen. There appears to be a Hill S achs deformity of indeterminate age. JOINTS: No dislocation present. Mild degenerative changes are seen at the acromioclavicular joint. SOFT TISSUE: Chronic interstitial changes are seen in the lungs. Cardiac pacing wires are in place a nd stable. IMPRESSION: No definite acute fracture or dislocation. Hill-Sachs deformity is present and is of indeterminate a ge. DATA REPOSITORY: RADIATION DOSE DELIVERED:
[2019-09-01] MEDS: Lidocaine 5% Patch 1 PATCH TP (06:53)
[2019-09-01] MEDS: oxyCODONE 5 MG TAB PO (06:54)
--- NOTE | 2019-09-01 07:00 | DI.VRAD_ITS ---
PROCEDURE INFORMATION: Exam: XR Right Shoulder Exam date and time: 09/01/2019 6:38 AM Age: 69 years old Clinical indication: Injury or trauma; Initial encounter; Blunt trauma (contusions or hematomas; Right; Injury date: 09/01/19; Injury details: Fall with R shoulder pain lrom TECHNIQUE: Imaging protocol: XR Right shoulder. Views: 2 or more views. COMPARISON: No relevant prior studies available. FINDINGS: Tubes, catheters and devices: Pacemaker leads are seen in the heart. Bones/joints: There is a Hill-Sachs lesion within the humeral head. No evidence of dislocation. Mild primary osteoarthritis in the acromioclavicular joint. Lungs: Emphysema with mild interstitial thickening. Soft tissues: Normal. IMPRESSION: Hill-Sachs lesion in the humeral head of undetermined age. No dislocation. Mild emphysema and interstitial thickening which may be related to fibrosis. Superimposed infiltrate cannot be excluded. Dictated and Authenticated by: Laisha John MD. Ordering:DIANE Monroe MD
--- NOTE | 2019-09-01 07:03 | DI.VRAD_ITS ---
PROCEDURE INFORMATION: Exam: XR Pelvis Exam date and time: 09/01/2019 6:31 AM Age: 69 years old Clinical indication: Injury or trauma; Initial encounter; Blunt trauma (contusions or hematomas); Does not apply; Pelvic region; Injury date: 09/01/19; Injury details: Fall with pain, more in back but chronic back pain TECHNIQUE: Imaging protocol: XR pelvis. Views: 1 or 2 view. COMPARISON: CT RENAL COLIC WO 08/23/2019 1:11 PM FINDINGS: Bones/joints: Degenerative changes in the lumbar spine and to lesser extent hips. No fracture or dislocation. Soft tissues: Unremarkable. Vasculature: Atherosclerotic disease. IMPRESSION: No evidence of fracture or dislocation. Dictated and Authenticated by: Laisha John MD. Ordering:DIANE Monroe MD
[2019-09-01 07:48] VITALS: BP 105/62; PULSE 70; RESP 16; TEMP 37.1; O2SAT 93
== END 2019-09-01 07:36 | disposition home or self-care (01) ==
PROVIDERS: Emergency Provider Emergency Medicine; PCP Family Medicine
DX: M54.5 Low back pain (principal); M25.511 Pain in right shoulder; R29.6 Repeated falls; J44.9 Chronic obstructive pulmonary disease, unspecified; Z87.891 Personal history of nicotine dependence
CPT/HCPCS: 99284; 72170; 73030

== ENCOUNTER 2019-09-01 15:40 | Inpatient (IN) | payer MEDICARE, SELFPAY ==
[2019-09-01] VITALS (15 sets, daily range): BP systolic 104–128; BP diastolic 57–76; PULSE 68–82; RESP 20–21; TEMP 37–37.5; O2SAT 94–100
--- NOTE | 2019-09-01 15:30 | DI.CT_ITS ---
EXAM: CT HEAD WO CLINICAL HISTORY: Fall, scalp laceration, on blood thinners. TECHNIQUE: Imaging Protocol: Axial computed tomography images with coronal and sagittal reformatted images were created and reviewed COMPARISON: CT HEAD - STROKE PROTOCOL from 07/16/2019 FINDINGS: Ventricles and Extra axial spaces: There is prominence of the ventricles and sulci consistent with ag e-appropriate cerebral atrophy. Hemorrhage: None. Cerebral parenchyma: There are areas of decreased attenuation in the white matter consistent with sma ll vessel ischemic disease. Old lacunar infarcts are present. Midline shift: None. Brainstem/Cerebellum: Normal. Calvarium: Normal. There is no calvarial fracture. Visualized Paranasal sinuses/Mastoids: Clear. Soft Tissues: There is a scalp laceration posteriorly in the midline. IMPRESSION: 1. No acute intracranial process. 2. Posterior scalp laceration. RADIATION DOSE DELIVERED: DATA REPOSITORY: All CT scans at this facility are submitted to the National Radiology Data Registry (NRDR) Dose Index Registry (DIR) with the [employer] (A[employer]). RADIATION OPTIMIZATION: All CT scans at this facility use at least one of these dose optimization te chniques: automated exposure control; mA and/or kV adjustment per patient size (includes targeted exa ms where dose is matched to clinical indication); or iterative reconstruction.
--- NOTE | 2019-09-01 15:35 | ED.GENADUL_ITS ---
Discharge Plan Discharge Details Chief Complaint: Laceration Admit Date/Time: 09/03/19 09:16 Admit Provider: Star Gonzalez Attending Provider: Star Gonzalez Primary Care Provider: Taya Juan ED Provider: Sang Womack Discharge Data Discharge Date/Time-TO BE ENTERED AT DEPARTURE: 09/01/19 19:35 Medical Decision Making <Lainey Ballesteros - Last Filed: 09/04/19 07:53> 69-year-old female comes in with a scalp laceration to her occipital head. Patient states that she was going to the refrigerator and her legs gave out and she fell back onto the linoleum floor. She denies LOC. Patient does have a history of multiple falls, she does have an implanted AICD, cardiomyopathy. She does take 5 mg Eliquis daily. 1543: Due to patient being on Eliquis and cardiac history will order work-up including EKG and blood work and a head CT. Care is to be handed off to ER attending Dr. Womack pending lab work and head CT. <Sang Womack MD - Last Filed: 09/01/19 20:09> 1700 -- Care signed out by HARRIET Ballesteros with plan to follow-up on imaging, labs and reassess patient for disposition. CT of the head was interpreted by radiology: Small scalp hematoma in the posterior midline. No acute posttraumatic brain injury. Screening ECG was reviewed and interpreted by me: Some artifact, atrially paced rhythm at 82 bpm, left bundle branch pattern. Nondiagnostic. Labs reviewed and nondiagnostic. She does have a mild leukocytosis. Patient was reassessed and continues to have back pain and difficulty ambulating. She needed significant assistance to move from the bed to the commode. No bowel or bladder dysfunction. I reviewed CT imaging of lumbar spine from 08/23/2019: Lumbar spine: No acute fracture or subluxation. At L5-S1: There is a vacuum disc. There are endplate degenerative signal changes. Degenerative changes of the facet joints are present. There is no central spinal canal stenosis. There is mild bilateral neural foraminal narrowing. At L4-L5: There is a vacuum disc. There is a mild diffuse disc bulge. There are degenerative changes of the facets. There is mild narrowing of the central spinal canal and mild bilateral neural foraminal narrowing. At L3-L4: There is a mild diffuse disc bulge. There are endplate osteophytes and degenerative changes of the facet joints. No significant central spinal canal or neural foraminal stenosis is present. At L2-L3: There is no focal disc herniation, central spinal canal or significant neural foraminal stenosis. At L1-L2: Mild degenerative endplate changes are present. No focal disc herniation, central spinal canal or significant neural foraminal stenosis is present. IMPRESSION: 1. No acute fracture or subluxation in the lumbar spine. 2. Multilevel degenerative changes in the lumbar spine as described above. 3. Left nephrolithiasis. No evidence of hydronephrosis. 4. Findings suspicious for hepatic cirrhosis. 1.5 cm laceration posterior scalp. irrigated extensively by nursing and closed with 3 gio. Patient cannot safely be discharged home at this time as she needs significant assistance with mobility secondary to pain. I am also worried about potential delayed bleed given head trauma on Eliquis. Plan to admit. Patient will require walker and likely benefit consult with PT OT. HPI <Lainey Ballesteros - Last Filed: 09/04/19 07:53> General Mode of arrival: ambulatory . Date/Time Provider Initiated Documentation: 09/01/19 15:44 . Limitations to Documentation: no limitations . Information obtained by: patient and EMS . HPI Narrative: 69-year-old female comes in with a scalp laceration to her occipital head. Patient states that she was going to the refrigerator and her legs gave out and she fell back onto the linoleum floor. She denies LOC. Patient does have a history of multiple falls, she does have an implanted AICD, cardiomyopathy. She does take 5 mg Eliquis daily. Related Data Home Medications Medication Instructions Recorded Confirmed albuterol sulfate [Ventolin HFA] 2 puff INHALATION Q4H PRN #120 07/13/15 09/01/19 inhaler atorvastatin 80 mg PO DAILY #90 tab-cap 07/02/16 09/01/19 nitroglycerin 0.4 mg SUBLINGUAL PRN PRN #30 01/28/17 09/01/19 tab-cap acetaminophen [Tylenol] 650 mg PO Q6H PRN #1 tab 09/24/17 09/01/19 spironolactone 25 mg PO DAILY #90 tab-cap 10/02/17 09/01/19 Eliquis 5 mg PO BID #60 tab 11/22/17 09/01/19 metolazone 2.5 mg PO PRN #30 tab-cap 01/08/18 09/01/19 metoprolol succinate 100 mg 100 mg PO DAILY tab 02/26/18 09/01/19 tablet,extended release 24 hr allopurinol 300 mg tablet 300 mg PO DAILY 03/04/18 09/01/19 amiodarone 400 mg tablet 200 mg PO DAILY tab 11/19/18 09/01/19 mirabegron 25 mg tablet,extended 25 mg PO DAILY #60 tab 05/14/19 09/01/19 release 24 hr Incruse Ellipta 1 inh INHALATION DAILY 05/26/19 09/01/19 benzonatate [Tessalon Perles] 100 mg PO BID PRN 05/26/19 09/01/19 ipratropium bromide 2.5 ml INHALATION Q6H PRN 05/26/19 09/01/19 ropinirole 2 mg PO QHS 05/26/19 09/01/19 bumetanide 2 mg PO BID 08/16/19 09/01/19 methocarbamol 500 mg PO Q6H PRN #14 tab 08/16/19 09/01/19 oxycodone 5 mg PO Q6H PRN #10 tab 08/16/19 09/01/19 Previous Rx's Medication Instructions Recorded acetaminophen [Tylenol] 650 mg PO Q6H PRN #1 tab 09/24/17 spironolactone 25 mg PO DAILY #90 tab-cap 10/02/17 Eliquis 5 mg PO BID #60 tab 11/22/17 metolazone 2.5 mg PO PRN #30 tab-cap 01/08/18 mirabegron 25 mg tablet,extended 25 mg PO DAILY #60 tab 05/14/19 release 24 hr methocarbamol 500 mg PO Q6H PRN #14 tab 08/16/19 oxycodone 5 mg PO Q6H PRN #10 tab 08/16/19 Allergies Allergy/AdvReac Type Severity Reaction Status Date / Time lisinopril AdvReac Other (See Verified 09/01/19 15:37 Comment) sacubitril [From Entresto] AdvReac rash Verified 09/01/19 15:37 valsartan [From Entresto] AdvReac rash Verified 09/01/19 15:37 General Stated Complaint: Laceration YUE: 4 Review of Systems <Lainey Ballesteros - Last Filed: 09/04/19 07:53> Narrative: Constitutional: Negative for weight loss, alert and oriented, well groomed, obese body habitus, appears comfortable. HEENT: Denies blurry vision, nasal discharge, sore throat, trouble swallowing. Has controlled bleeding to her occipital head, laceration. Denies LOC. Chest: Denies chest pain, palpitations, irregular rhythm, hypertension. Respiratory: Denies Shortness of breath, cough, hemoptysis. GI: Denies abdominal pain, nausea, vomiting, diarrhea, constipation. : Denies dysuria, hematuria, flank pain, rectal bleeding. Neuro: Denies dizziness, blurry vision, syncope, or facial numbness. Lost balance fell back denies LOC. Hematologic: Denies easy bruising, intolerance to heat or cold, hair loss. PFSH <Lainey Ballesteros - Last Filed: 09/04/19 07:53> Medical History (Updated 09/02/19 @ 15:53 by Katie Marmolejo MD) Candidiasis, intertrigo (Acute) Cardiac arrest with ventricular fibrillation (Resolved) Cardiomyopathy (Chronic) Cardiorenal syndrome (Inactive) Community acquired pneumonia (Inactive) COPD (chronic obstructive pulmonary disease) (Inactive) Coronary artery disease (Chronic 05/05/14) STEMI with LAD stent 04/2014 EF 35% Cystocele (Inactive) Hyponatremia (Inactive) Impaired glucose tolerance (Chronic) Ischemic cardiomyopathy (Acute) Leukocytosis (Inactive) a. since 1995 with reportedly normal bone marrow biopsy in 1996 Mixed urinary incontinence due to female genital prolapse (Inactive) Neck mass (Inactive 01/26/15) Right ventricular dysfunction (Inactive) Systolic CHF (Inactive 05/02/14) a. subacute with acute exacerbation Urinary incontinence (Chronic 11/06/17) Surgical History (Updated 09/02/19 @ 00:01 by Star Gonzalez) AICD (automatic cardioverter/defibrillator) present (Chronic ~06/2017) Cholecystectomy H/O surgical procedure (Inactive) a. s/p cholecystectomy b. s/p hysterectomy c. s/p bilateral carpan tunnel release surgery d. incisional hernia repair Hernia Repair, Incisional 04/19/14 History of heart artery stent (Chronic ~2013) LAD Hysterectomy, Laproscopic (~1980) OVARIES REMAIN Tonsillectomy Family History (Updated 09/02/19 @ 00:03 by Star Gonzalez) Mother Stroke Father Peptic ulcer disease Brother Substance abuse Social History (Updated 09/02/19 @ 00:03 by Star Gonzalez) Smoking/Tobacco Use Status: Former Tobacco Use Quit Date: 05/20/13 Tobacco: How many years used: 40 Second Hand Exposure: Yes Alcohol Intake: never Drug use: Never Substance use type: does not use Household members: spouse Number of Children: 5 Do you feel safe at home: Yes Do you feel safe in your relationship?: Yes History History 5 Para 5 Hx # Term Pregnancies 5 Multiple births Hx # Pregnancies Ectopic pregnancies AB induced Hx Number of Living Children 5 AB spontaneous Exam <Lainey Ballesteros - Last Filed: 09/04/19 07:53> Narrative Exam Narrative: Constitutional: Alert and oriented x3. Appears stated age. Normal body habitus. Head: Normocephalic, bleeding noted to the back of her occiput, unable to evaluate laceration at this time wound care in progress by staff electrical engineer.. Eyes: Pupils PERRLA, Red reflex noted, EOM's intact. Eyelids symmetrical without lesions, discharge, or swelling. ENT: Bilateral TM's WNL, External ear normal to inspection, no mastoid TTP, swelling, or erythema, Nasal turbinates WNL, no nasal discharge. Normal dentition, Posterior pharynx WNL, no exudate. Chest: RRR, Normal S1, S2, distal pulses intact. Resp: Lungs clear to auscultation bilaterally, no wheezes, rales, or rhonchi. Musculoskeletal: Normal gait, 5/5 strength to all four extremities. Skin: No suspicious rashes or lesions. Capillary refill less than 2 sec. Neurologic: Cranial nerves II-XII intact. DTR's intact. No focal neuro deficits patient is alert and oriented x4. Hematologic/Lymphatic: No ecchymosis, no lymphadenopathy. Course <Lainey Ballesteros - Last Filed: 09/04/19 07:53> Vital Signs Vital signs: Vital Signs Temperature 37.5 C 09/01/19 15:28 Pulse 70 09/01/19 15:28 Blood Pressure 104/57 L 09/01/19 15:28 Pulse Oximetry 94 L 09/01/19 15:28 Temperature 37.5 C 09/01/19 15:28 Pulse 70 09/01/19 15:28 Respiratory Effort Non-Labored 09/01/19 15:32 Blood Pressure 104/57 L 09/01/19 15:28 Blood Pressure Position Supine 09/01/19 15:28 Pulse Oximetry 94 L 09/01/19 15:28 Oxygen Delivery Method Room Air 09/01/19 15:28 Oxygen Flow Rate 0 09/01/19 15:28 Pain Level 6 09/01/19 15:28 <Sang Womack MD - Last Filed: 09/01/19 20:09> Laceration Laceration 1: Site: scalp Size (cm): 1.5 Description: linear Depth: simple, single layer Pre-repair: irrigated extensively and deep structures intact Skin layer closed with: other (#3 gio) Sign Out <Lainey Ballesteros - Last Filed: 09/04/19 07:53> Sign Out Data: Sign Out Comment: Pending labs, EKG, and Head ct Last updated by Lainey Ballesteros at 09/01/19 16:09
--- NOTE | 2019-09-01 16:08 | DI.VRAD_ITS ---
PROCEDURE INFORMATION: Exam: CT Head Without Contrast Exam date and time: 09/01/2019 3:58 PM Age: 69 years old Clinical indication: Other: Fall, scalpt lacerations on blood thinners TECHNIQUE: Imaging protocol: Computed tomography of the head without contrast. COMPARISON: CT HEAD - STROKE PROTOCOL 07/16/2019 11:30 PM FINDINGS: Brain: No acute post-traumatic brain injury. Symmetric prominence of the cortical sulci. Stable small vessel ischemic change including bilateral basal ganglia lacunar infarcts. Dural calcification. Ventricles: Normal configuration of the ventricles. Bones/joints: No acute calvarial injury. Sinuses: No sinus fluid. Mastoid air cells: No mastoid effusion. Soft tissues: Small scalp hematoma in the posterior midline. IMPRESSION: 1. Small scalp hematoma in the posterior midline. 2. No acute post-traumatic brain injury. Dictated and Authenticated by: Sm[place] MD. Ordering:VIKAS Retana MD
[2019-09-01 16:52] LABS: Abs Immature Grans 0.05 k/cumm (0.0-0.09); Absolute Basophil Count 0.01 k/cumm (0.0-0.2); Absolute Lymphocyte Count 1.19 k/cumm (1.2-3.4); Absolute Monocyte Count 1.32 k/cumm (0.11-0.7); Basophils % 0.1; Eosinophils % 0.2; HCT 37.9 % (36.0-46.0); HGB 12.3 g/dL (12.0-15.5); Immature Grans % 0.4 %; Lymphocytes % 9.1; Mean Corp. HGB Concentration 32.5 g/dL (32.0-36.0); Mean Corpuscular Hemoglobin 30.6 pg (27.0-33.0); Mean Corpuscular Volume 94.3 fL (80-95); Mean Platelet Volume 10.9 fL (8.0-11.0); Monocytes % 10.1; Neutrophils % 80.1; Platelet Count 306 x1000/uL (130-400); RBC 4.02 m/cumm (4.00-5.20); RBC Distribution Width 18.6 % (11.7-14.6)
[2019-09-01 17:06] LABS: ALT 54 U/L (14-59); AST 72 U/L (15-37); Albumin 2.3 g/dL (3.4-5.0); Alkaline Phosphatase 276 U/L (46-116); Anion Gap 6.8 mmol/L (3-11); BUN 68 mg/dL (7-18); Bilirubin, Total 1.1 mg/dL (0.2-1.0); CO2 34.2 mmol/L (21.0-32.0); CREATININE 2.19 mg/dL (0.55-1.02); Calcium 9.3 mg/dL (8.5-10.1); Chloride 95 mmol/L (98-107); Estimated GFR 22.25 (mL/min/1.73m2); Glucose 115 mg/dL (74-106); Magnesium 2.2 mg/dL (1.8-2.4); Sodium 136 mmol/L (136-145); Total Protein 7.7 g/dL (6.4-8.2); Troponin I < 0.05 ng/Ml (<0.06)
[2019-09-01 17:10] LABS: Absolute Eosinophil Count 0.03 k/cumm (0.0-0.7); Absolute Neutrophil Count 10.49 k/cumm (1.2-6.7); INR 1.2 (0.9-1.1); Prothrombin Time 12.2 sec (9.3-11.0)
[2019-09-01 18:59] LABS: Troponin I < 0.05 ng/Ml (<0.06)
[2019-09-01] MEDS: Acetaminophen 325 MG TAB PO (22:32)
[2019-09-01] MEDS: oxyCODONE 5 MG TAB PO (22:32)
[2019-09-01] MEDS: rOPINIRole 1 MG TAB 2 MG PO (22:33)
--- NOTE | 2019-09-01 22:51 | HPE_ITS ---
Date of service: 09/01/19 Time of Service: 22:51 Assessment and Plan Assessment and plan (1) Closed head injury without concussion: Status: Acute Assessment and plan: monitor frequent vital signs, telemetry monitoring of arrhythmias given her hx of ischemic CM and AICD; check AICD in the a.m.; if any change in neuro status then repeat her CT of her head; hold Apixaban for tonight; may resume in a.m. if no change in her neuro status. Laceration has been closed by by the ER attending. Qualifiers: Encounter type: initial encounter Qualified Code(s): S09.90XA - Unspecified injury of head, initial encounter (2) Degenerative disc disease: Status: Acute Assessment and plan: Already has been imaged w/ CT scan 10 days ago and now w/ plain film xray today w/ no evidence for fracture. Awaiting word from [facility] as to whether or not her AICD precludes an MRI. Neurosurgery dept put in a request for cardiology to review. Qualifiers: Spinal region: lumbar Qualified Code(s): M51.36 - Other intervertebral disc degeneration, lumbar region (3) Pain in right shoulder: Status: Acute Assessment and plan: probably related to her multiple falls. xray suggests a chronic fracture of the shoulder w/ Hill Sachs deformity of unknown age; will ask Dr. Flores to evaluate her in the a.m. Will ice it for tonight and provide narcotic analgesics (already being given for her back pains) Qualifiers: Chronicity: acute Qualified Code(s): M25.511 - Pain in right shoulder (4) Multiple falls: Status: Acute Assessment and plan: No clear hx of syncope although she states she had a dizzy spell w/out syncope when she got off the CT table on 08/22/2019. Otherwise all of her falls she recalls having w/ no recall of her AICD firing during these falls nor any syncope. (5) Chronic kidney disease, stage III (moderate): Status: Chronic Assessment and plan: Her renal function appears to be close to her baseline. Although she may be a bit hypovolemic, I am reluctant to give iv fluids d/t her severe CM (LVEF <30%). I will withold her bumex tonight and recheck her BMP in the a.m. (6) Ischemic cardiomyopathy: Status: Acute Assessment and plan: so far her troponins have been negative and she denies any CP or dyspnea w/ her falls. I will recheck her echo in the a.m. as it has been couple of years since her last echo here. She was due to follow up locally w/ Dr. Comer but could not get an appt. until October. History of Present Illness History of Present Illness Chief Complaint: Frequent falls, closed head injury with laceration, back pain Narrative: 69-year-old female who presents to the emergency department from home after sustaining a fall in her kitchen and closed head injury with scalp laceration. Patient denies loss of consciousness and no antecedent dizziness or lightheadedness nor any chest pain or dyspnea. Patient's been having back pain and weakness in her legs for the past month. Her primary care provider is Dr. Taya Juan who is referred the patient to [facility] to Dr. Laisha Martins and the patient had a telephone consultation on August 28, 2019 with Leslee Almeida APRN ordered physical therapy with [facility] Canseco as well as x-rays of her lumbosacral spine and an MRI of her spine. The MRI is pending review by [facility] neurosurgery department with the cardiology department regarding the patient's previous AICD. Patient has a significant past medical history consisting of STEMI myocardial infarction in April 2014 in which she had a stent to her LAD and left her with an ischemic cardiomyopathy with an ejection fraction of 30%. Patient had a V. fib cardiac arrest in June 2017 that resulted in placement of an AICD by Dr. Kemar Gardner at [facility]. Patient's other comorbidities include COPD for which she is not on home oxygen, essential hypertension, paroxysmal atrial fibrillation and chronic kidney disease stage III as well as suspected LETI for which the patient has refused to wear CPAP. Patient states for the past month she has been having increasing lower back pain and unsteady gait with her legs giving out on her. She has no saddle anesthesia and no bowel or bladder incontinence although she has had constipation due to use of narcotic pain medications for her back pain. Work-up in the emergency department included routine labs EKG CT scan of her head as well as x-rays of her lumbar spine pelvis and right shoulder. CT of her head was done this afternoon previous x-rays were done this morning as she originally presented to the emergency department earlier this morning but was discharged home. X-ray of her pelvis was negative for any pelvic or hip fracture. X-ray right shoulder shows a Hill-Sachs deformity of the shoulder of indeterminate age. CT of her head showed a small scalp hematoma in the posterior midline but no traumatic brain injury. X-rays of her lumbar spine shows degenerative changes but no fracture. Patient had a prior CT scan of her lumbosacral spine during her prior ER visit from August 23, 2019 that showed no fracture or subluxation lumbar spine but multiple levels of degenerative changes and suspicion for hepatic cirrhosis as well as left nephrolithiasis without hydronephrosis. She has degenerative facet changes and degenerative disc changes at multiple levels of her lumbar and lumbosacral spine. She has multiple levels of neural foraminal narrowing but no significant central spinal canal stenosis. Patient is now admitted to the hospital for further evaluation of her back pain and frequent falls. Her troponin I level is normal at less than 0.05?2 sets. Of note her BUN and creatinine are slightly above her baseline at 68 and 2.19 (her baseline BUN has varied between 35-70 and at times has been as high as 141 when she was over diuresed.). Her baseline creatinine is varied between 1.8 and 2.7 and has been as high as 4.76 when she experienced acute kidney injury due to overdiuresis. Her CBC demonstrates a mild leuko cytosis at 13,000. Hemoglobin hematocrit are stable at 12.3 and 37.9%. Her urinalysis is fairly unremarkable. Review of Systems All systems reviewed & are unremarkable except as noted in HPI and below [facility] Medical History (Updated 09/02/19 @ 00:16 by Star Gonzalez) Candidiasis, intertrigo (Acute) Cardiac arrest with ventricular fibrillation (Resolved) Cardiomyopathy (Chronic) Cardiorenal syndrome (Inactive) Community acquired pneumonia (Inactive) COPD (chronic obstructive pulmonary disease) (Inactive) Coronary artery disease (Chronic 05/05/14) STEMI with LAD stent 04/2014 EF 35% Cystocele (Inactive) Hyponatremia (Inactive) Impaired glucose tolerance (Chronic) Ischemic cardiomyopathy (Acute) Leukocytosis (Inactive) a. since 1995 with reportedly normal bone marrow biopsy in 1996 Mixed urinary incontinence due to female genital prolapse (Inactive) Neck mass (Inactive 01/26/15) Right ventricular dysfunction (Inactive) Systolic CHF (Inactive 05/02/14) a. subacute with acute exacerbation Urinary incontinence (Chronic 11/06/17) Surgical History (Updated 09/02/19 @ 00:01 by Star Gonzalez) AICD (automatic cardioverter/defibrillator) present (Chronic ~06/2017) Cholecystectomy H/O surgical procedure (Inactive) a. s/p cholecystectomy b. s/p hysterectomy c. s/p bilateral carpan tunnel release surgery d. incisional hernia repair Hernia Repair, Incisional 04/19/14 History of heart artery stent (Chronic ~2013) LAD Hysterectomy, Laproscopic (~1980) OVARIES REMAIN Tonsillectomy Family History (Updated 09/02/19 @ 00:03 by Star Gonzalez) Mother Stroke Father Peptic ulcer disease Brother Substance abuse Social History (Updated 09/02/19 @ 00:03 by Star Gonzalez) Smoking/Tobacco Use Status: Former Tobacco Use Quit Date: 05/20/13 Tobacco: How many years used: 40 Second Hand Exposure: Yes Alcohol Intake: never Drug use: Never Substance use type: does not use Household members: spouse Number of Children: 5 Do you feel safe at home: Yes Do you feel safe in your relationship?: Yes Female Reproductive History Menstrual Menopause type: surgical History History 5 Para 5 Hx # Term Pregnancies 5 Multiple births Hx # Pregnancies Ectopic pregnancies AB induced Hx Number of Living Children 5 AB spontaneous Meds Home Medications and Allergies Home Medications Medication Instructions Recorded Confirmed Type albuterol sulfate [Ventolin HFA] 2 puff INHALATION Q4H PRN #120 07/13/15 09/01/19 History inhaler atorvastatin 80 mg PO DAILY #90 tab-cap 07/02/16 09/01/19 History nitroglycerin 0.4 mg SUBLINGUAL PRN PRN #30 01/28/17 09/01/19 History tab-cap acetaminophen [Tylenol] 650 mg PO Q6H PRN #1 tab 09/24/17 09/01/19 Rx spironolactone 25 mg PO DAILY #90 tab-cap 10/02/17 09/01/19 Rx Eliquis 5 mg PO BID #60 tab 11/22/17 09/01/19 Rx metolazone 2.5 mg PO PRN #30 tab-cap 01/08/18 09/01/19 Rx metoprolol succinate 100 mg 100 mg PO DAILY tab 02/26/18 09/01/19 History tablet,extended release 24 hr allopurinol 300 mg tablet 300 mg PO DAILY 03/04/18 09/01/19 History amiodarone 400 mg tablet 200 mg PO DAILY tab 11/19/18 09/01/19 History mirabegron 25 mg tablet,extended 25 mg PO DAILY #60 tab 05/14/19 09/01/19 Rx release 24 hr Incruse Ellipta 1 inh INHALATION DAILY 05/26/19 09/01/19 History benzonatate [Tessalon Perles] 100 mg PO BID PRN 05/26/19 09/01/19 History ipratropium bromide 2.5 ml INHALATION Q6H PRN 05/26/19 09/01/19 History ropinirole 2 mg PO QHS 05/26/19 09/01/19 History bumetanide 2 mg PO BID 08/16/19 09/01/19 History methocarbamol 500 mg PO Q6H PRN #14 tab 08/16/19 09/01/19 Rx oxycodone 5 mg PO Q6H PRN #10 tab 08/16/19 09/01/19 Rx Allergies Allergy/AdvReac Type Severity Reaction Status Date / Time lisinopril AdvReac Other (See Verified 09/01/19 15:37 Comment) sacubitril [From Entresto] AdvReac rash Verified 09/01/19 15:37 valsartan [From Entresto] AdvReac rash Verified 09/01/19 15:37 Exam Narrative Exam Narrative: Hirsuit, female lying in bed on her left side; no acute distress, A&Ox3 HEENT: remarkable for closed laceration of occipital scalp Neck: supple, nontender, normal ROM, no LN, no thryomegaly, normal carotid pulses Lungs: clear Heart: RRR w/out murmur, rub or gallop; not easy to listen over apex d/t large pendulous breasts Abdomen: soft, nontender, not distended w/ normal bowel sounds Rectal exam deferrred Extremities: right foot w/ ecchymoses over 2nd toe and dorsum of foot at base of 2nd toe, 1+pitting pedal and pretibial edema bilaterally; no calf swelling or tenderness Neuro: normal facial mimetic movement, normal EOMI; no dysarthric speech, CN grossly intact; normal strength in both UE and normal strength in both LE to hip flexion/extension, flexion and extension at the knees as well as pedal dorsiflexion and plantar flexion; normal hip abduction and adduction; sensation intact to light touch and noxious stimuli over both feet and legs; absent right knee jerk and ankle jerk; Babinski reflex absent bilaterally; brisk ankle and knee jerk reflexes on the left Results Labs Result diagrams: 09/01/19 16:35 09/01/19 16:35 Labs: Laboratory Results - last 24 hr 09/01/19 09/01/19 09/01/19 16:35 16:35 16:35 WBC 13.10 H RBC 4.02 Hgb 12.3 Hct 37.9 MCV 94.3 MCH 30.6 MCHC 32.5 RDW 18.6 H Plt Count 306 MPV 10.9 Immature Gran % 0.4 Neutrophils % 80.1 Lymphocytes % 9.1 Monocytes % 10.1 Eosinophils % 0.2 Basophils % 0.1 Absolute Neutrophils 10.49 H Absolute Lymphocytes 1.19 L Absolute Monocytes 1.32 H Absolute Eosinophils 0.03 Absolute Basophils 0.01 PT 12.2 H INR 1.2 H Sodium 136 Potassium 4.0 Chloride 95 L Carbon Dioxide 34.2 H Anion Gap 6.8 BUN 68 H Creatinine 2.19 H Estimated GFR/1.73 m2 22.25 Glucose 115 H Calcium 9.3 Magnesium 2.2 Total Bilirubin 1.1 H AST 72 H ALT 54 Alkaline Phosphatase 276 H Troponin I < 0.05 Total Protein 7.7 Albumin 2.3 L 09/01/19 18:30 WBC RBC Hgb Hct MCV MCH MCHC RDW Plt Count MPV Immature Gran % Neutrophils % Lymphocytes % Monocytes % Eosinophils % Basophils % Absolute Neutrophils Absolute Lymphocytes Absolute Monocytes Absolute Eosinophils Absolute Basophils PT INR Sodium Potassium Chloride Carbon Dioxide Anion Gap BUN Creatinine Estimated GFR/1.73 m2 Glucose Calcium Magnesium Total Bilirubin AST ALT Alkaline Phosphatase Troponin I < 0.05 Total Protein Albumin Last Vital Signs Temp 37.1 C 09/01/19 19:36 Pulse 70 09/01/19 20:00 Resp 21 09/01/19 19:36 BP 113/75 09/01/19 19:36 Pulse Ox 95 09/01/19 19:36 COVID-19 Screening Traveled to [place] from one of the affected countries or regions?: NO Recent travel in the [place] within the last 8 weeks?: No Recent out of the country travel within the last 8 weeks?: No Exposure or possible exposure to illness during travel?: No Had IN PERSON contact w/suspected or confirmed C-19 person: No Have you had the following symptoms in the past few days?: No Symptoms noted since travel?: Fever
[2019-09-01 23:40] LABS: Troponin I < 0.05 ng/Ml (<0.06)
[2019-09-02] MEDS: Normal Saline Flush 10 ML SYR IVP ×2 (00:38→15:59)
[2019-09-02] MEDS: MORPHine 2 MG/ML SYR IVP ×2 (00:38→14:25)
[2019-09-02 03:40] VITALS: BP 112/71; PULSE 71; RESP 19; TEMP 36.8; O2SAT 92
[2019-09-02] MEDS: oxyCODONE 5 MG TAB PO ×2 (05:49→13:01)
[2019-09-02] MEDS: Methocarbamol 500 MG TAB PO (05:49)
[2019-09-02] MEDS: Acetaminophen 325 MG TAB PO (05:50)
[2019-09-02 07:10] VITALS: BP 108/69; PULSE 73; RESP 20; TEMP 35.6; O2SAT 89
[2019-09-02 07:18] LABS: Abs Immature Grans 0.02 k/cumm (0.0-0.09); Absolute Basophil Count 0.01 k/cumm (0.0-0.2); Absolute Eosinophil Count 0.05 k/cumm (0.0-0.7); Absolute Lymphocyte Count 1.06 k/cumm (1.2-3.4); Absolute Monocyte Count 1.21 k/cumm (0.11-0.7); Absolute Neutrophil Count 8.24 k/cumm (1.2-6.7); Basophils % 0.1; Eosinophils % 0.5; HCT 36.5 % (36.0-46.0); HGB 11.9 g/dL (12.0-15.5); Immature Grans % 0.2 %; Mean Corp. HGB Concentration 32.6 g/dL (32.0-36.0); Mean Corpuscular Hemoglobin 30.7 pg (27.0-33.0); Mean Corpuscular Volume 94.1 fL (80-95); Mean Platelet Volume 11.2 fL (8.0-11.0); Monocytes % 11.4; Neutrophils % 77.8; Platelet Count 274 x1000/uL (130-400); RBC 3.88 m/cumm (4.00-5.20); RBC Distribution Width 18.6 % (11.7-14.6); White Blood Cell Count 10.59 k/cumm (4.4-10.8)
[2019-09-02 07:32] LABS: BUN 64 mg/dL (7-18); CREATININE 1.93 mg/dL (0.55-1.02); Chloride 96 mmol/L (98-107); Estimated GFR 25.74 (mL/min/1.73m2); Glucose 111 mg/dL (74-106); Potassium 3.3 mmol/L (3.5-5.1); Sodium 134 mmol/L (136-145); TSH (W/Ref FT4) 0.75 uIU/mL (0.36-3.74)
[2019-09-02] MEDS: Docusate Sodium 100 MG CAP PO ×2 (08:58→19:52)
[2019-09-02] MEDS: Bumetanide 1 MG TAB 2 MG PO ×2 (08:58→19:51)
[2019-09-02] MEDS: Allopurinol 300 MG TAB PO (08:58)
[2019-09-02] MEDS: Amiodarone 200 MG TAB PO (08:58)
[2019-09-02] MEDS: Metoprolol CR 100 MG TABCR PO (08:58)
[2019-09-02] MEDS: Spironolactone 25 MG TAB PO (08:58)
[2019-09-02] MEDS: Mirabegron 25 MG TABCR PO (08:58)
[2019-09-02] MEDS: Umeclidinium 7 CAP INHALER IH (10:17)
--- NOTE | 2019-09-02 10:43 | OTIE_ITS ---
Occupational Therapy Notes Inpatient Occupational Therapy Evaluation Date: 09/02/19 Referring Doctor:Lindsay Tuttle NP OT Orders: Non-Urgent: Limited Ability Precautions: Fall, Standard, FULL PATIENT PROFILE/ADMITTING DIAGNOSIS: Pt is a 69 year old female who presented to the ER twice on 09/01/19. The first time pt reports that she was unable to get up off her couch and was sent back home after ER visit. She reports that later on she fell hitting her head resulting in a scalp laceration to occipital head. Pt was admitted to [facility] for closed head injury, degenerative disc disease, pain in (R) shoulder, multiple falls, Chronic Kidney disease stage III, Ischemic cardiomyopathy, back pain. Past Medical History- Medical History (Updated 09/02/19 @ 00:16 by Star Gonzalez) Candidiasis, intertrigo (Acute) Cardiac arrest with ventricular fibrillation (Resolved) Cardiomyopathy (Chronic) Cardiorenal syndrome (Inactive) Community acquired pneumonia (Inactive) COPD (chronic obstructive pulmonary disease) (Inactive) Coronary artery disease (Chronic 05/05/14) STEMI with LAD stent 04/2014 EF 35% Cystocele (Inactive) Hyponatremia (Inactive) Impaired glucose tolerance (Chronic) Ischemic cardiomyopathy (Acute) Leukocytosis (Inactive) a. since 1995 with reportedly normal bone marrow biopsy in 1996 Mixed urinary incontinence due to female genital prolapse (Inactive) Neck mass (Inactive 01/26/15) Right ventricular dysfunction (Inactive) Systolic CHF (Inactive 05/02/14) a. subacute with acute exacerbation Urinary incontinence (Chronic 11/06/17) Surgical History (Updated 09/02/19 @ 00:01 by Star Gonzalez) AICD (automatic cardioverter/defibrillator) present (Chronic ~06/2017) Cholecystectomy H/O surgical procedure (Inactive) a. s/p cholecystectomy b. s/p hysterectomy c. s/p bilateral carpan tunnel release surgery d. incisional hernia repair Hernia Repair, Incisional 04/19/14 History of heart artery stent (Chronic ~2013) LAD Hysterectomy, Laproscopic (~1980) OVARIES REMAIN Tonsillectomy Social History/Home Situation: Pt reports that she lives in a private home with her . She reports that at baseline she does not need any (A). Her back pain has occurred for about a month now and she was attending PT in the outpatient setting at [facility]. Pt states that she has a tub/shower with grab bars, no bench. She has difficulty getting on and off her toilet. OT does recommend a raised toilet seat to decrease strain on pts (B) LE and back and increase her overall functional safety. At night she reports that she has difficulty getting to and from the bathroom due to fall risks. OT also recommends a commode at bed for night time toileting routine to decrease fall risk. Pt has two stairs to enter her home with (B) railings and no steps inside her home. She does not utilize an (A) device at baseline. She does drive, her performs all cooking, food prep and grocery shopping. Equipment owned/DME: None SUBJECTIVE: Pt was sitting in bed when OT arrived. She reports that she is having signficant pain in her (R) shoulder which is limiting her at this time. OBJECTIVE: General Observation: Pleasant and able to answer questions appropriately. Pain behaviors noted with functional mobility. Telemetry Mental Status: A&Ox3 Pain: C/o pain in low back ROM: RUE Shoulder hike with significant scapular substitution, elbow WNL, hand/digits WNL L UE AROM WFL STRENGTH: RUE Body Engineer is strong and symmetrical LUE Shoulder flexion 4/5, bicep 5/5, tricep 5/5, poolroom/poolhall manager is strong and symmetrical SENSATION: Intact FUNCTIONAL MOBILITY/ADLS: Transfers with FWW Supine-sit Mod (A) Sit-supine Mod (A) Sit-Stand CGAx2 Stand-sit CGAx2 Bed-Commode CGAx2 Commode-bed CGAx2 BATHING- Pt denies but is able to perform functional AROM for bathing routine. She is limited with (R) UE and this will decrease her functional (I) without (A). DRESSING Dressing LE Min (A) doffing pants, mod (A) donning pants, max (A) don and doffing (B) socks TOILETING On commode max (A) toileting hygiene BALANCE: Static sitting Normal Dynamic Sitting Good Static Standing Good Dynamic Standing Good SPECIAL TESTS: Daily Activity Limitations Standardized Measure [facility] AM -PAC ?6 clicks? Daily Activity Inpatient Short Form: Raw score: 15 Standardized score: 34.69 CMS score: 56.46% INFORMED CONSENT/EDUCATION: Pt instructed in purpose of OT Consult and plan of care. ASSESSMENT: Patient is a 69-year-old female referred to occupational therapy services with diagnosis of closed head injury, degenerative disc disease, pain in (R) shoulder, multiple falls, Chronic Kidney disease stage III, Ischemic cardiomyopathy, back pain. Patient presents with clinical signs and symptoms consistent with dx, as demonstrated by the following impairment level findings/ functional limitations: Decreased AROM of (R) UE effecting dressing, bathing and toileting routines, decreased functional activity tolerance, decreased gross and fine motor control of (R) UE, decreased strength, decreased performance of LE bathing and dressing, decreased ability to perform functional mobility required for ADL/IADL routines. AMPAC score 15 Patient is assessed as a Moderate [id number] complexity based on the following: History: See above Examination: See functional limitations as noted above Presentation: Evolving Decision Making: AMPAC score 15 GOALS Goals x1 week 1. Transfers with LRD 2. Dressing able to perform LE dressing mod (I) with adaptive equipment 3. Bathing sitting, able to (I) perform UE and mod (A) LE 4. Toileting on toilet (S) 5. Eating (I) PLAN OF CARE/TREATMENT PLAN: 1x/day, 5 days/ week x 1week Initiate Occupational Therapy Services for bathing, dressing, grooming, toileting, eating, transfer training. DISCHARGE RECOMMENDATIONS Plan per RN is for pt to be transferred to [facility]. PT/OT goal for pt to is return home when medically cleared per MD. OT recommends the following DME:OT does recommend a raised toilet seat to decrease strain on pts (B) LE and back and increase her overall functional safety. At night she reports that she has difficulty getting to and from the bathroom due to fall risks. OT also recommends a commode at bed for night time toileting routine to decrease fall risk. TREATMENT TIME/MINUTES/CODES [id number], [id number], 36 minutes (10:03) [facility]
--- NOTE | 2019-09-02 10:46 | PT.INIE ---
Date of service: 09/02/19 Time of Service: 10:20 PT Notes Visit Reasons: FREQUENT FALLS, BILATERAL LEG WEAKNESS, CLOSED HEA Inpatient Physical Therapy Evaluation Date: September 02, 2019 Referring Doctor: Star Gonzalez PT Orders: PT CONSULT: Fall Safety Assessment Precautions: Falls, Standard, Vitals to be monitored Patient Profile/Admitting Diagnosis: Zora is a 69-year-old female who presents to the emergency department from home after sustaining a fall in her kitchen and closed head injury with scalp laceration. Patient denies loss of consciousness and no antecedent dizziness or lightheadedness nor any chest pain or dyspnea. Patient's been having back pain and weakness in her legs for the past month. PMHX: (Updated 09/02/19 @ 00:16 by Star Gonzalez) Candidiasis, intertrigo (Acute) Cardiac arrest with ventricular fibrillation (Resolved) Cardiomyopathy (Chronic) Cardiorenal syndrome (Inactive) Community acquired pneumonia (Inactive) COPD (chronic obstructive pulmonary disease) (Inactive) Coronary artery disease (Chronic 05/05/14) STEMI with LAD stent 04/2014 EF 35% Cystocele (Inactive) Hyponatremia (Inactive) Impaired glucose tolerance (Chronic) Ischemic cardiomyopathy (Acute) Leukocytosis (Inactive) a. since 1995 with reportedly normal bone marrow biopsy in 1996 Mixed urinary incontinence due to female genital prolapse (Inactive) Neck mass (Inactive 01/26/15) Right ventricular dysfunction (Inactive) Systolic CHF (Inactive 05/02/14) a. subacute with acute exacerbation Urinary incontinence (Chronic 11/06/17) Surgical History (Updated 09/02/19 @ 00:01 by Star Gonzalez) AICD (automatic cardioverter/defibrillator) present (Chronic ~06/2017) Cholecystectomy H/O surgical procedure (Inactive) a. s/p cholecystectomy b. s/p hysterectomy c. s/p bilateral carpan tunnel release surgery d. incisional hernia repair Hernia Repair, Incisional 04/19/14 History of heart artery stent (Chronic ~2013) LAD Hysterectomy, Laproscopic (~1980) OVARIES REMAIN Tonsillectomy Social History/Home Situation: Zora lives in a private home with her . Zora notes that she has 2 stairs to enter her home otherwise is on one level. She does not utilize any assistive device at baseline. Her has been doing the driving and grocery shopping due to her back pain and leg instability. She notes that her legs seem to be getting weaker and weaker and has sustained multiple falls secondary to them buckling. She has had previous outpatient PT due to her leg weakness however has not been continuing with her HEP as prescribed and has been unable to get back into dept due to their closure secondary to COVID 19 Current Functional Limitations: LE weakness, frequent falls, LBP, SOB Equipment Owned/DME: None Subjective: Zora is agreeable to PT consult with morning. She notes that her back pain continues rating a 5/10 on VAS. She notes significant weakness in her legs with walking. She notes that she tried to sit up in recliner however her back was very uncomfortable in this. She notes that she has to use the commode. Objective: General Observation: Telemetry Mental Status: Alert and oriented x3. Very pleasant Pain: 5/10 on VAS low back Vital Signs: 98% O2 saturation on room air, 82 bpm ROM: Right Upper Extremity: Unable to lift her right arm away from body due to significant right shoulder pain. Demonstrate significant substitution of the scapular musculature. Elbow and wrist ROM WNL Left Upper Extremity: Demonstrates grossly WFL AROM Right Lower Extremity: AA hip flexion to 100 degrees with pain in her low back, IR neutral, ER 30 degrees. Knee flexion/extension WFL, Ankle ROM WNL Left Lower Extremity: AA hip flexion to 105 degrees, IR neutral, ER 30 degrees. Knee flexion/extension WFL, Ankle ROM WNL Strength: Right Upper Extremity: Unable to lift R UE against gravity due to pain Left Upper Extremity: Shoulder flexion 4/5, abduction 4/5, bicep/tricep 5/5 Right Lower Extremity: Hip flexion 3+/5, knee extension 4/5, knee flexion 4-/5, DF/PF 4/5 Left Lower Extremity: Hip flexion 3+/5, knee extension 4/5, knee flexion 4-/5, DF/PF 4/5 Sensation: N/T Bed Mobility/Transfers: Supine-sit: modA with HOB 30 degrees Sit-supine: modA with HOB 30 degrees Sit-stand: mod A with FWW Stand-sit: Asya with cueing for hand placement Bed to commode: CGA x2 with FWW Commode to bed: CGA x2 with FWW Gait: FWW, FWB, CGA x2 bed to commode Balance: Static Sitting: Normal Dynamic Sitting: Normal Static Standing: Fair Dynamic Standing: Fair Special Tests: Mobility Limitations Standardized Measure [facility] AM-PAC 6 clicks Basic Mobility Inpatient Short Form: Raw Score: 13 CMS Score: 64.91% Informed Consent/Education: Patient instructed in purpose of PT consult and plan of care. Assessment: Patient is a 69 year old female referred to physical therapy services with the diagnosis of s/p fall sustaining a closed head injury, DDD acute on chronic LBP, chronic kidney disease and ischemic cardiomyopathy . Patient presents with clinical signs and symptoms consistent with diagnosis, as demonstrated by the following impairment level findings: impaired right shoulder ROM/strength, impaired muscle performance and motor function of bilateral LE resulting in decreased functional endurance and ambulation with multiple fall history. Impairments are contributing to the following functional limitations: limited bed mobility, limited transfer ability, limited functional endurance with community/home ambulation with frequent falls Patient is assessed as a Moderate 21323 complexity based on the following: History: As above Examination: As above Presentation: Evolving Decision Making: Moderate Goals: Goals X1 week 1. Supine-Sit I 2. Sit-Supine I 3. Sit-Stand I with FWW 4. Stand-Sit I 5. Bed-Chair I with FWW 6. Chair-Bed I with FWW 7. Gait I with FWW 200ft or greater 8. Stairs Up/down 2-3 steps with use of railing I Plan of Care/Treatment Plan: 1-2x/day, 7 days/week x 1 week. Plan of care has been reviewed with the INSURANCE AGENTS SUPERVISOR providing the service under Physical Therapy direction. Initiate Physical Therapy intervention for strengthening, bed mobility, transfers, gait, stairs, balance training, use of assistive device. DISCHARGE RECOMMENDATIONS: Home upon medical release of Recommend use of FWW for ambulation due to number of falls she has recently taken. TREATMENT CODE/TIME: 05354, 25 minutes, 10:20 AM DO Harris
[2019-09-02 11:39] VITALS: BP 113/71; PULSE 68; RESP 20; TEMP 37; O2SAT 91
--- NOTE | 2019-09-02 11:57 | OCONE_ITS ---
Date of service: 09/02/19 Time of Service: 11:58 History of Present Illness Narrative: Assessment done via review of imaging and discussion with primary medical hospitalist Assessment and Plan Assessment and plan (1) Pain in right shoulder: Status: Acute Assessment and plan: No acute injury. On my review of her right shoulder imaging, it is negative for Hill-Sachs lesion although reported by radiologist. Shoulder is not dislocated. Greater tuberosity lesion may represent rotator cuff injury and/or arthritis. Happy to evaluate and see the patient in my office as an outpatient for her right shoulder pain. Qualifiers: Chronicity: unspecified Qualified Code(s): M25.511 - Pain in right shoulder (2) Lower back pain: Status: Acute Assessment and plan: Chronic low back pain with what sounds like possible radiculopathy and possible weakness contributing to frequent falls. Nothing reported consistent with cauda equina syndrome. On my review of her CT scan report and imaging, consistent with chronic degenerative changes including spondylosis without significant spondylolisthesis. Strength testing per overnight hospitalist reportedly strong for right lower extremities in the day hospitals report symptoms of instability occur while ambulating. No in person inpatient assessment done due to coronavirus concerns as we do not perform spine surgery intervention here and these are chronic issues and the patient has established care at [facility]. Recommend follow-up with her [facility] spine providers and obtaining their previously recommended MRI at their facility as ours cannot accommodate her AICD. Recommend, if not already done, evaluation of the cervical spine given falls possible cervical myelopathy. Recommend complete medical evaluation for other causes of falls including any cardiac, vascular, or vestibular issues as appropriate if not already done. Expedited outpatient follow-up seems appropriate for these worsening but chronic problems but may have to be modified due to ongoing social or logistical issues leading to coronavirus. Patient with multiple medical comorbidities. Care per primary admitting hospitalist. Please call me directly with any questions or concerns about this patient. Qualifiers: Chronicity: unspecified Back pain laterality: unspecified Sciatica presence: unspecified whether sciatica present Qualified Code(s): M54.5 - Low back pain FOR[facility]LY [facility], [facility] Medical History (Updated 09/02/19 @ 12:03 by Angel Houser MD) Candidiasis, intertrigo (Acute) Cardiac arrest with ventricular fibrillation (Resolved) Cardiomyopathy (Chronic) Cardiorenal syndrome (Inactive) Community acquired pneumonia (Inactive) COPD (chronic obstructive pulmonary disease) (Inactive) Coronary artery disease (Chronic 05/05/14) STEMI with LAD stent 04/2014 EF 35% Cystocele (Inactive) Hyponatremia (Inactive) Impaired glucose tolerance (Chronic) Ischemic cardiomyopathy (Acute) Leukocytosis (Inactive) a. since 1995 with reportedly normal bone marrow biopsy in 1996 Mixed urinary incontinence due to female genital prolapse (Inactive) Neck mass (Inactive 01/26/15) Right ventricular dysfunction (Inactive) Systolic CHF (Inactive 05/02/14) a. subacute with acute exacerbation Urinary incontinence (Chronic 11/06/17) Surgical History (Updated 09/02/19 @ 00:01 by Star Gonzalez) AICD (automatic cardioverter/defibrillator) present (Chronic ~06/2017) Cholecystectomy H/O surgical procedure (Inactive) a. s/p cholecystectomy b. s/p hysterectomy c. s/p bilateral carpan tunnel release surgery d. incisional hernia repair Hernia Repair, Incisional 04/19/14 History of heart artery stent (Chronic ~2013) LAD Hysterectomy, Laproscopic (~1980) OVARIES REMAIN Tonsillectomy Family History (Updated 09/02/19 @ 00:03 by Star Gonzalez) Mother Stroke Father Peptic ulcer disease Brother Substance abuse Social History (Updated 09/02/19 @ 00:03 by Star Gonzalez) Smoking/Tobacco Use Status: Former Tobacco Use Quit Date: 05/20/13 Tobacco: How many years used: 40 Second Hand Exposure: Yes Alcohol Intake: never Drug use: Never Substance use type: does not use Household members: spouse Number of Children: 5 Do you feel safe at home: Yes Do you feel safe in your relationship?: Yes Female Reproductive History Menstrual Menopause type: surgical History History 5 Para 5 Hx # Term Pregnancies 5 Multiple births Hx # Pregnancies Ectopic pregnancies AB induced Hx Number of Living Children 5 AB spontaneous Results Last Vital Signs Temp 98.6 F 09/02/19 11:39 Pulse 68 09/02/19 11:39 Resp 20 09/02/19 11:39 BP 113/71 09/02/19 11:39 Pulse Ox 91 L 09/02/19 11:39 Labs Result diagrams: 09/02/19 06:30 09/02/19 06:30 Labs: Laboratory Results - last 24 hr 09/01/19 09/01/19 09/01/19 16:35 16:35 16:35 WBC 13.10 H RBC 4.02 Hgb 12.3 Hct 37.9 MCV 94.3 MCH 30.6 MCHC 32.5 RDW 18.6 H Plt Count 306 MPV 10.9 Immature Gran % 0.4 Neutrophils % 80.1 Lymphocytes % 9.1 Monocytes % 10.1 Eosinophils % 0.2 Basophils % 0.1 Absolute Neutrophils 10.49 H Absolute Lymphocytes 1.19 L Absolute Monocytes 1.32 H Absolute Eosinophils 0.03 Absolute Basophils 0.01 PT 12.2 H INR 1.2 H Sodium 136 Potassium 4.0 Chloride 95 L Carbon Dioxide 34.2 H Anion Gap 6.8 BUN 68 H Creatinine 2.19 H Estimated GFR/1.73 m2 22.25 Glucose 115 H Calcium 9.3 Magnesium 2.2 Total Bilirubin 1.1 H AST 72 H ALT 54 Alkaline Phosphatase 276 H Troponin I < 0.05 Total Protein 7.7 Albumin 2.3 L TSH 09/01/19 09/01/19 09/02/19 18:30 23:00 06:30 WBC RBC Hgb Hct MCV MCH MCHC RDW Plt Count MPV Immature Gran % Neutrophils % Lymphocytes % Monocytes % Eosinophils % Basophils % Absolute Neutrophils Absolute Lymphocytes Absolute Monocytes Absolute Eosinophils Absolute Basophils PT INR Sodium 134 L Potassium 3.3 L Chloride 96 L Carbon Dioxide 31.0 Anion Gap 7.0 BUN 64 H Creatinine 1.93 H Estimated GFR/1.73 m2 25.74 Glucose 111 H Calcium 9.0 Magnesium Total Bilirubin AST ALT Alkaline Phosphatase Troponin I < 0.05 < 0.05 Total Protein Albumin TSH 0.75 09/02/19 06:30 WBC 10.59 RBC 3.88 L Hgb 11.9 L Hct 36.5 MCV 94.1 MCH 30.7 MCHC 32.6 RDW 18.6 H Plt Count 274 MPV 11.2 H Immature Gran % 0.2 Neutrophils % 77.8 Lymphocytes % 10.0 Monocytes % 11.4 Eosinophils % 0.5 Basophils % 0.1 Absolute Neutrophils 8.24 H Absolute Lymphocytes 1.06 L Absolute Monocytes 1.21 H Absolute Eosinophils 0.05 Absolute Basophils 0.01 PT INR Sodium Potassium Chloride Carbon Dioxide Anion Gap BUN Creatinine Estimated GFR/1.73 m2 Glucose Calcium Magnesium Total Bilirubin AST ALT Alkaline Phosphatase Troponin I Total Protein Albumin TSH
[2019-09-02] MEDS: Potassium Chloride 20 MEQ TABCR 40 MEQ PO (12:04)
[2019-09-02] MEDS: Polyethylene Glycol 3350 17 GM PACKET PO (12:04)
--- NOTE | 2019-09-02 13:15 | W.NUTCONSULT ---
Date of service: 09/02/19 Time of Service: 13:16 Nutritional Consult ASSESSMENT: 69 year old female admitted s/p fall with degenterative disc dx. Following [facility] Diet with adequate intake (75-100%). Not at risk for nutritional decline at this time. Time Spent in Nutritional Counseling and Treatment: 0 time spent face to face
--- NOTE | 2019-09-02 15:07 | PDOC.CMIN ---
- If Service Date Differs Date of service: 09/02/19 Time of Service: 16:22 Care Management Initial Assess REASON FOR HOSPITALIZATION:: Frequent falls, bilat leg weakness, closed head injury PAST MEDICAL HISTORY/PAST SURGICAL HISTORY:: Anemia (Chronic), Atrial fibrillation (Chronic), Cardiomyopathy, ischemic (Chronic), Chronic kidney disease, stage III (moderate) (Chronic), Chronic obstructive pulmonary disease (Chronic 09/03/14), Congestive heart disease (Chronic 05/05/14), Coronary artery disease (Chronic 05/05/14) - STEMI with LAD stent 04/2014 - EF 35%,. Hypertension (Chronic), ICD (implantable cardioverter-defibrillator) in place (Chronic), Impaired glucose tolerance (Chronic), Morbid obesity (Chronic),. Nephrolithiasis (Chronic), Nocturnal hypoxia (Chronic), Tobacco use disorder (Resolved) - a. quit one week ago at the time of her [facility], and Urinary incontinence (Chronic 11/06/17). Surgical History: Cholecystectomy, Hernia Repair, Incisional 04/19/14, Hysterectomy, Laproscopic (~1980) - OVARIES REMAIN, and. Tonsillectomy. PREVIOUS FUNCTIONAL STATUS/SOCIAL/FAMILY SUPPORTS:: Zora lives in [place] with her , Otis. She reports her is currently undergoing treatment for lung cancer. The couple has five children, four who live in [place] and one who is . They also have nine adult grandchildren and two great grandkids. 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 She now occupies her time gardening and fishing during warmer months and putting together jigsaw puzzles in the winter. Zora drives and is independent with her ADLs at baseline. 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 They have several friends who are sources of support. CURRENT FUNCTIONAL STATUS:: Zora was sleeping in the afternoon, permitted her to rest. ADVANCE DIRECTIVES:: None on file. Has patient been provided with information about the portal?: Yes Did the patient sign up for the portal?: No CODE STATUS:: Full Code INSURANCE COVERAGE / FINANCIAL ISSUES:: Medicare and Financial Asst 100 CURRENT HOME/COMMUNITY SERVICES/EQUIPMENT:: Zora states she does not have any home or community services. She has a [employer] implantable cardioverter-defibrillator at home but has no other equipment. PRIMARY CARE PHYSICIAN:: Taya Juan MD ([facility]) POTENTIAL DISCHARGE NEEDS:: Ortho consult, PT evaluation. PATIENT/FAMILY EDUCATION NEEDS:: Review discharge instructions, discuss Ask Me Three. ANTICIPATED BARRIERS TO DISCHARGE:: None identified at this time. TRANSPORTATION:: Via private vehicle with family. PLAN:: Zora was evaluated by Ortho, and will follow up with them as an outpatient. She refused PT today, due to exhaustion and LBP. Anticipate she may require SNF referral prior to discharge. CM continues to follow.
--- NOTE | 2019-09-02 15:30 | W.PM.PROGNOT ---
Date of Service Date of service: 09/02/19 Time of Service: 15:30 Assessment and Plan Assessment and plan (1) Closed head injury without concussion: Status: Acute Assessment and plan: Mental status intact, and laceration is healing well. We are obtaining AICD interrogation. Will hold off resumption of anticoagulation until tomorrow. Continue monitoring mental status. Qualifiers: Encounter type: initial encounter Qualified Code(s): S09.90XA - Unspecified injury of head, initial encounter (2) Degenerative disc disease: Status: Acute Assessment and plan: At this point, able to ambulate with a walker. Will add prednisone and GPN to pain regimen. Will need outpatient follow up with [facility] for MRI and further intervention. MRI could not be performed here due to AICD in situ. Qualifiers: Spinal region: lumbar Qualified Code(s): M51.36 - Other intervertebral disc degeneration, lumbar region (3) Pain in right shoulder: Status: Acute Assessment and plan: As above - no Hill-Sachs' deformity, but OA and rotator cuff injury are likely. OT consulted. Will need outpatient follow up. Qualifiers: Chronicity: unspecified Qualified Code(s): M25.511 - Pain in right shoulder (4) Multiple falls: Status: Acute Assessment and plan: Await interrogation of AICD, though I agree that these falls sound like they are due to back pain and possible transient spinal stenosis when standing. Continue working with PT/OT with the use of the walker. Work on pain control. Follow up as outpatient. (5) Chronic kidney disease, stage III (moderate): Status: Chronic Assessment and plan: At baseline. Continue bumex; recheck chemistry in [place]. (6) Ischemic cardiomyopathy: Status: Acute Assessment and plan: Repeat echo pending. EF of 20-25% in 2018. Continue current management; await AICD interrogation. Monitor on tele. (7) DVT prophylaxis: Status: Acute Assessment and plan: Holding on therapeutic eliquis until tomorrow (8) Discharge planning issues: Status: Acute Assessment and plan: Full code may require SNF on discharge Subjective Subjective Interval history since last seen: Reports right shoulder pain for at least 1 week and back pain, which is not any worse than her regular back pain. It is not worse since the fall. Denies a headache. Nursing states the laceration (stapled) has not bled. Denies dizziness, chest pain, shortness of breath, nausea. States lidocaine patches do not help, but muscle relaxants and ice do. Still no BM. Was able to walk with PT today with a walker. She does not think she is safe to go home. Imaging reviewed with Dr Houser, who does not think that there is a Hill-Sach's deformity in the right shoulder, but there likely is chronic osteoarthritis, for which the patient should be seen as outpatient. The patient does not have signs of cauda equina, and therefore there is no indication to transfer the patient to [facility] for her back pain at this time - it should be followed up as outpatient. Exam Narrative Exam Narrative: General: Pleasant middle-aged female, appears uncomfortable HEENT: EOMI, MMM Heart: RRR Lungs: CTAB Abdomen: soft, nontender, nondistended Extremities: +1 edema BLE's, no c/c. able to move all 4 extremities Objective Objective Clinical Data: Abnormal lab results 09/01/19 09/01/19 09/01/19 Range/Units 16:35 16:35 16:35 WBC 13.10 H (4.4-10.8) k/cumm RBC (4.00-5.20) m/cumm Hgb (12.0-15.5) g/dL RDW 18.6 H (11.7-14.6) % MPV (8.0-11.0) fL Absolute Neutrophils 10.49 H (1.2-6.7) k/cumm Absolute Lymphocytes 1.19 L (1.2-3.4) k/cumm Absolute Monocytes 1.32 H (0.11-0.7) k/cumm PT 12.2 H (9.3-11.0) sec INR 1.2 H (0.9-1.1) Sodium (136-145) mmol/L Potassium (3.5-5.1) mmol/L Chloride 95 L (98-107) mmol/L Carbon Dioxide 34.2 H (21.0-32.0) mmol/L BUN 68 H (7-18) mg/dL Creatinine 2.19 H (0.55-1.02) mg/dL Glucose 115 H (74-106) mg/dL Total Bilirubin 1.1 H (0.2-1.0) mg/dL AST 72 H (15-37) U/L Alkaline Phosphatase 276 H (46-116) U/L Albumin 2.3 L (3.4-5.0) g/dL 09/02/19 09/02/19 Range/Units 06:30 06:30 WBC (4.4-10.8) k/cumm RBC 3.88 L (4.00-5.20) m/cumm Hgb 11.9 L (12.0-15.5) g/dL RDW 18.6 H (11.7-14.6) % MPV 11.2 H (8.0-11.0) fL Absolute Neutrophils 8.24 H (1.2-6.7) k/cumm Absolute Lymphocytes 1.06 L (1.2-3.4) k/cumm Absolute Monocytes 1.21 H (0.11-0.7) k/cumm PT (9.3-11.0) sec INR (0.9-1.1) Sodium 134 L (136-145) mmol/L Potassium 3.3 L (3.5-5.1) mmol/L Chloride 96 L (98-107) mmol/L Carbon Dioxide (21.0-32.0) mmol/L BUN 64 H (7-18) mg/dL Creatinine 1.93 H (0.55-1.02) mg/dL Glucose 111 H (74-106) mg/dL Total Bilirubin (0.2-1.0) mg/dL AST (15-37) U/L Alkaline Phosphatase (46-116) U/L Albumin (3.4-5.0) g/dL Vital Signs Temperature 37.0 C 09/02/19 11:39 Temperature Source Temporal Artery Scan 09/02/19 11:39 Pulse 68 09/02/19 11:39 Pulse Rhythm Irregular 09/02/19 10:17 Respiratory Rate 20 09/02/19 11:39 Respiratory Effort Non-Labored 09/02/19 10:17 Respiratory Depth Normal 09/02/19 10:17 Respiratory Pattern Normal 09/02/19 10:17 Blood Pressure 113/71 09/02/19 11:39 Blood Pressure Mean 60 09/01/19 17:46 Blood Pressure Position Supine 09/01/19 15:28 Pulse Oximetry 91 L 09/02/19 11:39 Oxygen Delivery Method Room Air 09/02/19 11:39 Oxygen Flow Rate 0 09/02/19 11:39 Pain Level 10 09/02/19 14:25 Intake & Output 09/01/19 09/02/19 09/02/19 23:59 11:59 23:59 Intake Total 480 / 480 250 / 250 Output Total 850 / 850 480 / 1830 1350 / 1830 Balance -370 / -370 -480 / -1580 -1100 / -1580 Weight 107.501 kg 109.1 kg Intake: Oral 480 / 480 250 / 250 Output: Urine 850 / 850 480 / 1830 1350 / 1830 Other: Urine Color Yellow Yellow Yellow Urine Appearance Clear Clear Clear Urine Odor None Normal Voiding Methods Bedside Commode Bedside Commode Bedside Commode Laboratory Results WBC 10.59 k/cumm (4.4-10.8) 09/02/19 06:30 RBC 3.88 m/cumm (4.00-5.20) L 09/02/19 06:30 Hgb 11.9 g/dL (12.0-15.5) L 09/02/19 06:30 Hct 36.5 % (36.0-46.0) 09/02/19 06:30 MCV 94.1 fL (80-95) 09/02/19 06:30 MCH 30.7 pg (27.0-33.0) 09/02/19 06:30 MCHC 32.6 g/dL (32.0-36.0) 09/02/19 06:30 RDW 18.6 % (11.7-14.6) H 09/02/19 06:30 Plt Count 274 x1000/uL (130-400) 09/02/19 06:30 MPV 11.2 fL (8.0-11.0) H 09/02/19 06:30 Immature Gran % 0.2 % 09/02/19 06:30 Neutrophils % 77.8 09/02/19 06:30 Lymphocytes % 10.0 09/02/19 06:30 Monocytes % 11.4 09/02/19 06:30 Eosinophils % 0.5 09/02/19 06:30 Basophils % 0.1 09/02/19 06:30 Absolute Neutrophils 8.24 k/cumm (1.2-6.7) H 09/02/19 06:30 Absolute Lymphocytes 1.06 k/cumm (1.2-3.4) L 09/02/19 06:30 Absolute Monocytes 1.21 k/cumm (0.11-0.7) H 09/02/19 06:30 Absolute Eosinophils 0.05 k/cumm (0.0-0.7) 09/02/19 06:30 Absolute Basophils 0.01 k/cumm (0.0-0.2) 09/02/19 06:30 PT 12.2 sec (9.3-11.0) H 09/01/19 16:35 INR 1.2 (0.9-1.1) H 09/01/19 16:35 Sodium 134 mmol/L (136-145) L 09/02/19 06:30 Potassium 3.3 mmol/L (3.5-5.1) L 09/02/19 06:30 Chloride 96 mmol/L (98-107) L 09/02/19 06:30 Carbon Dioxide 31.0 mmol/L (21.0-32.0) 09/02/19 06:30 Anion Gap 7.0 mmol/L (3-11) 09/02/19 06:30 BUN 64 mg/dL (7-18) H 09/02/19 06:30 Creatinine 1.93 mg/dL (0.55-1.02) H 09/02/19 06:30 Estimated GFR/1.73 m2 25.74 (mL/min/1.73m2) 09/02/19 06:30 Glucose 111 mg/dL (74-106) H 09/02/19 06:30 Calcium 9.0 mg/dL (8.5-10.1) 09/02/19 06:30 Magnesium 2.2 mg/dL (1.8-2.4) 09/01/19 16:35 Total Bilirubin 1.1 mg/dL (0.2-1.0) H 09/01/19 16:35 AST 72 U/L (15-37) H 09/01/19 16:35 ALT 54 U/L (14-59) 09/01/19 16:35 Alkaline Phosphatase 276 U/L (46-116) H 09/01/19 16:35 Troponin I < 0.05 ng/Ml (<0.06) 09/01/19 23:00 Total Protein 7.7 g/dL (6.4-8.2) 09/01/19 16:35 Albumin 2.3 g/dL (3.4-5.0) L 09/01/19 16:35 TSH 0.75 uIU/mL (0.36-3.74) 09/02/19 06:30
--- NOTE | 2019-09-02 15:42 | PT.INNT ---
Date of service: 09/02/19 Time of Service: 15:42 PT Notes Visit Reasons: FREQUNT FALLS,BILAT LEG WEAKNESS,CLOSED HEAD INJRY Patient refused PT services in PM due to increased LBP. She notes that she just got comfortable in bed and did not want to stir things up. She has been up with nursing to commode only. Will progress tomorrow as symptom level allows. Patient notes that they are questioning placement for rehab at this time to build her strength and endurance.
[2019-09-02] MEDS: Perflutren Lipid Microspheres 1.5 ML VIAL IVP (15:57)
[2019-09-02 16:08] VITALS: BP 103/65; PULSE 70; RESP 20; TEMP 37.4; O2SAT 91
--- NOTE | 2019-09-02 16:29 | PHA.REVIEW ---
Pharmacy Admission Review - Admission Clinical Review (Last Updated 09/02/19 @ 00:01 by Star Gonzalez) Discharge planning issues (Acute) DVT prophylaxis (Acute) Closed head injury without concussion (Acute) Ischemic cardiomyopathy (Acute) Lower back pain (Acute) Degenerative disc disease (Acute) Pain in right shoulder (Acute) Multiple falls (Acute) lisinopril Adverse Reaction (Verified 09/01/19 15:37) Other (See Comment) sacubitril [From Entresto] Adverse Reaction (Verified 09/01/19 15:37) rash valsartan [From Entresto] Adverse Reaction (Verified 09/01/19 15:37) rash Height 5 ft 6 in Weight 109.1 kg - Renal Dosing Renal Dosing: BUN 64 mg/dL (7-18) H 09/02/19 06:30 Creatinine 1.93 mg/dL (0.55-1.02) H 09/02/19 06:30 Medications needing adjustments: Reviewed (CrCl ~34ml/min based on adj bw) - Anticoagulation Anticoagulation: Hgb 11.9 g/dL (12.0-15.5) L 09/02/19 06:30 Hct 36.5 % (36.0-46.0) 09/02/19 06:30 Plt Count 274 x1000/uL (130-400) 09/02/19 06:30 INR 1.2 (0.9-1.1) H 09/01/19 16:35 Creatinine 1.93 mg/dL (0.55-1.02) H 09/02/19 06:30 DVT Prohphylaxis: N/A Therapeutic Anticoagulation: Reviewed Medications: Apixaban (will resume tomorrow 09/02) - Opiate Usage Evaluate Pain Scale/Pains Meds: Reviewed Scheduled Bowel Reg ordered if on Opiates?: Yes (PRN) - Relevant Labs Sodium 134 mmol/L (136-145) L 09/02/19 06:30 Potassium 3.3 mmol/L (3.5-5.1) L 09/02/19 06:30 Chloride 96 mmol/L (98-107) L 09/02/19 06:30 Magnesium 2.2 mg/dL (1.8-2.4) 09/01/19 16:35 Electrolytes, C-Reactive P, ESR: Reviewed (PO potassium today) - DM Control DM Control: Glucose 111 mg/dL (74-106) H 09/02/19 06:30 Insulin Dosing: Reviewed - Heart Failure/CT Heart Failure/CT: Troponin I < 0.05 ng/Ml (<0.06) 09/01/19 23:00 EF%, ZOHRA's, B-Blockers, Diuretics: Reviewed - BP Control BP Control: Blood Pressure 103/65 Blood Pressure 113/71 Blood Pressure 108/69 If elevated: Reviewed - Qtc Review If Elevated: Reviewed - IV to PO Switch IV Medications: Reviewed - Home Meds Home Med List reviewed: Reviewed - Current meds Current Medication Order Review: Reviewed - Comments Comments/Follow Ups: Shirley bennett. Ortho consult today -- chronic OA, [place] [facility]
[2019-09-02] MEDS: predniSONE 20 MG TAB 40 MG PO (16:31)
[2019-09-02] MEDS: Senna TAB 1 TAB PO ×2 (16:31→19:52)
[2019-09-02] MEDS: Acetaminophen 500 MG TAB 1000 MG PO ×2 (16:32→23:32)
[2019-09-02] MEDS: Diclofenac 1% Gel 100 GM TUBE TP (19:51)
[2019-09-02] MEDS: Atorvastatin 40 MG TAB 80 MG PO (19:52)
[2019-09-02] MEDS: Gabapentin 100 MG CAP PO (19:52)
[2019-09-02 20:57] VITALS: BP 110/75; PULSE 70; RESP 20; TEMP 36.2; O2SAT 92
[2019-09-02] MEDS: rOPINIRole 1 MG TAB 2 MG PO (21:22)
[2019-09-02 23:49] VITALS: BP 95/61; PULSE 70; RESP 18; TEMP 36.6; O2SAT 91
[2019-09-03] VITALS (7 sets, daily range): BP systolic 94–124; BP diastolic 58–77; PULSE 70; RESP 18–20; TEMP 36.1–36.5; O2SAT 93–96
--- NOTE | 2019-09-03 05:44 | NUR.NOTE ---
Patient request all four bed rails to be elevated. She state she feels more comfortable moving around in the bed with rails being elevated
[2019-09-03 07:10] LABS: Anion Gap 6.4 mmol/L (3-11); BUN 65 mg/dL (7-18); CO2 33.6 mmol/L (21.0-32.0); CREATININE 2.08 mg/dL (0.55-1.02); Calcium 9.5 mg/dL (8.5-10.1); Chloride 93 mmol/L (98-107); Estimated GFR 23.61 (mL/min/1.73m2); Glucose 202 mg/dL (74-106); Magnesium 2.2 mg/dL (1.8-2.4); Potassium 4.2 mmol/L (3.5-5.1); Sodium 133 mmol/L (136-145)
[2019-09-03] MEDS: Diclofenac 1% Gel 100 GM TUBE TP ×4 (07:54→20:13)
[2019-09-03] MEDS: Nystatin POWDER 60 GM JAR TP ×2 (07:54→20:13)
[2019-09-03] MEDS: Allopurinol 300 MG TAB PO (07:55)
[2019-09-03] MEDS: Acetaminophen 500 MG TAB 1000 MG PO ×2 (07:55→17:16)
[2019-09-03] MEDS: Bumetanide 1 MG TAB 2 MG PO ×2 (07:55→20:14)
[2019-09-03] MEDS: Senna TAB 1 TAB PO ×2 (07:55→20:13)
[2019-09-03] MEDS: Docusate Sodium 100 MG CAP PO ×2 (07:55→20:14)
[2019-09-03] MEDS: Mirabegron 25 MG TABCR PO (07:55)
[2019-09-03] MEDS: Amiodarone 200 MG TAB PO (07:56)
[2019-09-03] MEDS: predniSONE 20 MG TAB 40 MG PO (07:56)
[2019-09-03] MEDS: Spironolactone 25 MG TAB PO (07:56)
[2019-09-03] MEDS: Gabapentin 100 MG CAP PO ×3 (07:57→20:13)
[2019-09-03] MEDS: Metoprolol CR 100 MG TABCR PO (07:57)
[2019-09-03] MEDS: Pantoprazole 40 MG TABCR PO (07:57)
[2019-09-03] MEDS: Umeclidinium 7 CAP INHALER IH (10:20)
--- NOTE | 2019-09-03 13:20 | PTTR_ITS ---
Date of service: 09/03/19 Time of Service: 13:20 PT Notes Visit Reasons: FREQUNT FALLS,BILAT LEG WEAKNESS,CLOSED HEAD INJRY Inpatient Physical Therapy Treatment Note [facility] Date: 09/03/2019 PRECAUTIONS: Fall. Standard. Activity as tolerated. SUBJECTIVE: Patient is happy that she does not hurt as much as she did yesterday. She did emphasize that her legs are not as strong as they used to be and have a tendency to give out. She is agreeable to seeing how far she is able to tolerate with walking. She says that that she has questions about her Eliquis to which this PT reminded her to bring up with her nurse. Patient did indicate that her nurse is aware about said medication. Patient denies back pain, shortness of breath, and dizziness throughout PT session. OBJECTIVE: Telemetry monitoring in place. PAIN: NOne reported. BED MOBILITY/TRANSFERS Supine-sit: SBA Sit-supine: SBA. In the afternoon, patient required contact-guard assist to bilateral legs due to fatigue Sit-stand: SBA using B UE for support Stand-sit: SBA using B UE for support Bed-Chair: SBA using B UE for support Chair-bed: SBA using B UE for support GAIT Assistive Device: Front wheeled walker Weight bearing: Full weight bearing Assist: CGA Distance: 50 feet in the morning and 200 feet in the afternoon Deviation: No report of back pain. Reciprocal gait pattern. Meghana decreased. Step length and height decreased. No LOB seen. No SOB observed. THEREX: Patient tolerated standing level exercises consisting of hip flexion x10, knee flexion x10, hip extension x10, and heel raises x10 without report of low back pain. ASSESSMENT: Patient has had significant reduction in low back pain which has allowed considerable improvements with bed mobility, transfer, and ambulation task performance. She continues to have difficulty with below the hip activities like putting putting pants on, donning and doffing socks, donning and doffing underpants, and reaching behind for perineal care. She will continue to benefit from skilled physical therapy services in order to maximize strength and achieve independence with mobility ADL performance. PLAN: Continue with PT POC as initially established. Patient will benefit from long-term facility placement for continued skilled physical therapy services in order to progress mobility level, strength, and balance in preparation for a safe discharge to home. TREATMENT CODE/TIME: Session 1??18 minutes beginning at 11:52 AM. Session 2??[id number] x25 minutes, [id number] x 16 minutes, beginning at 1320 p.m..
--- NOTE | 2019-09-03 14:19 | PGE_ITS ---
Date of Service Date of service: 09/03/19 Time of Service: 14:20 Assessment and Plan Assessment and plan (1) Closed head injury without concussion: Status: Acute Assessment and plan: Mental status intact, and laceration is healing well. no post concussive symptoms. will resume anticoagulation and monitor closely Qualifiers: Encounter type: initial encounter Qualified Code(s): S09.90XA - Unspecified injury of head, initial encounter (2) Degenerative disc disease: Status: Acute Assessment and plan: pain better managed on current regimen, continue and adjust as needed. Will need outpatient follow up with [facility] [place] for MRI and further intervention. MRI could not be performed here due to AICD in situ. Qualifiers: Spinal region: lumbar Qualified Code(s): M51.36 - Other intervertebral disc degeneration, lumbar region (3) AICD (automatic cardioverter/defibrillator) present: Status: Chronic (4) Ischemic cardiomyopathy: Status: Acute Assessment and plan: Repeat echo results pending. EF of 20-25% in 2018. Continue current management; await AICD interrogation. Monitor on tele. (5) DVT prophylaxis: Status: Acute Assessment and plan: anticoagulated on apixaban (6) Discharge planning issues: Status: Acute Assessment and plan: requesting rehabilitation stay prior to returning home. case management following. Subjective Subjective Patient reports: no new complaints, feels better and pain is less Exam Const General: cooperative, disheveled, frail appearing and ill appearing chronically Nutritional Appearance: obese [facility] Head: normal to inspection, normocephalic and atraumatic Mouth: oral mucosae normal Resp Effort & Inspection: normal respiratory effort Auscultation: clear to auscultation bilaterally Cardio Rate: regular rate Rhythm: regular rhythm GI Inspection: normal to inspection and large pannus Palpation: soft Auscultation: normal bowel sounds Skin General skin exam: no rashes or lesions noted Neuro General: patient alert, patient awake and patient oriented x3 Extrem General: normal to inspection and full ROM Objective Objective Clinical Data: Abnormal lab results 09/03/19 Range/Units 06:20 Sodium 133 L (136-145) mmol/L Chloride 93 L (98-107) mmol/L Carbon Dioxide 33.6 H (21.0-32.0) mmol/L BUN 65 H (7-18) mg/dL Creatinine 2.08 H (0.55-1.02) mg/dL Glucose 202 H D (74-106) mg/dL Vital Signs Temperature 36.5 C 09/03/19 11:15 Temperature Source Tympanic 09/03/19 11:15 Pulse 70 09/03/19 11:15 Pulse Rhythm Regular 09/03/19 07:45 Respiratory Rate 20 09/03/19 11:15 Respiratory Effort Non-Labored 09/03/19 07:45 Respiratory Depth Normal 09/03/19 07:45 Respiratory Pattern Normal 09/03/19 07:45 Blood Pressure 110/75 09/03/19 11:15 Blood Pressure Mean 60 09/01/19 17:46 Blood Pressure Position Supine 09/01/19 15:28 Pulse Oximetry 96 09/03/19 11:15 Oxygen Delivery Method Room Air 09/03/19 11:15 Oxygen Flow Rate 0 09/03/19 11:15 Pain Level 1 09/03/19 11:15 Intake & Output 09/02/19 09/03/19 09/03/19 23:59 11:59 23:59 Intake Total 250 / 250 120 / 720 600 / 720 Output Total 3950 / 4430 700 / 1100 400 / 1100 Balance -3700 / -4180 -580 / -380 200 / -380 Weight 108.4 kg Intake: Oral 250 / 250 120 / 720 600 / 720 Output: Urine 3950 / 4430 700 / 1100 400 / 1100 Other: Urine Color Yellow Yellow Yellow Urine Appearance Clear Clear Clear Urine Odor None None Normal Comment pt voided on the commode Stool Size Large Stool Characteristics Soft Brown Voiding Methods Bedside Commode Bedside Commode Bedside Commode Laboratory Results WBC 10.59 k/cumm (4.4-10.8) 09/02/19 06:30 RBC 3.88 m/cumm (4.00-5.20) L 09/02/19 06:30 Hgb 11.9 g/dL (12.0-15.5) L 09/02/19 06:30 Hct 36.5 % (36.0-46.0) 09/02/19 06:30 MCV 94.1 fL (80-95) 09/02/19 06:30 MCH 30.7 pg (27.0-33.0) 09/02/19 06:30 MCHC 32.6 g/dL (32.0-36.0) 09/02/19 06:30 RDW 18.6 % (11.7-14.6) H 09/02/19 06:30 Plt Count 274 x1000/uL (130-400) 09/02/19 06:30 MPV 11.2 fL (8.0-11.0) H 09/02/19 06:30 Immature Gran % 0.2 % 09/02/19 06:30 Neutrophils % 77.8 09/02/19 06:30 Lymphocytes % 10.0 09/02/19 06:30 Monocytes % 11.4 09/02/19 06:30 Eosinophils % 0.5 09/02/19 06:30 Basophils % 0.1 09/02/19 06:30 Absolute Neutrophils 8.24 k/cumm (1.2-6.7) H 09/02/19 06:30 Absolute Lymphocytes 1.06 k/cumm (1.2-3.4) L 09/02/19 06:30 Absolute Monocytes 1.21 k/cumm (0.11-0.7) H 09/02/19 06:30 Absolute Eosinophils 0.05 k/cumm (0.0-0.7) 09/02/19 06:30 Absolute Basophils 0.01 k/cumm (0.0-0.2) 09/02/19 06:30 PT 12.2 sec (9.3-11.0) H 09/01/19 16:35 INR 1.2 (0.9-1.1) H 09/01/19 16:35 Sodium 133 mmol/L (136-145) L 09/03/19 06:20 Potassium 4.2 mmol/L (3.5-5.1) D 09/03/19 06:20 Chloride 93 mmol/L (98-107) L 09/03/19 06:20 Carbon Dioxide 33.6 mmol/L (21.0-32.0) H 09/03/19 06:20 Anion Gap 6.4 mmol/L (3-11) 09/03/19 06:20 BUN 65 mg/dL (7-18) H 09/03/19 06:20 Creatinine 2.08 mg/dL (0.55-1.02) H 09/03/19 06:20 Estimated GFR/1.73 m2 23.61 (mL/min/1.73m2) 09/03/19 06:20 Glucose 202 mg/dL (74-106) H D 09/03/19 06:20 Calcium 9.5 mg/dL (8.5-10.1) 09/03/19 06:20 Magnesium 2.2 mg/dL (1.8-2.4) 09/03/19 06:20 Total Bilirubin 1.1 mg/dL (0.2-1.0) H 09/01/19 16:35 AST 72 U/L (15-37) H 09/01/19 16:35 ALT 54 U/L (14-59) 09/01/19 16:35 Alkaline Phosphatase 276 U/L (46-116) H 09/01/19 16:35 Troponin I < 0.05 ng/Ml (<0.06) 09/01/19 23:00 Total Protein 7.7 g/dL (6.4-8.2) 09/01/19 16:35 Albumin 2.3 g/dL (3.4-5.0) L 09/01/19 16:35 TSH 0.75 uIU/mL (0.36-3.74) 09/02/19 06:30
--- NOTE | 2019-09-03 15:43 | CHAPLAIN ---
Zora tole me that she is likely going to [facility], because she needs more PT. She said it is depressing over there and she worries that some patients may have the virus but she understands she needs more PT to gain some strength back. I will continue to visit Zora.
--- NOTE | 2019-09-03 16:50 | PDOC.CMPRO ---
Care Management Progress Note S/O: Zora was lying in bed when CM met with her. She expressed interest in having an SNF stay; CM reviewed options. Zora reported she would like to return home but would prefer to have a period of strengthening prior to returning home. She attributes her weakness to ongoing back pain and states my legs just give out on me. A: 69 year old female admitted to [facility] on 09/01/19 for frequent falls, bilateral leg weakness, closed head injury. P: CM faxed referral to [facility] at Zora's request. Anticipate with bed availability, Zora will transition to [facility] when ready per MD. She will transport via the facility's W/C van. Cm continues to follow.
[2019-09-03] MEDS: Atorvastatin 40 MG TAB 80 MG PO (20:13)
[2019-09-03] MEDS: Apixaban 5 MG TAB PO (20:13)
[2019-09-03] MEDS: rOPINIRole 1 MG TAB 2 MG PO (22:04)
[2019-09-04 00:10] VITALS: BP 113/72; PULSE 69; RESP 16; TEMP 36.7; O2SAT 94
[2019-09-04] MEDS: Acetaminophen 500 MG TAB 1000 MG PO ×2 (00:22→08:16)
[2019-09-04 02:45] VITALS: BP 130/81; PULSE 70; RESP 18; TEMP 36.8; O2SAT 94
[2019-09-04] MEDS: oxyCODONE 5 MG TAB PO (06:42)
[2019-09-04] MEDS: Pantoprazole 40 MG TABCR PO (06:42)
--- NOTE | 2019-09-04 07:23 | OTTR_ITS ---
Date of service: 09/03/19 Time of Service: 11:20 Occupational Therapy Notes Occupational Therapy Inpatient Treatment Note Date: 09/03/19 PRECAUTIONS: Fall, Standard, FULL SUBJECTIVE: Pt was lying in bed when OT arrived. She states that she performed her bathing with EDUCATION CONSULTANT and is feeling a little better today. She notes that the plan is for her to transition over to [facility]. OBJECTIVE: PAIN: No c/o pain during session FUNCTIONAL MOBILITY Rolling L/R: (I) Supine-sit: Mod (A) DRESSING: Upper Extremity: Able to perform with min vc and min (A) Lower Extremity: Mod (A) for don and doffing (B) socks GROOMING: Sitting in bed pt was able to to don and doff her teeth (I) and brush her hair (I) EATING: Sitting in bed (I) with ideal hand to mouth translation. PLAN: Continue to progress pt towards goals established at initial evaluation. Pt reports that she is transitioning to [facility] by the weekend. TREATMENT CODES/TIME: [id number], 10 minutes (11:20) Pippa Richardson OTR/[facility]
[2019-09-04 07:45] VITALS: BP 104/70; PULSE 70; RESP 16; TEMP 35.5; O2SAT 96
[2019-09-04] MEDS: Bumetanide 1 MG TAB 2 MG PO (08:14)
[2019-09-04] MEDS: Diclofenac 1% Gel 100 GM TUBE TP ×2 (08:14→12:00)
[2019-09-04] MEDS: Umeclidinium 7 CAP INHALER IH (08:14)
[2019-09-04] MEDS: Nystatin POWDER 60 GM JAR TP (08:14)
[2019-09-04 08:15] VITALS: O2SAT 96
[2019-09-04] MEDS: Allopurinol 300 MG TAB PO (08:15)
[2019-09-04] MEDS: Metoprolol CR 100 MG TABCR PO (08:15)
[2019-09-04] MEDS: Mirabegron 25 MG TABCR PO (08:15)
[2019-09-04] MEDS: Amiodarone 200 MG TAB PO (08:15)
[2019-09-04] MEDS: Docusate Sodium 100 MG CAP PO (08:16)
[2019-09-04] MEDS: Spironolactone 25 MG TAB PO (08:16)
[2019-09-04] MEDS: Gabapentin 100 MG CAP PO (08:17)
[2019-09-04] MEDS: predniSONE 20 MG TAB 40 MG PO (08:17)
[2019-09-04] MEDS: Apixaban 5 MG TAB PO (08:17)
[2019-09-04] MEDS: Senna TAB 1 TAB PO (08:17)
[2019-09-04 09:07] LABS: COVID-19 RT-PCR Result Negative (Negative)
--- NOTE | 2019-09-04 10:08 | DSE_ITS ---
Date of service: 09/04/19 Time of Service: 10:08 DS: Diagnosis Discharge Diagnosis (1) Closed head injury without concussion: Status: Acute (2) Degenerative disc disease: Status: Acute (3) AICD (automatic cardioverter/defibrillator) present: Status: Chronic (4) Ischemic cardiomyopathy: Status: Acute Discharge Plan Disposition Patient Disposition: SNF (LEVEL 1) [facility] Condition: Improving Discharge Details Chief Complaint: Laceration Reason For Visit: FREQUNT FALLS,BILAT LEG WEAKNESS,CLOSED HEAD INJRY Admit Date/Time: 09/03/19 09:16 Admit Provider: Star Gonzalez Attending Provider: Star Gonzalez Primary Care Provider: Taya Juan ED Provider: Sang Womack Hospital Course Hospital Course: This is a 69-year-old female who presented to the ED after a fall injury where she sustained a scalp laceration to her occipital head. Patient states that she was going to the refrigerator and her legs gave out and she fell back onto the linoleum floor. She denies LOC. Patient does have a history of multiple falls, she does have an implanted AICD, cardiomyopathy. She does take 5 mg Eliquis daily. Her work up included a head CT and LS spine which demonstrated small scalp hematoma in the posterior midline. No acute posttraumatic brain injury and LS spine IMPRESSION: 1. No acute fracture or subluxation in the lumbar spine. 2. Multilevel degenerative changes in the lumbar spine as described above. 3. Left nephrolithiasis. No evidence of hydronephrosis. 4. Findings suspicious for hepatic cirrhosis. Her scalp laceration was closed with 3 gio which she should have removed prior to returning home. Her eliquis was placed on hold and she remained stable so it was restarted. She has continued to remain asymptomatic since it has been restarted. She has been working with physical therapy and slowly progressing but remains too deconditioned to safely return home. case management has been following and referrals placed and she has been accepted at [facility] and rehab. her covid-19 testing was negative. she was medically stable with no fever, cough sob, abdominal pain or other c/o. she is eating and drinking well and bowls and bladder functioning well. Her pain has been managed with scheduled tylenol and oxycodone but dose did need to be increased. She should continue with bowel regimen while on narcotic pain medications. new medications include gabapentin and prednisione with gi prophylaxis while on steroids. she should taper steroids per rehab provider. Home Meds and New Rx's Prescriptions: New sennosides [Senokot] 8.6 mg Tablet 1 tab PO BID Qty: 0 RF: 0 polyethylene glycol 3350 17 gram Powder In Packet 17 g PO DAILY PRN PRN (Reason: Constipation) Qty: 0 RF: 0 prednisone 20 mg Tablet 40 mg PO DAILY Qty: 0 RF: 0 pantoprazole 40 mg Tablet,Delayed Release (Dr/Ec) 40 mg PO DAILY@0730 Qty: 0 RF: 0 docusate sodium [Colace] 100 mg Capsule 100 mg PO BID Qty: 60 RF: 0 gabapentin 100 mg Capsule 100 mg PO TID Qty: 0 RF: 0 diclofenac sodium [Voltaren] 1 % Gel 4 g topical QID Qty: 0 RF: 0 Continued amiodarone 400 mg tablet 200 mg PO DAILY RF: 0 Myrbetriq 25 mg tablet extended release 24 hr 25 mg PO DAILY Qty: 60 RF: 5 albuterol sulfate [Ventolin HFA] 8 GM HFA aerosol inhaler 2 puff Inhalation Q4H PRN Qty: 120 RF: 2 atorvastatin 80 MG tablet 80 mg PO DAILY Qty: 90 RF: 3 nitroglycerin 0.4 MG tablet, sublingual 0.4 mg Sublingual PRN PRNQty: 30 RF: 0 spironolactone 25 MG tablet 25 mg PO DAILY Qty: 90 RF: 3 metolazone 2.5 MG tablet 2.5 mg PO PRN Qty: 30 RF: 3 metoprolol succinate 100 mg tablet extended release 24 hr 100 mg PO DAILY RF: 0 allopurinol 300 mg tablet 300 mg PO DAILY RF: 0 benzonatate [Tessalon Perles] 100 mg Capsule 100 mg PO BID PRNRF: 0 ropinirole 2 mg Tablet 2 mg PO QHS RF: 0 ipratropium bromide 0.02 % Solution 2.5 ml INHALATION Q6H PRNRF: 0 Incruse Ellipta 62.5 mcg/actuation Blister With Device 1 inh INHALATION DAILY RF: 0 Eliquis 5 MG tablet 5 mg PO BID Qty: 60 RF: 0 bumetanide 2 mg tablet 2 mg PO BID RF: 0 methocarbamol 500 mg tablet 500 mg PO Q6H PRN (Reason: muscle spasm) Qty: 14 RF: 0 Changed acetaminophen [Tylenol] 325 MG tablet 650 mg PO QID Qty: 1 RF: 0 oxycodone 5 mg tablet 10 mg PO Q6H PRN (Reason: pain) Qty: 10 RF: 0 Discharge Instructions Instructions: Head Injury (DC), Degenerative Disc Disease (DC) Additional Instructions: gio to be removed prior to discharge home Activity:: walker for gait safety and stability Equipment/Supplies:: No Equipment Needed Diet:: As Tolerated Discharge Orders Discharge Orders: Discharge Order (Routine); Ordered 09/04/19 Ordered By: Lindsay Tuttle DS: Summary Status at Discharge Functional status at discharge: uses cane/walker Overall status at discharge: patient is not back to baseline Mental Status: mental status grossly normal Speech and Movement: speech and movement normal Mood: congruent mood Affect: normal affect Exam Narrative Exam Narrative: cooperative, disheveled, frail appearing and ill appearing chronically Nutritional Appearance: obese HENMT Head: normal to inspection, normocephalic and atraumatic Mouth: oral mucosae normal Resp Effort & Inspection: normal respiratory effort Auscultation: clear to auscultation bilaterally Cardio Rate: regular rate Rhythm: regular rhythm GI Inspection: normal to inspection and large pannus Palpation: soft Auscultation: normal bowel sounds Skin General skin exam: no rashes or lesions noted Neuro General: patient alert, patient awake and patient oriented x3 Extrem General: normal to inspection and full ROM Psych Mental Status: mental status grossly normal Speech and Movement: speech and movement normal Mood: congruent mood Affect: normal affect DS: Data Vitals/I&O Vitals and I&O: Vital Signs Temperature 36.8 C 09/04/19 02:45 Temperature Source Temporal Artery Scan 09/04/19 02:45 Pulse 70 09/04/19 02:45 Pulse Rhythm Regular 09/04/19 08:15 Respiratory Rate 18 09/04/19 02:45 Respiratory Effort Non-Labored 09/04/19 08:15 Respiratory Depth Normal 09/04/19 08:15 Respiratory Pattern Normal 09/04/19 08:15 Blood Pressure 130/81 09/04/19 02:45 Blood Pressure Mean 60 09/01/19 17:46 Blood Pressure Position Supine 09/01/19 15:28 Pulse Oximetry 96 09/04/19 08:15 Oxygen Delivery Method Room Air 09/04/19 08:15 Oxygen Flow Rate 0 09/04/19 08:15 Pain Level 6 09/04/19 06:42 Intake & Output 09/03/19 09/03/19 09/04/19 11:59 23:59 11:59 Intake Total 120 / 960 840 / 960 360 / 360 Output Total 700 / 1800 1100 / 1800 1750 / 1750 Balance -580 / -840 -260 / -840 -1390 / -1390 Weight 108.4 kg 107.1 kg Intake: Oral 120 / 960 840 / 960 360 / 360 Output: Urine 700 / 1800 1100 / 1800 1750 / 1750 Other: Urine Color Yellow Yellow Yellow Urine Appearance Clear Clear Clear Urine Odor None Normal Stool Size Large Stool Characteristics Soft Brown Voiding Methods Bedside Commode Bedside Commode Bedside Commode Data Completed and Pending Labs on day of discharge: Labs from last 24 hours 09/03/19 17:20 Coronavirus (PCR) Negative [facility] Medical History (Updated 09/02/19 @ 15:53 by Katie Marmolejo MD) Candidiasis, intertrigo (Acute) Cardiac arrest with ventricular fibrillation (Resolved) Cardiomyopathy (Chronic) Cardiorenal syndrome (Inactive) Community acquired pneumonia (Inactive) COPD (chronic obstructive pulmonary disease) (Inactive) Coronary artery disease (Chronic 05/05/14) STEMI with LAD stent 04/2014 EF 35% Cystocele (Inactive) Hyponatremia (Inactive) Impaired glucose tolerance (Chronic) Ischemic cardiomyopathy (Acute) Leukocytosis (Inactive) a. since 1995 with reportedly normal bone marrow biopsy in 1996 Mixed urinary incontinence due to female genital prolapse (Inactive) Neck mass (Inactive 01/26/15) Right ventricular dysfunction (Inactive) Systolic CHF (Inactive 05/02/14) a. subacute with acute exacerbation Urinary incontinence (Chronic 11/06/17) Surgical History (Updated 09/02/19 @ 00:01 by Star Gonzalez) AICD (automatic cardioverter/defibrillator) present (Chronic ~06/2017) Cholecystectomy H/O surgical procedure (Inactive) a. s/p cholecystectomy b. s/p hysterectomy c. s/p bilateral carpan tunnel release surgery d. incisional hernia repair Hernia Repair, Incisional 04/19/14 History of heart artery stent (Chronic ~2013) LAD Hysterectomy, Laproscopic (~1980) OVARIES REMAIN Tonsillectomy Family History (Updated 09/02/19 @ 00:03 by Star Gonzalez) Mother Stroke Father Peptic ulcer disease Brother Substance abuse Social History (Updated 09/02/19 @ 00:03 by Star Gonzalez) Smoking/Tobacco Use Status: Former Tobacco Use Quit Date: 05/20/13 Tobacco: How many years used: 40 Second Hand Exposure: Yes Alcohol Intake: never Drug use: Never Substance use type: does not use Household members: spouse Number of Children: 5 Do you feel safe at home: Yes Do you feel safe in your relationship?: Yes Female Reproductive History Menstrual Menopause type: surgical History History 5 Para 5 Hx # Term Pregnancies 5 Multiple births Hx # Pregnancies Ectopic pregnancies AB induced Hx Number of Living Children 5 AB spontaneous
--- NOTE | 2019-09-04 10:09 | PDOC.CMDIS ---
LACE Index Scoring Tool - Questions: Length of Stay (in days): 3 Acuity (Admit via E.D.?): Yes Comorbidities: Congestive Heart Failure, Chronic Pulmonary Disease E.D. Visits: 8 - Answers: Total Score: 15 Risk of Readmission: High Risk Care Management Discharge Reason for Hospitalization: Frequent falls, bilat leg weakness, closed head injury Discharge Plan: Zora will transfer to [facility] for a short term rehab stay prior to returning home. She will transport via the facility's wheelchair van. Patient/Family Education Needs: Review discharge instructions, discuss Ask Me Three. Reviewed insurance limitiations and considerations. Services Needed at Discharge: Alf Facility ([facility] ), Transportation ([facility] )
--- NOTE | 2019-09-04 12:17 | INDS_ITS ---
Date of service: 09/04/19 Time of Service: 12:17 PT Notes Visit Reasons: FREQUNT FALLS,BILAT LEG WEAKNESS,CLOSED HEAD INJRY Inpatient Physical Therapy Discharge Summary Dates: 09/04/2019 Dates of Service: 09/02/2019 through 09/03/2019 This is a clinical summary of care provided on the duration of dates listed above. No charge was made in the completion of this documentation. Referring Doctor: Star Gonzalez MD PT Orders: PT CONSULT: Fall Safety Assessment Precautions: Falls, Standard, Vitals to be monitored Patient Profile/Admitting Diagnosis: Zora is a 69-year-old female who presents to the emergency department from home after sustaining a fall in her kitchen and closed head injury with scalp laceration. Patient denies loss of consciousness and no antecedent dizziness or lightheadedness nor any chest pain or dyspnea. Patient's been having back pain and weakness in her legs for the past month. PMHX: Medical History(Updated 09/02/19 @ 00:16 by Star Gonzalez) Candidiasis, intertrigo (Acute) Cardiac arrest with ventricular fibrillation (Resolved) Cardiomyopathy (Chronic) Cardiorenal syndrome (Inactive) Community acquired pneumonia (Inactive) COPD (chronic obstructive pulmonary disease) (Inactive) Coronary artery disease (Chronic 05/05/14) STEMI with LAD stent 04/2014 EF 35% Cystocele (Inactive) Hyponatremia (Inactive) Impaired glucose tolerance (Chronic) Ischemic cardiomyopathy (Acute) Leukocytosis (Inactive) a. since 1995 with reportedly normal bone marrow biopsy in 1996 Mixed urinary incontinence due to female genital prolapse (Inactive) Neck mass (Inactive 01/26/15) Right ventricular dysfunction (Inactive) Systolic CHF (Inactive 05/02/14) a. subacute with acute exacerbation Urinary incontinence (Chronic 11/06/17) Surgical History (Updated 09/02/19 @ 00:01 by Star Gonzalez) AICD (automatic cardioverter/defibrillator) present (Chronic ~06/2017) Cholecystectomy H/O surgical procedure (Inactive) a. s/p cholecystectomy b. s/p hysterectomy c. s/p bilateral carpan tunnel release surgery d. incisional hernia repair Hernia Repair, Incisional 04/19/14 History of heart artery stent (Chronic ~2013) LAD Hysterectomy, Laproscopic (~1980) OVARIES REMAIN Tonsillectomy Social History/Home Situation: Zora lives in a private home with her . Zora notes that she has 2 stairs to enter her home otherwise is on one level. She does not utilize any assistive device at baseline. Her has been doing the driving and grocery shopping due to her back pain and leg instability. She notes that her legs seem to be getting weaker and weaker and has sustained multiple falls secondary to them buckling. She has had previous outpatient PT due to her leg weakness however has not been continuing with her HEP as prescribed and has been unable to get back into dept due to their closure secondary to COVID 19 Current Functional Limitations: LE weakness, frequent falls, LBP, SOB Equipment Owned/DME: None Subjective: Zora states early this morning that she is scheduled to leave for the [facility] late this morning around lunch. She requested to not do anything today as she wanted to rest due to her low back beginning to act up. Nurse is aware. Objective: General Observation: Telemetry Mental Status: Alert and oriented x3. Very pleasant Pain: 6/10 on VAS low back ROM: Right Upper Extremity: Unable to lift her right arm away from body due to significant right shoulder pain. Demonstrate significant substitution of the scapular musculature. Elbow and wrist ROM WNL Left Upper Extremity: Demonstrates grossly WFL AROM Right Lower Extremity: AA hip flexion to 100 degrees with pain in her low back, IR neutral, ER 30 degrees. Knee flexion/extension WFL, Ankle ROM WNL Left Lower Extremity: AA hip flexion to 105 degrees, IR neutral, ER 30 degrees. Knee flexion/extension WFL, Ankle ROM WNL Strength: Right Upper Extremity: Unable to lift R UE against gravity due to pain Left Upper Extremity: Shoulder flexion 4/5, abduction 4/5, bicep/tricep 5/5 Right Lower Extremity: Hip flexion 3-/5, knee extension 4/5, knee flexion 4-/5, DF/PF 4/5 Left Lower Extremity: Hip flexion 3-/5, knee extension 4/5, knee flexion 4-/5, DF/PF 4/5 Sensation: Intact as to pain and light pressure to bilateral lower extremities Bed Mobility/Transfers: Sit-supine: CGA Sit-stand: SBA using BUE for support Stand-sit: SBA using BUE for support Bed to commode: SBA using BUE for support with front wheeled walker Commode to bed: SBA using BUE for support with front wheeled walker Gait: As of 09/03/2019 patient was able to tolerate 200 feet on level surface ambulation using front wheeled walker with full weightbearing requiring only CGA. Denied back pain. No S OB seen. No LOB nor sensation of B knees are legs giving out. Balance: Static Sitting: Normal Dynamic Sitting: Normal Static Standing: Fair Dynamic Standing: Fair Assessment: Patient did demonstrate improvement with mobility ADL performance wi th attainment of good pain control on the low back area with pain medication. Patient continues to report weakness on bilateral lower extremities and would like to undergo continued progressive strengthening at the SNF. Patient is a 69 year old female referred to physical therapy services with the diagnosis of s/p fall sustaining a closed head injury, DDD acute on chronic LBP, chronic kidney disease and ischemic cardiomyopathy . Patient presents with clinical signs and symptoms consistent with diagnosis, as demonstrated by the following impairment level findings: impaired right shoulder ROM/strength, impaired muscle performance and motor function of bilateral LE resulting in decreased functional endurance and ambulation with multiple fall history. Impairments are contributing to the following functional limitations: limited bed mobility, limited transfer ability, limited functional endurance with community/home ambulation with frequent falls Goals: Goals X1 week 1. Supine-Sit I NOT MET 2. Sit-Supine I NOT MET 3. Sit-Stand I with FWW NOT MET 4. Stand-Sit I NOT MET 5. Bed-Chair I with FWW NOT MET 6. Chair-Bed I with FWW NOT MET 7. Gait I with FWW 200ft or greater NOT MET 8. Stairs Up/down 2-3 steps with use of railing I NOT MET DISCHARGE RECOMMENDATIONS: Patient will benefit from group home facility placement for continued skilled physical therapy services in order to progress mobility level, strength, and balance in preparation for a safe discharge to home. TREATMENT CODE/TIME: NC. Thank you very much for this referral. Cindy Gonzalez PT, DPT, CLT [facility] at [place], [place]
== END 2019-09-04 12:04 | disposition skilled nursing facility (03) | DRG 605 ==
LOC: ER 19:50 → MS 19:54
PROVIDERS: Nurse Practitioner Acute Care; Registered Nurse Emergency; Admitting Provider Internal Medicine; Emergency Provider Student in an Organized Health Care Education/Training Program; PCP Family Medicine; Visit Provider Internal Medicine
DX: S01.01XA Laceration without foreign body of scalp, initial encounter (principal); N17.9 Acute kidney failure, unspecified; W18.39XA Other fall on same level, initial encounter; I25.5 Ischemic cardiomyopathy; N18.3 Chronic kidney disease, stage 3 (moderate); M51.36 Other intervertebral disc degeneration, lumbar region; Z91.81 History of falling; Y92.010 Kitchen of single-family (private) house as the place of occurrence of the external cause; Z95.810 Presence of automatic (implantable) cardiac defibrillator; Z79.01 Long term (current) use of anticoagulants; Z03.818 Encounter for observation for suspected exposure to other biological agents ruled out; Z73.89 Other problems related to life management difficulty; M25.511 Pain in right shoulder; J44.9 Chronic obstructive pulmonary disease, unspecified; I12.9 Hypertensive chronic kidney disease with stage 1 through stage 4 chronic kidney disease, or unspecified chronic kidney disease; I48.0 Paroxysmal atrial fibrillation
CPT/HCPCS: 12001; 36415; 80048; 80053; 93005; 94640; 97110; 97162; 97166; 97530; 97535; 99211; 99223; 99232; 99233; 99239; 99284; 99285; C8929; U0003; 70450; 72100; 72170; 73030; 83735; 84443; 84484; 85025; 85610; 93010; 99220; G0378; J2270; J7512

== ENCOUNTER 2019-09-14 06:46 | Emergency (ER) | payer MEDICARE, SELFPAY ==
[2019-09-14 06:43] VITALS: BP 101/50; PULSE 70; RESP 20; TEMP 36.8
--- NOTE | 2019-09-14 07:03 | ED.GENADUL_ITS ---
Discharge Plan Disposition Patient Disposition: HOME Condition: Stable Discharge Details Chief Complaint: Nk/Back Pain Clinical Impression: Lower back pain Primary Care Provider: Taya Juan ED Provider: Luis A Knight [place] Meds and New Rx's Prescriptions: Continued amiodarone 400 mg tablet 200 mg PO DAILY RF: 0 Myrbetriq 25 mg tablet extended release 24 hr 25 mg PO DAILY Qty: 60 RF: 5 albuterol sulfate [Ventolin HFA] 8 GM HFA aerosol inhaler 2 puff Inhalation Q4H PRN Qty: 120 RF: 2 atorvastatin 80 MG tablet 80 mg PO DAILY Qty: 90 RF: 3 nitroglycerin 0.4 MG tablet, sublingual 0.4 mg Sublingual PRN PRNQty: 30 RF: 0 spironolactone 25 MG tablet 25 mg PO DAILY Qty: 90 RF: 3 metolazone 2.5 MG tablet 2.5 mg PO PRN Qty: 30 RF: 3 metoprolol succinate 100 mg tablet extended release 24 hr 100 mg PO DAILY RF: 0 allopurinol 300 mg tablet 300 mg PO DAILY RF: 0 benzonatate [Tessalon Perles] 100 mg Capsule 100 mg PO BID PRNRF: 0 ropinirole 2 mg Tablet 2 mg PO QHS RF: 0 ipratropium bromide 0.02 % Solution 2.5 ml INHALATION Q6H PRNRF: 0 Incruse Ellipta 62.5 mcg/actuation Blister With Device 1 inh INHALATION DAILY RF: 0 Eliquis 5 MG tablet 5 mg PO BID Qty: 60 RF: 0 bumetanide 2 mg tablet 2 mg PO BID RF: 0 methocarbamol 500 mg tablet 500 mg PO Q6H PRN (Reason: muscle spasm) Qty: 14 RF: 0 sennosides [Senokot] 8.6 mg Tablet 1 tab PO BID Qty: 0 RF: 0 polyethylene glycol 3350 17 gram Powder In Packet 17 g PO DAILY PRN PRN (Reason: Constipation) Qty: 0 RF: 0 prednisone 20 mg Tablet 40 mg PO DAILY Qty: 0 RF: 0 pantoprazole 40 mg Tablet,Delayed Release (Dr/Ec) 40 mg PO DAILY@0730 Qty: 0 RF: 0 docusate sodium [Colace] 100 mg Capsule 100 mg PO BID Qty: 60 RF: 0 gabapentin 100 mg Capsule 100 mg PO TID Qty: 0 RF: 0 diclofenac sodium [Voltaren] 1 % Gel 4 g topical QID Qty: 0 RF: 0 acetaminophen [Tylenol] 325 MG tablet 650 mg PO QID Qty: 1 RF: 0 oxycodone 5 mg tablet 10 mg PO Q6H PRN (Reason: pain) Qty: 12 RF: 0 Discharge Instructions Instructions: Chronic Back Pain (DC) Additional Instructions: if you need to you can take 1 of your oxycodone every 4 hours follow up with your primary care provider as needed and your back specialist as scheduled this Saturday if you have fevers, inability to urinate or feel more ill return to the emergency department Medical Decision Making 69 yo female with multiple medical problems and also chronic back pain who comes in with continued back pain for 6 months. She was admitted over a week ago and sent to [facility] and spent 4 days there per patient and never felt better in terms of pain. She comes in today with ongoing unchanged lower back pain. Denies fevers, urinary retention, or recent falls since last admission. Denies headaches or chest pain or abdominal pain. On exam she has 5/5 strength in the lower extremities and no saddle anesthesia and no palpable or visible deformities of the back. I suspect her pain is due to her chronic back pain and do not feel acute emergent imaging with mri or ct/xray indicated at this time as exam and history not consistent with cauda equina, sea, osteo, or fracture. She is due for oxycodone at 7am and takes this every 6 hours. I advised if needed she can take this every 4 hours. She is refusing discussion of going back to rehab. She is interested in speaking with CM to see if there are any additional services for her. Will d/c and have her f/u with pcp with return precautions pt now declining to speak with care management and would like d/c, advised f/u with pcp and back [place] [facility] [place] and return precautions given Differential Diagnosis Differential Diagnosis: sciatica, disc herniation, chronic back pain HPI General Mode of arrival: ambulatory . Date/Time Provider Initiated Documentation: 09/14/19 06:47 . Limitations to Documentation: no limitations . Information obtained by: patient . History of Present Illness 69 year old F presents to the emergency department with the chief complaint of back pain, described as moderate, Quality is described as aching, Patient started experiencing this month(s) (6) and it has been constant. No relieving factors improve symptom(s), No exacerbating factors reported . Related Data Home Medications Medication Instructions Recorded Confirmed albuterol sulfate [Ventolin HFA] 2 puff INHALATION Q4H PRN #120 07/13/15 09/01/19 inhaler atorvastatin 80 mg PO DAILY #90 tab-cap 07/02/16 09/01/19 nitroglycerin 0.4 mg SUBLINGUAL PRN PRN #30 01/28/17 09/01/19 tab-cap spironolactone 25 mg PO DAILY #90 tab-cap 10/02/17 09/01/19 Eliquis 5 mg PO BID #60 tab 11/22/17 09/01/19 metolazone 2.5 mg PO PRN #30 tab-cap 01/08/18 09/01/19 metoprolol succinate 100 mg 100 mg PO DAILY tab 02/26/18 09/01/19 tablet,extended release 24 hr allopurinol 300 mg tablet 300 mg PO DAILY 03/04/18 09/01/19 amiodarone 400 mg tablet 200 mg PO DAILY tab 11/19/18 09/01/19 mirabegron 25 mg tablet,extended 25 mg PO DAILY #60 tab 05/14/19 09/01/19 release 24 hr Incruse Ellipta 1 inh INHALATION DAILY 05/26/19 09/01/19 benzonatate [Tessalon Perles] 100 mg PO BID PRN 05/26/19 09/01/19 ipratropium bromide 2.5 ml INHALATION Q6H PRN 05/26/19 09/01/19 ropinirole 2 mg PO QHS 05/26/19 09/01/19 bumetanide 2 mg PO BID 08/16/19 09/01/19 methocarbamol 500 mg PO Q6H PRN #14 tab 08/16/19 09/01/19 acetaminophen [Tylenol] 650 mg PO QID #1 tab 09/04/19 09/01/19 diclofenac sodium [Voltaren] 4 g TOPICAL QID #0 g 09/04/19 docusate sodium [Colace] 100 mg PO BID #60 cap 09/04/19 gabapentin 100 mg PO TID #0 cap 09/04/19 oxycodone 10 mg PO Q6H PRN #12 tab 09/04/19 pantoprazole 40 mg PO DAILY@0730 #0 tab 09/04/19 polyethylene glycol 3350 17 g PO DAILY PRN PRN #0 ea 09/04/19 prednisone 40 mg PO DAILY #0 tab 09/04/19 sennosides [Senokot] 1 tab PO BID #0 tab 09/04/19 Previous Rx's Medication Instructions Recorded spironolactone 25 mg PO DAILY #90 tab-cap 10/02/17 Eliquis 5 mg PO BID #60 tab 11/22/17 metolazone 2.5 mg PO PRN #30 tab-cap 01/08/18 mirabegron 25 mg tablet,extended 25 mg PO DAILY #60 tab 05/14/19 release 24 hr methocarbamol 500 mg PO Q6H PRN #14 tab 08/16/19 acetaminophen [Tylenol] 650 mg PO QID #1 tab 09/04/19 diclofenac sodium [Voltaren] 4 g TOPICAL QID #0 g 09/04/19 docusate sodium [Colace] 100 mg PO BID #60 cap 09/04/19 gabapentin 100 mg PO TID #0 cap 09/04/19 oxycodone 10 mg PO Q6H PRN #12 tab 09/04/19 pantoprazole 40 mg PO DAILY@0730 #0 tab 09/04/19 polyethylene glycol 3350 17 g PO DAILY PRN PRN #0 ea 09/04/19 prednisone 40 mg PO DAILY #0 tab 09/04/19 sennosides [Senokot] 1 tab PO BID #0 tab 09/04/19 Allergies Allergy/AdvReac Type Severity Reaction Status Date / Time lisinopril AdvReac Other (See Verified 09/14/19 06:43 Comment) sacubitril [From Entresto] AdvReac rash Verified 09/14/19 06:43 valsartan [From Entresto] AdvReac rash Verified 09/14/19 06:43 General Stated Complaint: Nk/Back Pain YUE: 4 Review of Systems All systems reviewed & are unremarkable except as noted in HPI and below Constitutional Constitutional: Denies chills, Denies fever(s) and Denies weakness Cardiovascular Cardiovascular: Denies chest pain and Denies dyspnea Respiratory Respiratory: Denies cough and Denies dyspnea Gastrointestinal Gastrointestinal: Denies abdominal pain, Denies nausea and Denies vomiting Musculoskeletal Musculoskeletal: Denies joint swelling Neurologic Neurologic: Denies weakness Psychiatric Psychiatric: Denies depression [facility] Medical History (Updated 09/14/19 @ 07:10 by Luis A Knight MD) Candidiasis, intertrigo (Acute) Cardiac arrest with ventricular fibrillation (Resolved) Cardiomyopathy (Chronic) Cardiorenal syndrome (Inactive) Community acquired pneumonia (Inactive) COPD (chronic obstructive pulmonary disease) (Inactive) Coronary artery disease (Chronic 05/05/14) STEMI with LAD stent 04/2014 EF 35% Cystocele (Inactive) Hyponatremia (Inactive) Impaired glucose tolerance (Chronic) Ischemic cardiomyopathy (Acute) Leukocytosis (Inactive) a. since 1995 with reportedly normal bone marrow biopsy in 1996 Mixed urinary incontinence due to female genital prolapse (Inactive) Neck mass (Inactive 01/26/15) Right ventricular dysfunction (Inactive) Systolic CHF (Inactive 05/02/14) a. subacute with acute exacerbation Urinary incontinence (Chronic 11/06/17) Surgical History (Updated 09/02/19 @ 00:01 by Star Gonzalez) AICD (automatic cardioverter/defibrillator) present (Chronic ~06/2017) Cholecystectomy H/O surgical procedure (Inactive) a. s/p cholecystectomy b. s/p hysterectomy c. s/p bilateral carpan tunnel release surgery d. incisional hernia repair Hernia Repair, Incisional 04/19/14 History of heart artery stent (Chronic ~2013) LAD Hysterectomy, Laproscopic (~1980) OVARIES REMAIN Tonsillectomy Family History (Updated 09/02/19 @ 00:03 by Star Gonzalez) Mother Stroke Father Peptic ulcer disease Brother Substance abuse Social History (Updated 09/02/19 @ 00:03 by Star Gonzalez) Smoking/Tobacco Use Status: Former Tobacco Use Quit Date: 05/20/13 Tobacco: How many years used: 40 Second Hand Exposure: Yes Alcohol Intake: never Drug use: Never Substance use type: does not use Household members: spouse Number of Children: 5 Do you feel safe at home: Yes Do you feel safe in your relationship?: Yes Female Reproductive History Menstrual Menopause type: surgical History History 5 Para 5 Hx # Term Pregnancies 5 Multiple births Hx # Pregnancies Ectopic pregnancies AB induced Hx Number of Living Children 5 AB spontaneous Exam Const General: no acute distress Orientation: alert HENMT Head: normal to inspection Ears: external ears normal General nose exam: external nose normal Mouth: moist mucous membranes Eyes General: appearance normal, both eyes and all related structures Neck Neck: normal visual inspection Resp Effort & Inspection: normal respiratory effort and able to speak in complete sentences Cardio Rate: regular rate Back/Spine/Pelvis Back: no CVA tenderness Skin General skin exam: no rashes or lesions noted Neuro General: patient alert and patient oriented x3 Extrem General: normal to inspection Psych Mental Status: mental status grossly normal Course Vital Signs Vital signs: Vital Signs Temperature 36.8 C 09/14/19 06:43 Pulse 70 09/14/19 06:43 Respiratory Rate 20 09/14/19 06:43 Blood Pressure 101/50 L 09/14/19 06:43 Temperature 36.8 C 09/14/19 06:43 Pulse 70 09/14/19 06:43 Respiratory Rate 20 09/14/19 06:43 Respiratory Effort 09/14/19 06:43 Blood Pressure 101/50 L 09/14/19 06:43 Oxygen Delivery Method Room Air 09/14/19 06:43 Oxygen Flow Rate 0 09/14/19 06:43 Pain Level 8 09/14/19 06:49
--- NOTE | 2019-09-14 15:57 | PDOC.ERCMPRO ---
- If Service Date Differs Date of service: 09/14/19 Time of Service: 15:57 Care Management Progress Note At ED provider's request, CM contacts Zora's . He reports Zora has fallen again and now wants to return to the [facility], as he is unable to care for her at home. He states [facility] out [facility] week due to not wanting to be confined for 14 days. According to him, Zora understands if she returns to the Rehab, she likely will be put back into confinement and she is agreeable to this. CM outreaches to Raven, admission director, at the [facility] to discuss Zora's ability to return. Raven is not available, so a message is left asking for a return phone call.
== END 2019-09-14 08:20 | disposition home or self-care (01) ==
LOC: ER 07:36
PROVIDERS: Emergency Provider Emergency Medicine; PCP Family Medicine
DX: M54.5 Low back pain (principal); J44.9 Chronic obstructive pulmonary disease, unspecified
CPT/HCPCS: 99283

== ENCOUNTER 2019-10-07 11:44 | Inpatient (IN) | payer MEDICARE, SELFPAY ==
[2019-10-07 11:50] VITALS: BP 115/86; PULSE 82; RESP 22; TEMP 36.6; O2SAT 91
--- NOTE | 2019-10-07 12:23 | W.PM.HP.N ---
Date of service: 10/07/19 Time of Service: 12:25 Assessment and Plan Assessment and plan (1) Bacteremia due to Enterococcus: Status: Acute Assessment and plan: [place] ampic[place] and [place]ri[place] [facility] [place]. continue weekly surveillance per [facility]. 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 leads from ICD were infected so was explanted/replaced. routine site care. (2) Atrial fibrillation: Status: Chronic Assessment and plan: rate controlled. She is anticoagulated on eliquis, continue beta percy and amiodarone. Qualifiers: Atrial fibrillation type: paroxysmal Qualified Code(s): I48.0 - Paroxysmal atrial fibrillation (3) Ischemic cardiomyopathy: Status: Acute Assessment and plan: echo from 09/28/2019 shows EF 18%. has ? 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 routine site care to explant and replant sites. continue beta percy, diuretic, and anticoagulation with eliquis, to be restarted tomorrow per [facility] [place]. Cardiology appointments: 10/07 at 2 pm [phone] Dr Bradly Sandhu (telehealth) 01/27/20: [place] [facility] at [facility] [address] Dr Glynn Gardner [phone] (4) Acute renal insufficiency: Status: Acute Assessment and plan: creatinine 2.62 on date of discharge. diuretic dose decreased. will need to closely monitor kidney function, adjust medication as needed. renal dosing. avoid nephrotoxic drugs. (5) ICD (implantable cardioverter-defibrillator) in place: Status: Chronic Assessment and plan: stable. (6) Chronic obstructive pulmonary disease: Status: Chronic Assessment and plan: stable, recommendations for outpatient PFT's. continue inhalers. (7) Back pain: Status: Inactive Assessment and plan: secondary to osteomyelitis/discitis. pain controlled on acetaminophen and oxycodone. continue bowel management. PT/OT. (8) DVT prophylaxis: Status: Acute Assessment and plan: anticoagulated on eliquis (9) Discharge planning issues: Status: Acute Assessment and plan: case management following, will discharge to home when IV course completed. History of Present Illness History of Present Illness Chief Complaint: bacteremia Narrative: This is a 69 year old female with a past medical history of paroxysmal atrial fibrillation on anticoagulation ventricular tachycardia status post ICD coronary artery disease status post LAD stent ischemic cardiomyopathy with super morbid obesity who presented with complaints of back pain. Her work-up was significant for enterococcus bacteremia complicated by osteomyelitis discitis who was sent to [facility] for ICD explant as leads were found to have vegetation. She required a temporary to permanent pacemaker and subsequently did require pressors for hypotension. Her hospital course was complicated with endorgan damage including liver shock and acute renal failure. She began responding to treatment and was weaned off her pressors. She did have a brief episode of A. fib with RVR which responded to amiodarone and metoprolol. She also did require CVVH for acute renal failure but has been voiding with diuretics and creatinine has improved and stabilized to 2.6 with her baseline of 2. Nephrology did sign off on her and she has been restarted on her Bumex daily with close monitoring. She has had no fevers chills no chest pain shortness of breath she has been eating and drinking bowels and bladder functioning her last bowel movement was today. She remains deconditioned from her extended hospital course in addition will require 6 weeks of antibiotics for enterococcus bacteremia with discitis osteomyelitis which will go through October 29 per ID recommendations. She will have routine surveillance labs. A Aceves line was placed. Review of Systems Constitutional Constitutional: Denies fever(s) Eyes Eyes: Denies change in vision ENT Ears, Nose, Mouth, and Throat: Denies dizziness, Denies mouth pain and Denies sore throat Cardiovascular Cardiovascular: Denies chest pain and Denies dyspnea Respiratory Respiratory: Denies cough and Denies dyspnea Gastrointestinal Gastrointestinal: Denies abdominal pain Musculoskeletal Musculoskeletal: Reports back pain Integumentary/Breasts Skin/Breast: Denies lesions Neurologic Neurologic: Denies dizziness [facility] Medical History (Updated 10/07/19 @ 13:18 by Lindsay Tuttle NP) Candidiasis, intertrigo (Acute) Cardiac arrest with ventricular fibrillation (Resolved) Cardiomyopathy (Chronic) Cardiorenal syndrome (Inactive) Community acquired pneumonia (Inactive) COPD (chronic obstructive pulmonary disease) (Inactive) Coronary artery disease (Chronic 05/05/14) STEMI with LAD stent 04/2014 EF 35% Cystocele (Inactive) Hyponatremia (Inactive) Impaired glucose tolerance (Chronic) Ischemic cardiomyopathy (Acute) Leukocytosis (Inactive) a. since 1995 with reportedly normal bone marrow biopsy in 1996 Mixed urinary incontinence due to female genital prolapse (Inactive) Neck mass (Inactive 01/26/15) Right ventricular dysfunction (Inactive) Systolic CHF (Inactive 05/02/14) a. subacute with acute exacerbation Urinary incontinence (Chronic 11/06/17) Surgical History (Updated 09/02/19 @ 00:01 by Star Gonzalez) AICD (automatic cardioverter/defibrillator) present (Chronic ~06/2017) Cholecystectomy H/O surgical procedure (Inactive) a. s/p cholecystectomy b. s/p hysterectomy c. s/p bilateral carpan tunnel release surgery d. incisional hernia repair Hernia Repair, Incisional 04/19/14 History of heart artery stent (Chronic ~2013) LAD Hysterectomy, Laproscopic (~1980) OVARIES REMAIN Tonsillectomy Family History (Updated 09/02/19 @ 00:03 by Star Gonzalez) Mother Stroke Father Peptic ulcer disease Brother Substance abuse Social History (Updated 09/02/19 @ 00:03 by Star Gonzalez) Smoking/Tobacco Use Status: Former Tobacco Use Quit Date: 05/20/13 Tobacco: How many years used: 40 Second Hand Exposure: Yes Alcohol Intake: former Drug use: Never Substance use type: does not use Household members: spouse Number of Children: 5 Do you feel safe at home: Yes Do you feel safe in your relationship?: Yes Female Reproductive History Menstrual Menopause type: surgical History History 5 Para 5 Hx # Term Pregnancies 5 Multiple births Hx # Pregnancies Ectopic pregnancies AB induced Hx Number of Living Children 5 AB spontaneous Meds Home Medications and Allergies Home Medications Medication Instructions Recorded Confirmed Type albuterol sulfate [Ventolin HFA] 2 puff INHALATION Q4H PRN #120 07/13/15 10/07/19 History inhaler atorvastatin 80 mg PO DAILY #90 tab-cap 07/02/16 10/07/19 History nitroglycerin 0.4 mg SUBLINGUAL PRN PRN #30 01/28/17 10/07/19 History tab-cap spironolactone 25 mg PO DAILY #90 tab-cap 10/02/17 10/07/19 Rx Eliquis 5 mg PO BID #60 tab 11/22/17 10/07/19 Rx metolazone 2.5 mg PO PRN #30 tab-cap 01/08/18 10/07/19 Rx metoprolol succinate 100 mg 50 mg PO DAILY tab 02/26/18 10/07/19 History tablet,extended release 24 hr allopurinol 300 mg tablet 300 mg PO DAILY 03/04/18 10/07/19 History amiodarone 400 mg tablet 200 mg PO DAILY tab 11/19/18 10/07/19 History mirabegron 25 mg tablet,extended 25 mg PO DAILY #60 tab 05/14/19 09/01/19 Rx release 24 hr Incruse Ellipta 1 inh INHALATION DAILY 05/26/19 10/07/19 History benzonatate [Tessalon Perles] 100 mg PO BID PRN 05/26/19 10/07/19 History ipratropium bromide 2.5 ml INHALATION Q6H PRN 05/26/19 10/07/19 History ropinirole 2 mg PO QHS 05/26/19 10/07/19 History bumetanide 2 mg PO BID 08/16/19 10/07/19 History diclofenac sodium [Voltaren] 4 g TOPICAL QID #0 g 09/04/19 Rx docusate sodium [Colace] 100 mg PO BID #60 cap 09/04/19 Rx gabapentin 100 mg PO TID #0 cap 09/04/19 10/07/19 Rx polyethylene glycol 3350 17 g PO DAILY PRN PRN #0 ea 09/04/19 10/07/19 Rx prednisone 40 mg PO DAILY #0 tab 09/04/19 Rx sennosides [Senokot] 1 tab PO BID #0 tab 09/04/19 10/07/19 Rx acetaminophen [Tylenol] 1,000 mg PO QID 10/07/19 10/07/19 History methocarbamol 750 mg PO Q6H PRN 10/07/19 10/07/19 History oxycodone 5 mg PO Q6H PRN 10/07/19 10/07/19 History pantoprazole 20 mg PO DAILY@0730 10/07/19 10/07/19 History Allergies Allergy/AdvReac Type Severity Reaction Status Date / Time lisinopril AdvReac Other (See Verified 09/14/19 06:43 Comment) sacubitril [From Entresto] AdvReac rash Verified 09/14/19 06:43 valsartan [From Entresto] AdvReac rash Verified 09/14/19 06:43 Exam Const General: cooperative, comfortable, no acute distress, disheveled, frail appearing and ill appearing chronically Nutritional Appearance: obese Orientation: alert, awake and oriented x3 HENMT Head: normal to inspection, normocephalic and atraumatic Mouth: oral mucosae normal Resp Effort & Inspection: normal respiratory effort Auscultation: clear to auscultation bilaterally, no rales, no rhonchi and no wheezes Cardio Rate: regular rate Rhythm: abnormal rhythm irregularly irregular Heart Sounds: no murmurs GI Inspection: large pannus and obesity Palpation: soft Auscultation: normal bowel sounds (last bm today) Skin General skin exam: ecchymosis (scattered bruising upper extremities) Lesions: lesion noted (explant site left chest wall, new implant site right chest wall) Rashes: rashes noted Other: left chest wall single lumen tunnelled Aceves catheter. Neuro General: patient alert, patient awake and patient oriented x3 Cognition: normal cognition Speech: speech normal Motor: strength 5/5 throughout and strength abnormal Extrem General: full ROM and edema Laterality: bilateral (lower extremity, +3 pitting) Psych Mental Status: mental status grossly normal Speech and Movement: speech and movement normal Affect: blunted Attitude: cooperative Thought Process: normal Thought Content: normal Results Last Vital Signs Temp 36.6 C 10/07/19 11:50 Pulse 82 10/07/19 11:50 Resp 22 10/07/19 11:50 BP 115/86 10/07/19 11:50 Pulse Ox 91 L 10/07/19 11:50 COVID-19 Screening In the past 14 days, have you traveled outside of [place] or [place]?: NO Had IN PERSON contact w/suspected or confirmed C-19 person: No
[2019-10-07] MEDS: AMPICILLIN SODIUM 2 GM in Normal Saline 100 ML IVPB ×2 (14:54→19:31)
[2019-10-07] MEDS: Gabapentin 100 MG CAP PO ×2 (14:56→19:30)
--- NOTE | 2019-10-07 15:46 | CM.SWINGPC ---
- If Service Date Differs Date of service: 10/07/19 Time of Service: 15:46 Swingbed Plan of Care Plan of care: SWING BED PROGRAM ACTIVITIES/DISCHARGE PLAN OF CARE ACTIVITIES PLAN Date:10/07/2019 Identified Need:Individual activities Intervention/Plan: Facetime to visit with family and friends, activity cart, television and phone in the room. Initials [facility] DISCHARGE PLAN Date:10/07/2019 Identified Need:IV abx 6 weeks Coordination of home health services as part of the transition plan PT r/t prolonged hospitalization and falls at home Intervention/Plan: IV abx x 6 weeks PT and OT Initials [facility]
--- NOTE | 2019-10-07 15:52 | CMSA_ITS ---
- If Service Date Differs Date of service: 10/07/19 Time of Service: 15:52 SB Psychosocial/Act.Assessment - Hospital Admission Admission Date: 10/07/19 [place] [facility] [place]:: Enterococcus Bacteremia, osteomyelitis, discitis, ICD infection - Swing Bed Admission Swing Bed Admit Date:: 10/07/19 Swing Bed Level of Care: Level 1/SNF - Social Supports PREVIOUS FUNCTIONAL STATUS/SOCIAL/FAMILY SUPPORTS:: Zora lives in [place] with her , Otis. She reports her is currently undergoing treatment for lung cancer. The couple has five children, four who live in [place] and one who is . They also have nine adult grandchildren and two great grandkids. 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 She now occupies her time gardening and fishing during warmer months and putting together jigsaw puzzles in the winter. Zora drives and is independent with her ADLs at baseline. 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 They have several friends who are sources of support. - Prior to Admission Living Arrangements/Environment Prior to Admission:: Zora lives in [place] with her , Otis. She reports her is currently undergoing treatment for lung cancer. The couple has five children, four who live in [place] and one who is . They also have nine adult grandchildren and two great grandkids. 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 She now occupies her time gardening and fishing during warmer months and putting together jigsaw puzzles in the winter. Zora drives and is independent with her ADLs at baseline. 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 They have several friends who are sources of support. - Work History Employment Status:: Retired - : No - Benefits Financial: Medicare - Anabaptist Active Zoroastrian Member:: No Will Zoroastrian Members or Cotton Sampler Visit:: No - Advance Directives for Healthcare Advance Directives for Healthcare: Advance Directives If no AD, do you want more information:: Yes - Interests Hobbies:: Adult coloring, fishing with her Crafts:: Enjoys puzzels - Present Functional Status Physical Abilities:: Physical assistance with ambulation and assistance with ADLS Cognitive:: Alert and engaged Communication:: Alert, engaged and able to articulate needs. Sensory Systems: intact Behavior:: Kind, and engaged - Medical History PAST MEDICAL HISTORY/PAST SURGICAL HISTORY:: Anemia (Chronic), Atrial fibrillation (Chronic), Cardiomyopathy, ischemic (Chronic), Chronic kidney disease, stage III (moderate) (Chronic), Chronic obstructive pulmonary disease (Chronic 09/03/14), Congestive heart disease (Chronic 05/05/14), Coronary artery disease (Chronic 05/05/14) - STEMI with LAD stent 04/2014 - EF 35%,. Hypertension (Chronic), ICD (implantable cardioverter-defibrillator) in place (Chronic), Impaired glucose tolerance (Chronic), Morbid obesity (Chronic),. Nephrolithiasis (Chronic), Nocturnal hypoxia (Chronic), Tobacco use disorder (Resolved) - a. quit one week ago at the time of her [place], and Urinary incontinence (Chronic 11/06/17). Surgical History: Cholecystectomy, Hernia Repair, Incisional 04/19/14, Hysterectomy, Laproscopic (~1980) - OVARIES REMAIN, and. Tonsillectomy. General Health:: Fair, currently receiving antibioitcs for bacteremia she will need PT and OT related to weakness and falls and prolonged hospitalization. - Admission Data Reason for Swing Bed Admission:: IV abx end date 10/30/2019 Discharge Plan:: Zora will complete IV antibioitcs on 10/30/2019 she will then return home with her spouse and new home health services for nursing, PT and OT at time of discharge. She would like to complete her advance directives and is clear that she wants to be a full code at this time. CM left a packet in the room for her review and assist when ready to complete. Internet Marketing Strategist: Maribell Weinberg
[2019-10-07] MEDS: cefTRIAXone 2 GM/50 ML BAG IVPB (16:00)
[2019-10-07] MEDS: Lactobacillus Acidophilus CAP 1 CAP PO (16:10)
[2019-10-07] MEDS: Normal Saline Flush 10 ML SYR IVP ×2 (16:10→19:31)
[2019-10-07] MEDS: oxyCODONE 5 MG TAB PO (17:45)
[2019-10-07] MEDS: Acetaminophen 325 MG TAB 650 MG PO ×2 (17:45→22:26)
[2019-10-07] MEDS: Ipratropium 0.5 MG/2.5 ML UPD VIAL IH (18:17)
[2019-10-07] MEDS: Apixaban 5 MG TAB PO (19:30)
[2019-10-07 20:40] VITALS: BP 86/62; PULSE 61
[2019-10-07 20:44] VITALS: BP 86/60; PULSE 54; RESP 20; TEMP 36.7; O2SAT 95
[2019-10-07] MEDS: Albuterol HFA 8 GM 60 PUFF INH IH (20:50)
[2019-10-07 21:27] VITALS: BP 90/78
[2019-10-07] MEDS: rOPINIRole 1 MG TAB 2 MG PO (22:25)
[2019-10-07] MEDS: Melatonin 3 MG TAB 6 MG PO (22:25)
[2019-10-08] MEDS: AMPICILLIN SODIUM 2 GM in Normal Saline 100 ML IVPB ×4 (02:25→19:45)
[2019-10-08] MEDS: Normal Saline Flush 10 ML SYR IVP ×5 (02:25→19:46)
[2019-10-08 02:29] VITALS: BP 100/67; PULSE 75; RESP 19; TEMP 36.8; O2SAT 98
[2019-10-08] MEDS: Acetaminophen 325 MG TAB 650 MG PO ×2 (06:27→12:45)
[2019-10-08] MEDS: oxyCODONE 5 MG TAB PO ×2 (06:27→12:44)
[2019-10-08] MEDS: Lactobacillus Acidophilus CAP 1 CAP PO ×3 (07:35→16:02)
[2019-10-08] MEDS: Pantoprazole 40 MG TABCR 20 MG PO (07:36)
[2019-10-08] MEDS: Gabapentin 100 MG CAP PO ×3 (07:36→19:45)
[2019-10-08] MEDS: Apixaban 5 MG TAB PO ×2 (07:36→19:45)
[2019-10-08] MEDS: Atorvastatin 40 MG TAB 80 MG PO (07:44)
[2019-10-08 07:45] VITALS: BP 92/56; PULSE 75; TEMP 36.2; O2SAT 92
[2019-10-08] MEDS: Multivitamin TAB 1 TAB PO (07:45)
[2019-10-08] MEDS: Bumetanide 1 MG TAB 2 MG PO (07:45)
[2019-10-08] MEDS: Amiodarone 200 MG TAB PO (07:45)
[2019-10-08] MEDS: Umeclidinium 7 CAP INHALER IH (08:24)
--- NOTE | 2019-10-08 09:32 | PT.INIE ---
Date of service: 10/08/19 Time of Service: 09:32 PT Notes Visit Reasons: BACTEREMIA OSTEOMYELITIS DISCITIS Physical Therapy Inpatient Initial Evaluation Date: 10/08/2019 Referring Doctor: Lindsay Tuttle NP PT Orders: PT CONSULT: Limited ability Precautions: Fall. Standard. Activity as tolerated. Patient Profile/Admitting Diagnosis: Zora is a 69-year-old female with past medical history significant for paroxysmal atrial fibrillation and is on Coumadin, ventricular tachycardia status post cardiovascular implantable electronic device placement in 2013, coronary artery disease status post LAD stent placement in 2013, ischemic cardiomyopathy with ejection fraction of 18% as of 09/28/2019, COPD, and knee osteoarthritis who initially presented with worsening back pain and bilateral lower extremity weakness that have started 3 weeks prior to [facility] ED presentation. 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 PMHx: Medical History (Updated 10/07/19 @ 13:18 by Lindsay Tuttle, HARRIET) Candidiasis, intertrigo (Acute) Cardiac arrest with ventricular fibrillation (Resolved) Cardiomyopathy (Chronic) Cardiorenal syndrome (Inactive) Community acquired pneumonia (Inactive) COPD (chronic obstructive pulmonary disease) (Inactive) Coronary artery disease (Chronic 05/05/14) STEMI with LAD stent 04/2014 EF 35% Cystocele (Inactive) Hyponatremia (Inactive) Impaired glucose tolerance (Chronic) Ischemic cardiomyopathy (Acute) Leukocytosis (Inactive) a. since 1995 with reportedly normal bone marrow biopsy in 1996 Mixed urinary incontinence due to female genital prolapse (Inactive) Neck mass (Inactive 01/26/15) Right ventricular dysfunction (Inactive) Systolic CHF (Inactive 05/02/14) a. subacute with acute exacerbation Urinary incontinence (Chronic 11/06/17) Surgical History (Updated 09/02/19 @ 00:01 by Star Gonzalez) AICD (automatic cardioverter/defibrillator) present (Chronic ~06/2017) Cholecystectomy H/O surgical procedure (Inactive) a. s/p cholecystectomy b. s/p hysterectomy c. s/p bilateral carpan tunnel release surgery d. incisional hernia repair Hernia Repair, Incisional 04/19/14 History of heart artery stent (Chronic ~2013) LAD Hysterectomy, Laproscopic (~1980) OVARIES REMAIN Tonsillectomy Social History/Home Situation: Zora Juan with in a single level private home with 2 steps to enter with a rails. Patient was independent with all mobility ADL performance not needing any assistive ambulatory device nor adaptive equipment prior to admission despite the fact that she has had progressive weakness that started 3 weeks prior to 09/18/2019. 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 Zora states that a week before she went to [facility], she was going to receive couple of hours worth of home health aide once a week. Equipment Owned/DME: None Subjective: Patient reports continued weakness on bilateral lower extremity and minor discomfort on her low back area that limits her ability to move about. She states that the swelling has gotten worse in both her legs. She hopes to go home from here and receive continued home health assistance in terms of meal preparation, house chores, and laundry. Objective: General Observation: PICC line in place. AICD in situ. Grade 2 pitting edema on bilateral legs. Mental Status: Alert and oriented x4 Pain: 2-3/10 on her low back area at rest and 4-5/10 with movement ROM: Right Upper Extremity: Shoulder Flexion allows up to 90 degrees only. Shoulder abduction allows up to 90 degrees only. Elbow flexion WFL. Wrist flexion WFL. Opening and closing of hand WFL. Left Upper Extremity: Shoulder Flexion allows up to 90 degrees only. Shoulder abduction allows up to 90 degrees only.Elbow flexion WFL. Wrist flexion WFL. Opening and closing of hand WFL. Right Lower Extremity: Hip flexion allows up to 10 degrees beyond 90 while seated on the edge of the chair. Knee flexion WFL. Ankle dorsiflexion WFL. Ankle plantarflexion WFL. Left Lower Extremity: Hip flexion allows up to 10 degrees beyond 90 while seated on the edge of the chair. Knee flexion WFL. Ankle dorsiflexion WFL. Ankle plantarflexion WFL. Strength: Right Upper Extremity: Shoulder flexors 3-/5. Shoulder abductors 3-/5. Elbow flexors 4/5. Elbow extensors 4/5. Binding Nicker strong. Left Upper Extremity: Shoulder flexors 3-/5. Shoulder abductors 3-/5. Elbow flexors 4/5. Elbow extensors 4/5. Binding Nicker strong. Right Lower Extremity: Hip flexors 3-/5. Hip abductors 4-/5. Knee flexors 4-/5. Knee extensors 4-/5. Ankle dorsiflexors 4-/5. Ankle plantarflexors 4-/5. Left Lower Extremity: Hip flexors 3-/5. Hip abductors 4-/5. Knee flexors 4-/5. Knee extensors 4-/5. Ankle dorsiflexors 4-/5. Ankle plantarflexors 4-/5. Sensation: Intact as to pain and pressure on bilateral lower extremities. Bed Mobility/Transfers: Sit to stand from a head bedside reclining chair moderate assist of 2, requires use of front wheeled walker Stand to sit moderate assist of 1 with verbal cueing for hand placement for increased independence, requires use of front wheeled walker Bed to wheelchair minimal assist with verbal cueing needed for hand placement, requires use of front wheeled walker Wheelchair to bed minimal assist with verbal cueing needed for hand placement, requires use of front wheeled walker Gait: Patient tolerated level surface ambulation of 50 feet with contact-guard assist and wheelchair follow. Meghana decreased. Step height and length decreased. Pain reported at 5/10 in the low back area. No shortness of breath. No LOB seen. Patient did report being fatigued from said activity emphasizing that she has not walked thus far since her hospitalization. Balance: Static Sitting: Normal Dynamic Sitting: Normal Static Standing: Fair Dynamic Standing: Fair Special Tests: Mobility Limitations Standardized Measure [facility]-PAC 6 clicks Basic Mobility Inpatient Short Form: Raw Score: 13 CMS Score: 65% deficit Informed Consent/Education: Patient instructed in purpose of PT consult and plan of care. Assessment: Body demonstrates unsteadiness on feet resulting from balance impairment, generalized body weakness, functional mobility decline, difficulty with walking, and decreased activity tolerance due to admitting diagnoses. Zora is a 69-year-old female with past medical history significant for paroxysmal atrial fibrillation and is on Coumadin, ventricular tachycardia status post cardiovascular implantable electronic device placement in 2013, coronary artery disease status post LAD stent placement in 2013, ischemic cardiomyopathy with ejection fraction of 18 % as of 09/28/2019, COPD, and knee osteoarthritis who initially presented with worsening back pain and bilateral lower extremity weakness that have started 3 weeks prior to [facility] ED presentation. 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 Patient presents with clinical signs and symptoms consistent with current/admitting diagnoses that have resulted to mobility limitations, gait instability, generalized weakness, and impairment of motor control as demonstrated by the following impairment level findings: 1. Decreased strength to B UES/LE major muscle groups 2. Impaired standing balance 3. Impaired activity tolerance 4. Limitation of joint range of motion in the shoulder and B hips Impairments are contributing to the following functional limitations: 1. Dependent bed mobility skills 2. Increased dependence with transfers 3. Inability to safely ambulate without assistive device and physical assistance 4. Increase completion time for mobility ADL performance 5. Increased fall risk 6. Inability to negotiate steps alone safely Patient is assessed as a 05272 moderate complexity based on the following: History: 69-year-old female with impairment level findings, functional limitations, and past medical history as listed above Examination: Demonstrable impairment in strength, balance, and mobility level with underlying impairments and functional limitations as documented above Presentation: Evolving Decision Makin moderate complexity Goals: Goals X1 week 1. Supine-Sit independent 2. Sit-Supine independent 3. Sit-Stand independent 4. Stand-Sit independent 5. Bed-Chair independent 6. Chair-Bed independent 7. Independent gait on level surface with use of least restrictive device for at least 300 feet without report of pain nor dyspnea 8. Independent stair negotiation while holding onto bilateral rails for at least 5 steps without report of pain nor dyspnea 9. Independent with home exercise program 10. Good static and dynamic standing balance/tolerance Plan of Care/Treatment Plan: 1-2x/day, 7 days/week x 1 week. Initiate Physical Therapy intervention for strengthening, bed mobility, transfers, gait, stairs, balance training, use of assistive device. DISCHARGE RECOMMENDATIONS: Patient will benefit from home health PT services in order to progress mobility level using least restrictive assistive ambulatory device, assess home safety, identify additional equipment needs, and establish a functional maintenance program that will increase ability of patient to remain at home. TREATMENT CODE/TIME: 11923 x 25 minutes, 97064 x 8 minutes beginning at 9:32 AM. Thank you very much for this referral. Cindy Gonzalez PT, DPT, CLT [facility] [place], [place]
--- NOTE | 2019-10-08 09:46 | OT.INIE ---
Occupational Therapy Notes Inpatient Occupational Therapy Evaluation Date: 10/08/19 Referring Doctor:Lindsay Tuttle NP OT Orders: Non-Urgent: Limited Ability Precautions: Fall, Standard, FULL PATIENT PROFILE/ADMITTING DIAGNOSIS: Pt is a 69 year old female who presented to the ER twice on 09/01/19. The first time pt reports that she was unable to get up off her couch and was sent back home after ER visit. She reports that later on she fell hitting her head resulting in a scalp laceration to occipital head. Pt was admitted to [facility] for closed head injury, degenerative disc disease, pain in (R) shoulder, multiple falls, Chronic Kidney disease stage III, Ischemic cardiomyopathy, back pain. She was then transferred to [facility] for continued care. Pt reports that while at [facility] they removed and replaced her ICD. She was transitioned back to [facility] on SB1 rehabilitation program for a dx of bactremia due to enteroccus, A-fib, ischemic cardiomyopathy, acute renal insufficiency, ICD, COPD and back pain. Plan for pt is to go home after completing the SB1 program at [facility] with continued services. Past Medical History- Medical History (Updated 10/07/19 @ 13:18 by Lindsay Tuttle NP) Candidiasis, intertrigo (Acute) Cardiac arrest with ventricular fibrillation (Resolved) Cardiomyopathy (Chronic) Cardiorenal syndrome (Inactive) Community acquired pneumonia (Inactive) COPD (chronic obstructive pulmonary disease) (Inactive) Coronary artery disease (Chronic 05/05/14) STEMI with LAD stent 04/2014 EF 35% Cystocele (Inactive) Hyponatremia (Inactive) Impaired glucose tolerance (Chronic) Ischemic cardiomyopathy (Acute) Leukocytosis (Inactive) a. since 1995 with reportedly normal bone marrow biopsy in 1996 Mixed urinary incontinence due to female genital prolapse (Inactive) Neck mass (Inactive 01/26/15) Right ventricular dysfunction (Inactive) Systolic CHF (Inactive 05/02/14) a. subacute with acute exacerbation Urinary incontinence (Chronic 11/06/17) Surgical History (Updated 09/02/19 @ 00:01 by Star Gonzalez) AICD (automatic cardioverter/defibrillator) present (Chronic ~06/2017) Cholecystectomy H/O surgical procedure (Inactive) a. s/p cholecystectomy b. s/p hysterectomy c. s/p bilateral carpan tunnel release surgery d. incisional hernia repair Hernia Repair, Incisional 04/19/14 History of heart artery stent (Chronic ~2013) LAD Hysterectomy, Laproscopic (~1980) OVARIES REMAIN Tonsillectomy Social History/Home Situation: Pt reports that she lives in a private home with her . She reports that at baseline she does not need any (A) at baseline. Her back pain has occurred for months now and she was attending PT in the outpatient setting at [facility]. Pt states that she has a tub/shower with grab bars, no bench. She has difficulty getting on and off her toilet. OT does recommend a raised toilet seat to decrease strain on pts (B) LE and back and increase her overall functional safety. At night she reports that she has difficulty getting to and from the bathroom due to fall risks. OT also recommends a commode at bed for night time toileting routine to decrease fall risk. Pt has two stairs to enter her home with (B) railings and no steps inside her home. She does not utilize an (A) device at baseline. She does drive, her performs all cooking, food prep and grocery shopping. She states that sometimes she just sleeps on her couch because she can't get up and off her bed at times. Equipment owned/DME: Alum Operator provided per OT at last admission. SUBJECTIVE: Pt was sitting in chair when OT arrived. She reports that she is having significant pain in her back and cannot get comfortable in any seated position. OBJECTIVE: General Observation: Pleasant and able to answer questions appropriately. Pain behaviors noted with static ADLs. IV (L) shoulder not connected. Mental Status: A&Ox3 Pain: C/o pain in low back rating 8-10/10 ROM: RUE Limited below 90* due to ICD placement guidelines. Wrist, digits, elbow WNL L UE AROM WFL STRENGTH: RUE Commercial Retoucher is strong and symmetrical otherwise not tested to follow adherence with ICD placement LUE Shoulder flexion 4/5, bicep 4/5, tricep 5/5, vp production is strong and symmetrical SENSATION: Intact (B) UE FUNCTIONAL MOBILITY/ADLS: Sit-Stand Mod-Max (A) Stand-sit Mod-Max (A) BATHING- Pt denies but is able to perform functional AROM for bathing routine. She is limited with (R) UE and this will decrease her functional (I) without (A). She is compliant with restrictions due to ICD placement and can verbalize them at this time. DRESSING Dressing LE pt reports that she is currently Max (A) doffing pants, mod (A) donning pants, max (A) don and doffing (B) socks TOILETING NT BALANCE: Static sitting Normal Dynamic Sitting Good Static Standing Poor Dynamic Standing Poor SPECIAL TESTS: Daily Activity Limitations Standardized Measure [facility] AM -PAC ?6 clicks? Daily Activity Inpatient Short Form: Raw score: 15 Standardized score: 34.69 CMS score: 56.46% INFORMED CONSENT/EDUCATION: Pt instructed in purpose of OT Consult and plan of care. ASSESSMENT: Patient is a 69-year-old female referred to occupational therapy services under SWB1 rehabilitation status with diagnosis bactremia due to enteroccus, A-fib, ischemic cardiomyopathy, acute renal insufficiency, ICD, COPD and back pain. Patient presents with clinical signs and symptoms consistent with dx, as demonstrated by the following impairment level findings/ functional limitations: Decreased AROM of (R) UE effecting dressing, bathing and toileting routines, decreased functional activity tolerance, decreased gross and fine motor control of (R) UE, decreased strength, decreased performance of LE bathing and dressing, decreased ability to perform functional mobility required for ADL/IADL routines, decreased ability to return home due to social supports and has cancer. Pt is caregiver to . AMPAC score 15 Patient is assessed as a Moderate 19214 complexity based on the following: History: See above Examination: See functional limitations as noted above Presentation: Evolving Decision Making: AMPAC score 15 GOALS Goals x1 week 1. Transfers with LRD 2. Dressing able to perform LE dressing mod (I) with adaptive equipment 3. Bathing sitting, able to (I) perform UE and mod (A) LE 4. Toileting on toilet (S) 5. Eating (I) 6. Grooming including hair and teeth standing at sink with LRD (I) PLAN OF CARE/TREATMENT PLAN: 1x/day, 5 days/ week x 1week Initiate Occupational Therapy Services for bathing, dressing, grooming, toileting, eating, transfer training. DISCHARGE RECOMMENDATIONS: OT recommends that pt return home after SWB1 rehabilitation therapy with resumption of HH PT/OT services. OT recommends the following DME: 1. OT does recommend a raised toilet seat to decrease strain on pts (B) LE and back and increase her overall functional safety. 2. At night she reports that she has difficulty getting to and from the bathroom due to fall risks. OT also recommends a commode at bed for night time toileting routine to decrease fall risk. 3. OT recommends a shower seat due to patients decreased functional activity tolerance, increased pain and decreased stability in the standing position, a shower seat would promote increased safety and functional (I) for pt during bathing routine. TREATMENT TIME/MINUTES/CODES 04209, 27716, 25 minutes (08:15) Pippa Richardson OTR/[facility]
--- NOTE | 2019-10-08 10:25 | PHA.REVIEW ---
Pharmacy Admission Review - Admission Clinical Review (Last Updated 09/02/19 @ 00:01 by Star Gonzalez) Bacteremia due to Enterococcus (Acute) Discharge planning issues (Acute) DVT prophylaxis (Acute) Ischemic cardiomyopathy (Acute) Acute renal insufficiency (Acute) lisinopril Adverse Reaction (Verified 09/14/19 06:43) Other (See Comment) sacubitril [From Entresto] Adverse Reaction (Verified 09/14/19 06:43) rash valsartan [From Entresto] Adverse Reaction (Verified 09/14/19 06:43) rash Height 5 ft 6 in Weight 115.4 kg - Renal Dosing Renal Dosing: Scr 2.08 -- CrCl closer to 46ml/min based on adjusted body weight Medications needing adjustments: Reviewed List of meds needing interventions: None -- all okay - Anticoagulation DVT Prohphylaxis: Reviewed Therapeutic Anticoagulation: Reviewed Medications: Apixaban - Opiate Usage Evaluate Pain Scale/Pains Meds: Reviewed Scheduled Bowel Reg ordered if on Opiates?: Yes (PRN) - Heart Failure/TX EF%, ZOHRA's, B-Blockers, Diuretics: Reviewed (Bumex, lasix, amiodarine, metoprolol,) - BP Control BP Control: Blood Pressure 92/56 Blood Pressure 100/67 If elevated: Reviewed (parameters added to metoprolol) - Qtc Review If Elevated: N/A - IV to PO Switch IV Medications: Reviewed (Dx requiring IV abx for 6 weeks) - Home Meds Home Med List reviewed: Reviewed Relevent Home Meds Not ordered & why?: allopurinol, metolazone, - Current meds Current Medication Order Review: Reviewed - Comments Comments/Follow Ups: 13 pound wt gain from yesterday, edema noted -- lasix started BID
[2019-10-08] MEDS: Furosemide 40 MG/4 ML VIAL IVP ×2 (11:01→16:02)
[2019-10-08 11:20] VITALS: BP 94/61; PULSE 16; RESP 16; TEMP 36.9; O2SAT 90
[2019-10-08] MEDS: Ipratropium 0.5 MG/2.5 ML UPD VIAL IH (12:45)
--- NOTE | 2019-10-08 13:07 | TELEFU_ITS ---
Date of service: 10/08/19 Time of Service: 13:08 Nutritional Follow up NOTE: 69 year old female admitted with bacteremia due to E coli with renal insufficiency, osteomylitis discitis. Meds include atrostatin, folic acid, MVI. Deconditioned from lengthly hospital stay this year at [facility]. Following Regular Meal plan with adequate intake (>75%). Labs indicate elevated blood sugars, BUN, Cre. No Dx of DM per PMH, however has had increasing Hem A1C this year (05/28/19: 6.6%, 08/03/19 7.4%). Recommend rechecking A1c, change diet to Consistent Carb. Met with Zora today, she reports stable weight and appetite in recent 6 months. Will follow prn. Time Spent in Nutritional Counseling and Treatment: 10 min face to face
--- NOTE | 2019-10-08 13:39 | CHAPLAIN ---
Zora was discharged from [facility] after a 20-day stay and is here for swing bed to received IV antibiotics four times a day. She is from [place]. Her is at their home, and a 21 year-old cat. Because of restricted visitation rules and [facility] and here, Zora hasn't seen her since her admission to [facility]. (According to Care Management notes, he is receiving treatments for cancer.) Zora has been working on adult coloring books to keep herself busy. She has been admitted to [facility] before, so she is familiar with the hospital. I will continue to visit.
[2019-10-08 15:10] VITALS: BP 97/60; PULSE 76; RESP 19; TEMP 36.7; O2SAT 92
[2019-10-08] MEDS: cefTRIAXone 2 GM/50 ML BAG IVPB (16:02)
[2019-10-08 16:19] VITALS: RESP 12
[2019-10-08 18:55] VITALS: BP 91/58; PULSE 81; RESP 19; TEMP 36.7; O2SAT 91
[2019-10-08] MEDS: Senna TAB 1 TAB PO (19:45)
[2019-10-08] MEDS: Melatonin 3 MG TAB 6 MG PO (21:18)
[2019-10-08] MEDS: rOPINIRole 1 MG TAB 2 MG PO (21:18)
[2019-10-09] MEDS: AMPICILLIN SODIUM 2 GM in Normal Saline 100 ML IVPB ×2 (01:38→07:45)
[2019-10-09 05:43] VITALS: BP 105/73; PULSE 76; RESP 20; TEMP 36.5; O2SAT 93
[2019-10-09 06:35] LABS: Anion Gap 7.7 mmol/L (3-11); BUN 40 mg/dL (7-18); CO2 28.3 mmol/L (21.0-32.0); Calcium 8.6 mg/dL (8.5-10.1); Chloride 98 mmol/L (98-107); Estimated GFR 12.62 (mL/min/1.73m2); Glucose 94 mg/dL (74-106); Potassium 3.9 mmol/L (3.5-5.1); Sodium 134 mmol/L (136-145)
[2019-10-09 06:38] LABS: CREATININE 3.58 mg/dL (0.55-1.02)
[2019-10-09 06:59] LABS: NT-proBNP 31045 pg/mL (<300)
[2019-10-09 07:31] VITALS: BP 104/69; PULSE 60; RESP 18; TEMP 36.2; O2SAT 94
[2019-10-09] MEDS: Normal Saline Flush 10 ML SYR IVP ×2 (07:46→08:07)
[2019-10-09] MEDS: Bumetanide 1 MG TAB 2 MG PO (07:46)
[2019-10-09] MEDS: oxyCODONE 5 MG TAB PO (07:47)
[2019-10-09] MEDS: Lactobacillus Acidophilus CAP 1 CAP PO (07:47)
[2019-10-09] MEDS: Metoprolol CR 100 MG TABCR 50 MG PO (07:47)
[2019-10-09] MEDS: Pantoprazole 40 MG TABCR 20 MG PO (07:47)
[2019-10-09] MEDS: Apixaban 5 MG TAB PO (07:47)
[2019-10-09] MEDS: Gabapentin 100 MG CAP PO (07:47)
[2019-10-09] MEDS: Atorvastatin 40 MG TAB 80 MG PO (07:47)
[2019-10-09] MEDS: Nystatin POWDER 15 GM JAR TP (07:48)
[2019-10-09] MEDS: Senna TAB 1 TAB PO (07:48)
[2019-10-09] MEDS: Multivitamin TAB 1 TAB PO (07:48)
[2019-10-09] MEDS: Amiodarone 200 MG TAB PO (07:48)
[2019-10-09] MEDS: Furosemide 100 MG/10 ML VIAL IVP (08:07)
[2019-10-09] MEDS: Umeclidinium 7 CAP INHALER IH (08:18)
--- NOTE | 2019-10-09 08:26 | W.PM.DS.N ---
Date of service: 10/09/19 Time of Service: 08:26 DS: Diagnosis Discharge Diagnosis (1) Acute on chronic diastolic CHF (congestive heart failure): Start date: 10/09/19 Start time: 08:29 Status: Acute Asessment and Plan: [place] [facility] [place] Patient wt increased by 4 kg yesterday with JVD, crackles and +4 pitting edema. Trialed IVP lasix and patient did not respond, creatinine went up to 3.58. She is being admitted to acute care with IV lasix bolus, and drip, She is requiring oxygen at this time and having dyspnea. (2) Bacteremia due to Enterococcus: Start date: 10/09/19 Start time: 08:26 Status: Acute Asessment and Plan: on ampicillin and ceftriax[place] [facility] [place]. Follow up with ID at 6 weeks scheduled for 11/02/19 at 11/ [place] [facility] Gretchen Bal. (3) Atrial fibrillation: Start date: 10/09/19 Start time: 08:32 Status: Chronic Asessment and Plan: Rate controlled, anticoagulated on eliquis. Continue BB and amiodarone., (4) Ischemic cardiomyopathy: Start date: 10/09/19 Start time: 08:33 Status: Acute Asessment and Plan: echo from 09/28/2019 shows EF 18%. has ? 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 routine site care to explant and replant sites. continue beta percy, diuretic, and anticoagulation with eliquis, . Cardiology appointments: 10/07 at 2 pm [phone] Dr Bradly Sandhu ([facility]) (5) Acute renal insufficiency: Start date: 10/09/19 Start time: 08:33 Status: Acute Asessment and Plan: Jairo in setting of CHF, will avoid nephrotoxic drugs. (6) ICD (implantable cardioverter-defibrillator) in place: Start date: 10/09/19 Start time: 08:34 Status: Chronic Asessment and Plan: stable (7) Chronic obstructive pulmonary disease: Start date: 10/09/19 Start time: 08:37 Status: Chronic Asessment and Plan: Stable not exacerbated at this time. recommend outpatient PFT, continue inhalers (8) Back pain: Start date: 10/09/19 Start time: 08:38 Status: Inactive Asessment and Plan: secondary to osteomyelitis/discitis. pain controlled on acetaminophen and oxycodone. continue bowel management. PT/OT. Discharge Plan Disposition Patient Disposition: [facility] INPATIENT Condition: Deteriorating Discharge Details Reason For Visit: BACTEREMIA OSTEOMYELITIS DISCITIS Admit Date/Time: 10/07/19 11:44 Admit Provider: Star Gonzalez Attending Provider: Star Gonzalez Primary Care Provider: Taya Juan Hospital Course Hospital Course: This is a 69 year old female with a past medical history of paroxysmal atrial fibrillation on anticoagulation ventricular tachycardia status post ICD coronary artery disease status post LAD stent ischemic cardiomyopathy with super morbid obesity who presented with complaints of back pain. Her work-up was significant for enterococcus bacteremia complicated by osteomyelitis discitis who was sent to [facility] for ICD explant as leads were found to have vegetation. She required a temporary to permanent pacemaker and subsequently did require pressors for hypotension. Her hospital course was complicated with end organ damage including liver shock and acute renal failure. She began responding to treatment and was weaned off her pressors. She did have a brief episode of A. fib with RVR which responded to amiodarone and metoprolol. She also did require CVVH for acute renal failure but has been voiding with diuretics and creatinine has improved and stabilized to 2.6 with her baseline of 2. Nephrology did sign off on her and she has been restarted on her Bumex daily with close monitoring. She has had no fevers chills no chest pain shortness of breath she has been eating and drinking bowels and bladder functioning her last bowel movement was today. She remains deconditioned from her extended hospital course in addition will require 6 weeks of antibiotics for enterococcus bacteremia with discitis osteomyelitis which will go through October 29 per ID recommendations. A Aceves line was placed. Over course of swing bed admission, patient presented with dyspnea along with a 4 kg wt gain yesterday and 2 kg wt gain today. She has prominent JVD with crackling and +4 bilateral pitting edema. Trialed IVP lasix 40 BID without response. Creatinine up to 3.5. She states she feels SOB and appears to be dyspnec requiring oxygen. She is being made acute inpatient and placed on a lasix drip. At this time she will remain m/s. Home Meds and New Rx's Prescriptions: No Action amiodarone 400 mg tablet 200 mg PO DAILY RF: 0 Myrbetriq 25 mg tablet extended release 24 hr 25 mg PO DAILY Qty: 60 RF: 5 albuterol sulfate [Ventolin HFA] 8 GM HFA aerosol inhaler 2 puff Inhalation Q4H PRN Qty: 120 RF: 2 atorvastatin 80 MG tablet 80 mg PO DAILY Qty: 90 RF: 3 nitroglycerin 0.4 MG tablet, sublingual 0.4 mg Sublingual PRN PRNQty: 30 RF: 0 spironolactone 25 MG tablet 25 mg PO DAILY Qty: 90 RF: 3 metolazone 2.5 MG tablet 2.5 mg PO PRN Qty: 30 RF: 3 metoprolol succinate 100 mg tablet extended release 24 hr 50 mg PO DAILY RF: 0 allopurinol 300 mg tablet 300 mg PO DAILY RF: 0 benzonatate [Tessalon Perles] 100 mg Capsule 100 mg PO BID PRNRF: 0 ropinirole 2 mg Tablet 2 mg PO QHS RF: 0 ipratropium bromide 0.02 % Solution 2.5 ml INHALATION Q6H PRNRF: 0 Incruse Ellipta 62.5 mcg/actuation Blister With Device 1 inh INHALATION DAILY RF: 0 acetaminophen [Tylenol] 325 MG tablet 1,000 mg PO QID RF: 0 pantoprazole 40 mg tablet,delayed release (DR/EC) 20 mg PO DAILY@0730 RF: 0 oxycodone 5 mg tablet 5 mg PO Q6H PRN (Reason: pain) RF: 0 methocarbamol 500 mg tablet 750 mg PO Q6H PRN (Reason: muscle spasm) RF: 0 Eliquis 5 MG tablet 5 mg PO BID Qty: 60 RF: 0 bumetanide 2 mg tablet 2 mg PO BID RF: 0 sennosides [Senokot] 8.6 mg Tablet 1 tab PO BID Qty: 0 RF: 0 polyethylene glycol 3350 17 gram Powder In Packet 17 g PO DAILY PRN PRN (Reason: Constipation) Qty: 0 RF: 0 prednisone 20 mg Tablet 40 mg PO DAILY Qty: 0 RF: 0 docusate sodium [Colace] 100 mg Capsule 100 mg PO BID Qty: 60 RF: 0 gabapentin 100 mg Capsule 100 mg PO TID Qty: 0 RF: 0 diclofenac sodium [Voltaren] 1 % Gel 4 g topical QID Qty: 0 RF: 0 Discharge Instructions Activity:: Activity as Tolerated Equipment/Supplies:: No Equipment Needed Diet:: Low Sodium Discharge Orders Discharge Orders: Discharge Order (Routine); Ordered 10/09/19 Ordered By: Judith Siddiqi Discharge Data Discharge Date/Time-TO BE ENTERED AT DEPARTURE: 10/09/19 08:44 DS: Summary Status at Discharge Functional status at discharge: uses cane/walker Overall status at discharge: patient is not back to baseline Mental Status: mental status grossly normal Speech and Movement: speech and movement normal Mood: congruent mood Affect: blunted Exam Const General: cooperative, comfortable, no acute distress, disheveled, frail appearing and ill appearing chronically Nutritional Appearance: obese Orientation: alert, awake and oriented x3 HENMT Head: normal to inspection, normocephalic and atraumatic Mouth: oral mucosae normal Resp Effort & Inspection: able to speak in complete sentences and abnormal respiratory pattern Auscultation: rales bilaterally Cardio Jugular venous pressure: JVD Rate: regular rate Rhythm: abnormal rhythm irregularly irregular Heart Sounds: no murmurs GI Inspection: large pannus and obesity Palpation: soft Auscultation: normal bowel sounds (last bm today) Skin General skin exam: ecchymosis (scattered bruising upper extremities) Lesions: lesion noted (explant site left chest wall, new implant site right chest wall) Rashes: rashes noted Neuro General: patient alert, patient awake and patient oriented x3 Cognition: normal cognition Speech: speech normal Motor: strength 5/5 throughout and strength abnormal Extrem General: full ROM and edema Laterality: bilateral (lower extremity, +3 pitting) Psych Mental Status: mental status grossly normal Speech and Movement: speech and movement normal Mood: congruent mood Affect: blunted Attitude: cooperative Thought Process: normal Thought Content: normal DS: Data Vitals/I&O Vitals and I&O: Vital Signs Temperature 36.2 C L 10/09/19 07:31 Temperature Source Tympanic 10/09/19 07:31 Pulse 60 10/09/19 07:31 Pulse Rhythm Irregular 10/09/19 03:03 Respiratory Rate 18 10/09/19 07:31 Respiratory Effort Incrsd Work of Breathing 10/09/19 03:03 Respiratory Depth Normal 10/09/19 03:03 Respiratory Pattern Normal 10/09/19 03:03 Blood Pressure 104/69 10/09/19 07:31 Pulse Oximetry 94 L 10/09/19 07:31 Oxygen Delivery Method Nasal Cannula 10/09/19 07:31 Oxygen Flow Rate 2.5 10/09/19 07:31 Pain Level 7 10/09/19 07:47 Comment 10/08/19 11:20 Intake & Output 10/08/19 10/08/19 10/09/19 11:59 23:59 11:59 Intake Total 440 / 970 530 / 970 210 / 210 Output Total 175 / 175 Balance 440 / 795 355 / 795 190 / 190 Weight 115.4 kg 117.7 kg Intake: IV 200 / 440 240 / 440 110 / 110 Oral 240 / 530 290 / 530 100 / 100 Output: Urine 175 / 175 Other: Urine Color Yellow Yellow Yellow Urine Appearance Clear Clear Clear Urine Odor Normal Normal Comment urine mixed with stool unable to measure urine output Stool Size Large Moderate Smear Stool Characteristics Liquid Soft Soft Brown Voiding Methods Bedside Commode Bedside Commode Bedside Commode Data Completed and Pending Labs on day of discharge: Labs from last 24 hours 10/09/19 10/09/19 06:10 06:10 Sodium 134 L Potassium 3.9 Chloride 98 Carbon Dioxide 28.3 Anion Gap 7.7 BUN 40 H Creatinine 3.58 H* Estimated GFR/1.73 m2 12.62 Glucose 94 Calcium 8.6 NT-Pro-B Natriuret Pep 68148 H [facility] Medical History Candidiasis, intertrigo (Acute) Cardiac arrest with ventricular fibrillation (Resolved) Cardiomyopathy (Chronic) Cardiorenal syndrome (Inactive) Community acquired pneumonia (Inactive) COPD (chronic obstructive pulmonary disease) (Inactive) Coronary artery disease (Chronic 05/05/14) STEMI with LAD stent 04/2014 EF 35% Cystocele (Inactive) Hyponatremia (Inactive) Impaired glucose tolerance (Chronic) Ischemic cardiomyopathy (Acute) Leukocytosis (Inactive) a. since 1995 with reportedly normal bone marrow biopsy in 1996 Mixed urinary incontinence due to female genital prolapse (Inactive) Neck mass (Inactive 01/26/15) Right ventricular dysfunction (Inactive) Systolic CHF (Inactive 05/02/14) a. subacute with acute exacerbation Urinary incontinence (Chronic 11/06/17) Surgical History AICD (automatic cardioverter/defibrillator) present (Chronic ~06/2017) Cholecystectomy H/O surgical procedure (Inactive) a. s/p cholecystectomy b. s/p hysterectomy c. s/p bilateral carpan tunnel release surgery d. incisional hernia repair Hernia Repair, Incisional 04/19/14 History of heart artery stent (Chronic ~2013) LAD Hysterectomy, Laproscopic (~1980) OVARIES REMAIN Tonsillectomy Family History Mother Stroke Father Peptic ulcer disease Brother Substance abuse Social History Smoking/Tobacco Use Status: Former Tobacco Use Quit Date: 05/20/13 Tobacco: How many years used: 40 Second Hand Exposure: Yes Alcohol Intake: former Drug use: Never Substance use type: does not use Household members: spouse Number of Children: 5 Do you feel safe at home: Yes Do you feel safe in your relationship?: Yes Female Reproductive History Menstrual Menopause type: surgical History History 5 Para 5 Hx # Term Pregnancies 5 Multiple births Hx # Pregnancies Ectopic pregnancies AB induced Hx Number of Living Children 5 AB spontaneous
[2019-10-09 08:54] VITALS: O2SAT 94
--- NOTE | 2019-10-09 11:15 | OTDS_ITS ---
Date of service: 10/09/19 Time of Service: 11:15 Occupational Therapy Notes Occupational Therapy Inpatient SB1 Discharge Summary Date: 10/09/19 Dates of Service: 10/08/19-10/09/19 Referring Doctor:Lindsay Tuttle NP OT Orders: Non-Urgent: Limited Ability Precautions: Fall, Standard, FULL This document serves as a summary of care, no skilled OT services provided for this documentation PATIENT PROFILE/ADMITTING DIAGNOSIS: Pt is a 69 year old female who presented to the ER twice on 09/01/19. The first time pt reports that she was unable to get up off her couch and was sent back home after ER visit. She reports that later on she fell hitting her head resulting in a scalp laceration to occipital head. Pt was admitted to [facility] for closed head injury, degenerative disc disease, pain in (R) shoulder, multiple falls, Chronic Kidney disease stage III, Ischemic cardiomyopathy, back pain. She was then transferred to [facility] for continued care. Pt reports that while at [facility] they removed and replaced her ICD. She was transitioned back to [facility] on SB1 rehabilitation program for a dx of bactremia due to enteroccus, A-fib, ischemic cardiomyopathy, acute renal insufficiency, ICD, COPD and back pain. Plan for pt is to go home after completing the SB1 program at [facility] with continued services. Past Medical History- Medical History (Updated 10/07/19 @ 13:18 by Lindsay Tuttle NP) Candidiasis, intertrigo (Acute) Cardiac arrest with ventricular fibrillation (Resolved) Cardiomyopathy (Chronic) Cardiorenal syndrome (Inactive) Community acquired pneumonia (Inactive) COPD (chronic obstructive pulmonary disease) (Inactive) Coronary artery disease (Chronic 05/05/14) STEMI with LAD stent 04/2014 EF 35% Cystocele (Inactive) Hyponatremia (Inactive) Impaired glucose tolerance (Chronic) Ischemic cardiomyopathy (Acute) Leukocytosis (Inactive) a. since 1995 with reportedly normal bone marrow biopsy in 1996 Mixed urinary incontinence due to female genital prolapse (Inactive) Neck mass (Inactive 01/26/15) Right ventricular dysfunction (Inactive) Systolic CHF (Inactive 05/02/14) a. subacute with acute exacerbation Urinary incontinence (Chronic 11/06/17) Surgical History (Updated 09/02/19 @ 00:01 by Star Gonzalez) AICD (automatic cardioverter/defibrillator) present (Chronic ~06/2017) Cholecystectomy H/O surgical procedure (Inactive) a. s/p cholecystectomy b. s/p hysterectomy c. s/p bilateral carpan tunnel release surgery d. incisional hernia repair Hernia Repair, Incisional 04/19/14 History of heart artery stent (Chronic ~2013) LAD Hysterectomy, Laproscopic (~1980) OVARIES REMAIN Tonsillectomy Social History/Home Situation: Pt reports that she lives in a private home with her . She reports that at baseline she does not need any (A) at baseline. Her back pain has occurred for months now and she was attending PT in the outpatient setting at [facility]. Pt states that she has a tub/shower with grab bars, no bench. She has difficulty getting on and off her toilet. OT does recommend a raised toilet seat to decrease strain on pts (B) LE and back and increase her overall functional safety. At night she reports that she has difficulty getting to and from the bathroom due to fall risks. OT also recommends a commode at bed for night time toileting routine to decrease fall risk. Pt has two stairs to enter her home with (B) railings and no steps inside her home. She does not utilize an (A) device at baseline. She does drive, her performs all cooking, food prep and grocery shopping. She states that sometimes she just sleeps on her couch because she can't get up and off her bed at times. Equipment owned/DME: Physical Instructor provided per OT at last admission. SUBJECTIVE: NT OBJECTIVE: No skilled OT services provided for this documentation, this is a summary of pts care. ROM: RUE Limited below 90* due to ICD placement guidelines. Wrist, digits, elbow WNL L UE AROM WFL STRENGTH: RUE Chemical Process Operator is strong and symmetrical otherwise not tested to follow adherence with ICD placement LUE Shoulder flexion 4/5, bicep 4/5, tricep 5/5, chief operating engineer is strong and symmetrical SENSATION: Intact (B) UE FUNCTIONAL MOBILITY/ADLS: Sit-Stand Mod-Max (A) Stand-sit Mod-Max (A) BATHING- Pt denies but is able to perform functional AROM for bathing routine. She is limited with (R) UE and this will decrease her functional (I) without (A). She is compliant with restrictions due to ICD placement and can verbalize them at this time. DRESSING Dressing LE pt reports that she is currently Max (A) doffing pants, mod (A) donning pants, max (A) don and doffing (B) socks TOILETING NT BALANCE: Static sitting Normal Dynamic Sitting Good Static Standing Poor Dynamic Standing Poor ASSESSMENT: Patient is a 69-year-old female referred to occupational therapy services under [facility] status with diagnosis bactremia due to ent eroccus, A-fib, ischemic cardiomyopathy, acute renal insufficiency, ICD, COPD and back pain. Patient presents with clinical signs and symptoms consistent with dx, as demonstrated by the following impairment level findings/ functional limitations: Decreased AROM of (R) UE effecting dressing, bathing and toileting routines, decreased functional activity tolerance, decreased gross and fine motor control of (R) UE, decreased strength, decreased performance of LE bathing and dressing, decreased ability to perform functional mobility required for ADL/IADL routines, decreased ability to return home due to social supports and has cancer. Pt is caregiver to . Pt was seen for OT consult only and then transitioned to acute level status based on active CHF. OT will formally discharge pt from [facility] level of care at this time. GOALS- Not met, pt was seen for OT consult only. 1. Transfers with LRD 2. Dressing able to perform LE dressing mod (I) with adaptive equipment 3. Bathing sitting, able to (I) perform UE and mod (A) LE 4. Toileting on toilet (S) 5. Eating (I) 6. Grooming including hair and teeth standing at sink with LRD (I) PLAN OF CARE/TREATMENT PLAN: Pt was discharged to acute care level status and placed on hold for OT/PT based on active CHF per nursing. OT will discharge pt from [facility] level of care at this time. OT will need new referral for continued OT care, if MD feels that pt is appropriate for continued OT services at this time. DISCHARGE RECOMMENDATIONS: OT recommends that pt return home after B1 rehabilitation therapy with resumption of PT/OT services. OT recommends the following DME: 1. OT does recommend a raised toilet seat to decrease strain on pts (B) LE and back and increase her overall functional safety. 2. At night she reports that she has difficulty getting to and from the bathroom due to fall risks. OT also recommends a commode at bed for night time toileting routine to decrease fall risk. 3. OT recommends a shower seat due to patients decreased functional activity tolerance, increased pain and decreased stability in the standing position, a shower seat would promote increased safety and functional (I) for pt during bathing routine. TREATMENT TIME/MINUTES/CODES N/A Pippa Richardson, OTR/L [facility]
--- NOTE | 2019-10-09 14:14 | INDS_ITS ---
Date of service: 10/09/19 PT Notes Visit Reasons: BACTEREMIA OSTEOMYELITIS DISCITIS Physical Therapy Inpatient Discharge Summary Date: 10/09/2019 Dates of service: 10/08/2019 only This is a clinical summary of care provided on the duration of dates listed above. No charge was made in the completion of this documentation. Referring Doctor: Lindsay Tuttle NP PT Orders: PT CONSULT: Limited ability Precautions: Fall. Standard. Activity as tolerated. Patient Profile/Admitting Diagnosis: Zora is a 69-year-old female with past medical history significant for paroxysmal atrial fibrillation and is on Coumadin, ventricular tachycardia status post cardiovascular implantable electronic device placement in 2013, coronary artery disease status post LAD stent placement in 2013, ischemic cardiomyopathy with ejection fraction of 18% as of 09/28/2019, COPD, and knee osteoarthritis who initially presented with worsening back pain and bilateral lower extremity weakness that have started 3 weeks prior to [facility] [place]. 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 PMHx: Medical History (Updated 10/07/19 @ 13:18 by Lindsay Tuttle NP) Candidiasis, intertrigo (Acute) Cardiac arrest with ventricular fibrillation (Resolved) Cardiomyopathy (Chronic) Cardiorenal syndrome (Inactive) Community acquired pneumonia (Inactive) COPD (chronic obstructive pulmonary disease) (Inactive) Coronary artery disease (Chronic 05/05/14) STEMI with LAD stent 04/2014 EF 35% Cystocele (Inactive) Hyponatremia (Inactive) Impaired glucose tolerance (Chronic) Ischemic cardiomyopathy (Acute) Leukocytosis (Inactive) a. since 1995 with reportedly normal bone marrow biopsy in 1996 Mixed urinary incontinence due to female genital prolapse (Inactive) Neck mass (Inactive 01/26/15) Right ventricular dysfunction (Inactive) Systolic CHF (Inactive 05/02/14) a. subacute with acute exacerbation Urinary incontinence (Chronic 11/06/17) Surgical History (Updated 09/02/19 @ 00:01 by Star Gonzalez) AICD (automatic cardioverter/defibrillator) present (Chronic ~06/2017) Cholecystectomy H/O surgical procedure (Inactive) a. s/p cholecystectomy b. s/p hysterectomy c. s/p bilateral carpan tunnel release surgery d. incisional hernia repair Hernia Repair, Incisional 04/19/14 History of heart artery stent (Chronic ~2013) LAD Hysterectomy, Laproscopic (~1980) OVARIES REMAIN Tonsillectomy Social History/Home Situation: Zora Juan with in a single level private home with 2 steps to enter with a rails. Patient was independent with all mobility ADL performance not needing any assistive ambulatory device nor adaptive equipment prior to admission despite the fact that she has had progressive weakness that started 3 weeks prior to 09/18/2019. 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 Zora states that a week before she went to [facility] she was going to receive couple of hours worth of home health aide once a week. Equipment Owned/DME: None Subjective: NT Objective: General Observation:NT Mental Status: NT Pain: NT ROM: Right Upper Extremity: Shoulder Flexion allows up to 90 degrees only. Shoulder abduction allows up to 90 degrees only. Elbow flexion WFL. Wrist flexion WFL. Opening and closing of hand WFL. Left Upper Extremity: Shoulder Flexion allows up to 90 degrees only. Shoulder abduction allows up to 90 degrees only.Elbow flexion WFL. Wrist flexion WFL. Opening and closing of hand WFL. Right Lower Extremity: Hip flexion allows up to 10 degrees beyond 90 while seated on the edge of the chair. Knee flexion WFL. Ankle dorsiflexion WFL. Ankle plantarflexion WFL. Left Lower Extremity: Hip flexion allows up to 10 degrees beyond 90 while seated on the edge of the chair. Knee flexion WFL. Ankle dorsiflexion WFL. Ankle plantarflexion WFL. Strength: Right Upper Extremity: Shoulder flexors 3-/5. Shoulder abductors 3-/5. Elbow flexors 4/5. Elbow extensors 4/5. Helix Coil Winder strong. Left Upper Extremity: Shoulder flexors 3-/5. Shoulder abductors 3-/5. Elbow flexors 4/5. Elbow extensors 4/5. Helix Coil Winder strong. Right Lower Extremity: Hip flexors 3-/5. Hip abductors 4-/5. Knee flexors 4-/5. Knee extensors 4-/5. Ankle dorsiflexors 4-/5. Ankle plantarflexors 4-/5. Left Lower Extremity: Hip flexors 3-/5. Hip abductors 4-/5. Knee flexors 4-/5. Knee extensors 4-/5. Ankle dorsiflexors 4-/5. Ankle plantarflexors 4-/5. Sensation: Intact as to pain and pressure on bilateral lower extremities. Bed Mobility/Transfers: Sit to stand from a head bedside reclining chair moderate assist of 2, requires use of front wheeled walker Stand to sit moderate assist of 1 with verbal cueing for hand placement for increased independence, requires use of front wheeled walker Bed to wheelchair minimal assist with verbal cueing needed for hand placement, requires use of front wheeled walker Wheelchair to bed minimal assist with verbal cueing needed for hand placement, requires use of front wheeled walker Gait: On evaluation, patient tolerated level surface ambulation of 50 feet with contact-guard assist and wheelchair follow. Meghana decreased. Step height and length decreased. Pain reported at 5/10 in the low back area. No shortness of breath. No LOB seen. Patient did report being fatigued from said activity emphasizing that she has not walked thus far since her hospitalization. Balance: Static Sitting: Normal Dynamic Sitting: Normal Static Standing: Fair Dynamic Standing: Fair Special Tests: Mobility Limitations Standardized Measure [facility] AM-PAC 6 clicks Basic Mobility Inpatient Short Form: Raw Score: 13 CMS Score: 65% deficit Assessment: Patient is an acute congestive heart failure and converted to acute level of care as of 10/09/2019. We will plan on reevaluating patient once a year referral under acute care level is received from hospitalist. Zora demonstrated unsteadiness on feet resulting from balance impairment, generalized body weakness, functional mobility decline, difficulty with walking, and decreased activity tolerance due to admitting diagnoses. Zora is a 69-year-old female with past medical history significant for paroxysmal atrial fibrillation and is on Coumadin, ventricular tachycardia status post cardiovascular implantable electronic device placement in 2013, coronary artery disease status post LAD stent placement in 2013, ischemic cardiomyopathy with ejection fraction of 18 % as of 09/28/2019, COPD, and knee osteoarthritis who initially presented with worsening back pain and bilateral lower extremity weakness that have starte d 3 weeks prior to [facility] [place]. 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 Patient continues to present with clinical signs and symptoms consistent with current/admitting diagnoses that have resulted to mobility limitations, gait instability, generalized weakness, and impairment of motor control as demonstrated by the following impairment level findings: 1. Decreased strength to B UES/LE major muscle groups 2. Impaired standing balance 3. Impaired activity tolerance 4. Limitation of joint range of motion in the shoulder and B hips Impairments continue to contributeto the following functional limitations: 1. Dependent bed mobility skills 2. Increased dependence with transfers 3. Inability to safely ambulate without assistive device and physical assistance 4. Increase completion time for mobility ADL performance 5. Increased fall risk 6. Inability to negotiate steps alone safely Goals: Goals X1 week 1. Supine-Sit independent NOT MET 2. Sit-Supine independent NOT MET 3. Sit-Stand independent NOT MET 4. Stand-Sit independent NOT MET 5. Bed-Chair independent NOT MET 6. Chair-Bed independent NOT MET 7. Independent gait on level surface with use of least restrictive device for at least 300 feet without report of pain nor dyspnea NOT MET 8. Independent stair negotiation while holding onto bilateral rails for at least 5 steps without report of pain nor dyspnea NOT MET 9. Independent with home exercise program NOT MET 10. Good static and dynamic standing balance/tolerance NOT MET DISCHARGE RECOMMENDATIONS: Will re-evaluate under acute care level once a new referral from hospitalist is received. TREATMENT CODE/TIME: NC. Thank you very much for this referral. Cindy Gonzalez PT, DPT, CLT [facility] [place], [place]
== END 2019-10-09 08:44 | disposition short-term general hospital (02) | DRG 871 ==
PROVIDERS: Nurse Practitioner Family; Admitting Provider Internal Medicine; PCP Family Medicine; Visit Provider Internal Medicine
DX: R78.81 Bacteremia (principal); I50.33 Acute on chronic diastolic (congestive) heart failure; N17.9 Acute kidney failure, unspecified; M46.20 Osteomyelitis of vertebra, site unspecified; Z68.41 Body mass index [BMI] 40.0-44.9, adult; Z79.2 Long term (current) use of antibiotics; B95.2 Enterococcus as the cause of diseases classified elsewhere; I48.0 Paroxysmal atrial fibrillation; Z79.01 Long term (current) use of anticoagulants; I25.5 Ischemic cardiomyopathy; Z95.810 Presence of automatic (implantable) cardiac defibrillator; J44.9 Chronic obstructive pulmonary disease, unspecified; M46.40 Discitis, unspecified, site unspecified; E66.01 Morbid (severe) obesity due to excess calories; R06.02 Shortness of breath; Z73.89 Other problems related to life management difficulty
CPT/HCPCS: 36415; 80048; 94640; 97162; 97166; 97530; 97535; 99306; 99316; 83880; 94660; J0290; J1940; J7644

== ENCOUNTER 2019-10-09 08:14 | Inpatient (IN) | payer MEDICARE, MEDICAID, SELFPAY ==
[2019-10-09] VITALS (44 sets, daily range): BP systolic 61–114; BP diastolic 36–86; PULSE 70–126; RESP 14–29; TEMP 36.3–36.8; O2SAT 84–97
--- NOTE | 2019-10-09 09:10 | HPE_ITS ---
Date of service: 10/09/19 Time of Service: 09:10 Assessment and Plan Assessment and plan (1) Acute on chronic diastolic CHF (congestive heart failure): Start date: 10/09/19 Start time: 09:17 Status: Acute Assessment and plan: BNP on discharge from [facility] [place] greater 32K. Patient wt increased by 4 kg yesterday with JVD, crackles and +4 pitting edema. Trialed IVP lasix and patient did not respond, creatinine went up to 3.58. She is being admitted to acute care with IV lasix bolus, and drip, She is requiring oxygen at this time and having dyspnea. (2) Bacteremia due to Enterococcus: Start date: 10/09/19 Start time: 09:20 Status: Acute Assessment and plan: on ampicillin and ceftriaxone per ID at [facility] [place] until October 30, 2019. Follow up with ID at 6 weeks scheduled for 11/02/19 at 11/ ID at [facility] [place] with Dr. Gretchen Bal. (3) Acute renal insufficiency: Start date: 10/09/19 Start time: 09:18 Status: Acute Assessment and plan: Jairo in setting of CHF, will avoid nephrotoxic drugs. (4) Atrial fibrillation: Start date: 10/09/19 Start time: 09:18 Status: Chronic Assessment and plan: Rate controlled, anticoagulated on eliquis. Continue BB and amiodarone., Qualifiers: Atrial fibrillation type: paroxysmal Qualified Code(s): I48.0 - Paroxysmal atrial fibrillation (5) Cardiomyopathy, ischemic: Start date: 10/09/19 Start time: 09:18 Status: Chronic Assessment and plan: echo from 09/28/2019 shows EF 18%. has ? 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 routine site care to explant and replant sites. continue beta percy, diuretic, and anticoagulation with eliquis, . Cardiology appointments: 10/07 at 2 pm [phone] Dr Bradly Sandhu ([facility] [employer] [facility]) (6) Chronic obstructive pulmonary disease: Start date: 10/09/19 Start time: 09:18 Status: Chronic Assessment and plan: Stable not exacerbated at this time. recommend outpatient PFT, continue inhalers (7) ICD (implantable cardioverter-defibrillator) in place: Start date: 10/09/19 Start time: 09:19 Status: Chronic Assessment and plan: stable (8) Back pain: Start date: 10/09/19 Start time: 09:19 Status: Acute Assessment and plan: secondary to osteomyelitis/discitis. pain controlled on acetaminophen and oxycodone. continue bowel management. PT/OT. (9) DVT prophylaxis: Start date: 10/09/19 Start time: 09:19 Status: Acute Assessment and plan: alfa Above case discussed with Dr. Gonzalez who is in agreement. History of Present Illness History of Present Illness Chief Complaint: Acute on chronic CHF, Acute on Chronic renal failure Narrative: This is a 69 year old female with a past medical history of paroxysmal atrial fibrillation on anticoagulation ventricular tachycardia status post ICD coronary artery disease status post LAD stent ischemic cardiomyopathy with super morbid obesity who presented with complaints of back pain. Her work-up was significant for enterococcus bacteremia complicated by osteomyelitis discitis who was sent to [facility] for ICD explant as leads were found to have vegetation. She required a temporary to permanent pacemaker and subsequently did require pressors for hypotension. Her hospital course was complicated with end organ damage including liver shock and acute renal failure. She began responding to treatment and was weaned off her pressors. She did have a brief episode of A. fib with RVR which responded to amiodarone and metoprolol. She also did require CVVH for acute renal failure but has been voiding with diuretics and creatinine has improved and stabilized to 2.6 with her baseline of 2. Nephrology did sign off on her and she has been restarted on her Bumex daily with close monitoring. She has had no fevers chills no chest pain shortness of breath she has been eating and drinking bowels and bladder functioning her last bowel movement was today. She remains deconditioned from her extended hospital course in addition will require 6 weeks of antibiotics for enterococcus bacteremia with discitis osteomyelitis which will go through October 29 per ID recommendations. A Aceves line was placed. Over course of swing bed admission, patient presented with dyspnea along with a 4 kg wt gain yesterday and 2 kg wt gain today. She has prominent JVD with crackling and +4 bilateral pitting edema. Trialed IVP lasix 40 BID without response. Creatinine up to 3.5. She states she feels SOB and appears to be dyspnec requiring oxygen. She is being made acute inpatient and placed on a lasix drip. At this time she will remain m/s. Review of Systems All systems reviewed & are unremarkable except as noted in HPI and below PFSH Medical History Candidiasis, intertrigo (Acute) Cardiac arrest with ventricular fibrillation (Resolved) Cardiomyopathy (Chronic) Cardiorenal syndrome (Inactive) Community acquired pneumonia (Inactive) COPD (chronic obstructive pulmonary disease) (Inactive) Coronary artery disease (Chronic 05/05/14) STEMI with LAD stent 04/2014 EF 35% Cystocele (Inactive) Hyponatremia (Inactive) Impaired glucose tolerance (Chronic) Ischemic cardiomyopathy (Acute) Leukocytosis (Inactive) a. since 1995 with reportedly normal bone marrow biopsy in 1996 Mixed urinary incontinence due to female genital prolapse (Inactive) Neck mass (Inactive 01/26/15) Right ventricular dysfunction (Inactive) Systolic CHF (Inactive 05/02/14) a. subacute with acute exacerbation Urinary incontinence (Chronic 11/06/17) Surgical History AICD (automatic cardioverter/defibrillator) present (Chronic ~06/2017) Cholecystectomy H/O surgical procedure (Inactive) a. s/p cholecystectomy b. s/p hysterectomy c. s/p bilateral carpan tunnel release surgery d. incisional hernia repair Hernia Repair, Incisional 04/19/14 History of heart artery stent (Chronic ~2013) LAD Hysterectomy, Laproscopic (~1980) OVARIES REMAIN Tonsillectomy Family History Mother Stroke Father Peptic ulcer disease Brother Substance abuse Social History Smoking/Tobacco Use Status: Former Tobacco Use Quit Date: 05/20/13 Tobacco: How many years used: 40 Second Hand Exposure: Yes Alcohol Intake: former Drug use: Never Substance use type: does not use Household members: spouse Number of Children: 5 Do you feel safe at home: Yes Do you feel safe in your relationship?: Yes Female Reproductive History Menstrual Menopause type: surgical History History 5 Para 5 Hx # Term Pregnancies 5 Multiple births Hx # Pregnancies Ectopic pregnancies AB induced Hx Number of Living Children 5 AB spontaneous Meds Home Medications and Allergies Home Medications Medication Instructions Recorded Confirmed Type albuterol sulfate [Ventolin HFA] 2 puff INHALATION Q4H PRN #120 07/13/15 10/09/19 History inhaler atorvastatin 80 mg PO DAILY #90 tab-cap 07/02/16 10/09/19 History nitroglycerin 0.4 mg SUBLINGUAL PRN PRN #30 01/28/17 10/09/19 History tab-cap spironolactone 25 mg PO DAILY #90 tab-cap 10/02/17 10/07/19 Rx Eliquis 5 mg PO BID #60 tab 11/22/17 10/09/19 Rx metolazone 2.5 mg PO PRN #30 tab-cap 01/08/18 10/07/19 Rx metoprolol succinate 100 mg 50 mg PO DAILY tab 02/26/18 10/09/19 History tablet,extended release 24 hr allopurinol 300 mg tablet 300 mg PO DAILY 03/04/18 10/07/19 History amiodarone 400 mg tablet 200 mg PO DAILY tab 11/19/18 10/09/19 History mirabegron 25 mg tablet,extended 25 mg PO DAILY #60 tab 05/14/19 09/01/19 Rx release 24 hr Incruse Ellipta 1 inh INHALATION DAILY 05/26/19 10/09/19 History benzonatate [Tessalon Perles] 100 mg PO BID PRN 05/26/19 10/07/19 History ipratropium bromide 2.5 ml INHALATION Q6H PRN 05/26/19 10/07/19 History ropinirole 2 mg PO QHS 05/26/19 10/07/19 History bumetanide 2 mg PO BID 08/16/19 10/09/19 History diclofenac sodium [Voltaren] 4 g TOPICAL QID #0 g 09/04/19 Rx docusate sodium [Colace] 100 mg PO BID #60 cap 09/04/19 10/09/19 Rx gabapentin 100 mg PO TID #0 cap 09/04/19 10/09/19 Rx polyethylene glycol 3350 17 g PO DAILY PRN PRN #0 ea 09/04/19 10/09/19 Rx prednisone 40 mg PO DAILY #0 tab 09/04/19 Rx sennosides [Senokot] 1 tab PO BID #0 tab 09/04/19 10/09/19 Rx acetaminophen [Tylenol] 1,000 mg PO QID 10/07/19 10/09/19 History methocarbamol 750 mg PO Q6H PRN 10/07/19 10/07/19 History oxycodone 5 mg PO Q6H PRN 10/07/19 10/09/19 History pantoprazole 20 mg PO DAILY@0730 10/07/19 10/09/19 History Allergies Allergy/AdvReac Type Severity Reaction Status Date / Time lisinopril AdvReac Other (See Verified 09/14/19 06:43 Comment) sacubitril [From Entresto] AdvReac rash Verified 09/14/19 06:43 valsartan [From Entresto] AdvReac rash Verified 09/14/19 06:43 Exam Const General: cooperative, frail appearing and ill appearing chronically Nutritional Appearance: obese HENMT Head: normal to inspection, normocephalic and atraumatic Ears: hearing grossly normal bilaterally Mouth: moist mucous membranes Eyes Pupils: PERRL EOM: EOM intact bilaterally Neck Neck: no lymphadenopathy and JVD Lymphatic: no lymphadenopathy noted Chest Chest: normal inspection of the chest Resp Effort & Inspection: able to speak in complete sentences and abnormal respiratory pattern Auscultation: rales bilaterally Cardio Jugular venous pressure: JVD pulsatile Rate: regular rate Rhythm: abnormal rhythm GI Inspection: large pannus Palpation: soft Auscultation: normal bowel sounds General: deferred Back/Spine/Pelvis Back: no CVA tenderness Skin General skin exam: ecchymosis (multiple areas) Lesions: lesion noted Neuro General: patient alert, patient awake and patient oriented x3 Cognition: normal cognition Speech: speech normal Extrem General: full ROM and edema (+4 pitting up to knees.) Laterality: bilateral Psych Appearance: grossly normal Mental Status: mental status grossly normal Speech and Movement: speech and movement normal Affect: normal affect Attitude: cooperative COVID-19 Screening In the past 14 days, have you traveled outside of [place] or [place]?: NO Had IN PERSON contact w/suspected or confirmed C-19 person: No
--- NOTE | 2019-10-09 10:58 | PDOC.CMPRO ---
Care Management Progress Note S/O: Zora transitioned to acute care due to weight gain, CHF exacerbation and GIBRAN. She is being closely monitored at this time on M/S though, per provider will be transferred to ICU in the event of worsening kidney function. Zora was lying in her bed, she remains pleasant in interaction. She met with Palliative Care today; please refer to their note for further information. PC will continue to follow to determine Zora's goals of care as her medical status continues to be of concern and decision making may change dependent on how she does. Her EF is quite low at 18%, her fluid balance is of concern as well as possible need to be dialyzed. A: 69 year old female admitted to [facility] inpatient 10/09/19 for CHF, GIBRAN P: Zora will continue to be closely monitored at this time. Undetermined discharge plan at this time; Palliative following.
--- NOTE | 2019-10-09 11:03 | PHA.REVIEW ---
Pharmacy Admission Review - Admission Clinical Review (Last Reviewed 10/09/19 @ 09:11 by Judith Siddiqi NP) Back pain (Acute) Acute on chronic diastolic CHF (congestive heart failure) (Acute) Bacteremia due to Enterococcus (Acute) Acute renal insufficiency (Acute) DVT prophylaxis (Acute) lisinopril Adverse Reaction (Verified 09/14/19 06:43) Other (See Comment) sacubitril [From Entresto] Adverse Reaction (Verified 09/14/19 06:43) rash valsartan [From Entresto] Adverse Reaction (Verified 09/14/19 06:43) rash - Comments Comments/Follow Ups: Moved from swing bed to acute; Patient had weight gain and edema over last 48 hours, equiring Lasix infusion and PO Bumex. If Lasix ineffective she will be transfered to ICU. - Renal Dosing Medications needing adjustments: Reviewed (SCr-3.58 est CrCl~ 13.8 mL/mn ( Ampicillin may need adjustment, provider to be called)) - Comments Comments/Follow Ups: Watch I&Os and SCr
[2019-10-09] MEDS: Lactobacillus Acidophilus CAP 1 CAP PO ×2 (11:35→17:05)
--- NOTE | 2019-10-09 12:02 | W.PALLCONSUL ---
Date of service: 10/09/19 Time of Service: 12:02 History of Present Illness Narrative: Zora is a 69 year old female with a past medical history of paroxysmal atrial fibrillation on anticoagulation, ventricular tachycardia status post ICD, coronary artery disease status post LAD stent ischemic cardiomyopathy, with super morbid obesity who was admitted to Swingbed status at [facility] 2 days ago [place] [facility] [place] being treated for entercococcus bacteremia complicated by osteomyelitis discitis and undergoing ICD explant due to vegetation noted on leads. During her [facility] stay, she required a temporary to permanent pacemaker and pressors for hypotension. Her hospital course was also complicated with end-organ damage including liver shock and acute renal failure, for which she required CVVH. She was followed by Nephrology at [facility], her creatinine improved and stabilized at 2.6, however, today she was noted to have a significant increase in her creatinine as well as signs of fluid overload and she was changed to acute status for treatment. Palliative care was consulted as she was noted to have advanced directives that state that she is a DNR/DNI but she reported that she would want CPR. The hospitalist team also requested that we discuss goals of care in general. Zora was seen in her hospital room. She was laying in bed with her head elevated. We discussed the fact that she has been changed back to acute status, from swing bed as she requires a higher level of care. She was started on an IV lasix drip. She states that she would prefer to stay here at [facility] and be treated, however, she would be agreeable to transfer to [facility] if her care needs cannot be met here. She is agreeable to having dialysis again, should the need arise. We discussed that if he condition worsened and she was unable to verbalize, her would be the one to make decisions for her. Her , Otis Villanueva, is her DPOA. In discussing her CODE status, she reports that she has in the past (06/25/17) and had CPR and was revived. We discussed that with a LVEF of 18% coupled with her other comorbidities, CPR may not be of benefit to her and would more likely cause pain and suffering at the end of her life. After discussing this, she continues to feel strongly that she wants resuscitation. However, she does not want to be intubated and she does not want a feeding tube. She would benefit from ongoing conversations about CODE status. She is very weak and deconditioned from her long stay at [facility]. She is working with PT on strengthening and ambulating with walker. She is only able to walk short distances at this time. She has severe pain in her back when she moves in bed or gets out of bed, she states it is unbearable. She is taking oxycodone and APAP with some relief. She has SOB with activity and has awakened with dyspnea in the night. She denies CP/pressure, she occasionally feels like her heart is racing. Her appetite is up and down. She does not feel like eating when she has pain. She requires help with personal care right now, prior to becoming ill, she was independent with her ADLs. Prior to her bacteremia and osteomyelitis discitis being diagnosed, she had a recent stay at [facility] (prior to going to [facility] for back pain. She was quarantined to her room for 14 days and decided to leave after 3 days. She went home and had continuously worsening back pain, she was falling at home and eventually came back to the ED, she was transferred to [facility] for further treatment. At this point, her major goal is to complete antibiotics as recommended by ID at [facility] and go back home as long as her strength is better. She has had a setback today and has been transferred from swing bed status to acute care. Her has lung cancer and is currently undergoing treatment at [facility], therefore, she will need to be quite strong to be able to return home. She does not think Otis could care for her as he is ill himself. Assessment and Plan Assessment and plan (1) Acute on chronic diastolic CHF (congestive heart failure): Status: Acute (2) Bacteremia due to Enterococcus: Status: Acute (3) Ischemic cardiomyopathy: Status: Acute (4) Acute renal insufficiency: Status: Acute (5) Atrial fibrillation: Status: Chronic Qualifiers: Atrial fibrillation type: paroxysmal Qualified Code(s): I48.0 - Paroxysmal atrial fibrillation (6) Chronic kidney disease, stage III (moderate): Status: Chronic (7) Chronic obstructive pulmonary disease: Status: Chronic (8) Coronary artery disease: Status: Chronic Qualifiers: Coronary Disease-Associated Artery/Lesion type: [place] artery [place] vs. transplanted heart: pe[place]anga heart Associated angina: without angina Qualified Code(s): I25.10 - Atherosclerotic heart disease of [place] coronary artery without angina pectoris (9) Osteomyelitis: Status: Acute (10) Palliative care patient: Status: Acute Assessment and plan: Zora was recently admitted to [facility] [place] status from [facility], she is currently admitted back to acute status. CODE status was addressed. She DOES NOT WANT INTUBATION, but would agree to CPR. This was discussed at length and she ultimately did not want to change to DNR. She will benefit from ongoing discussion about her CODE status. She will also benefit from being followed by Palliative care both inpatient and outpatient. Will continue to follow her while she is in the hospital and after discharge home. When she is discharged, she will need to be set up for outpatient palliative follow up. Review of Systems All systems reviewed & are unremarkable except as noted in HPI and below [facility] Medical History Candidiasis, intertrigo (Acute) Cardiac arrest with ventricular fibrillation (Resolved) Cardiomyopathy (Chronic) Cardiorenal syndrome (Inactive) Community acquired pneumonia (Inactive) COPD (chronic obstructive pulmonary disease) (Inactive) Coronary artery disease (Chronic 05/05/14) STEMI with LAD stent 04/2014 EF 35% Cystocele (Inactive) Hyponatremia (Inactive) Impaired glucose tolerance (Chronic) Ischemic cardiomyopathy (Acute) Leukocytosis (Inactive) a. since 1995 with reportedly normal bone marrow biopsy in 1996 Mixed urinary incontinence due to female genital prolapse (Inactive) Neck mass (Inactive 01/26/15) Right ventricular dysfunction (Inactive) Systolic CHF (Inactive 05/02/14) a. subacute with acute exacerbation Urinary incontinence (Chronic 11/06/17) Surgical History AICD (automatic cardioverter/defibrillator) present (Chronic ~06/2017) Cholecystectomy H/O surgical procedure (Inactive) a. s/p cholecystectomy b. s/p hysterectomy c. s/p bilateral carpan tunnel release surgery d. incisional hernia repair Hernia Repair, Incisional 04/19/14 History of heart artery stent (Chronic ~2013) LAD Hysterectomy, Laproscopic (~1980) OVARIES REMAIN Tonsillectomy Family History Mother Stroke Father Peptic ulcer disease Brother Substance abuse Social History Smoking/Tobacco Use Status: Former Tobacco Use Quit Date: 05/20/13 Tobacco: How many years used: 40 Second Hand Exposure: Yes Alcohol Intake: former Drug use: Never Substance use type: does not use Household members: spouse Number of Children: 5 Do you feel safe at home: Yes Do you feel safe in your relationship?: Yes Female Reproductive History Menstrual Menopause type: surgical History History 5 Para 5 Hx # Term Pregnancies 5 Multiple births Hx # Pregnancies Ectopic pregnancies AB induced Hx Number of Living Children 5 AB spontaneous Exam Narrative Exam Narrative: General: overweight female, appears chronically ill, laying in bed with HOB elevated. Appears uncomfortable, skin is pale. HEENT: Atraumatic, pupils equal and round, mucous membranes moist. Neck: supple, +JVD. Cardiovascular: Heart sounds regular, nontachycardic. Respiratory: respirations appear even and unlabored at rest, Rales noted bilaterally, no wheezing. GI: abdomen large, round, +BS, soft, nontender on palpation. Extremities: Fingertips cyanotic bilaterlly. 3+ pitting edema to BLEs. Back: Clearly very difficult and uncomfortable for her to move to the edge of the bed with nursing assistance due to back pain. Results Last Vital Signs Pulse Ox 94 L 10/09/19 09:00
[2019-10-09] MEDS: Gabapentin 100 MG CAP PO ×3 (13:58→22:43)
[2019-10-09] MEDS: oxyCODONE 5 MG TAB PO (13:58)
[2019-10-09 14:47] LABS: Bilirubin Negative (Negative); Blood Negative (Negative); Clarity Sl Cloudy (Clear); Glucose Negative (Negative); Ketones Trace mg/dL (Negative); Leukocyte Esterase Negative (Negative); Nitrite Negative (Negative); Urobilinogen 0.2 EU/dL (Up TO 0.2)
[2019-10-09 15:00] LABS: Crystals Moderate Amorphous HPF (Negative); Epithelial Cells Few HPF (Negative); RBC 0-2 HPF (0-2); WBC 0-2 HPF (0-5)
[2019-10-09 15:01] LABS: C & S Indicated? No; Mucus Negative (Negative)
[2019-10-09] MEDS: cefTRIAXone 2 GM/50 ML BAG IVPB (15:54)
[2019-10-09] MEDS: AMPICILLIN SODIUM 2 GM in Normal Saline 100 ML IVPB (17:04)
[2019-10-09] MEDS: metOLazone 2.5 MG TAB 5 MG PO (17:04)
--- NOTE | 2019-10-09 18:14 | W.PM.PROGNOT ---
Date of Service Date of service: 10/09/19 Time of Service: 18:14 Assessment and Plan Assessment and plan (1) Acute on chronic diastolic CHF (congestive heart failure): Status: Acute Assessment and plan: patient has had low urine output since being given iv lasix. She was given 100 mg IVP this morning and put on lasix drip at 10 mg/hr however, no stanley was placed until this afternoon. She put out 100 mL after stanley was placed at 1430 and since then has had 125 mL. I performed POCUS of her abdomen and she has plethoric IVC > 2cm and by color doppler her hepatic and portal veins appear to be pulsatile. She has dilated ischemic CM w/ LVEF 18% by her last echo (I did POCUS of her heart yesterday and she has biventricular failure). I reviewed Palliative Care consult and it appears that she does not want to be intubated but would be willing to return [place] [facility] if needed for further care of her GIBRAN including HD. I confirmed this with the patient. I am going to transfer her to ICU for dobutamine and titration of her lasix drip. I spoke w/ Dr. Dharmesh Stephenson, hospital medicine at [facility], I do not feel that she needs immediate transfer but wanted to convey to him that we feel that this patient was not optimized prior to transfer 2d ago to our swing bed and that she may need transfer tomorrow for hemodialysis if we are unable to control her volume status and she goes into oliguric renal failure. I have given her a dose of her zaroxolyn 5 mg and incr. her lasix to 20 mg/hr. She will begin dobutamine at 2.5 mcg/kg/minutes (2) Acute renal insufficiency: Status: Acute Assessment and plan: patient has GIBRAN in setting of CKD stage IV; she required CRRT during her stay at [facility] d/t septic shock. Her creatinine was 2.62 on transfer to [facility] on 10/06 but has since climbed to 3.58. If she does not respond to her diuretics and dobutamine then she will need transfer for CRRT. (3) Osteomyelitis: Status: Acute Assessment and plan: continue Ampicillin and Ceftriaxone for her Enterococcus vertebral osteomyelitis. (4) Atrial fibrillation: Status: Chronic Assessment and plan: rate is well controlled on her metoprolol. However she is no longer a candidate for Apixaban given her worsening renal function. I will put her on heparin drip and she can be transitioned to warfarin over next few days. Qualifiers: Atrial fibrillation type: paroxysmal Qualified Code(s): I48.0 - Paroxysmal atrial fibrillation Subjective Subjective Interval history since last seen: Patient not in acute respiratory distress. Denies any chest pain. No dyspnea at rest but gets dyspneic w/ any movement. Exam Narrative Exam Narrative: Obese, pleasant female alert and oriented x 3 Neck w/ prominent JVD to angle of her jaw Lungs w/ bibasilar rales chest wall w/ pacer/AICD in right infraclavicular space; multiple bruises on her chest legs w/ 3-4+ pitting edema and stasis dermatitis changes; peripheral rubor feet and toes Objective Objective Clinical Data: Abnormal lab results 10/09/19 Range/Units 14:38 Urine Protein 100 H (Negative) mg/dL Urine Ketones Trace H (Negative) mg/dL Vital Signs Temperature 36.3 C L 10/09/19 14:55 Temperature Source Tympanic 10/09/19 14:55 Pulse 92 H 10/09/19 15:10 Pulse Rhythm Irregular 10/09/19 15:00 Respiratory Rate 22 10/09/19 15:10 Respiratory Effort Non-Labored 10/09/19 15:00 Respiratory Depth Shallow 10/09/19 15:00 Respiratory Pattern Normal 10/09/19 15:00 Blood Pressure 112/86 10/09/19 15:10 Pulse Oximetry 92 L 10/09/19 15:10 Oxygen Delivery Method Room Air 10/09/19 15:10 Oxygen Flow Rate 0 10/09/19 15:10 Pain Level 8 10/09/19 14:55 Intake & Output 10/08/19 10/09/19 10/09/19 23:59 11:59 23:59 Intake Total 410 / 1290.0 880.0 / 1290.0 Output Total 100 / 225 125 / 225 Balance 310 / 1065.0 755.0 / 1065.0 Weight 117.7 kg Intake: IV 20 / 270.0 250.0 / 270.0 Oral 390 / 1020 630 / 1020 Output: Urine 100 / 225 125 / 225 Other: Urine Color Yellow Yellow Urine Appearance Clear Clear Stool Size Moderate Stool Characteristics Liquid Brown Voiding Methods Bedside Commode Laboratory Results Urine Color Yellow (Yellow) 10/09/19 14:38 Urine Clarity Sl cloudy (Clear) 10/09/19 14:38 Urine pH 5.0 (5-8) 10/09/19 14:38 Ur Specific [place] 1.020 (1.005-1.025) 10/09/19 14:38 Urine Protein 100 mg/dL (Negative) H 10/09/19 14:38 Urine Ketones Trace mg/dL (Negative) H 10/09/19 14:38 Urine Blood Negative (Negative) 10/09/19 14:38 Urine Nitrite Negative (Negative) 10/09/19 14:38 Urine Bilirubin Negative (Negative) 10/09/19 14:38 Urine Urobilinogen 0.2 EU/dL (Up TO 0.2) 10/09/19 14:38 Ur Leukocyte Esterase Negative (Negative) 10/09/19 14:38 Urine RBC 0-2 HPF (0-2) 10/09/19 14:38 Urine WBC 0-2 HPF (0-5) 10/09/19 14:38 Ur Epithelial Cells Few HPF (Negative) 10/09/19 14:38 Urine Crystals Moderate amorphous HPF (Negative) 10/09/19 14:38 Urine Bacteria HPF (Negative) 10/09/19 14:38 Urine Mucus Negative (Negative) 10/09/19 14:38 Ur Culture Indicated? No 10/09/19 14:38 Urine Glucose Negative mg/dL (Negative) 10/09/19 14:38
[2019-10-09] MEDS: DOBUTamine 500 MG/250 ML BAG 8.828 MG IV (20:25)
[2019-10-09] MEDS: Melatonin 3 MG TAB 6 MG PO (22:43)
[2019-10-09] MEDS: rOPINIRole 1 MG TAB 2 MG PO (22:43)
[2019-10-09 23:56] LABS: Troponin I < 0.05 ng/Ml (<0.06)
[2019-10-10] VITALS (184 sets, daily range): BP systolic 66–120; BP diastolic 35–95; PULSE 51–190; RESP 10–34; TEMP 36.7–36.8; O2SAT 88–98
--- NOTE | 2019-10-10 | DI.RAD_ITS ---
EXAM: XR PORTABLE CHEST AP CLINICAL HISTORY: CHF TECHNIQUE: 2D digital imaging was performed. COMPARISON: CR,XR XR CHEST 2V PA LATERAL from 07/16/[address] CHEST HIGH RESOLUTION from 08/18/2019 FINDINGS: A pacemaker is again noted. The heart is enlarged, unchanged. A central line is seen with the tip p rojecting in the right atrium. The lungs are suboptimally inflated. There is a question of increase d densities at the right lung base which could represent atelectasis versus pneumonia. No pneumothor ax is seen. No effusion is visible. There is no gross overt pulmonary edema. IMPRESSION: Central line tip is noted in the left atrium. Right lower lobe atelectasis versus infiltrate.
[2019-10-10] MEDS: AMPICILLIN SODIUM 2 GM in Normal Saline 100 ML IVPB ×3 (00:23→16:30)
[2019-10-10] MEDS: Normal Saline Flush 10 ML SYR IVP ×2 (05:26→16:47)
[2019-10-10 05:49] LABS: Anion Gap 9.3 mmol/L (3-11); BUN 48 mg/dL (7-18); CO2 23.7 mmol/L (21.0-32.0); Calcium 8.4 mg/dL (8.5-10.1); Chloride 97 mmol/L (98-107); Estimated GFR 10.32 (mL/min/1.73m2); Glucose 112 mg/dL (74-106); Potassium 4.1 mmol/L (3.5-5.1); Sodium 130 mmol/L (136-145); Troponin I < 0.05 ng/Ml (<0.06)
[2019-10-10 05:51] LABS: CREATININE 4.26 mg/dL (0.55-1.02)
[2019-10-10 06:07] LABS: PTT Activated 102.1 sec (21.0-31.4)
[2019-10-10] MEDS: DOBUTamine 500 MG/250 ML BAG 35.31 MG IV (07:13)
--- NOTE | 2019-10-10 08:11 | PGE_ITS ---
Date of Service Date of service: 10/10/19 Time of Service: 08:12 Objective Objective Clinical Data: Abnormal lab results 10/09/19 10/10/19 10/10/19 Range/Units 14:38 05:20 05:20 APTT 102.1 H* (21.0-31.4) sec Sodium 130 L (136-145) mmol/L Chloride 97 L (98-107) mmol/L BUN 48 H (7-18) mg/dL Creatinine 4.26 H* (0.55-1.02) mg/dL Glucose 112 H (74-106) mg/dL Calcium 8.4 L (8.5-10.1) mg/dL Urine Protein 100 H (Negative) mg/dL Urine Ketones Trace H (Negative) mg/dL Vital Signs Temperature 36.8 C 10/10/19 04:00 Temperature Source Temporal Artery Scan 10/10/19 04:00 Pulse 69 10/10/19 05:46 Pulse Rhythm Irregular 10/09/19 15:00 Pulse 73 10/10/19 05:50 Respiratory Rate 18 10/10/19 05:50 Respiratory Effort Labored 10/10/19 04:00 Respiratory Depth Normal 10/10/19 04:00 Respiratory Pattern Normal 10/10/19 04:00 Blood Pressure 97/52 L 10/10/19 05:46 Blood Pressure Mean 63 10/10/19 05:46 Pulse Oximetry 95 10/10/19 05:02 Oxygen Delivery Method Nasal Cannula 10/10/19 04:00 Oxygen Flow Rate 2 10/10/19 04:00 Pain Level 0 10/10/19 04:00 Intake & Output 10/09/19 10/09/19 10/10/19 11:59 23:59 11:59 Intake Total 410 / 1390.0 980.0 / 1390.0 664.772 / 664.772 Output Total 100 / 225 125 / 225 125 / 125 Balance 310 / 1165.0 855.0 / 1165.0 539.772 / 539.772 Weight 117.7 kg 117.7 kg 118 kg Intake: IV 20 / 370.0 350.0 / 370.0 664.772 / 664.772 Oral 390 / 1020 630 / 1020 Output: Urine 100 / 225 125 / 225 125 / 125 Other: Urine Color Yellow Yellow Dark Keesha Urine Appearance Clear Clear Cloudy Comment minimal UO, rust colored and cloudy Stool Occult Blood Negative Stool Size Moderate Moderate Stool Characteristics Liquid Soft Brown Voiding Methods Bedside Commode Laboratory Results APTT 102.1 sec (21.0-31.4) H* 10/10/19 05:20 Sodium 130 mmol/L (136-145) L 10/10/19 05:20 Potassium 4.1 mmol/L (3.5-5.1) 10/10/19 05:20 Chloride 97 mmol/L (98-107) L 10/10/19 05:20 Carbon Dioxide 23.7 mmol/L (21.0-32.0) 10/10/19 05:20 Anion Gap 9.3 mmol/L (3-11) 10/10/19 05:20 BUN 48 mg/dL (7-18) H 10/10/19 05:20 Creatinine 4.26 mg/dL (0.55-1.02) H* 10/10/19 05:20 Estimated GFR/1.73 m2 10.32 (mL/min/1.73m2) 10/10/19 05:20 Glucose 112 mg/dL (74-106) H 10/10/19 05:20 Calcium 8.4 mg/dL (8.5-10.1) L 10/10/19 05:20 Troponin I < 0.05 ng/Ml (<0.06) 10/10/19 05:20 Urine Color Yellow (Yellow) 10/09/19 14:38 Urine Clarity Sl cloudy (Clear) 10/09/19 14:38 Urine pH 5.0 (5-8) 10/09/19 14:38 Ur Specific [place] 1.020 (1.005-1.025) 10/09/19 14:38 Urine Protein 100 mg/dL (Negative) H 10/09/19 14:38 Urine Ketones Trace mg/dL (Negative) H 10/09/19 14:38 Urine Blood Negative (Negative) 10/09/19 14:38 Urine Nitrite Negative (Negative) 10/09/19 14:38 Urine Bilirubin Negative (Negative) 10/09/19 14:38 Urine Urobilinogen 0.2 EU/dL (Up TO 0.2) 10/09/19 14:38 Ur Leukocyte Esterase Negative (Negative) 10/09/19 14:38 Urine RBC 0-2 HPF (0-2) 10/09/19 14:38 Urine WBC 0-2 HPF (0-5) 10/09/19 14:38 Ur Epithelial Cells Few HPF (Negative) 10/09/19 14:38 Urine Crystals Moderate amorphous HPF (Negative) 10/09/19 14:38 Urine Bacteria HPF (Negative) 10/09/19 14:38 Urine Mucus Negative (Negative) 10/09/19 14:38 Ur Culture Indicated? No 10/09/19 14:38 Urine Glucose Negative mg/dL (Negative) 10/09/19 14:38
[2019-10-10] MEDS: Multivitamin TAB 1 TAB PO (08:46)
[2019-10-10] MEDS: Mirabegron 25 MG TABCR PO (08:46)
[2019-10-10] MEDS: predniSONE 20 MG TAB 40 MG PO (08:46)
[2019-10-10] MEDS: Lactobacillus Acidophilus CAP 1 CAP PO ×2 (08:46→16:01)
[2019-10-10] MEDS: Pantoprazole 20 MG TABCR PO (08:47)
[2019-10-10] MEDS: Gabapentin 100 MG CAP PO (08:47)
[2019-10-10] MEDS: Atorvastatin 40 MG TAB 80 MG PO (08:47)
[2019-10-10] MEDS: Umeclidinium 7 CAP INHALER IH (09:23)
[2019-10-10] MEDS: metOLazone 2.5 MG TAB 5 MG PO (10:23)
[2019-10-10] MEDS: Amiodarone 200 MG TAB PO (10:26)
--- NOTE | 2019-10-10 11:44 | DSE_ITS ---
Date of service: 10/10/19 Time of Service: 11:44 DS: Diagnosis Discharge Diagnosis (1) Cardiogenic shock: Status: Acute (2) Acute kidney injury superimposed on chronic kidney disease: Status: Acute Asessment and Plan: Oliguric, UOP 350 cc/24 hrs. Cr 4.26 on day of transfer (3) Acute on chronic systolic (congestive) heart failure: Status: Acute Asessment and Plan: EF 18%, s/p AICD (4) Ischemic cardiomyopathy: Status: Chronic (5) Hypoxia: Status: Acute Asessment and Plan: Desaturating down to 80's when talking on 2 L. (6) Bacteremia due to Enterococcus: Status: Acute Asessment and Plan: S/p explantation/reimplantation of AICD, with evidence of lumbar OM/dicitis, epidural phlegmon, on ceftriaxone/ampicillin through October 30, 2019. (7) Osteomyelitis: Status: Acute Asessment and Plan: As above (8) Atrial fibrillation: Status: Chronic Asessment and Plan: On heparin gtt for bridging (9) Obesity, morbid, BMI 40.0-49.9: Status: Acute (10) Chronic obstructive pulmonary disease: Status: Chronic Discharge Plan Disposition Patient Disposition: [facility] Condition: Critical Discharge Details Reason For Visit: CHF GIBRAN Admit Date/Time: 10/09/19 08:14 Admit Provider: Star Gonzalez Attending Provider: Star Gonzalez Primary Care Provider: Taya Juan [facility] Hospital Course: Ms Villanueva is a 69 year old female with PMHx of CKD III, having required CRRT at [facility] during her admission at [facility] prior to transfer to [facility], ICMO/chronic systolic CHF with EF of 18%, s/p AICD, Afib normally on eliquis, who was transferred to [facility] swing bed level 1 on 10/07/2019 for completion of 6 weeks of intravenous ceftriaxone/ampicillin while recovering from enterococcal sepsis with lumbar osteomyelitis/discitis/epidural phlegmon and post explantation/re- implantation of AICD. She was supposed to complete her IV antibiotics on 10/30/2019. However, on 10/08/2019, the patient was noted to be symptomatic of fluid overload/acute on chronic systolic CHF, requiring IV lasix. On 10/09/2019, she was transferred into inpatient status for initiation of more intensive diuretic therapy, having received metolazone, 100 mg of IV lasix followed by initiation of lasix drip. Because etiology of her acute on chronic kidney failure was deemed to be likely cardiorenal, she was transferred to the ICU on 10/09/2019 for initiation of dobutamine. Her UOP in the last 24 hours is 350 cc, making her kidney failure oliguric. The patient met with palliative care and expressed that while she is DNI, she is interested in dialysis and transfer to [facility] [place], if indicated. Her MAPs have been in the 50s this morning, and they have been generally lower since initiation of dobutamine. Transfer to [facility] [place] was sought for further treatment of her oliguric GIBRAN on CKD with likely CRRT, given her lower BP's, thought to be due to cardiogenic shock. Recommendation was trialing discontinuation of dobutamine, and while initially the patient's MAPs went up to 60's, her latest MAPs are 55. The patient's lasix drip was also turned off, and she is being initiated on levophed with target MAP of 60-65. The patient was accepted in transfer to [facility] ICU Blue Team under the care of Dr Castillo. The patient does not appear to have any signs of new infection, having remained afebrile. She was maintained on ceftriaxone and ampicillin for her stay here with us. Septic workup has been ordered and is pending at the time of transfer (blood cultures, procalcitonin, CRP, lactate). She was transitioned from eliquis which she is on for Afib to heparin gtt, given her kidney failure. Her respiratory status at this time is - patient is able to complete 2-3 words without pausing to breathe, requiring 2L of O2 at rest, but desaturating to mid- 80's with speaking. Critical Care for Patient on day of transfer took 120 minutes. for medication list, please see [facility] Home Meds and New Rx's Prescriptions: No Action amiodarone 400 mg tablet 200 mg PO DAILY RF: 0 Myrbetriq 25 mg tablet extended release 24 hr 25 mg PO DAILY Qty: 60 RF: 5 albuterol sulfate [Ventolin HFA] 8 GM HFA aerosol inhaler 2 puff Inhalation Q4H PRN Qty: 120 RF: 2 atorvastatin 80 MG tablet 80 mg PO DAILY Qty: 90 RF: 3 nitroglycerin 0.4 MG tablet, sublingual 0.4 mg Sublingual PRN PRNQty: 30 RF: 0 spironolactone 25 MG tablet 25 mg PO DAILY Qty: 90 RF: 3 metolazone 2.5 MG tablet 2.5 mg PO PRN Qty: 30 RF: 3 metoprolol succinate 100 mg tablet extended release 24 hr 50 mg PO DAILY RF: 0 allopurinol 300 mg tablet 300 mg PO DAILY RF: 0 benzonatate [Tessalon Perles] 100 mg Capsule 100 mg PO BID PRNRF: 0 ropinirole 2 mg Tablet 2 mg PO QHS RF: 0 ipratropium bromide 0.02 % Solution 2.5 ml INHALATION Q6H PRNRF: 0 Incruse Ellipta 62.5 mcg/actuation Blister With Device 1 inh INHALATION DAILY RF: 0 acetaminophen [Tylenol] 325 MG tablet 1,000 mg PO QID RF: 0 pantoprazole 40 mg tablet,delayed release (DR/EC) 20 mg PO DAILY@0730 RF: 0 oxycodone 5 mg tablet 5 mg PO Q6H PRN (Reason: pain) RF: 0 methocarbamol 500 mg tablet 750 mg PO Q6H PRN (Reason: muscle spasm) RF: 0 Eliquis 5 MG tablet 5 mg PO BID Qty: 60 RF: 0 bumetanide 2 mg tablet 2 mg PO BID RF: 0 sennosides [Senokot] 8.6 mg Tablet 1 tab PO BID Qty: 0 RF: 0 polyethylene glycol 3350 17 gram Powder In Packet 17 g PO DAILY PRN PRN (Reason: Constipation) Qty: 0 RF: 0 prednisone 20 mg Tablet 40 mg PO DAILY Qty: 0 RF: 0 docusate sodium [Colace] 100 mg Capsule 100 mg PO BID Qty: 60 RF: 0 gabapentin 100 mg Capsule 100 mg PO TID Qty: 0 RF: 0 diclofenac sodium [Voltaren] 1 % Gel 4 g topical QID Qty: 0 RF: 0 Discharge Instructions Activity:: bedrest Diet:: renal diabetic Discharge Orders Discharge Orders: Discharge Order (Routine); Ordered 10/10/19 Ordered By: Katie Marmolejo DS: Summary Status at Discharge Functional status at discharge: bed bound Overall status at discharge: patient is not back to baseline Mental Status: mental status grossly normal Speech and Movement: speech and movement normal Mood: congruent mood Affect: normal affect Exam Narrative Exam Narrative: General: Obese female, A&Ox3, pausing to breathe after 2-3 words while on 2L of O2 HEENT: EOMI, dry MM Heart: seemingly RRR Lungs: crackles [address] both lungs posteriorly Abdomen: soft, nontender, nondistended Extremities: 3+ BLE edema Psych Mental Status: mental status grossly normal Speech and Movement: speech and movement normal Mood: congruent mood Affect: normal affect DS: Data Vitals/I&O Vitals and I&O: Vital Signs Temperature 36.8 C 10/10/19 08:00 Temperature Source Temporal Artery Scan 10/10/19 04:00 Pulse 66 10/10/19 11:16 Pulse Rhythm Irregular 10/09/19 15:00 Pulse 67 10/10/19 11:17 Respiratory Rate 13 10/10/19 11:17 Respiratory Effort Labored 10/10/19 08:00 Respiratory Depth Normal 10/10/19 08:00 Respiratory Pattern Normal 10/10/19 08:00 Blood Pressure 81/39 L 10/10/19 11:16 Blood Pressure Mean 48 10/10/19 11:16 Blood Pressure Position Supine 10/10/19 08:00 Pulse Oximetry 91 L 10/10/19 11:17 Oxygen Delivery Method Nasal Cannula 10/10/19 08:25 Oxygen Flow Rate 2 10/10/19 08:25 Pain Level 0 10/10/19 08:00 Intake & Output 10/09/19 10/09/19 10/10/19 11:59 23:59 11:59 Intake Total 410 / 1390.0 980.0 / 1390.0 1022.714 / 1022.714 Output Total 100 / 225 125 / 225 160 / 160 Balance 310 / 1165.0 855.0 / 1165.0 862.714 / 862.714 Weight 117.7 kg 117.7 kg 118 kg Intake: IV 20 / 370.0 350.0 / 370.0 1022.714 / 1022.714 Oral 390 / 1020 630 / 1020 Output: Urine 100 / 225 125 / 225 160 / 160 Other: Urine Color Yellow Yellow Dark Red Urine Appearance Clear Clear Hematuria Comment minimal UO, dark red Stool Occult Blood Negative Stool Size Moderate Moderate Stool Characteristics Liquid Soft Brown Voiding Methods Bedside Commode Data Completed and Pending Completed studies during hospitalization [Text1]: CXR pending Labs on day of discharge: Labs from last 24 hours 10/10/19 10/10/19 10/10/19 11:00 05:20 05:20 APTT Pending 102.1 H* Sodium 130 L Potassium 4.1 Chloride 97 L Carbon Dioxide 23.7 Anion Gap 9.3 BUN 48 H Creatinine 4.26 H* Estimated GFR/1.73 m2 10.32 Glucose 112 H Calcium 8.4 L Troponin I < 0.05 Urine Color Urine Clarity Urine pH Ur Specific [place] Urine Protein Urine Ketones Urine Blood Urine Nitrite Urine Bilirubin Urine Urobilinogen Ur Leukocyte Esterase Urine RBC Urine WBC Ur Epithelial Cells Urine Crystals Urine Bacteria Urine Mucus Ur Culture Indicated? Urine Glucose 10/09/19 10/09/19 10/09/19 23:30 19:28 14:38 APTT Sodium Potassium Chloride Carbon Dioxide Anion Gap BUN Creatinine Estimated GFR/1.73 m2 Glucose Calcium Troponin I < 0.05 Cancelled Urine Color Yellow Urine Clarity Sl cloudy Urine pH 5.0 Ur Specific [place] 1.020 Urine Protein 100 H Urine Ketones Trace H Urine Blood Negative Urine Nitrite Negative Urine Bilirubin Negative Urine Urobilinogen 0.2 Ur Leukocyte Esterase Negative Urine RBC 0-2 Urine WBC 0-2 Ur Epithelial Cells Few Urine Crystals Moderate amorphous Urine Bacteria Urine Mucus Negative Ur Culture Indicated? No Urine Glucose Negative [facility] Medical History (Updated 10/10/19 @ 11:55 by Katie Marmolejo MD) Candidiasis, intertrigo (Acute) Cardiac arrest with ventricular fibrillation (Resolved) Cardiomyopathy (Chronic) Cardiorenal syndrome (Inactive) Community acquired pneumonia (Inactive) COPD (chronic obstructive pulmonary disease) (Inactive) Coronary artery disease (Chronic 05/05/14) STEMI with LAD stent 04/2014 EF 35% Cystocele (Inactive) Hyponatremia (Inactive) Impaired glucose tolerance (Chronic) Ischemic cardiomyopathy (Chronic) Leukocytosis (Inactive) a. since 1995 with reportedly normal bone marrow biopsy in 1996 Mixed urinary incontinence due to female genital prolapse (Inactive) Neck mass (Inactive 01/26/15) Osteomyelitis (Acute) Palliative care patient (Acute) Right ventricular dysfunction (Inactive) Systolic CHF (Inactive 05/02/14) a. subacute with acute exacerbation Urinary incontinence (Chronic 11/06/17) Surgical History AICD (automatic cardioverter/defibrillator) present (Chronic ~06/2017) Cholecystectomy H/O surgical procedure (Inactive) a. s/p cholecystectomy b. s/p hysterectomy c. s/p bilateral carpan tunnel release surgery d. incisional hernia repair Hernia Repair, Incisional 04/19/14 History of heart artery stent (Chronic ~2013) LAD Hysterectomy, Laproscopic (~1980) OVARIES REMAIN Tonsillectomy Family History Mother Stroke Father Peptic ulcer disease Brother Substance abuse Social History Smoking/Tobacco Use Status: Former Tobacco Use Quit Date: 05/20/13 Tobacco: How many years used: 40 Second Hand Exposure: Yes Alcohol Intake: former Drug use: Never Substance use type: does not use Household members: spouse Number of Children: 5 Do you feel safe at home: Yes Do you feel safe in your relationship?: Yes Female Reproductive History Menstrual Menopause type: surgical History History 5 Para 5 Hx # Term Pregnancies 5 Multiple births Hx # Pregnancies Ectopic pregnancies AB induced Hx Number of Living Children 5 AB spontaneous
[2019-10-10 12:33] LABS: PTT Activated 55.5 sec (21.0-31.4)
[2019-10-10 13:08] LABS: Lactate 1.6 mmol/L (0.6-1.4)
[2019-10-10 13:11] LABS: Abs Immature Grans 0.03 k/cumm (0.0-0.09); Absolute Basophil Count 0.03 k/cumm (0.0-0.2); Absolute Eosinophil Count 0.01 k/cumm (0.0-0.7); Absolute Lymphocyte Count 0.43 k/cumm (1.2-3.4); Absolute Monocyte Count 0.31 k/cumm (0.11-0.7); Absolute Neutrophil Count 9.71 k/cumm (1.2-6.7); Basophils % 0.3; Eosinophils % 0.1; HCT 29.4 % (36.0-46.0); Immature Grans % 0.3 %; Lymphocytes % 4.1; Mean Corp. HGB Concentration 30.6 g/dL (32.0-36.0); Mean Corpuscular Hemoglobin 30.5 pg (27.0-33.0); Mean Corpuscular Volume 99.7 fL (80-95); Mean Platelet Volume 10.5 fL (8.0-11.0); Monocytes % 2.9; Neutrophils % 92.3; Platelet Count 299 x1000/uL (130-400); RBC 2.95 m/cumm (4.00-5.20); RBC Distribution Width 19.9 % (11.7-14.6); White Blood Cell Count 10.52 k/cumm (4.4-10.8)
--- NOTE | 2019-10-10 13:11 | DI.VRAD_ITS ---
PROCEDURE INFORMATION: Exam: XR Chest, 1 View Exam date and time: 10/10/2019 12:53 PM Age: 69 years old Clinical indication: Cough TECHNIQUE: Imaging protocol: XR of the chest Views: 1 view. COMPARISON: CR XR CHEST 2V PA LATERAL 07/16/2019 11:21 PM FINDINGS: Tubes, catheters and devices:Left subclavian line terminates in the right atrium and can be withdrawn 6 cm if desired. Transvenous pacemaker leads Lungs: Opacity in the right base may represent atelectasis or pneumonia. Pleural space: Unremarkable. No pleural effusion. No pneumothorax. Heart/Mediastinum: Cardiomegaly Bones/joints: Unremarkable. IMPRESSION: 1. Left subclavian line terminates in the right atrium and can be withdrawn 6 cm if desired. 2. Opacity in the right base may represent atelectasis or pneumonia. Dictated and Authenticated by: Eriberto Wells MD. Ordering:DAVID Wilson MD
[2019-10-10 13:18] LABS: C-Reactive Protein 1.87 mg/dL (0.0-0.3)
[2019-10-10 13:28] LABS: Diff Comment Diff Reviewed
[2019-10-10 13:29] LABS: Basophilic Stippling Present; Hypochromasia 2+; Poikilocytes 1+; Polychromasia Present
[2019-10-10 13:43] LABS: Bilirubin Negative (Negative); Blood Large (Negative); Clarity Cloudy (Clear); Glucose Negative (Negative); Ketones Negative (Negative); Leukocyte Esterase Small (Negative); Nitrite Negative (Negative); Specific Gravity 1.025 (1.005-1.025); Urobilinogen 0.2 EU/dL (Up TO 0.2)
--- NOTE | 2019-10-10 13:51 | CMPROGNOTE_ITS ---
- If Service Date Differs Date of service: 10/10/19 Time of Service: 13:51 Care Management Progress Note S/O: Zora is being transferred to [facility] [place] awaiting bed availability. She is being transferred for acute CHF, and GIBRAN. Family is aware of the transfer and Set Up Technician will coordinate the ambulance once a bed is available. Zora did have palliative care encounter while inpatient and will have ongoing follow up once she is discharged from [facility] [place] [facility]. A: Zora is a 69 year old female with worsening heart and renal failure. Accepted as a [facility] [facility] transfer to [facility] bed on 10/07/2019 and quickly became acute. P: Zora will be transferred to [facility] [place] once a bed is available.
--- NOTE | 2019-10-10 13:51 | PDOC.CMPRO ---
- If Service Date Differs Date of service: 10/10/19 Time of Service: 13:51 Care Management Progress Note S/O: Zora is being transferred to [facility] [place] [place] awaiting bed availability. She is being transferred for acute CHF, and GIBRAN. Family is aware of the transfer and Curriculum Assistant will coordinate the ambulance once a bed is available. Zora did have palliative care encounter while inpatient and will have ongoing follow up once she is discharged from [facility] [place] [place]. A: Zora is a 69 year old female with worsening heart and renal failure. Accepted as a [facility] [place] [place] transfer to [facility] bed on 10/07/2019 and quickly became acute. P: Zora will be transferred to [facility] [place] [place] once a bed is available.
[2019-10-10 13:53] LABS: Bacteria Moderate HPF (Negative); Epithelial Cells Few HPF (Negative); Other Cells Negative (Negative); RBC >50 HPF (0-2)
[2019-10-10 13:54] LABS: C & S Indicated? C&S Done As Ordered; Casts 0-2 Coarse Granular LPF (Negative); Crystals Moderate Amorphous HPF (Negative); Mucus Trace (Negative)
[2019-10-10 14:00] LABS: Procalcitonin 0.4 ng/mL
[2019-10-10] MEDS: cefTRIAXone 2 GM/50 ML BAG IVPB (16:00)
== END 2019-10-10 19:05 | disposition short-term general hospital (02) | DRG 291 ==
LOC: MS 11:14 → ICU 10-10 07:48 → MS 10-10 07:55 → ICU 10-10 08:23
PROVIDERS: General Practice; Admitting Provider Internal Medicine; PCP Family Medicine; Visit Provider Internal Medicine
DX: I50.23 Acute on chronic systolic (congestive) heart failure (principal); R57.0 Cardiogenic shock; N17.9 Acute kidney failure, unspecified; R78.81 Bacteremia; M46.20 Osteomyelitis of vertebra, site unspecified; Z68.41 Body mass index [BMI] 40.0-44.9, adult; N18.3 Chronic kidney disease, stage 3 (moderate); I48.0 Paroxysmal atrial fibrillation; Z79.01 Long term (current) use of anticoagulants; I25.5 Ischemic cardiomyopathy; R09.02 Hypoxemia; B95.2 Enterococcus as the cause of diseases classified elsewhere; Z79.2 Long term (current) use of antibiotics; E66.01 Morbid (severe) obesity due to excess calories; J44.9 Chronic obstructive pulmonary disease, unspecified; Z95.810 Presence of automatic (implantable) cardiac defibrillator; Z51.5 Encounter for palliative care
CPT/HCPCS: 36415; 36591; 80048; 84145; 87040; 94640; 99223; 99255; 99291; 99356; 71045; 81003; 81015; 83605; 84484; 85025; 85730; 86140; 87086; 87324; 93005; 93010; 99233; 99292; J0290; J1940; J7512

== ENCOUNTER 2019-11-16 13:58 | Outpatient (REF) | payer MEDICARE, SELFPAY ==
[2019-11-17 18:38] LABS: COVID-19 RT-PCR Result Not Detected ((See Note))
== END 2019-11-16 14:18 ==
LOC: LBN 13:58
PROVIDERS: PCP Family Medicine; Visit Provider Nurse Practitioner Adult Health
DX: Z03.818 Encounter for observation for suspected exposure to other biological agents ruled out (principal)
CPT/HCPCS: U0003

== ENCOUNTER 2019-11-23 13:16 | Outpatient (REF) | payer MEDICARE, SELFPAY ==
[2019-11-24 15:57] LABS: COVID-19 RT-PCR Result Not Detected ((See Note))
== END 2019-11-23 13:36 ==
LOC: LBN 13:16
PROVIDERS: PCP Family Medicine; Visit Provider Nurse Practitioner Adult Health
DX: Z03.818 Encounter for observation for suspected exposure to other biological agents ruled out (principal)
CPT/HCPCS: U0003

== ENCOUNTER 2019-11-29 11:42 | Emergency (ER) | payer MEDICARE, MEDICAID, SELFPAY ==
[2019-11-29] VITALS (90 sets, daily range): BP systolic 47–115; BP diastolic 24–88; PULSE 67–181; RESP 8–42; TEMP 36.4–36.6; O2SAT 48–96
--- NOTE | 2019-11-29 11:45 | RT.EKG_ITS ---
APPROVED REPORT Exam: Resting ECG Patient Location: E HR:89 bpm ECG Measurements Heart Rate 89 AXIS LA [id number] P [id number] QRSd 148 QRS 14 QT 496 T [id number] QTc 605 <Conclusion> Atrial fibrillation...? atrial activity Probable left ventricular hypertrophy...(RaVL+SV3)xQRSd >300 Prolonged QT interval...QTc >500mS ED interpretation: QT interval difficult to determine and may be inaccurate in Afib. No acute ST elevation or depression.
[2019-11-29] MEDS: Dextrose 50%-Water 25 GM/50 ML SYR ×3 (11:50→12:09)
[2019-11-29] MEDS: Normal Saline 1,000 ML 1000 ML IV (11:51)
--- NOTE | 2019-11-29 12:00 | DI.RAD_ITS ---
EXAM: XR PORTABLE CHEST AP CLINICAL HISTORY: lethargic TECHNIQUE: COMPARISON: No exams were available for comparison FINDINGS: Portable AP chest at 1215 hours. There is transvenous cardiac pacemaker. There is an apparent left subclavian double lumen catheter the tip of which overlies junction SVC and right atrium. There may be a right pleural effusion. There is marked cardiomegaly. Poor inspiration noted. Right lung base is obscured, consolidation not excluded. PA and lateral chest suggested when clinica lly appropriate. IMPRESSION:
[2019-11-29 12:21] LABS: Abs Immature Grans 0.05 k/cumm (0.0-0.09); Absolute Lymphocyte Count 0.68 k/cumm (1.2-3.4); Absolute Monocyte Count 1.05 k/cumm (0.11-0.7); Absolute Neutrophil Count 13.38 k/cumm (1.2-6.7); HCT 25.5 % (36.0-46.0); HGB 7.5 g/dL (12.0-15.5); Immature Grans % 0.3 %; Lymphocytes % 4.5; Mean Corp. HGB Concentration 29.4 g/dL (32.0-36.0); Mean Corpuscular Hemoglobin 28.6 pg (27.0-33.0); Mean Corpuscular Volume 97.3 fL (80-95); Mean Platelet Volume 11.3 fL (8.0-11.0); Monocytes % 6.9; Neutrophils % 88.3; Platelet Count 239 x1000/uL (130-400); RBC 2.62 m/cumm (4.00-5.20); RBC Distribution Width 21.6 % (11.7-14.6); White Blood Cell Count 15.15 k/cumm (4.4-10.8)
[2019-11-29 12:32] LABS: INR 2.9 (0.9-1.1); PTT Activated 37.8 sec (21.0-31.4); Prothrombin Time 28.4 sec (9.3-11.0)
[2019-11-29 12:34] LABS: BE -7.3 mmol/L (-3-3); HCO3 19 mmol/L (22-28); pCO2 41 mmHg (34-47); pH 7.28 (7.35-7.45); pO2 318 mmHg (83-108)
[2019-11-29 12:36] LABS: FIO2 100 %; Site Left Radial; sO2 > 99 % (94-98)
[2019-11-29 12:37] LABS: Anisocytosis 3+; Diff Comment RBC Morph Reviewed; Hypochromasia 3+; Polychromasia Present
[2019-11-29 12:38] LABS: Poikilocytes 2+
[2019-11-29 12:49] LABS: ALT 48 U/L (14-59); AST 124 U/L (15-37); Albumin 2.2 g/dL (3.4-5.0); Alkaline Phosphatase 210 U/L (46-116); Anion Gap 17.4 mmol/L (3-11); BUN 8 mg/dL (7-18); CO2 23.6 mmol/L (21.0-32.0); CREATININE 3.03 mg/dL (0.55-1.02); Calcium 8.5 mg/dL (8.5-10.1); Chloride 96 mmol/L (98-107); Glucose 262 mg/dL (74-106); Magnesium 1.9 mg/dL (1.8-2.4); Potassium 3.5 mmol/L (3.5-5.1); Sodium 137 mmol/L (136-145); TSH (W/Ref FT4) 1.36 uIU/mL (0.36-3.74); Total Protein 5.3 g/dL (6.4-8.2); Troponin I 0.05 ng/mL (<0.06)
[2019-11-29] MEDS: Albuterol/Ipratropium 3 ML UPD VIAL UPD ×2 (12:53→12:57)
[2019-11-29 12:55] LABS: Bilirubin Small (Negative); Blood Large (Negative); Clarity Turbid (Clear); Glucose Negative (Negative); Ketones Negative (Negative); Leukocyte Esterase Large (Negative); Nitrite Negative (Negative); Specific Gravity 1.025 (1.005-1.025); Urobilinogen 0.2 EU/dL (Up TO 0.2); pH 7.5 (5-8)
[2019-11-29] MEDS: Normal Saline 1,000 ML 100 ML IV (12:59)
[2019-11-29 13:02] LABS: C & S Indicated? Yes; WBC >50 HPF (0-5)
--- NOTE | 2019-11-29 13:17 | W.ED.GENAD ---
Discharge Plan Disposition Patient Disposition: [facility] Condition: Critical Discharge Details Chief Complaint: Diabetes Clinical Impression: Septic shock, UTI (urinary tract infection), Pneumonia, Anemia, Lactic acidosis, ESRD needing dialysis, Hypoglycemia Primary Care Provider: Taya Juan ED Provider: Katerine Kingsley Home Meds and New Rx's Prescriptions: No Action amiodarone 400 mg tablet 400 mg PO DAILY RF: 0 albuterol sulfate [Ventolin HFA] 8 GM HFA aerosol inhaler 2 puff Inhalation Q4H PRN Qty: 120 RF: 2 atorvastatin 80 MG tablet 40 mg PO DAILY Qty: 90 RF: 3 nitroglycerin 0.4 MG tablet, sublingual 0.4 mg Sublingual PRN PRNQty: 30 RF: 0 ipratropium bromide 0.02 % Solution 3 ml INHALATION Q6H RF: 0 Incruse Ellipta 62.5 mcg/actuation Blister With Device 1 inh INHALATION DAILY RF: 0 acetaminophen [Tylenol] 325 MG tablet 1,000 mg PO QID RF: 0 pantoprazole 40 mg tablet,delayed release (DR/EC) 40 mg PO DAILY@0730 RF: 0 oxycodone 5 mg tablet 5 mg PO Q6H PRN (Reason: pain) RF: 0 multivitamin Tablet 1 tab PO DAILY RF: 0 trazodone 50 mg tablet 25 mg PO QHS PRNRF: 0 dronabinol [Marinol] 5 mg capsule 5 mg PO BID RF: 0 melatonin 3 mg Tablet 6 mg PO HS RF: 0 bisacodyl [Dulcolax (bisacodyl)] 10 mg Suppository 10 mg [place] DAILY PRNRF: 0 ropinirole 0.5 mg tablet 0.5 mg PO HS RF: 0 Dialyvite 800 0.8 mg tablet 1 tab PO DAILY RF: 0 ondansetron 4 mg Tablet,Disintegrating 4 mg PO Q12H PRN PRNRF: 0 midodrine 10 mg tablet 10 mg PO TID RF: 0 sodium chloride [Archer Nasal] 0.65 % Aerosol,Nitro 2 spray INTRANASAL BID RF: 0 sennosides [Senokot] 8.6 mg tablet 2 tab PO BID RF: 0 Eliquis 5 MG tablet 5 mg PO BID Qty: 60 RF: 0 polyethylene glycol 3350 17 gram Powder In Packet 17 g PO DAILY PRN PRN (Reason: Constipation) Qty: 0 RF: 0 Discharge Data Discharge Date/Time-TO BE ENTERED AT DEPARTURE: 11/29/19 16:05 Medical Decision Making 1150 -- 69 year-old female with a history of COPD, CHF, [place], end-stage renal disease on dialysis, paroxysmal atrial fibrillation on anticoagulation, ventricular tachycardia status post ICD, coronary artery disease status post LAD stent, morbid obesity with recent lumbar discitis/osteomyelitis treated with IV antibiotics with admission here and transferred to [facility] followed by transfer to rehab presents for hyperglycemia today of 36. EMS noted glucose to be 480 in route. Glucose 15 on arrival. O2 sat 40s on 3 L of O2. Patient answering questions and oriented x3. She is continuing to moan I cannot breathe . Placed on nonrebreather and O2 sats decreased to 70s. BP 60s/40s. EKG notes a rate of 89, A. fib with no obvious acute ST ischemic changes. Patient placed on BiPAP and O2 sat increased to 90s. Chest x-ray notes significant haziness right lung barrios, concern for consolidation. No pneumothorax. Labs reviewed and note a white blood cell count of 15, hemoglobin 7.5, INR 2.9, BUN 8, creatinine 3.03, lactate 11, troponin negative. ABG appears consistent more with metabolic acidosis with a pH 7.28, PCO2 41, PO2 318. Urine sample is dark yellow to brown and appears consistent with pus. Urinalysis consistent with significant UTI. Will start vancomycin and Zosyn. Will give 1 unit of blood. Presentation not consistent with PE as appears likely more consistent with sepsis. Unable to obtain CT chest due to creatinine. Also consider coronavirus in setting of hypoxia with fairly normal respiratory and heart rate and does not appear in any acute respiratory distress. 1340--Case discussed with [facility] critical care -accepts patient for transfer. Accepting physician Dr. Sewell. Case discussed with daughter who is agreeable with plan. Recommend to hold on swabbing for coronavirus here as they will do a rapid COVID test there. 1430 --BP remains hypotensive after 1 L IV fluids and D5 normal saline at 100. BP 70/40. Will place a central line for consideration of pressors. Central line placed. BP 82/61. Remainder of vitals stable. Will start Levophed. Patient moving all extremities, able to answer questions. Medical Records Medical records reviewed: Yes I reviewed the patient's medical records. Imaging Data Radiologic Study: Radiologist's impression: XR PORTABLE CHEST AP CLINICAL HISTORY: lethargic TECHNIQUE: COMPARISON: No exams were available for comparison FINDINGS: Portable AP chest at 1215 hours. There is transvenous cardiac pacemaker. There is an apparent left subclavian double lumen catheter the tip of which overlies junction SVC and right atrium. There may be a right pleural effusion. There is marked cardiomegaly. Poor inspiration noted. Right lung base is obscured, consolidation not excluded. PA and lateral chest suggested when clinically appropriate. Lab Data Lab results reviewed: Yes I reviewed the patient's lab results. Labs: 11/29/19 13:02 Blood Blood Culture - Pending 11/29/19 12:40 Urine - Reflex from Ua Urine Culture - Pending 11/29/19 12:30 Blood Blood Culture - Pending Laboratory Tests Range/Units 11/29/19 11/29/19 11/29/19 12:02 12:02 12:02 WBC (4.4-10.8) k/cumm 15.15 H RBC (4.00-5.20) m/cumm 2.62 L Hgb (12.0-15.5) g/dL 7.5 L Hct (36.0-46.0) % 25.5 L MCV (80-95) fL 97.3 H MCH (27.0-33.0) pg 28.6 MCHC (32.0-36.0) g/dL 29.4 L RDW (11.7-14.6) % 21.6 H Plt Count (130-400) x1000/uL 239 MPV (8.0-11.0) fL 11.3 H Immature Gran % % 0.3 Neutrophils % 88.3 Lymphocytes % 4.5 Monocytes % 6.9 Eosinophils % 0.0 Basophils % 0.0 Absolute Neutrophils (1.2-6.7) k/cumm 13.38 H Absolute Lymphocytes (1.2-3.4) k/cumm 0.68 L Absolute Monocytes (0.11-0.7) k/cumm 1.05 H Absolute Eosinophils (0.0-0.7) k/cumm 0.00 Absolute Basophils (0.0-0.2) k/cumm 0.00 Differential Comment Rbc morph reviewed RBC Morphology See below Polychromasia Present Hypochromasia 3+ Poikilocytosis 2+ Anisocytosis 3+ PT (9.3-11.0) sec INR (0.9-1.1) APTT (21.0-31.4) sec ABG Sample Site ABG pH (7.35-7.45) ABG pCO2 (34-47) mmHg ABG pO2 (83-108) mmHg ABG HCO3 (22-28) mmol/L ABG O2 Saturation (94-98) % ABG Base Excess (-3-3) mmol/L FiO2 % Sodium (136-145) mmol/L 137 Potassium (3.5-5.1) mmol/L 3.5 Chloride (98-107) mmol/L 96 L Carbon Dioxide (21.0-32.0) mmol/L 23.6 Anion Gap (3-11) mmol/L 17.4 H BUN (7-18) mg/dL 8 Creatinine (0.55-1.02) mg/dL 3.03 H Estimated GFR/1.73 m2 (mL/min/1.73m2) 15.30 Glucose (74-106) mg/dL 262 H Lactate (0.6-1.4) mmol/L 11.0 H* Calcium (8.5-10.1) mg/dL 8.5 Magnesium (1.8-2.4) mg/dL 1.9 Total Bilirubin (0.2-1.0) mg/dL 1.0 AST (15-37) U/L 124 H ALT (14-59) U/L 48 Alkaline Phosphatase (46-116) U/L 210 H Troponin I (<0.06) ng/mL 0.05 Total Protein (6.4-8.2) g/dL 5.3 L Albumin (3.4-5.0) g/dL 2.2 L TSH (0.36-3.74) uIU/mL 1.36 Urine Color (Yellow) Urine Clarity (Clear) Urine pH (5-8) Ur Specific [place] (1.005-1.025) Urine Protein (Negative) mg/dL Urine Ketones (Negative) mg/dL Urine Blood (Negative) Urine Nitrite (Negative) Urine Bilirubin (Negative) Urine Urobilinogen (Up TO 0.2) EU/dL Ur Leukocyte Esterase (Negative) Urine RBC Urine WBC (0-5) HPF Ur Epithelial Cells Urine Crystals Urine Bacteria Urine Mucus Ur Culture Indicated? Urine Glucose (Negative) mg/dL Patient ABO/Rh Antibody Screen Crossmatch Range/Units 11/29/19 11/29/19 11/29/19 12:02 12:20 12:29 WBC (4.4-10.8) k/cumm RBC (4.00-5.20) m/cumm Hgb (12.0-15.5) g/dL Hct (36.0-46.0) % MCV (80-95) fL MCH (27.0-33.0) pg MCHC (32.0-36.0) g/dL RDW (11.7-14.6) % Plt Count (130-400) x1000/uL MPV (8.0-11.0) fL Immature Gran % % Neutrophils % Lymphocytes % Monocytes % Eosinophils % Basophils % Absolute Neutrophils (1.2-6.7) k/cumm Absolute Lymphocytes (1.2-3.4) k/cumm Absolute Monocytes (0.11-0.7) k/cumm Absolute Eosinophils (0.0-0.7) k/cumm Absolute Basophils (0.0-0.2) k/cumm Differential Comment RBC Morphology Polychromasia Hypochromasia Poikilocytosis Anisocytosis PT (9.3-11.0) sec 28.4 H INR (0.9-1.1) 2.9 H APTT (21.0-31.4) sec 37.8 H ABG Sample Site Left radial ABG pH (7.35-7.45) 7.28 L ABG pCO2 (34-47) mmHg 41 ABG pO2 (83-108) mmHg 318 H ABG HCO3 (22-28) mmol/L 19 L ABG O2 Saturation (94-98) % > 99 H ABG Base Excess (-3-3) mmol/L -7.3 L FiO2 % 100 Sodium (136-145) mmol/L Potassium (3.5-5.1) mmol/L Chloride (98-107) mmol/L Carbon Dioxide (21.0-32.0) mmol/L Anion Gap (3-11) mmol/L BUN (7-18) mg/dL Creatinine (0.55-1.02) mg/dL Estimated GFR/1.73 m2 (mL/min/1.73m2) Glucose (74-106) mg/dL Lactate (0.6-1.4) mmol/L Calcium (8.5-10.1) mg/dL Magnesium (1.8-2.4) mg/dL Total Bilirubin (0.2-1.0) mg/dL AST (15-37) U/L ALT (14-59) U/L Alkaline Phosphatase (46-116) U/L Troponin I (<0.06) ng/mL Total Protein (6.4-8.2) g/dL Albumin (3.4-5.0) g/dL TSH (0.36-3.74) uIU/mL Urine Color (Yellow) Urine Clarity (Clear) Urine pH (5-8) Ur Specific [place] (1.005-1.025) Urine Protein (Negative) mg/dL Urine Ketones (Negative) mg/dL Urine Blood (Negative) Urine Nitrite (Negative) Urine Bilirubin (Negative) Urine Urobilinogen (Up TO 0.2) EU/dL Ur Leukocyte Esterase (Negative) Urine RBC Urine WBC (0-5) HPF Ur Epithelial Cells Urine Crystals Urine Bacteria Urine Mucus Ur Culture Indicated? Urine Glucose (Negative) mg/dL Patient ABO/Rh O Positive Antibody Screen Negative Crossmatch See Detail Range/Units 11/29/19 12:40 WBC (4.4-10.8) k/cumm RBC (4.00-5.20) m/cumm Hgb (12.0-15.5) g/dL Hct (36.0-46.0) % MCV (80-95) fL MCH (27.0-33.0) pg MCHC (32.0-36.0) g/dL RDW (11.7-14.6) % Plt Count (130-400) x1000/uL MPV (8.0-11.0) fL Immature Gran % % Neutrophils % Lymphocytes % Monocytes % Eosinophils % Basophils % Absolute Neutrophils (1.2-6.7) k/cumm Absolute Lymphocytes (1.2-3.4) k/cumm Absolute Monocytes (0.11-0.7) k/cumm Absolute Eosinophils (0.0-0.7) k/cumm Absolute Basophils (0.0-0.2) k/cumm Differential Comment RBC Morphology Polychromasia Hypochromasia Poikilocytosis Anisocytosis PT (9.3-11.0) sec INR (0.9-1.1) APTT (21.0-31.4) sec ABG Sample Site ABG pH (7.35-7.45) ABG pCO2 (34-47) mmHg ABG pO2 (83-108) mmHg ABG HCO3 (22-28) mmol/L ABG O2 Saturation (94-98) % ABG Base Excess (-3-3) mmol/L FiO2 % Sodium (136-145) mmol/L Potassium (3.5-5.1) mmol/L Chloride (98-107) mmol/L Carbon Dioxide (21.0-32.0) mmol/L Anion Gap (3-11) mmol/L BUN (7-18) mg/dL Creatinine (0.55-1.02) mg/dL Estimated GFR/1.73 m2 (mL/min/1.73m2) Glucose (74-106) mg/dL Lactate (0.6-1.4) mmol/L Calcium (8.5-10.1) mg/dL Magnesium (1.8-2.4) mg/dL Total Bilirubin (0.2-1.0) mg/dL AST (15-37) U/L ALT (14-59) U/L Alkaline Phosphatase (46-116) U/L Troponin I (<0.06) ng/mL Total Protein (6.4-8.2) g/dL Albumin (3.4-5.0) g/dL TSH (0.36-3.74) uIU/mL Urine Color (Yellow) Brown Urine Clarity (Clear) Turbid Urine pH (5-8) 7.5 Ur Specific [place] (1.005-1.025) 1.025 Urine Protein (Negative) mg/dL >=300 H Urine Ketones (Negative) mg/dL Negative Urine Blood (Negative) Large H Urine Nitrite (Negative) Negative Urine Bilirubin (Negative) Small H Urine Urobilinogen (Up TO 0.2) EU/dL 0.2 Ur Leukocyte Esterase (Negative) Large H Urine RBC Not Applicable Urine WBC (0-5) HPF >50 H Ur Epithelial Cells Not Applicable Urine Crystals Not Applicable Urine Bacteria Not Applicable Urine Mucus Not Applicable Ur Culture Indicated? Yes Urine Glucose (Negative) mg/dL Negative Patient ABO/Rh Antibody Screen Crossmatch ECG Data Attestation: I personally reviewed and interpreted this ECG (s) as follows: Interpretation: Rate of 89, A. fib, no acute ST elevation or depression. QRS 148. QTc 496. HPI General Mode of arrival: EMS. Date/Time Provider Initiated Documentation: 11/29/19 12:02. Limitations to Documentation: physical limitation. Information obtained by: patient and EMS. HPI Narrative: Patient is a 69-year-old female with a history of cardiorenal syndrome, ischemic cardiomyopathy, coronary artery disease, COPD, atrial fibrillation on Eliquis, CHF, recent admission to [facility] with acute on chronic renal failure, enterococcus bacteria complicated by osteomyelitis and discitis of her lumbar spine complicated by septic shock leading to renal failure ultimately requiring dialysis presents from [facility] for hypoglycemia today. Per EMS, glucose at [facility] re[facility] 36. Upon EMS arrival, glucose 480. Patient arrived to ED able to answer questions but unable to state reason why she is here. Related Data Home Medications Medication Instructions Recorded Confirmed albuterol sulfate [Ventolin HFA] 2 puff INHALATION Q4H PRN #120 07/13/15 11/29/19 inhaler atorvastatin 40 mg PO DAILY #90 tab-cap 07/02/16 11/29/19 nitroglycerin 0.4 mg SUBLINGUAL PRN PRN #30 01/28/17 11/29/19 tab-cap Eliquis 5 mg PO BID #60 tab 11/22/17 11/29/19 amiodarone 400 mg tablet 400 mg PO DAILY tab 11/19/18 11/29/19 Incruse Ellipta 1 inh INHALATION DAILY 05/26/19 11/29/19 ipratropium bromide 3 ml INHALATION Q6H 05/26/19 11/29/19 polyethylene glycol 3350 17 g PO DAILY PRN PRN #0 ea 09/04/19 11/29/19 acetaminophen [Tylenol] 1,000 mg PO QID 10/07/19 11/29/19 oxycodone 5 mg PO Q6H PRN 10/07/19 11/29/19 pantoprazole 40 mg PO DAILY@0730 10/07/19 11/29/19 B complex-vitamin C-folic acid 1 tab PO DAILY 11/29/19 11/29/19 [Dialyvite 800] bisacodyl [Dulcolax (bisacodyl)] 10 mg WV DAILY PRN 11/29/19 11/29/19 dronabinol [Marinol] 5 mg PO BID 11/29/19 11/29/19 melatonin 6 mg PO HS 11/29/19 11/29/19 midodrine 10 mg PO TID 11/29/19 11/29/19 multivitamin 1 tab PO DAILY 11/29/19 11/29/19 ondansetron 4 mg PO Q12H PRN PRN 11/29/19 11/29/19 ropinirole 0.5 mg PO HS 11/29/19 11/29/19 sennosides [Senokot] 2 tab PO BID 11/29/19 11/29/19 sodium chloride [Archer Nasal] 2 spray INTRANASAL BID 11/29/19 11/29/19 trazodone 25 mg PO QHS PRN 11/29/19 11/29/19 Previous Rx's Medication Instructions Recorded Eliquis 5 mg PO BID #60 tab 11/22/17 polyethylene glycol 3350 17 g PO DAILY PRN PRN #0 ea 09/04/19 Allergies Allergy/AdvReac Type Severity Reaction Status Date / Time lisinopril AdvReac Other (See Verified 11/29/19 12:45 Comment) sacubitril [From Entresto] AdvReac rash Verified 11/29/19 12:45 valsartan [From Entresto] AdvReac rash Verified 11/29/19 12:45 General Stated Complaint: Diabetes YUE: 1 Review of Systems Unobtainable due to (Unobtainable due to acute condition) [facility] Medical History (Updated 11/30/19 @ 08:25 by Katerine Kingsley DO) Candidiasis, intertrigo (Acute) Cardiac arrest with ventricular fibrillation (Resolved) Cardiomyopathy (Chronic) Cardiorenal syndrome (Inactive) Community acquired pneumonia (Inactive) COPD (chronic obstructive pulmonary disease) (Inactive) Coronary artery disease (Chronic 05/05/14) STEMI with LAD stent 04/2014 EF 35% Cystocele (Inactive) Hyponatremia (Inactive) Impaired glucose tolerance (Chronic) Ischemic cardiomyopathy (Chronic) Leukocytosis (Inactive) a. since 1995 with reportedly normal bone marrow biopsy in 1996 Mixed urinary incontinence due to female genital prolapse (Inactive) Neck mass (Inactive 01/26/15) Osteomyelitis (Acute) Palliative care patient (Acute) Right ventricular dysfunction (Inactive) Systolic CHF (Inactive 05/02/14) a. subacute with acute exacerbation Urinary incontinence (Chronic 11/06/17) Surgical History AICD (automatic cardioverter/defibrillator) present (Chronic ~06/2017) Cholecystectomy H/O surgical procedure (Inactive) a. s/p cholecystectomy b. s/p hysterectomy c. s/p bilateral carpan tunnel release surgery d. incisional hernia repair Hernia Repair, Incisional 04/19/14 History of heart artery stent (Chronic ~2013) LAD Hysterectomy, Laproscopic (~1980) OVARIES REMAIN Tonsillectomy Social History Smoking/Tobacco Use Status: Former Tobacco Use Quit Date: 05/20/13 Tobacco: How many years used: 40 Second Hand Exposure: Yes Alcohol Intake: former Drug use: Never Substance use type: does not use Household members: spouse Number of Children: 5 Do you feel safe at home: Yes Do you feel safe in your relationship?: Yes Female Reproductive History Menstrual Menopause type: surgical History History 5 Para 5 Hx # Term Pregnancies 5 Multiple births Hx # Pregnancies Ectopic pregnancies AB induced Hx Number of Living Children 5 AB spontaneous Exam Const General: in distress respiratory and ill appearing chronically Nutritional Appearance: obese morbidly obese Orientation: alert, awake and oriented x3 HENMT Head: normal to inspection Ears: hearing grossly normal bilaterally and external ears normal General nose exam: external nose normal Face and sinus: normal facial exam Mouth: mucous membranes dry Eyes General: appearance normal, both eyes and all related structures Eyelids: eyelids normal EOM: EOM intact bilaterally Neck Neck: normal visual inspection Lymphatic: no lymphadenopathy noted Chest Chest: normal inspection of the chest Resp Effort & Inspection: normal respiratory effort and able to speak in complete sentences Auscultation: diminished lung sounds bilaterally (Worse on right side) Cardio Rate: regular rate Rhythm: regular rhythm GI Inspection: normal to inspection Palpation: soft, not firm, no guarding, no hepatosplenomegaly, no masses and nontender Auscultation: normal bowel sounds Skin General skin exam: no rashes or lesions noted Neuro General: patient alert, patient awake and moves all extremities Cognition: normal cognition Speech: speech normal Motor: muscle tone normal throughout Sensory Exam: no sensory deficits noted Extrem General: capillary refill normal and no edema Psych Appearance: grossly normal Mental Status: mental status grossly normal Speech and Movement: speech and movement normal Affect: normal affect Thought Process: normal Course Vital Signs Vital signs: Vital Signs Pulse 115 H 11/29/19 11:41 Respiratory Rate 33 H 11/29/19 11:41 Blood Pressure 60/30 L 11/29/19 11:41 Pulse Oximetry 53 L 11/29/19 11:41 Pulse 92 H 11/29/19 12:53 Pulse 87 11/29/19 12:26 Respiratory Rate 34 H 11/29/19 12:47 Blood Pressure 96/58 L 11/29/19 12:26 Blood Pressure Mean 68 11/29/19 12:26 Blood Pressure Position Supine 11/29/19 11:41 Pulse Oximetry 85 L 11/29/19 12:47 Oxygen Delivery Method Bi-pap 11/29/19 12:53 Oxygen Flow Rate 15 11/29/19 11:41 Fraction of Inspired Oxygen (FIO2) 60 11/29/19 12:53 Lab/Test Results Lab/Test Results: 11/29/19 13:02 Blood Blood Culture - Pending 11/29/19 12:40 Urine - Reflex from Ua Urine Culture - Pending 11/29/19 12:30 Blood Blood Culture - Pending Laboratory Tests Range/Units 11/29/19 11/29/19 11/29/19 12:02 12:02 12:02 WBC (4.4-10.8) k/cumm 15.15 H RBC (4.00-5.20) m/cumm 2.62 L Hgb (12.0-15.5) g/dL 7.5 L Hct (36.0-46.0) % 25.5 L MCV (80-95) fL 97.3 H MCH (27.0-33.0) pg 28.6 MCHC (32.0-36.0) g/dL 29.4 L RDW (11.7-14.6) % 21.6 H Plt Count (130-400) x1000/uL 239 MPV (8.0-11.0) fL 11.3 H Immature Gran % % 0.3 Neutrophils % 88.3 Lymphocytes % 4.5 Monocytes % 6.9 Eosinophils % 0.0 Basophils % 0.0 Absolute Neutrophils (1.2-6.7) k/cumm 13.38 H Absolute Lymphocytes (1.2-3.4) k/cumm 0.68 L Absolute Monocytes (0.11-0.7) k/cumm 1.05 H Absolute Eosinophils (0.0-0.7) k/cumm 0.00 Absolute Basophils (0.0-0.2) k/cumm 0.00 Differential Comment Rbc morph reviewed RBC Morphology See below Polychromasia Present Hypochromasia 3+ Poikilocytosis 2+ Anisocytosis 3+ PT (9.3-11.0) sec INR (0.9-1.1) APTT (21.0-31.4) sec ABG Sample Site ABG pH (7.35-7.45) ABG pCO2 (34-47) mmHg ABG pO2 (83-108) mmHg ABG HCO3 (22-28) mmol/L ABG O2 Saturation (94-98) % ABG Base Excess (-3-3) mmol/L FiO2 % Sodium (136-145) mmol/L 137 Potassium (3.5-5.1) mmol/L 3.5 Chloride (98-107) mmol/L 96 L Carbon Dioxide (21.0-32.0) mmol/L 23.6 Anion Gap (3-11) mmol/L 17.4 H BUN (7-18) mg/dL 8 Creatinine (0.55-1.02) mg/dL 3.03 H Estimated GFR/1.73 m2 (mL/min/1.73m2) 15.30 Glucose (74-106) mg/dL 262 H Lactate (0.6-1.4) mmol/L 11.0 H* Calcium (8.5-10.1) mg/dL 8.5 Magnesium (1.8-2.4) mg/dL 1.9 Total Bilirubin (0.2-1.0) mg/dL 1.0 AST (15-37) U/L 124 H ALT (14-59) U/L 48 Alkaline Phosphatase (46-116) U/L 210 H Troponin I (<0.06) ng/mL 0.05 Total Protein (6.4-8.2) g/dL 5.3 L Albumin (3.4-5.0) g/dL 2.2 L TSH (0.36-3.74) uIU/mL 1.36 Urine Color (Yellow) Urine Clarity (Clear) Urine pH (5-8) Ur Specific [place] (1.005-1.025) Urine Protein (Negative) mg/dL Urine Ketones (Negative) mg/dL Urine Blood (Negative) Urine Nitrite (Negative) Urine Bilirubin (Negative) Urine Urobilinogen (Up TO 0.2) EU/dL Ur Leukocyte Esterase (Negative) Urine RBC Urine WBC (0-5) HPF Ur Epithelial Cells Urine Crystals Urine Bacteria Urine Mucus Ur Culture Indicated? Urine Glucose (Negative) mg/dL Patient ABO/Rh Antibody Screen Range/Units 11/29/19 11/29/19 11/29/19 12:02 12:20 12:29 WBC (4.4-10.8) k/cumm RBC (4.00-5.20) m/cumm Hgb (12.0-15.5) g/dL Hct (36.0-46.0) % MCV (80-95) fL MCH (27.0-33.0) pg MCHC (32.0-36.0) g/dL RDW (11.7-14.6) % Plt Count (130-400) x1000/uL MPV (8.0-11.0) fL Immature Gran % % Neutrophils % Lymphocytes % Monocytes % Eosinophils % Basophils % Absolute Neutrophils (1.2-6.7) k/cumm Absolute Lymphocytes (1.2-3.4) k/cumm Absolute Monocytes (0.11-0.7) k/cumm Absolute Eosinophils (0.0-0.7) k/cumm Absolute Basophils (0.0-0.2) k/cumm Differential Comment RBC Morphology Polychromasia Hypochromasia Poikilocytosis Anisocytosis PT (9.3-11.0) sec 28.4 H INR (0.9-1.1) 2.9 H APTT (21.0-31.4) sec 37.8 H ABG Sample Site Left radial ABG pH (7.35-7.45) 7.28 L ABG pCO2 (34-47) mmHg 41 ABG pO2 (83-108) mmHg 318 H ABG HCO3 (22-28) mmol/L 19 L ABG O2 Saturation (94-98) % > 99 H ABG Base Excess (-3-3) mmol/L -7.3 L FiO2 % 100 Sodium (136-145) mmol/L Potassium (3.5-5.1) mmol/L Chloride (98-107) mmol/L Carbon Dioxide (21.0-32.0) mmol/L Anion Gap (3-11) mmol/L BUN (7-18) mg/dL Creatinine (0.55-1.02) mg/dL Estimated GFR/1.73 m2 (mL/min/1.73m2) Glucose (74-106) mg/dL Lactate (0.6-1.4) mmol/L Calcium (8.5-10.1) mg/dL Magnesium (1.8-2.4) mg/dL Total Bilirubin (0.2-1.0) mg/dL AST (15-37) U/L ALT (14-59) U/L Alkaline Phosphatase (46-116) U/L Troponin I (<0.06) ng/mL Total Protein (6.4-8.2) g/dL Albumin (3.4-5.0) g/dL TSH (0.36-3.74) uIU/mL Urine Color (Yellow) Urine Clarity (Clear) Urine pH (5-8) Ur Specific [place] (1.005-1.025) Urine Protein (Negative) mg/dL Urine Ketones (Negative) mg/dL Urine Blood (Negative) Urine Nitrite (Negative) Urine Bilirubin (Negative) Urine Urobilinogen (Up TO 0.2) EU/dL Ur Leukocyte Esterase (Negative) Urine RBC Urine WBC (0-5) HPF Ur Epithelial Cells Urine Crystals Urine Bacteria Urine Mucus Ur Culture Indicated? Urine Glucose (Negative) mg/dL Patient ABO/Rh O Positive Antibody Screen Negative Range/Units 11/29/19 12:40 WBC (4.4-10.8) k/cumm RBC (4.00-5.20) m/cumm Hgb (12.0-15.5) g/dL Hct (36.0-46.0) % MCV (80-95) fL MCH (27.0-33.0) pg MCHC (32.0-36.0) g/dL RDW (11.7-14.6) % Plt Count (130-400) x1000/uL MPV (8.0-11.0) fL Immature Gran % % Neutrophils % Lymphocytes % Monocytes % Eosinophils % Basophils % Absolute Neutrophils (1.2-6.7) k/cumm Absolute Lymphocytes (1.2-3.4) k/cumm Absolute Monocytes (0.11-0.7) k/cumm Absolute Eosinophils (0.0-0.7) k/cumm Absolute Basophils (0.0-0.2) k/cumm Differential Comment RBC Morphology Polychromasia Hypochromasia Poikilocytosis Anisocytosis PT (9.3-11.0) sec INR (0.9-1.1) APTT (21.0-31.4) sec ABG Sample Site ABG pH (7.35-7.45) ABG pCO2 (34-47) mmHg ABG pO2 (83-108) mmHg ABG HCO3 (22-28) mmol/L ABG O2 Saturation (94-98) % ABG Base Excess (-3-3) mmol/L FiO2 % Sodium (136-145) mmol/L Potassium (3.5-5.1) mmol/L Chloride (98-107) mmol/L Carbon Dioxide (21.0-32.0) mmol/L Anion Gap (3-11) mmol/L BUN (7-18) mg/dL Creatinine (0.55-1.02) mg/dL Estimated GFR/1.73 m2 (mL/min/1.73m2) Glucose (74-106) mg/dL Lactate (0.6-1.4) mmol/L Calcium (8.5-10.1) mg/dL Magnesium (1.8-2.4) mg/dL Total Bilirubin (0.2-1.0) mg/dL AST (15-37) U/L ALT (14-59) U/L Alkaline Phosphatase (46-116) U/L Troponin I (<0.06) ng/mL Total Protein (6.4-8.2) g/dL Albumin (3.4-5.0) g/dL TSH (0.36-3.74) uIU/mL Urine Color (Yellow) Brown Urine Clarity (Clear) Turbid Urine pH (5-8) 7.5 Ur Specific [place] (1.005-1.025) 1.025 Urine Protein (Negative) mg/dL >=300 H Urine Ketones (Negative) mg/dL Negative Urine Blood (Negative) Large H Urine Nitrite (Negative) Negative Urine Bilirubin (Negative) Small H Urine Urobilinogen (Up TO 0.2) EU/dL 0.2 Ur Leukocyte Esterase (Negative) Large H Urine RBC Not Applicable Urine WBC (0-5) HPF >50 H Ur Epithelial Cells Not Applicable Urine Crystals Not Applicable Urine Bacteria Not Applicable Urine Mucus Not Applicable Ur Culture Indicated? Yes Urine Glucose (Negative) mg/dL Negative Patient ABO/Rh Antibody Screen Procedures Central Line Placement Right Femoral: Time Out Performed: Yes Patient Placed on Monitor/Pulse Ox: Yes MD Prep: mask, gown and gloves Central Line Prep: Chlorhexidine scrub and sterile drapes applied Local Anesthetic: Lidocaine 1% Amount of anesthesia used (mL): 5 Ultrasound Used for Placement: No Central Line Lumen Inserted: triple Post Procedure: good blood return, all ports aspirated, flushed, capped and sutured in place with 3-0 nylon Post Procedure X-Ray: tip of catheter in good position Patient Tolerated Procedure: well Complications: none Critical Care Time Critical Care Time Critical Care Time: Yes Total Critical Care Time: 60 Attestation: I spent 60 minutes of critical care time with this patient. This does not include time spent on separately reported billable procedures.
[2019-11-29] MEDS: DEXTROSE 5%-0.9% SALINE 1,000 ML 100 ML IV (13:20)
[2019-11-29] MEDS: PIPERACILLIN/TAZO 3.375 GM in Normal Saline 50 ML IVPB (13:42)
[2019-11-29] MEDS: MAGNESIUM SULFATE 1 GM/100 ML BAG IVPB (13:47)
[2019-11-29] MEDS: LORazepam 2 MG/ML VIAL ×2 (13:52→14:54)
[2019-11-29] MEDS: LORazepam 2 MG/ML VIAL IVP ×2 (14:42→15:20)
--- NOTE | 2019-12-01 09:20 | NUR.NOTE ---
Patient transferred to [facility]. faxed urine culture report to [phone].Nursing Note:
== END 2019-11-29 16:05 | disposition short-term general hospital (02) ==
PROVIDERS: Physician Assistant; Emergency Provider Physician Assistant; PCP Family Medicine
DX: R65.21 Severe sepsis with septic shock (principal); A41.9 Sepsis, unspecified organism; N39.0 Urinary tract infection, site not specified; J18.9 Pneumonia, unspecified organism; R09.02 Hypoxemia; E11.649 Type 2 diabetes mellitus with hypoglycemia without coma; E11.22 Type 2 diabetes mellitus with diabetic chronic kidney disease; N18.6 End stage renal disease; I13.2 Hypertensive heart and chronic kidney disease with heart failure and with stage 5 chronic kidney disease, or end stage renal disease; I50.23 Acute on chronic systolic (congestive) heart failure; Z99.2 Dependence on renal dialysis; E87.2 Acidosis; D64.9 Anemia, unspecified; J44.9 Chronic obstructive pulmonary disease, unspecified; Z87.891 Personal history of nicotine dependence
CPT/HCPCS: 36415; 36416; 36430; 36556; 51702; 80053; 82805; 82962; 86850; 86900; 86901; 86920; 87040; 93005; 94640; 96361; 96365; 96366; 96367; 96375; 96376; 99291; 36600; 71045; 81003; 81015; 83605; 83735; 84443; 84484; 85025; 85610; 85730; 87086; 93010; J2060; J2543; J3370; J3475; J7042; J7620; P9016